=== PATIENT | female | born 1975 | race Caucasian/White ===

== ENCOUNTER 2016-05-25 15:04 | Inpatient (IN) | payer MEDICARE, OTHER ==
[~2016-05-25] VITALS: Ht 165.1 cm; Wt 83.6 kg
[~2016-05-25 15:04] MED LIST: CELE200C PO; CLOB50SO TOP; DICL100G7 TP; FERR-26 PO; FLUT16SP NS; FLUT9.9S AD; HYDR-2666 PO; HYDR28.423 TP; HYOS0.124 PO; INSU100V13 SQ; INSU100V31 SQ; KETO15CR TP; LEVO200T PO; LEVO50TA PO; LEVO5TAB20 PO; LISI-334 PO; NYST15CR TP; OMEP20TA PO; QUET100T PO; SERT100T PO; SIMV40TA3 PO; SITA100T PO; SITA50TA PO; TRIA15CR3 TP; WARF5TAB PO
[2016-05-25 16:30] LABS: BASO # 0.1 x10^3/uL (0.0-0.2); BASO % 1 % (0-3); EOS % 1 % (0-3); HEMATOCRIT 33.1 % (36.0-47.0); HEMOGLOBIN 10.7 g/dL (12.0-15.5); LYMPH # 2.4 x10^3/uL (1.0-4.8); LYMPH % 15 % (24-48); MEAN CORPUSCULAR HEMOGLOBIN 25 pg (25-35); MEAN CORPUSCULAR HGB CONC 32 g/dL (31-37); MEAN CORPUSCULAR VOLUME 78 fL (79-100); MONO % 4 % (0-9); NEUT % 79 % (31-73); PLATELET COUNT 639 x10^3/uL (140-400); RED BLOOD COUNT 4.22 x10^6/uL (3.50-5.40); RED CELL DISTRIBUTION WIDTH 16.9 % (11.5-14.5); WHITE BLOOD COUNT 16.1 x10^3/uL (4.0-11.0)
[2016-05-25 16:38] LABS: INR 1.3 (0.8-1.1)
[2016-05-25 16:42] LABS: CALCIUM 9.4 mg/dL (8.5-10.1); CREATININE 1.9 mg/dL (0.6-1.0); GFR 29.1; POTASSIUM 4.1 mmol/L (3.5-5.1)
--- NOTE | 2016-05-25 16:45 | RAD ---
Exam performed: One view chest. Indication: Shortness of air Date of Service: 05/25/2016 6:20 PM Comparison: 10/30/15. Single AP upright portable view chest findings: Cardiomediastinal silhouette is within limits of normal. No acute infiltrates, effusion or pneumothorax is detected. The bony structures are normal. Impression: No acute cardiopulmonary process is detected.
[2016-05-25 16:49] LABS: ALBUMIN 3.2 g/dL (3.4-5.0); ALBUMIN/GLOBULIN RATIO 0.6 (1.0-1.7); TOTAL BILIRUBIN 0.5 mg/dL (0.2-1.0); TOTAL PROTEIN 8.9 g/dL (6.4-8.2)
[2016-05-25] MEDS ORDERED: FENTANYL PF 100 MCG/2 ML VIAL. IV PRN (17:45)
[2016-05-25] MEDS ORDERED: ONDANSETRON PF 4 MG/2 ML VIAL. IV PRN (17:45)
[2016-05-25] MEDS: IV NORMAL SALINE 1000ML BAG 1,000 ML IV SCH (17:47)
[2016-05-25 17:48] LABS: % BASOS 1 % (0-3); % EOS 4 % (0-5)
[2016-05-25 17:51] LABS: PLT ESTIMATE INCREASED (ADEQUATE); POLYCHROMASIA SLIGHT; TOXIC GRANULATION MOD
[2016-05-25 17:52] LABS: ANISOCYTOSIS SLIGHT; MICROCYTOSIS SLIGHT
[2016-05-25 18:07] LABS: BILIRUBIN,URINE NEGATIVE (NEG); GLUCOSE,URINE NEGATIVE (NEG); NITRITE,URINE NEGATIVE (NEG); PH,URINE 5.5; PROTEIN,URINE 100 mg/dL (NEG-TRACE); UROBILINOGEN,URINE 0.2 mg/dL (0.2 mg/dL)
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
[2016-05-25 18:16] LABS: BACTERIA,URINE FEW /HPF (0-FEW); RBC,URINE OCC /HPF (0-2); SQUAMOUS EPITHELIAL CELL,UR MOD /LPF
[2016-05-25 18:17] LABS: BARBITURATES NEG (NEG); BENZODIAZEPINES NEG (NEG); CANNABINOIDS NEG (NEG); COCAINE NEG (NEG); ETHANOL, URINE NEG (NEG); METHADONE NEG (NEG); OPIATES NEG (NEG); PHENCYCLIDINE NEG (NEG)
[2016-05-25 18:36] VITALS: BP 127/74
[2016-05-25 19:55] VITALS: BP 113/71
--- NOTE | 2016-05-25 20:17 | RAD ---
PROCEDURE Lung scan 05/25/2016 HISTORY Shortness of breath. TECHNIQUE After the administration of 14.0 millicuries of xenon 133 gas, ventilation images of both lungs were obtained using the Gamma camera. After the intravenous administration of 5.0 millicuries of technetium 99 M MAA, perfusion images of both lungs were obtained using the Gamma camera. FINDINGS Comparison is made to a portable chest radiograph performed earlier today. This demonstrates mild cardiomegaly. No acute pulmonary infiltrate is seen. Heterogeneous ventilation and perfusion to both lungs is seen, left greater than right. Matched subsegmental ventilation and perfusion defects are seen involving the left lower lobe. No unmatched perfusion defect is seen. These findings are consistent with a low probability study for pulmonary embolism. IMPRESSION Low probability study for pulmonary embolism. Electronically signed by: Daniel Boyle MD (May 25, 2016 20:16:27)
[2016-05-25 23:45] VITALS: BP 150/83
[2016-05-26] MEDS ORDERED: INFLUENZA VAX SCREEN BY RX. MC PRN (00:15)
[2016-05-26] MEDS: IV NORMAL SALINE 1000ML BAG 1,000 ML IV SCH ×3 (02:11→16:08)
--- NOTE | 2016-05-26 02:19 | ACF ---
Admission Forms Criteria CARDIOLOGY GRG Clinical Indications for Admission to Inpatient Care ( Place 'X' for any and all applicable criteria): Hospital admission is needed for appropriate care of the patient because of ANY ONE of the following (1): [ ] I. Hemodynamic instability as indicated by ALL of the following (1)(2)(3) (4)(5) [ ]a) Vital signs or other findings not as expected for chronic patient condition or baseline [ ]b) Instability indicated by ANY ONE of the following: [ ]i) Hypotension [ ]ii) Symptomatic Tachycardia unresponsive to treatment ( e.g., analgesia, fluids, sedation as indicated) [ ]iii) Inadequate perfusion indicated by ANY ONE of the following: [ ] 1) Lactic acidosis (> 2 mmol/L) [ ] 2) New abnormal capillary refill (> 3 seconds) [ ] 3) Reduced urine output [ ] 4) New altered mental status [ ]iv) Orthostatic vital sign changes unresponsive to treatment (e.g., fluids) [ ]v) IV inotropic or vasopressor medication required to maintain adequate blood pressure or perfusion [ ] II. Severe heart failure as indicated by ANY ONE of the following(17)(18) [ ]a) Respiratory distress [ ]b) Hypotension [ ]c) Anasarca (refractory to outpatient therapy) [ ]d) Cardiac arrhythmias of immediate concern [ ]e) Myocardial ischemia [ ] III. Cardiac arrhythmias or findings of immediate concern indicated by ANY ONE of the following (19)(20): [ ] a) Heart rhythms that are inherently dangerous or unstable indicated by ANY ONE of the following (21)(22)(23): [ ] i) Resuscitated ventricular fibrillation or cardiac arrest [ ] ii) Ventricular escape rhythm [ ] iii) Sustained ventricular tachycardia (30 seconds or more of ventricular rhythm at greater than 100 beats per minute) [ ] iv) Nonsustained ventricular tachycardia and ANY ONE of the following: [ ] 1) Suspected cardiac ischemia as cause or consequence of ventricular tachycardia [ ] 2) In setting of acute myocarditis [ ] b) Unstable cardiac conduction defects indicated by ANY ONE of the following(23)(24)(25) [ ] i) Type II second-degree atrioventricular block [ ]ii) Third-degree atrioventricular block [ ]iii) New-onset left bundle branch block with suspected myocardial ischemia [ ]c) Any heart rhythm and ANY ONE of the following (21)(22)(26)(27) (28) [ ] i) Continuous long-term ECG monitoring needed (e.g., initiation of drug requiring monitoring for more than 24 hours) [ ] ii) Patient has automatic implanted cardioverter defibrillator that is repeatedly firing, malfunctioning, or in need of immediate adjustment of settings beyond the scope of ambulatory or observation care [ ]d) Heart rhythms of concern due to ANY ONE of the following: [ ] i) Hypotension [ ] ii) Respiratory distress [ ] iii) Association with other significant symptoms (e.g., bradycardia with syncope or ongoing dizziness, supraventricular tachycardia with chest pain (14)(15)(17) [ ] IV. Monitoring for cardiac contusion beyond the scope of observation care needed [A](30)(31)(32) [ ] V. Surgical or device complication (e.g., valve replacement complication , pacemaker dysfunction) (35)(41)(44)(45)(46) [ ] . Inpatient palliative care needed. [B](49) Also use Inpatient Palliative Care Criteria [ ] VII. Nonbacterial thrombotic (marantic) endocarditis (36)(43)(47)(48) [X] VIII. Cardiology condition, symptom, or finding for which emergency and observation care has failed or are not considered appropriate. [ ] IX. Acute valvular disease requiring inpatient as indicated by ANY ONE of the following (41) [ ]a) Acute valvular regurgitation (42) [ ]b) Noninfectious valvulitis (43) [ ]c) Obstructive valve thrombosis [ ]d) Paravalvular leak [ ]e) Other significant valvular disorder remaining after emergency or observation level of care (as appropriate) [ ]X. Pericardial disease requiring inpatient treatment as indicated by ANY ONE of the following (33)(34)(35)(36)(37) [ ]a) Suspected tamponade (38)(39)(40) [ ]b) Hemopericardium [ ]c) Other significant pericardial disorder remaining after emergency or observation level of care (as appropriate) [ ] XI. Cardiac ischemia beyond scope of emergency and observation care. [ ] XII. Hypertension requiring inpatient treatment as indicated by ANY ONE of the following (6)(7)(8) [ ]a) SBP greater than 220 mm Hg or DBP greater than 120 mmHg despite treatment [ ]b) SBP greater than 140 mm Hg or DBP greater than 100 mm Hg with evidence of acute end organ damage as indicated by ANY ONE of the following [ ] i) Encephalopathy [ ] ii) Acute renal failure as indicated by new onset of ANY ONE of the following (9)(10)(11)(12)(13) [ ]1) 3-fold rise in serum creatinine from baseline [ ]2) Serum creatinine greater than 4 mg/dL ( 354 micromoles/L) with acute rise greater than 0.5 mg/dL (44.2 micromoles/L) [ ]3) Reduction of more than 75% in estimated glomerular filtration rate from baseline [ ]4) Estimated glomerular filtration rate less than 35 mL/min/1.73m2 (0.59 mL/sec/1.73m2) in child up to 18 years of age [ ]5) Cessation of urine output indicated by ALL of the following [ ]A. Adequate volume status [ ]B. Inadequate urine output as indicated by ANY ONE of the following [ ]a. Urine output less than 0.3 mL/kg/hr for 24 hours [ ]b. Anuria (urine output less than 0.1 mL/kg/hr) for 12 hours [ ] iii) Aortic dissection [ ] iv) Myocardial Ischemia [ ] v) Left ventricular heart failure [ ]vi) Retinal Hemorrhage [ ]vii) Other significant finding [ ]c) Hypertension in child requiring inpatient treatment as indicated by ALL of the following(14)(15)(16) [ ] i) Outpatient treatment not effective, not available, or not appropriate [ ]ii) SBP or DBP greater than 95th percentile for age [ ]iii) Evidence of acute end organ damage as indicated by ANY ONE of the following [ ]1) Altered mental status [ ]2) Acute renal failure as indicated by new onset of ANY ONE of the following(9)(10)(11)(12)(13) [ ]A. 3-fold rise in serum creatinine from baseline [ ]B. Serum creatinine greater than 4 mg/dL (354 micromoles/L) with acute rise greater than 0.5 mg/dL (44.2 micromoles/L) [ ]C. Reduction of more than 75% in estimated glomerular filtration rate from baseline [ ]D. Estimated glomerular filtration rate less than 35 mL/min/1.73m2 (0.59 mL/sec/1.73m2) in child up to 18 years of age [ ]E. Cessation of urine output indicated by ALL of the following [ ]a. Adequate volume status [ ]b. Inadequate urine output as indicated by ANY ONE of the following [ ]i) Urine output less than 0.3 mL/kg/hr for 24 hours [ ]ii) Anuria ( urine output less than 0.1 mL/kg/hr) for 12 hours [ ]3) Severe headache [ ]4) Visual disturbance [ ]5) Retinal hemorrhage [ ]6) Other significant finding [ ]XIII. Complications of transplanted heart indicated by ANY ONE of the following(61): [ ]a) Acute graft rejection requiring inpatient management (eg, intravenous immunosuppression)(62)(63) [ ]b) Acute graft heart failure indicated by ANY ONE of the following(64): [ ]i) Hemodynamic instability [ ]ii) Cardiac arrhythmias of immediate concern [ ]iii) Pulmonary edema that is very severe (eg, mechanical ventilation needed, imminent or likely, need for 100% oxygen to keep oxygen saturation above 90%) [ ]iv) Pulmonary edema that is persistent as indicated by ALL of the following: [ ]1) New need for oxygen therapy to keep oxygen saturation above 90% (or increased FiO2 need from baseline) [ ]2) Has not improved sufficiently with emergency department or observation care IV diuretics or other heart failure treatments[E] [ ]v) Altered mental status that is severe or persistent [ ]vi) Increased creatinine (new on laboratory test) with reduction of more than 50% in estimated glomerular filtration rate from baseline [ ]vii) Progressively (ongoing) rising creatinine (known from past laboratory test) with reduction of more than 25% in estimated glomerular filtration rate from baseline [ ]viii) Acute renal failure [ ]ix) Acute peripheral ischemia (eg, examination shows pulseless, cool, mottled, or cyanotic extremity) [ ]x) Pulmonary artery catheter monitoring needed [ ]xi) Other sign or symptom of heart failure requiring inpatient treatment (ie, too severe or not responsive to outpatient and observation care treatment) [ ]c) Infection requiring inpatient management (eg, Hemodynamic instability, need for intravenous antimicrobial treatment)(66)(67)(68)(69)(70) [ ]d) Cardiac allograft vasculopathy requiring inpatient management ( eg evidence of cardiac ischemia)(71) [ ]e) Other complication of transplanted heart (eg, stroke, severe pulmonary hypertension, severe valvular dysfunction) requiring inpatient management(72) The original [facility] content created by [facility] has been revised. The portions of the content which have been revised are identified through the use of italic text or in bold, and [facility] has neither reviewed nor approved the modified material. All other unmodified content is copyright [facility]. Please see references footnoted in the original [facility] edition 2016 Admission Criteria Met?: Yes LAUREANO SALAS May 26, 2016 02:19
[2016-05-26 03:38] VITALS: BP 123/74
[2016-05-26 07:00] VITALS: BP 113/67
--- NOTE | 2016-05-26 07:59 | PDOC1 ---
History and Physical Date of Admission Date of Admission DATE: 05/25/16 Identification/Chief Complaint Chief Complaint Chest pain Source Source: Patient History of Present Illness History of Present Illness Pt was seen early this morning after being evaluated in the clinic yesterday afternoon and sent to the ER. Pt came to the clinic yesterday with multiple complaints. She had stopped taking her medications for a couple of weeks and was overall not feeling well. She was complaining of chest pain and was supposed to get a stress test outpatient, but stress test could not be performed because pt was ill with cough. She is still having intermittent chest pain. She has now had a cough for the past 2-3 weeks with yellow sputum. There are also placement concerns. Pt is no longer wanting to live at home and is interested in either a long-term, or preferably a prison which her father is agreeable to. Past Medical History Cardiovascular: HTN, Hyperlipidemia Pulmonary: No pertinent hx CENTRAL NERVOUS SYSTEM: Periperal neuropathy GI: GERD, Inflam bowel disease Heme/Onc: Cancer, Iron deficiency Anemia Hepatobiliary: No pertinent hx Psych: Bipolar, Schizophrenia Musculoskeletal: Osteoarthritis Rheumatologic: No pertinent hx Infectious disease: No pertinent hx ENT: No pertinent hx Renal/: Chronic renal insuff Endocrine: Diabetes, Hypothyroidism, Osteoporosis Dermatology: Eczema, Psoriasis Past Surgical History Past Surgical History: Total hip replacement, Total knee replacement, Tonsillectomy, Other (Ileostomy, Thyroidectomy, Axillary hydradenitis repair) Family History Family History: Cancer (Ovarian cancer), Coronary Artery Disease Social History Smoke: Quit ALCOHOL: none Drugs: None Current Problem List Problem List Problems Medical Problems: (1) Anxiety Status: Acute (2) Chest pain Status: Acute (3) Cough Status: Acute (4) Tachycardia Status: Acute Problems: Current Medications Current Medications Current Medications Ondansetron HCl (Zofran) 4 mg PRN Q8HRS PRN IV NAUSEA/VOMITING; Start 05/25/16 at 17:45; Stop 05/26/16 at 17:44 Fentanyl Citrate 50 mcg 50 mcg PRN Q2HR PRN IV PAIN; Start 05/25/16 at 17:45; Stop 05/26/16 at 17:44 Sodium Chloride (Iv Sodium Chloride 0.9% 1000ml Bag) 1,000 ml @ 150 mls/hr Q6H40M IV Last administered on 05/26/16t 02:11; Start 05/25/16 at 17:36; Stop at 17:35 Influenza Virus Vaccine Quadrival (Fluarix Quad [id number] Syringe) 0.5 ml ONCE ONCE VAX IM ; Start 05/26/16 at 09:00; Stop 05/26/16 at 09:01 Info (Do NOT chart on this placeholder) 1 each PRN 1X PRN MC SEE COMMENTS; Start 05/26/16 at 00:15; Status Cancel Active Scripts Active Reported Voltaren (Diclofenac Sodium) 100 Gm Gel..gram. 1 Gm TP QID Fluticasone Propionate Nasal Virgin (Fluticasone Propionate) 16 Gm Virgin.susp 2 Virgin NS DAILY Quetiapine Fumarate 100 Mg Tablet 200 Mg PO HS Ferrous Sulfate 325 Mg Tablet 325 Mg PO DAILY Hydrocortisone Plus 1% Cream (Hydrocortisone/Aloe Vera) 28.4 Gm Cream..g. 1 Applic TP Hyoscyamine Sulfate 0.125 Mg Tablet 0.125 Mg PO Omeprazole 20 Mg Tablet.dr 20 Mg PO BID Ketoconazole 15 Gm Cream..g. 1 Heraclio TP BID Triamcinolone Acetonide 0.1% Cream (Triamcinolone Acetonide) 15 Gm Cream..g. 1 Heraclio TP BID Synthroid (Levothyroxine Sodium) 200 Mcg Tablet 200 Mcg PO DAILYAC Cormax (Clobetasol Propionate) 50 Ml Solution 1 Heraclio TOP HS Hydrocodone-Apap 5-325 (Hydrocodone Bit/Acetaminophen) 1 Each Tablet 1 Tab PO PRN Q6HRS PRN Novolog (Insulin Aspart) 100 Unit/1 Ml Vial 10 Unit SQ BIDACLD Januvia (Sitagliptin Phosphate) 100 Mg Tablet 100 Mg PO DAILY Xyzal (Levocetirizine Dihydrochloride) 5 Mg Tablet 5 Mg PO DAILYWSUP Lisinopril 20 Mg Tablet 20 Mg PO DAILY Simvastatin 40 Mg Tablet 40 Mg PO HS Triamcinolone Acetonide 0.1% Cream (Triamcinolone Acetonide) 15 Gm Cream..g. 1 Heraclio TP TID Nystatin 15 Gm Cream..g. 15 Gm TP BID Zoloft (Sertraline Hcl) 100 Mg Tablet 100 Mg PO DAILY Hydrocodone-Apap 5-325 (Hydrocodone Bit/Acetaminophen) 1 Each Tablet 1 Tab PO PRN Q6HRS PRN Levemir (Insulin Detemir) 100 Unit/1 Ml Vial 12 Unit SQ Allergies Allergies: Coded Allergies: Penicillins (Verified Allergy, Severe, Anaphylaxis, 12/29/15) aspirin (Verified Allergy, Severe, Anaphylaxis, 12/29/15) Latex, Natural Rubber (Verified Allergy, Intermediate, Rash, 12/30/15) RUBBER latex (Verified Allergy, Intermediate, Rash, 12/29/15) piperacillin (Verified Allergy, Intermediate, Rash, 12/29/15) tazobactam (Verified Allergy, Intermediate, Rash, 12/29/15) tizanidine (Verified Allergy, Intermediate, Itching, 12/29/15) I S O L A T I O N *CONTACT* (Verified Allergy, Unknown, 12/19/15) mrsa acetaminophen (Verified Adverse Reaction, Intermediate, elevated liver enzymes, 01/01/16) Uncoded Allergies: PLASTIC (Allergy, Intermediate, Rash, 10/27/15) ROS General: YES: Chills, Fatigue PSYCHOLOGICAL ROS: YES: Anxiety, Depression, Mood Swings, No: Suicidal ideation Eyes: No Decreased vision, No Eye Pain HEENT: YES: Nasal congestion, No: Sore Throat ALLERGY AND IMMUNOLOGY: No: Hives, Post Nasal Drip Hematological and Lymphatic: No: Bleeding Problems, Blood Clots Respiratory: YES: Cough, Shortness of breath, Sputum Changes, No: Wheezing Cardiovascular: yes Chest Pain, No Edema, No Palpitations Gastrointestinal: Yes Abdominal Pain (chronic), Yes Nausea, Yes Other (no changes in ostomy output), Yes Vomiting Genitourinary: No Dysuria, No Urgency Musculoskeletal: Yes Joint Pain, Yes Muscle Pain Neurological: Yes Behavorial Changes, Yes Numbness/Tingling, No Impaired Coord/balance, No Weakness Skin: No Rash, No Skin Lesion Changes Physical Exam General: Alert, Oriented X3, Cooperative, No acute distress HEENT: Atraumatic, PERRLA, EOMI, Mucous membr. moist/pink Lungs: Clear to auscultation, Normal air movement Heart: RRR, no rubs, no gallops, no murmurs Abdomen: Normal bowel sounds, Soft, No hepatosplenomegaly Extremities: No clubbing, No cyanosis, No edema Skin: Other (scaly patches of skin throughout) Neuro: Normal speech, Cranial nerves 3-12 NL Psych/Mental Status: Mental status NL, Mood NL Vitals Vitals Vital Signs Date Time Temp Pulse Resp B/P Pulse Ox O2 Delivery O2 Flow Rate FiO2 05/26/16 03:38 98.1 90 20 123/74 95 Room Air 98.1 Labs Labs Laboratory Tests Test 05/25/16 15:25 05/25/16 17:45 05/25/16 17:53 05/25/16 20:14 White Blood Count 16.1x10^3/uL (4.0-11.0) Red Blood Count 4.22x10^6/uL (3.50-5.40) Hemoglobin 10.7g/dL (12.0-15.5) Hematocrit 33.1% (36.0-47.0) Mean Corpuscular Volume 78fL (79-100) Mean Corpuscular Hemoglobin 25pg (25-35) Mean Corpuscular Hemoglobin Concent 32g/dL (31-37) Red Cell Distribution Width 16.9% (11.5-14.5) Platelet Count 639x10^3/uL (140-400) Neutrophils (%) (Auto) 79% (31-73) Lymphocytes (%) (Auto) 15% (24-48) Monocytes (%) (Auto) 4% (0-9) Eosinophils (%) (Auto) 1% (0-3) Basophils (%) (Auto) 1% (0-3) Neutrophils # (Auto) 12.8x10^3uL (1.8-7.7) Lymphocytes # (Auto) 2.4x10^3/uL (1.0-4.8) Monocytes # (Auto) 0.7x10^3/uL (0.0-1.1) Eosinophils # (Auto) 0.1x10^3/uL (0.0-0.7) Basophils # (Auto) 0.1x10^3/uL (0.0-0.2) Segmented Neutrophils % 74% (35-66) Band Neutrophils % 1% (0-9) Lymphocytes % 15% (24-48) Monocytes % 4% (0-10) Eosinophils % 4% (0-5) Basophils % 1% (0-3) Metamyelocytes % 1% (0-0) Toxic Granulation Mod Platelet Estimate Increased (ADEQUATE) Polychromasia Slight Anisocytosis Slight Microcytosis Slight Prothrombin Time 15.0SEC (11.7-14.0) Prothromb Time International Ratio 1.3 (0.8-1.1) D-Dimer (Ratna) 2.20ug/mlFEU (0.00-0.50) Sodium Level 139mmol/L (136-145) Potassium Level 4.1mmol/L (3.5-5.1) Chloride Level 106mmol/L (98-107) Carbon Dioxide Level 13mmol/L (21-32) Anion Gap 20 (6-14) Blood Urea Nitrogen 28mg/dL (7-20) Creatinine 1.9mg/dL (0.6-1.0) Estimated GFR (Cockcroft-Gault) 29.1 BUN/Creatinine Ratio 15 (6-20) Glucose Level 183mg/dL (70-99) Calcium Level 9.4mg/dL (8.5-10.1) Total Bilirubin 0.5mg/dL (0.2-1.0) Aspartate Amino Transf (AST/SGOT) 29U/L (15-37) Alanine Aminotransferase (ALT/SGPT) 28U/L (14-59) Alkaline Phosphatase 182U/L (46-116) Troponin I Quantitative < 0.017ng/mL (0.000-0.055) [id number]-Kjl-[id number]-Type Natriuretic Peptide 113pg/mL (0-124) Total Protein 8.9g/dL (6.4-8.2) Albumin 3.2g/dL (3.4-5.0) Albumin/Globulin Ratio 0.6 (1.0-1.7) Ethyl Alcohol Level < 10mg/dL (0-10) Urine Collection Type Unknown Urine Color Yellow Urine Clarity Cloudy Urine pH 5.5 Urine Specific [place] 1.020 Urine Protein 100mg/dL (NEG-TRACE) Urine Glucose (UA) Negativemg/dL (NEG) Urine Ketones (Stick) Negativemg/dL (NEG) Urine Blood Small (NEG) Urine Nitrite Negative (NEG) Urine Bilirubin Negative (NEG) Urine Urobilinogen Dipstick 0.2mg/dL (0.2 mg/dL) Urine Leukocyte Esterase Small (NEG) Urine RBC Occ/HPF (0-2) Urine WBC 5-10/HPF (0-4) Urine Squamous Epithelial Cells Mod/LPF Urine Bacteria Few/HPF (0-FEW) Urine Hyaline Casts Few/HPF Urine Mucus Mod/LPF Urine Opiates Screen Neg (NEG) Urine Methadone Screen Neg (NEG) Urine Barbiturates Neg (NEG) Urine Phencyclidine Screen Neg (NEG) Urine Amphetamine/Methamphetamine Neg (NEG) Urine Benzodiazepines Screen Neg (NEG) Urine Cocaine Screen Neg (NEG) Urine Cannabinoids Screen Neg (NEG) Urine Ethyl Alcohol Neg (NEG) Bedside Urine HCG, Qualitative Hcg negative (Negative) Glucose (Fingerstick) 177mg/dL (70-99) Test 05/25/16 23:30 05/26/16 06:20 Troponin I Quantitative < 0.017ng/mL (0.000-0.055) < 0.017ng/mL (0.000-0.055) Laboratory Tests Test 05/25/16 15:25 05/25/16 17:45 05/25/16 17:53 05/25/16 20:14 White Blood Count 16.1x10^3/uL (4.0-11.0) Red Blood Count 4.22x10^6/uL (3.50-5.40) Hemoglobin 10.7g/dL (12.0-15.5) Hematocrit 33.1% (36.0-47.0) Mean Corpuscular Volume 78fL (79-100) Mean Corpuscular Hemoglobin 25pg (25-35) Mean Corpuscular Hemoglobin Concent 32g/dL (31-37) Red Cell Distribution Width 16.9% (11.5-14.5) Platelet Count 639x10^3/uL (140-400) Neutrophils (%) (Auto) 79% (31-73) Lymphocytes (%) (Auto) 15% (24-48) Monocytes (%) (Auto) 4% (0-9) Eosinophils (%) (Auto) 1% (0-3) Basophils (%) (Auto) 1% (0-3) Neutrophils # (Auto) 12.8x10^3uL (1.8-7.7) Lymphocytes # (Auto) 2.4x10^3/uL (1.0-4.8) Monocytes # (Auto) 0.7x10^3/uL (0.0-1.1) Eosinophils # (Auto) 0.1x10^3/uL (0.0-0.7) Basophils # (Auto) 0.1x10^3/uL (0.0-0.2) Segmented Neutrophils % 74% (35-66) Band Neutrophils % 1% (0-9) Lymphocytes % 15% (24-48) Monocytes % 4% (0-10) Eosinophils % 4% (0-5) Basophils % 1% (0-3) Metamyelocytes % 1% (0-0) Toxic Granulation Mod Platelet Estimate Increased (ADEQUATE) Polychromasia Slight Anisocytosis Slight Microcytosis Slight Prothrombin Time 15.0SEC (11.7-14.0) Prothromb Time International Ratio 1.3 (0.8-1.1) D-Dimer (Ratna) 2.20ug/mlFEU (0.00-0.50) Sodium Level 139mmol/L (136-145) Potassium Level 4.1mmol/L (3.5-5.1) Chloride Level 106mmol/L (98-107) Carbon Dioxide Level 13mmol/L (21-32) Anion Gap 20 (6-14) Blood Urea Nitrogen 28mg/dL (7-20) Creatinine 1.9mg/dL (0.6-1.0) Estimated GFR (Cockcroft-Gault) 29.1 BUN/Creatinine Ratio 15 (6-20) Glucose Level 183mg/dL (70-99) Calcium Level 9.4mg/dL (8.5-10.1) Total Bilirubin 0.5mg/dL (0.2-1.0) Aspartate Amino Transf (AST/SGOT) 29U/L (15-37) Alanine Aminotransferase (ALT/SGPT) 28U/L (14-59) Alkaline Phosphatase 182U/L (46-116) Troponin I Quantitative < 0.017ng/mL (0.000-0.055) YK-Nde-B-Type Natriuretic Peptide 113pg/mL (0-124) Total Protein 8.9g/dL (6.4-8.2) Albumin 3.2g/dL (3.4-5.0) Albumin/Globulin Ratio 0.6 (1.0-1.7) Ethyl Alcohol Level < 10mg/dL (0-10) Urine Collection Type Unknown Urine Color Yellow Urine Clarity Cloudy Urine pH 5.5 Urine Specific [place] 1.020 Urine Protein 100mg/dL (NEG-TRACE) Urine Glucose (UA) Negativemg/dL (NEG) Urine Ketones (Stick) Negativemg/dL (NEG) Urine Blood Small (NEG) Urine Nitrite Negative (NEG) Urine Bilirubin Negative (NEG) Urine Urobilinogen Dipstick 0.2mg/dL (0.2 mg/dL) Urine Leukocyte Esterase Small (NEG) Urine RBC Occ/HPF (0-2) Urine WBC 5-10/HPF (0-4) Urine Squamous Epithelial Cells Mod/LPF Urine Bacteria Few/HPF (0-FEW) Urine Hyaline Casts Few/HPF Urine Mucus Mod/LPF Urine Opiates Screen Neg (NEG) Urine Methadone Screen Neg (NEG) Urine Barbiturates Neg (NEG) Urine Phencyclidine Screen Neg (NEG) Urine Amphetamine/Methamphetamine Neg (NEG) Urine Benzodiazepines Screen Neg (NEG) Urine Cocaine Screen Neg (NEG) Urine Cannabinoids Screen Neg (NEG) Urine Ethyl Alcohol Neg (NEG) Bedside Urine HCG, Qualitative Hcg negative (Negative) Glucose (Fingerstick) 177mg/dL (70-99) Test 05/25/16 23:30 05/26/16 06:20 Troponin I Quantitative < 0.017ng/mL (0.000-0.055) < 0.017ng/mL (0.000-0.055) VTE Prophylaxis Ordered VTE Prophylaxis Devices: Yes VTE Pharmacological Prophylaxi: No Assessment/Plan Assessment/Plan Pt is a 40yo female admitted for chest pain rule out 1)Chest pain- troponins x3 WNL. Cardiology consulted. Pt was supposed to have stress test outpatient but was unable to get it done because she was ill. 2)Mucopurulent bronchitis- pt started on Levaquin. She has had productive cough for 3 weeks 3)DM2- previously well controlled with HbA1C 01/10 of 6.3, repeat pending. Pt continued on Levemir 40 units, Novolog 10 units BID and started on SSI. Pt's Januvia 100mg is being held 4)Hypothyroidism- well controlled with TSH of 0.696. Pt continued on Levothyroxine 200mcg qday 5)Leukocytosis- pt being treated for bronchitis. Urine appears dirty; culture pending. Pt not having any other infectious symptoms. CTM 6)HTN- well controlled. Pt continued on Lisinopril 20mg 7)Depression/Schizophrenia- pt continued on Quetiapine 200mg QHS 8)GERD- pt transitioned to Pantoprazole 40mg 9)HLD- pt continued on Simvastatin 40mg qday 10)Migraines- pt continued on Topamax 50mg BID 11)Anemia- Hb stable. Pt continued on Ferrous Sulfate. No active bleeding 12)CKD- pt's Cr is stable from where it has been in the past. Electrolytes stable 13)PEM- mild 14)Thrombocytosis- pt's platelets significantly increased. DARIA ABDUL MD May 26, 2016 07:59
[2016-05-26] MEDS ORDERED: HYDROCODONE/APAP 5/325MG TABLET. PO PRN (08:00)
[2016-05-26] MEDS ORDERED: LEVOFLOXACIN 500 MG TABLET PO SCH (09:00)
[2016-05-26] MEDS ORDERED: FLU VACC QUAD 2016-17 (36MOS+)/PF 0.5 ML SYRINGE. VAX IM ONE (09:00)
[2016-05-26] MEDS: DICLOFENAC SODIUM 1% TOPICAL GEL 100GM TUBE. TP SCH ×4 (09:00→20:52)
[2016-05-26] MEDS ORDERED: LISINOPRIL 20 MG TABLET PO SCH (09:00)
--- NOTE | 2016-05-26 10:07 | PDOC2 ---
ERI TORRES STEAMING CABINET TENDER 05/26/16 1007: CARDIAC CONSULT DATE OF CONSULT Date of Consult DATE: 05/26/16 TIME: 09:53 REASON FOR CONSULT Reason for Consult: Chest pain REFERRING PHYSICIAN Referring Physician: Isaías SOURCE Source: Chart review, Patient HISTORY OF PRESENT ILLNESS HISTORY OF PRESENT ILLNESS This is a pleasant 40 yo female admitted for complains of chest pain. She presented in our office with atypical CP complain recently and was scheduled for stress test and echocardiogram on 05/19/2015 but cancelled these due to her not feeling well as well as cough and GI symptoms. She has been having bouts of nonproductive cough which has improved significantly but lately she has been having intermittent nausea and vomiting with last 2 episodes yesterday. She also has a colostomy which her stool has been more "liquidy". Reports of chest pain on left chest describing it as sharp tightness and intermittent. Occasional SOA but has been feeling weak and has been having periods of palpitations. Denies any dizziness, PND. Her chest pain is nonradiating and nonreproducible. Denies any recent falls, injury, fever, chills although she has been feeling hot-cold. PAST MEDICAL HISTORY Cardiovascular: HTN, Hyperlipidemia GI: GERD, Inflam bowel disease (ulcerative colitis/chrons) Heme/Onc: Anemia NOS Psych: Anxiety, Depression, Schizophrenia, Other (insomnia) Musculoskeletal: Osteoarthritis Renal/: Chronic renal insuff (ckd3) Endocrine: Diabetes (2), Hypothyroidism, Osteoporosis Dermatology: Eczema PAST SURGICAL HISTORY Past Surgical History: Total hip replacement (left), Colon Resection, Other ( ilostomy 2000; thyroidectomy) FAMILY HISTORY Family History: Coronary Artery Disease (mother) SOCIAL HISTORY Smoke: No (quit remotely) ALCOHOL: occassional Drugs: None Lives: with Family CURRENT MEDICATIONS CURRENT MEDICATIONS Current Medications Medications (Trade) Dose Ordered Sig/Mini Route PRN Reason Start Time Stop Time Status Last Admin Dose Admin Sodium Chloride (Iv Sodium Chloride 0.9% 1000ml Bag) 1,000 ml @ 150 mls/hr Q6H40M IV 05/25/16 17:36 05/26/16 17:35 05/26/16 02:11 ALLERGIES ALLERGIES: Coded Allergies: Penicillins (Verified Allergy, Severe, Anaphylaxis, 12/29/15) aspirin (Verified Allergy, Severe, Anaphylaxis, 12/29/15) Latex, Natural Rubber (Verified Allergy, Intermediate, Rash, 12/30/15) RUBBER latex (Verified Allergy, Intermediate, Rash, 12/29/15) piperacillin (Verified Allergy, Intermediate, Rash, 12/29/15) tazobactam (Verified Allergy, Intermediate, Rash, 12/29/15) tizanidine (Verified Allergy, Intermediate, Itching, 12/29/15) I S O L A T I O N *CONTACT* (Verified Allergy, Unknown, 12/19/15) mrsa acetaminophen (Verified Adverse Reaction, Intermediate, elevated liver enzymes, 01/01/16) Uncoded Allergies: PLASTIC (Allergy, Intermediate, Rash, 10/27/15) ROS Review of System 14 point ROS evaluated with pertinent positives noted per HPI PHYSICAL EXAM General: Alert, Oriented X3, Cooperative, No acute distress HEENT: Atraumatic, Mucous membr. moist/pink Lungs: Clear to auscultation, Normal air movement Heart: Regular rate (sinus tachycardia), Normal S1, Normal S2, Other (2/6 systolic murmur to LLS border) Abdomen: Soft, No tenderness, Other (ileostomy) Extremities: No cyanosis, Other (trace LE edema) Skin: No breakdown, No significant lesion Neuro: Normal speech, Sensation intact Psych/Mental Status: Mental status NL, Mood NL MUSCULOSKELETAL: Osteoarthritic changes both hands VITALS VITALS Vital Signs Date Time Temp Pulse Resp B/P Pulse Ox O2 Delivery O2 Flow Rate FiO2 05/26/16 07:00 97 Room Air 05/26/16 07:00 98.0 86 22 113/67 98.0 LABS Lab: Laboratory Tests Test 05/25/16 15:25 05/25/16 17:45 05/25/16 17:53 05/25/16 20:14 White Blood Count 16.1x10^3/uL (4.0-11.0) Red Blood Count 4.22x10^6/uL (3.50-5.40) Hemoglobin 10.7g/dL (12.0-15.5) Hematocrit 33.1% (36.0-47.0) Mean Corpuscular Volume 78fL (79-100) Mean Corpuscular Hemoglobin 25pg (25-35) Mean Corpuscular Hemoglobin Concent 32g/dL (31-37) Red Cell Distribution Width 16.9% (11.5-14.5) Platelet Count 639x10^3/uL (140-400) Neutrophils (%) (Auto) 79% (31-73) Lymphocytes (%) (Auto) 15% (24-48) Monocytes (%) (Auto) 4% (0-9) Eosinophils (%) (Auto) 1% (0-3) Basophils (%) (Auto) 1% (0-3) Neutrophils # (Auto) 12.8x10^3uL (1.8-7.7) Lymphocytes # (Auto) 2.4x10^3/uL (1.0-4.8) Monocytes # (Auto) 0.7x10^3/uL (0.0-1.1) Eosinophils # (Auto) 0.1x10^3/uL (0.0-0.7) Basophils # (Auto) 0.1x10^3/uL (0.0-0.2) Segmented Neutrophils % 74% (35-66) Band Neutrophils % 1% (0-9) Lymphocytes % 15% (24-48) Monocytes % 4% (0-10) Eosinophils % 4% (0-5) Basophils % 1% (0-3) Metamyelocytes % 1% (0-0) Toxic Granulation Mod Platelet Estimate Increased (ADEQUATE) Polychromasia Slight Anisocytosis Slight Microcytosis Slight Prothrombin Time 15.0SEC (11.7-14.0) Prothromb Time International Ratio 1.3 (0.8-1.1) D-Dimer (Ratna) 2.20ug/mlFEU (0.00-0.50) Sodium Level 139mmol/L (136-145) Potassium Level 4.1mmol/L (3.5-5.1) Chloride Level 106mmol/L (98-107) Carbon Dioxide Level 13mmol/L (21-32) Anion Gap 20 (6-14) Blood Urea Nitrogen 28mg/dL (7-20) Creatinine 1.9mg/dL (0.6-1.0) Estimated GFR (Cockcroft-Gault) 29.1 BUN/Creatinine Ratio 15 (6-20) Glucose Level 183mg/dL (70-99) Calcium Level 9.4mg/dL (8.5-10.1) Total Bilirubin 0.5mg/dL (0.2-1.0) Aspartate Amino Transf (AST/SGOT) 29U/L (15-37) Alanine Aminotransferase (ALT/SGPT) 28U/L (14-59) Alkaline Phosphatase 182U/L (46-116) Troponin I Quantitative < 0.017ng/mL (0.000-0.055) LP-Stk-P-Type Natriuretic Peptide 113pg/mL (0-124) Total Protein 8.9g/dL (6.4-8.2) Albumin 3.2g/dL (3.4-5.0) Albumin/Globulin Ratio 0.6 (1.0-1.7) Ethyl Alcohol Level < 10mg/dL (0-10) Urine Collection Type Unknown Urine Color Yellow Urine Clarity Cloudy Urine pH 5.5 Urine Specific [place] 1.020 Urine Protein 100mg/dL (NEG-TRACE) Urine Glucose (UA) Negativemg/dL (NEG) Urine Ketones (Stick) Negativemg/dL (NEG) Urine Blood Small (NEG) Urine Nitrite Negative (NEG) Urine Bilirubin Negative (NEG) Urine Urobilinogen Dipstick 0.2mg/dL (0.2 mg/dL) Urine Leukocyte Esterase Small (NEG) Urine RBC Occ/HPF (0-2) Urine WBC 5-10/HPF (0-4) Urine Squamous Epithelial Cells Mod/LPF Urine Bacteria Few/HPF (0-FEW) Urine Hyaline Casts Few/HPF Urine Mucus Mod/LPF Urine Opiates Screen Neg (NEG) Urine Methadone Screen Neg (NEG) Urine Barbiturates Neg (NEG) Urine Phencyclidine Screen Neg (NEG) Urine Amphetamine/Methamphetamine Neg (NEG) Urine Benzodiazepines Screen Neg (NEG) Urine Cocaine Screen Neg (NEG) Urine Cannabinoids Screen Neg (NEG) Urine Ethyl Alcohol Neg (NEG) Bedside Urine HCG, Qualitative Hcg negative (Negative) Glucose (Fingerstick) 177mg/dL (70-99) Test 05/25/16 23:30 05/26/16 06:20 05/26/16 07:34 Troponin I Quantitative < 0.017ng/mL (0.000-0.055) < 0.017ng/mL (0.000-0.055) Glucose (Fingerstick) 128mg/dL (70-99) ASSESSMENT/PLAN ASSESSMENT/PLAN 1. Atypical chest pain: significant cardiac risk factors 2. Leukocytosis/thrombocytosis 3. MEHRAN on CKD3: volume depletion with noted vomiting episodes 4. DM2 5. Hypothyroidism 6. HLP 7. Anemia of chronic disease 8. Hx of ulcerative colitis and Chrons Recommendations 1. IVF and maintain lyte balance 2. TTE today and MPI tomorrow(ate breakfast today) 3. lipid panel, TSH, Mg Problems: MAXIMUS SKELTON MD 05/27/16 0817: CARDIAC CONSULT ALLERGIES ALLERGIES: Coded Allergies: Penicillins (Verified Allergy, Severe, Anaphylaxis, 12/29/15) aspirin (Verified Allergy, Severe, Anaphylaxis, 12/29/15) Latex, Natural Rubber (Verified Allergy, Intermediate, Rash, 12/30/15) RUBBER latex (Verified Allergy, Intermediate, Rash, 12/29/15) piperacillin (Verified Allergy, Intermediate, Rash, 12/29/15) tazobactam (Verified Allergy, Intermediate, Rash, 12/29/15) tizanidine (Verified Allergy, Intermediate, Itching, 12/29/15) I S O L A T I O N *CONTACT* (Verified Allergy, Unknown, 12/19/15) mrsa acetaminophen (Verified Adverse Reaction, Intermediate, elevated liver enzymes, 01/01/16) Uncoded Allergies: PLASTIC (Allergy, Intermediate, Rash, 10/27/15) ASSESSMENT/PLAN ASSESSMENT/PLAN Patient seen and examined 05/26/16. Agree with REFRIGERATOR REPAIRMAN's assessment and plan. Chest pain with atypical features and most probably musculoskeletal. Myocardial infarction. 2-D echo showed normal LV function without any regional wall motion abnormalities. Continue intravenous fluids for acute on chronic renal insufficiency. Thank you for the consultation. Problems: ERI TORRES APRN May 26, 2016 10:07 MAXIMUS SKELTON MD May 27, 2016 08:17
[2016-05-26] MEDS: FERROUS SULFATE 325 MG TABLET PO SCH (10:45)
[2016-05-26] MEDS: FLUTICASONE 50MCG/NASAL SPRAY 16GM BOTTLE. NS SCH (10:45)
[2016-05-26] MEDS: PANTOPRAZOLE 40 MG TABLET. PO SCH (10:46)
[2016-05-26] MEDS: SERTRALINE 50 MG TABLET. PO SCH (10:46)
[2016-05-26] MEDS: TRIAMCINOLONE ACETONIDE 0.1% TOPICAL CREAM 15GM TUBE. TP SCH ×2 (10:49→20:51)
[2016-05-26] MEDS: NYSTATIN 100,000 UNIT/GM TOPICAL CREAM 15GM TUBE. TP SCH ×2 (10:49→20:52)
[2016-05-26 11:00] VITALS: BP 136/72
[2016-05-26] MEDS: LEVOTHYROXINE 100 MCG TABLET PO SCH (11:03)
--- NOTE | 2016-05-26 11:06 | EKG ---
[facility] [address] [place] [address] Test Date: 2016-05-25 Test Time: 15:19:09 Pat Name: SHEKHAR KULKARNI Department: Room: 5 Gender: F Driller'S Assistant: : 1975 Requested By: MAKSIM SAEED Order Number: [id number] Reading MD: Joseph Harding Measurements Intervals [place] Rate: 109 P: 8 DC: 194 QRS: 34 QRSD: 84 T: 144 QT: 296 QTc: 400 Interpretive Statements SINUS TACHYCARDIA LEFT ATRIAL ABNORMALITY LVH WITH REPOLARIZATION ABNORMALITY QRS(T) CONTOUR ABNORMALITY CONSIDER INFERIOR MYOCARDIAL DAMAGE RI6.01 Unconfirmed report Electronically Signed On 05-31-2016 10:56:29 RAG SHREDDER by Joseph Harding
[2016-05-26 11:07] LABS: CHOLESTEROL/HDL RATIO 4.1
[2016-05-26] MEDS: INSULIN ASPART 300 UNITS/3 ML INSULN.PEN SQ SCH ×3 (11:17→17:08)
[2016-05-26 15:00] VITALS: BP 113/63
[2016-05-26] MEDS ORDERED: DEXTROSE 50% 25 GM / 50ML DISP.SYRIN. IV PRN (16:45)
--- NOTE | 2016-05-26 16:46 | CARD ---
APPROVED REPORT EXAM: Two-dimensional and M-mode echocardiogram with Doppler and color Doppler. Other Information Quality : LimitedHR: 75bpm Rhythm : NSR INDICATION Chest Pain 2D DIMENSIONS RVDd2.3 (2.9-3.5cm)Left Atrium(2D)2.9 (1.6-4.0cm) IVSd0.8 (0.7-1.1cm)Aortic Root(2D)1.9 (2.0-3.7cm) LVDd3.0 (3.9-5.9cm)LVOT Diameter2.2 (1.8-2.4cm) PWd0.9 (0.7-1.1cm)LVDs2.1 (2.5-4.0cm) FS (%) 32.2 %SV22.6 ml LVEF(%)61.9 (>50%) Aortic Valve AoV Peak Carlos A.118.7cm/sAoV VTI24.8cm AO Peak GR.5.6mmHgLVOT Peak Carlos A.102.4cm/s AO Mean GR.4mmHgAVA (VMAX)3.28cm2 Mitral Valve MV E Ksqgsygw33.4cm/sMV E Peak Gr.4mmHg MV DECEL [id number] A Mwnrrwky03.4cm/s MV E Mean Gr.1mmHgE/A Ratio1.1 MV A [id number] Pulmonary Valve PV Peak Awanjppo26.8cm/s Pulmonary Vein S1 Imkzzckp86.6cm/sD2 Louwotsq17.5cm/s PVa [id number] LEFT VENTRICLE The left ventricle is normal size. There is normal left ventricular wall thickness. The left ventricu lar systolic function is normal. The Ejection Fraction is 60-65%. The left ventricular diastolic func tion and filling is normal for age. RIGHT VENTRICLE The right ventricle is normal size. There is normal right ventricular wall thickness. The right ventr icular systolic function is normal. ATRIA The left atrium size is normal. The right atrium size is normal. The interatrial septum is intact wit h no evidence for an atrial septal defect or patent foramen ovale as noted on 2-D or Doppler imaging. AORTIC VALVE The aortic valve is not well visualized. Doppler and Color Flow revealed no significant aortic regurg itation. There is no significant aortic valvular stenosis. MITRAL VALVE The mitral valve is not well visualized. There is no evidence of mitral valve prolapse. There is no m itral valve stenosis. Doppler and Color Flow revealed trace mitral regurgitation. TRICUSPID VALVE The tricuspid valve is not well visualized. Doppler and Color Flow revealed no tricuspid valve regurg itation noted. PULMONIC VALVE The pulmonic valve is not well visualized. Doppler and Color Flow revealed no pulmonic valvular regur gitation. There is no pulmonic valvular stenosis. GREAT VESSELS The aortic root is normal in size. The ascending aorta is normal in size. The pulmonary is not well v isualized. The IVC is normal in size and collapses >50% with inspiration. PERICARDIAL EFFUSION There is no evidence of significant pericardial effusion. Critical Notification Critical Value: No <Conclusion> The left ventricular systolic function is normal. The Ejection Fraction is 60-65%. Doppler and Color Flow revealed trace mitral regurgitation. There is no evidence of significant pericardial effusion.
[2016-05-26 19:59] VITALS: BP 109/63
[2016-05-26] MEDS: SIMVASTATIN 40 MG TABLET. PO SCH (20:52)
[2016-05-26] MEDS: QUEtiapine 100 MG TABLET. PO SCH (20:52)
[2016-05-26] MEDS: INSULIN DETEMIR 300 UNITS/3 ML INSULN.PEN. SQ SCH (22:19)
[2016-05-26] MEDS: BENZONATATE 100 MG CAPSULE. PO PRN (22:34)
[2016-05-26 23:20] LABS: OBC FLU VALID
[2016-05-26 23:59] VITALS: BP 91/59
[2016-05-27 03:22] VITALS: BP 94/46
[2016-05-27] MEDS: LEVOFLOXACIN 250 MG TABLET. PO SCH (06:00)
--- NOTE | 2016-05-27 06:52 | PDOC ---
SUBJECTIVE Subjective Pt still having productive cough. Has chosen to be discharged home and then try to find a snf to join. Going for stress test this morning. OBJECTIVE Vital Signs Vital Signs Date Time Temp Pulse Resp B/P Pulse Ox O2 Delivery O2 Flow Rate FiO2 05/27/16 03:22 96.4 69 18 94/46 97 Room Air 96.4 05/26/16 23:59 97.8 87 18 91/59 97 Room Air 97.8 05/26/16 20:00 Room Air 05/26/16 19:59 98.7 87 18 109/63 97 Room Air 98.7 05/26/16 15:00 98.5 64 16 113/63 95 Room Air 98.5 05/26/16 11:00 98.2 93 24 136/72 97 Room Air 98.2 05/26/16 10:46 86 113/67 05/26/16 08:00 Room Air 05/26/16 07:00 97 Room Air 05/26/16 07:00 98.0 86 22 113/67 Room Air 98.0 I & O Intake and Output 05/27/16 07:00 Intake Total 6070 ml Output Total 1400 ml Balance 4670 ml Intake Oral 5100 ml IV Total 970 ml Output Urine Total 800 ml Stool Total 600 ml # Voids 1 # Bowel Movements 1 PHYSICAL EXAM Physical Exam General: Alert, Oriented X3, Cooperative, No acute distress HEENT: Atraumatic, PERRLA, EOMI, Mucous membr. moist/pink Lungs: Clear to auscultation, Normal air movement Heart: RRR, no rubs, no gallops, no murmurs Abdomen: Normal bowel sounds, Soft, No hepatosplenomegaly Extremities: No clubbing, No cyanosis, No edema Skin: Other (scaly patches of skin throughout) Neuro: Normal speech, Cranial nerves 3-12 NL Psych/Mental Status: Mental status NL, Mood NL ASSESSMENT/PLAN Assessment/Plan Pt is a 40yo female admitted for chest pain rule out 1)Chest pain- troponins x3 WNL. Cardiology following. Normal ECHO. Stress test scheduled for this morning. Pt has decided to be discharged home and then request getting into a snf after discharge. 2)Mucopurulent bronchitis- pt started on Levaquin. She has had productive cough for 3 weeks 3)DM2- previously well controlled with HbA1C 01/10 of 6.3, repeat pending. Pt continued on Levemir 40 units, Novolog 10 units BID and started on SSI. Pt's Januvia 100mg is being held 4)Hypothyroidism- well controlled with TSH of 0.696. Pt continued on Levothyroxine 200mcg qday 5)Leukocytosis- pt being treated for bronchitis. Urine appears dirty; culture pending. Pt not having any other infectious symptoms. CTM 6)HTN- pt on hypotensive side this morning, will hold her Lisinopril 20mg 7)Depression/Schizophrenia- pt continued on Quetiapine 200mg QHS 8)GERD- pt transitioned to Pantoprazole 40mg 9)HLD- pt continued on Simvastatin 40mg qday 10)Migraines- pt continued on Topamax 50mg BID 11)Anemia- Hb stable. Pt continued on Ferrous Sulfate. No active bleeding 12)CKD- pt's Cr is stable from where it has been in the past. Electrolytes stable 13)PEM- mild 14)Thrombocytosis- pt's platelets significantly increased. CTM. Repeat labs pending Problems: COMMENT Lab Laboratory Tests Test 05/26/16 07:34 05/26/16 11:12 05/26/16 16:09 05/26/16 19:45 Glucose (Fingerstick) 128mg/dL (70-99) 155mg/dL (70-99) 100mg/dL (70-99) Influenza Type A Antigen Negative (NEGATIVE) Influenza Type B Antigen Negative (NEGATIVE) Test 05/26/16 21:37 Glucose (Fingerstick) 134mg/dL (70-99) DARIA MOCTEZUMA MD May 27, 2016 06:52
[2016-05-27] MEDS: LEVOTHYROXINE 100 MCG TABLET PO SCH (07:00)
[2016-05-27] MEDS ORDERED: PROMETH/CODEINE 6.25/10MG 5 ML SYRUP. PO PRN (07:00)
[2016-05-27 07:11] LABS: BASO # 0.1 x10^3/uL (0.0-0.2); BASO % 1 % (0-3); EOS % 3 % (0-3); HEMATOCRIT 27.6 % (36.0-47.0); HEMOGLOBIN 8.7 g/dL (12.0-15.5); LYMPH # 2.4 x10^3/uL (1.0-4.8); LYMPH % 23 % (24-48); MEAN CORPUSCULAR HEMOGLOBIN 26 pg (25-35); MEAN CORPUSCULAR HGB CONC 32 g/dL (31-37); MEAN CORPUSCULAR VOLUME 81 fL (79-100); MONO % 8 % (0-9); NEUT % 65 % (31-73); PLATELET COUNT 389 x10^3/uL (140-400); RED BLOOD COUNT 3.43 x10^6/uL (3.50-5.40); RED CELL DISTRIBUTION WIDTH 17.1 % (11.5-14.5); WHITE BLOOD COUNT 10.6 x10^3/uL (4.0-11.0)
[2016-05-27 07:24] VITALS: BP 97/55
[2016-05-27 07:24] LABS: CALCIUM 8.4 mg/dL (8.5-10.1); CREATININE 1.6 mg/dL (0.6-1.0); GFR 35.5; POTASSIUM 4.2 mmol/L (3.5-5.1)
[2016-05-27] MEDS: PANTOPRAZOLE 40 MG TABLET. PO SCH (07:30)
[2016-05-27] MEDS ORDERED: REGADENOSON 0.4 MG/5 ML DISP.SYRIN. IV ONE (08:00)
[2016-05-27] MEDS: INSULIN ASPART 300 UNITS/3 ML INSULN.PEN SQ SCH ×5 (08:00→17:33)
[2016-05-27] MEDS: FLUTICASONE 50MCG/NASAL SPRAY 16GM BOTTLE. NS SCH (09:00)
[2016-05-27] MEDS: SERTRALINE 50 MG TABLET. PO SCH (09:00)
[2016-05-27] MEDS: FERROUS SULFATE 325 MG TABLET PO SCH (09:00)
[2016-05-27] MEDS: DICLOFENAC SODIUM 1% TOPICAL GEL 100GM TUBE. TP SCH ×4 (09:00→21:00)
[2016-05-27] MEDS: NYSTATIN 100,000 UNIT/GM TOPICAL CREAM 15GM TUBE. TP SCH ×2 (09:00→21:00)
[2016-05-27] MEDS: TRIAMCINOLONE ACETONIDE 0.1% TOPICAL CREAM 15GM TUBE. TP SCH ×2 (09:00→21:00)
[2016-05-27 11:00] VITALS: BP 100/65
--- NOTE | 2016-05-27 11:39 | PDOC ---
CARDIO Progress Notes Date and Time Date of Service 05/27/2016 Time of Evaluation 1135 Subjective Subjective: No Chest Pain, No shortness of breath, No Palpitations, No Dizziness Vitals Vitals Vital Signs Date Time Temp Pulse Resp B/P Pulse Ox O2 Delivery O2 Flow Rate FiO2 05/27/16 07:24 96.7 70 18 97/55 97 Room Air 96.7 Weight Weight [ ] Input and Output Intake and Output Intake and Output 05/27/16 07:00 Intake Total 6070 ml Output Total 1400 ml Balance 4670 ml Intake Oral 5100 ml IV Total 970 ml Output Urine Total 800 ml Stool Total 600 ml # Voids 1 # Bowel Movements 1 Laboratory Labs Laboratory Tests Test 05/26/16 16:09 05/26/16 19:45 05/26/16 21:37 05/27/16 06:53 Glucose (Fingerstick) 100mg/dL (70-99) 134mg/dL (70-99) Influenza Type A Antigen Negative (NEGATIVE) Influenza Type B Antigen Negative (NEGATIVE) White Blood Count 10.6x10^3/uL (4.0-11.0) Red Blood Count 3.43x10^6/uL (3.50-5.40) Hemoglobin 8.7g/dL (12.0-15.5) Hematocrit 27.6% (36.0-47.0) Mean Corpuscular Volume 81fL (79-100) Mean Corpuscular Hemoglobin 26pg (25-35) Mean Corpuscular Hemoglobin Concent 32g/dL (31-37) Red Cell Distribution Width 17.1% (11.5-14.5) Platelet Count 389x10^3/uL (140-400) Neutrophils (%) (Auto) 65% (31-73) Lymphocytes (%) (Auto) 23% (24-48) Monocytes (%) (Auto) 8% (0-9) Eosinophils (%) (Auto) 3% (0-3) Basophils (%) (Auto) 1% (0-3) Neutrophils # (Auto) 6.9x10^3uL (1.8-7.7) Lymphocytes # (Auto) 2.4x10^3/uL (1.0-4.8) Monocytes # (Auto) 0.9x10^3/uL (0.0-1.1) Eosinophils # (Auto) 0.3x10^3/uL (0.0-0.7) Basophils # (Auto) 0.1x10^3/uL (0.0-0.2) Sodium Level 144mmol/L (136-145) Potassium Level 4.2mmol/L (3.5-5.1) Chloride Level 114mmol/L (98-107) Carbon Dioxide Level 17mmol/L (21-32) Anion Gap 13 (6-14) Blood Urea Nitrogen 23mg/dL (7-20) Creatinine 1.6mg/dL (0.6-1.0) Estimated GFR (Cockcroft-Gault) 35.5 Glucose Level 109mg/dL (70-99) Calcium Level 8.4mg/dL (8.5-10.1) Test 05/27/16 07:59 Glucose (Fingerstick) 119mg/dL (70-99) Physical Exam HEENT: Neck Supple W Full Motion Chest: Symmetric LUNGS: Clear to Auscultation Heart: S1S2, RRR (SR/ST otherwise no significant ectopies overnight) Abdomen: Soft N/T Extremities: No Calf Tenderness, Other (trace LE) Neurology: alert, oriented, follow commands Assessment Assessment 1. Atypical chest pain: significant cardiac risk factors 2. Leukocytosis/thrombocytosis 3. MEHRAN on CKD3: improving 4. DM2 5. Hypothyroidism: controlled 6. HLP: lipids close to goal 7. Anemia of chronic disease: Hgb 8.7, no acute bleed, likely hemodilution 8. Hx of ulcerative colitis and Chrons Recommendations 1. Fluid management per PCP 2. TTE with preserved EF and normal wall motions. MPI completion today 3. Continue secondary prevention. Allergic to ASA. ERI TORRES APRN May 27, 2016 11:39
--- NOTE | 2016-05-27 13:29 | RAD ---
APPROVED REPORT Test Type: Pharmacological Stress Nurse/Tech: CRISSY Schneider RN Test Indications: Chest pain Cardiac History: HTN, see EHR Medications: see EHR Medical History: Diabetic, COPD, see EHR Resting ECG: Junctional Resting Heart Rate: 57 bpm Resting Blood Pressure: 90/47mmHg Pretest Chest Pain: No chest pain Nurse/Tech Notes Lungs CTA, heart tones WNL Consent: The procedure was explained to the patient in lay terms. Informed consent was witnessed. Shiva eout was entered into [employer]. History and Stress Test performed by RT Kimberly (R) (N) Pharm. Details Pharmacologic stress testing was performed using 0.4mg per 5ml of regadenoson given intravenously ove r 7-10 seconds. Stress Symptoms Reports chest tightness, approx 1 min POST EXERCISE Reason for Termination: Infusion complete Max HR: 97 bpm 63% of Maximum Predicted HR: 152 bpm Chest Pain: Yes. Arrhythmia: No. ST Change: No. INTERPRETATION Stress EKG Conclusion: Baseline EKG showed sinus rhythm. No ischemic changes at peak stress. No arr hythmias. Imaging Protocol IMAGE PROTOCOL: Rest Tc-99m/stress Tc-99m 1 day Rest: Stress: Viability: Radiopharm.Tc99m QtfwkthexAb26g Sestamibi Dose10.5mCi 31mCi Duration 15min. 10min. Img Date 05/27/2016 05/27/2016 Inj-Img Qses72azv. 60min. Rest Admin Site:IV - Right HandAdministrator:RT Shay HarrisR)(N) Stress Admin Site: IV - Right HandAdministrator: RT Precious (R)(N) STRESS DATA End Diast. Vol.62.0mlAv. Heart Rate79.0bpm End Syst. Vol.13.0mlCO Index BSA0.0L/min Myocardial Jtbl014.0gEject. Rpghipde62.0% Stress Rates Pk. Fill Rate4.11EDV/secLVtime Pk. Fill 164.59msec Pk. Empty Rate5.72ESV/secLVtime Pk. Toqdl603.68msec 03/30 Pk. Fill2.20EDV/sec Stress Scores Regional WT0.00Summed WT1.00 Regional WM0.00Summed WM0.00 Study quality was good. Left Ventricular size was Normal at Rest and Stress. Lung uptake was Normal. Left Ventricular ejection fraction is 79%. The rest and stress images show normal perfusion, normal contraction and thickening. LV Perf. Quant 17 Seg. SSS0.00 17 Seg. SRS1.00 17 Seg. SDS0.00 Stress Defect Extent (% LAD)0.00Rest Defect Extent (% LAD)2.50Rev. Defect Extent (% LAD)0.00 Stress Defect Extent (% LCX) 0.00Rest Defect Extent (% LCX)0.00Rev. Defect Extent (% LCX)0.00 Stress Defect Extent (% RCA)0.00Rest Defect Extent (% RCA)0.00Rev. Defect Extent (% RCA)0.00 Stress Defect Extent (% DANILO)0.00Rest Defect Extent (% DANILO)0.90Rev. Defect Extent (% DANILO)0.00 Conclusion 1. Regadenoson cardioisotope stress test did not show any evidence of ischemia or infarct. 2. Normal left ventricular systolic function with ejection fraction calculated at 79%. 3. Low risk for cardiac events.
[2016-05-27 14:07] VITALS: BP 102/56
[2016-05-27] MEDS: BENZONATATE 100 MG CAPSULE. PO PRN (18:02)
[2016-05-27 19:00] VITALS: BP 95/55
[2016-05-27] MEDS: SIMVASTATIN 40 MG TABLET. PO SCH (20:56)
[2016-05-27] MEDS: QUEtiapine 100 MG TABLET. PO SCH (20:56)
[2016-05-27] MEDS: INSULIN DETEMIR 300 UNITS/3 ML INSULN.PEN. SQ SCH (21:01)
[2016-05-27 23:06] VITALS: BP 105/68
[2016-05-28] MEDS: BENZONATATE 100 MG CAPSULE. PO PRN ×2 (00:35→12:20)
[2016-05-28 02:46] VITALS: BP 110/60
[2016-05-28 05:42] LABS: BASO # 0.1 x10^3/uL (0.0-0.2); BASO % 1 % (0-3); EOS % 3 % (0-3); HEMATOCRIT 28.4 % (36.0-47.0); LYMPH # 1.8 x10^3/uL (1.0-4.8); LYMPH % 17 % (24-48); MEAN CORPUSCULAR HEMOGLOBIN 26 pg (25-35); MEAN CORPUSCULAR HGB CONC 32 g/dL (31-37); MEAN CORPUSCULAR VOLUME 81 fL (79-100); MONO % 7 % (0-9); NEUT % 72 % (31-73); PLATELET COUNT 407 x10^3/uL (140-400); RED BLOOD COUNT 3.49 x10^6/uL (3.50-5.40); RED CELL DISTRIBUTION WIDTH 17.1 % (11.5-14.5); WHITE BLOOD COUNT 10.6 x10^3/uL (4.0-11.0)
[2016-05-28 05:50] LABS: CALCIUM 8.6 mg/dL (8.5-10.1); CREATININE 1.7 mg/dL (0.6-1.0); GFR 33.1; POTASSIUM 3.9 mmol/L (3.5-5.1)
[2016-05-28] MEDS: LEVOTHYROXINE 100 MCG TABLET PO SCH (06:31)
[2016-05-28] MEDS: LEVOFLOXACIN 250 MG TABLET. PO SCH (06:31)
[2016-05-28 07:00] VITALS: BP 84/47
[2016-05-28] MEDS ORDERED: INSU100I27 SQ (07:01)
[2016-05-28] MEDS ORDERED: LEVO250T25 PO (07:01)
--- NOTE | 2016-05-28 07:02 | PDOC3 ---
Discharge Summary* Date of Admission: May 26, 2016 Date of Discharge: May 28, 2016 Admitting Diagnosis Problems Medical Problems: (1) Anxiety Status: Acute (2) Chest pain Status: Acute (3) Cough Status: Acute (4) Tachycardia Status: Acute Final Diagnosis Non cardiac chest pain, Mucopurulent bronchitis, DM2, Hypothyroidism, HTN, Depression/Schizophrenia, GERD, HLD, Migraines, Anemia, CKD, PEM-mild, Thrombocytosis CONSULTS Cardiology Procedures CXR- WNL V/Q Scan- low probability of pulmonary embolism ECHO- LVEF 60-65% MPI Stress Test- low risk Brief Hospital Course DISCHARGE PHYSICAL EXAM General: Alert, Oriented X3, Cooperative, No acute distress HEENT: Atraumatic, PERRLA, EOMI, Mucous membr. moist/pink Lungs: Clear to auscultation, Normal air movement Heart: RRR, no rubs, no gallops, no murmurs Abdomen: Normal bowel sounds, Soft, No hepatosplenomegaly Extremities: No clubbing, No cyanosis, No edema Skin: Other (scaly patches of skin throughout) Neuro: Normal speech, Cranial nerves 3-12 NL Psych/Mental Status: Mental status NL, Mood NL Pt is a 40yo female admitted for chest pain rule out 1)Chest pain- troponins x3 WNL, normal ECHO, low risk stress test. This is a chronic issue for patient. Discussed with her the likelihood of musculoskeletal and/or psychogenic causes. Cardiology was following. Pt has decided to be discharged home and then request getting into a residential after discharge. 2)Mucopurulent bronchitis- pt started on Levaquin. She has had productive cough for 3 weeks 3)DM2- previously well controlled with HbA1C 01/10 of 6.3, repeat this admission was 6.4. Pt continued on Levemir 40 units, Novolog 10 units BID and started on SSI. Pt's Januvia 100mg held during admission and resumed on discharge 4)Hypothyroidism- well controlled with TSH of 0.696. Pt continued on Levothyroxine 200mcg qday 5)Leukocytosis- pt being treated for bronchitis. Urine appears dirty; culture showing mixed aurora. Pt was not having any other infectious symptoms. 6)HTN- pt more on hypotensive to normotensive this admission. Her Lisinopril was held. She will need f/u outpatient. 7)Depression/Schizophrenia- pt continued on Quetiapine 200mg QHS 8)GERD- pt transitioned to Pantoprazole 40mg during her hospitalization 9)HLD- pt continued on Simvastatin 40mg qday 10)Migraines- pt continued on Topamax 50mg BID 11)Anemia- Hb stable. Pt continued on Ferrous Sulfate. No active bleeding 12)CKD- pt's Cr is stable from where it has been in the past. Electrolytes stable 13)PEM- mild 14)Thrombocytosis- pt's platelets significantly increased. Will continue to monitor outpatient Disposition/Orders: D/C to Home CONDITION AT DISCHARGE: Stable Diet: 2 gr sodium, Consistent Carbohydrate Scheduled Clobetasol Propionate (Cormax) 1 RONAL TOP HS (Reported) Diclofenac Sodium (Voltaren) 1 GM TP QID (Reported) Ferrous Sulfate (Ferrous Sulfate) 325 MG PO DAILY (Reported) Fluticasone Propionate (Fluticasone Propionate Nasal [place]) 2 SPRAY NS DAILY ( Reported) Insulin Aspart (Novolog) 10 UNIT SQ BIDACLD (Reported) Insulin Detemir (Levemir Flextouch) 40 UNITS SQ QHS Ketoconazole (Ketoconazole) 1 RONAL TP BID (Reported) Levocetirizine Dihydrochloride (Xyzal) 5 MG PO DAILYWSUP (Reported) Levofloxacin (Levaquin) 250 MG PO DAILY06 Levothyroxine Sodium (Synthroid) 200 MCG PO DAILYAC (Reported) Nystatin (Nystatin) 15 GM TP BID (Reported) Omeprazole (Omeprazole) 20 MG PO BID (Reported) Quetiapine Fumarate (Quetiapine Fumarate) 200 MG PO HS (Reported) Sertraline Hcl (Zoloft) 100 MG PO DAILY (Reported) Simvastatin (Simvastatin) 40 MG PO HS (Reported) Sitagliptin Phosphate (Januvia) 100 MG PO DAILY (Reported) Triamcinolone Acetonide (Triamcinolone Acetonide 0.1% Cream) 1 RONAL TP TID ( Reported) Scheduled PRN Hydrocodone Bit/Acetaminophen (Hydrocodone-Apap 5-325 ) 1 TAB PO PRN Q6HRS PRN PRN PAIN (Reported) Miscellaneous Medications Hydrocortisone/Aloe Vera (Hydrocortisone Plus 1% Cream) 1 APPLIC TP (Reported) Hyoscyamine Sulfate (Hyoscyamine Sulfate) 0.125 MG PO (Reported) Discontinued Medications Hydrocodone Bit/Acetaminophen (Hydrocodone-Apap 5-325 ) 1 TAB PO PRN Q6HRS PRN PRN PAIN (Reported) Insulin Detemir (Levemir) 12 UNIT SQ (Reported) Lisinopril (Lisinopril) 20 MG PO DAILY (Reported) Triamcinolone Acetonide (Triamcinolone Acetonide 0.1% Cream) 1 RONAL TP BID ( Reported) PCP F/u with Dr. Moctezuma in the next 5-7 days Time Spent Total time spent with patient [] minutes for coordination of care, counseling, and education. DARIA MOCTEZUMA MD May 28, 2016 07:02
[2016-05-28] MEDS: INSULIN ASPART 300 UNITS/3 ML INSULN.PEN SQ SCH ×3 (08:00→12:00)
[2016-05-28] MEDS: FERROUS SULFATE 325 MG TABLET PO SCH (08:19)
[2016-05-28] MEDS: SERTRALINE 50 MG TABLET. PO SCH (08:19)
[2016-05-28] MEDS: FLUTICASONE 50MCG/NASAL SPRAY 16GM BOTTLE. NS SCH (08:19)
[2016-05-28] MEDS: PANTOPRAZOLE 40 MG TABLET. PO SCH (08:19)
[2016-05-28] MEDS: DICLOFENAC SODIUM 1% TOPICAL GEL 100GM TUBE. TP SCH (08:22)
[2016-05-28] MEDS: NYSTATIN 100,000 UNIT/GM TOPICAL CREAM 15GM TUBE. TP SCH (08:22)
[2016-05-28] MEDS: TRIAMCINOLONE ACETONIDE 0.1% TOPICAL CREAM 15GM TUBE. TP SCH (08:22)
[2016-05-28 11:00] VITALS: BP 105/64
== END 2016-05-28 13:00 | disposition home or self-care (01) | DRG 872 ==
LOC: ER 15:04 → 5 SOUTH 17:40
PROVIDERS: ADMIT Family Medicine; ATTEND Family Medicine
DX: A41.9 Sepsis, unspecified organism (principal); K50.90 Crohn's disease, unspecified, without complications; N17.9 Acute kidney failure, unspecified; J41.1 Mucopurulent chronic bronchitis; D63.8 Anemia in other chronic diseases classified elsewhere; D72.829 Elevated white blood cell count, unspecified; D75.89 Other specified diseases of blood and blood-forming organs; E03.9 Hypothyroidism, unspecified; E11.22 Type 2 diabetes mellitus with diabetic chronic kidney disease; E78.5 Hyperlipidemia, unspecified; F20.9 Schizophrenia, unspecified; Z96.642 Presence of left artificial hip joint; Z96.659 Presence of unspecified artificial knee joint; F41.9 Anxiety disorder, unspecified; G43.909 Migraine, unspecified, not intractable, without status migrainosus; I12.9 Hypertensive chronic kidney disease with stage 1 through stage 4 chronic kidney disease, or unspecified chronic kidney disease; K21.9 Gastro-esophageal reflux disease without esophagitis; M81.0 Age-related osteoporosis without current pathological fracture; N18.3 Chronic kidney disease, stage 3 (moderate); Z79.4 Long term (current) use of insulin; Z80.41 Family history of malignant neoplasm of ovary; Z82.49 Family history of ischemic heart disease and other diseases of the circulatory system; Z93.3 Colostomy status; Z79.899 Other long term (current) drug therapy; Z88.0 Allergy status to penicillin; Z88.6 Allergy status to analgesic agent; Z88.8 Allergy status to other drugs, medicaments and biological substances; Z91.040 Latex allergy status; Z88.1 Allergy status to other antibiotic agents
CPT/HCPCS: 36415; 71010; 78452; 78582; 80048; 80053; 80061; 81001; 81025; 82947; 83036; 83735; 83880; 84443; 84484; 85007; 85027; 85379; 85610; 87086; 87641; 87804; 90686; 93005; 93017; 93306; 96374; 96375; 96376; A9500; A9540; A9558; G0480; G0481; J1815; J2405; J2785; J7030; 99285-25

== ENCOUNTER → 2016-06-04 | Outpatient (CLI) | payer MEDICARE, OTHER ==
[2016-05-28 11:00] VITALS: BP 105/64
[~2016-06-04] MED LIST changes: +INSU100I27 SQ; +LEVO250T25 PO
--- NOTE | 2016-06-04 14:25 | RAD ---
Examination: MRI of the left shoulder without contrast HISTORY History of rotator cuff tendinitis, chronic superior left shoulder pain radiating of the left. COMPARISON None available. TECHNIQUE Multiplanar, multisequence MR imaging of the left shoulder without contrast. FINDINGS Examination limited due to significant motion artifact. Additional imaging was not performed as patient could not tolerate additional repeats. Grossly the humerus head is within the glenoid. There is moderate joint space loss identified in the glenohumeral joint due to degeneration. Grossly the attachment of the subscapularis tendon, supraspinatus and infraspinatus tendon appear intact however evaluation of the of the rotator cuff limited given significant motion artifact. There is some increased signal identified in the supraspinatus, infraspinatus and the subscapularis tendon due to tendinosis. A large full-thickness tear of the rotator cuff is not identified. There is a moderate amount of edema identified in the distal clavicle and the acromion region. The muscle bulk grossly appears unremarkable. The evaluation the labrum is limited on this examination. Grossly, a large labral tear is not identified. IMPRESSION - Very limited examination due to patient body habitus and due to significant motion artifact. There is moderate trabecular edema identified the distal clavicle and the acromion probably degenerative changes however evaluation is limited. Consider followup CT for further evaluation if there is clinical suspicion for a fracture. - No large rotator cuff tear or labral tear visualized. If rotator cuff pathology or labral tear is a clinical concern, consider followup MRI arthrogram if patient can tolerate additional imaging. - Tendinosis of the rotator cuff. - Moderate degenerative changes glenohumeral joint. Electronically signed by: Len Nelson (Jun 04, 2016 14:23:19)
== END | disposition home or self-care (01) ==
LOC: MRI 12:44
PROVIDERS: ATTEND Orthopaedic Surgery Sports Medicine
DX: M75.82 Other shoulder lesions, left shoulder (principal)
CPT/HCPCS: 73221

== ENCOUNTER 2016-09-21 00:05 | Emergency (ER) | payer MEDICARE, OTHER ==
[~2016-09-21] VITALS: Ht 162.6 cm; Wt 99.8 kg
[~2016-09-21 00:05] MED LIST changes: +DICL100G18 TP; -DICL100G7 TP; -HYDR-2666 PO; +HYDR-2758 PO; -KETO15CR TP; +KETO15CR2 TP; -LEVO5TAB20 PO; +LEVO5TAB29 PO; -OMEP20TA PO; +OMEP20TA8 PO; +WARF-78 PO; -WARF5TAB PO
[2016-09-21 01:23] VITALS: BP 155/87
[2016-09-21] MEDS ORDERED: IPRATRPIUM/ALBUTEROL 0.5/2.5MG 3 ML NEBU. NEB ONE (02:30)
--- NOTE | 2016-09-21 02:34 | PHYS DOC ---
Past Medical History Past Medical History: Anxiety, Bipolar, Depression, Diabetes-Type II, GERD, Hypertension, MRSA, Renal Disease, Schizophrenia Additional Past Medical Histor: CHRONES DISEASE, Past Surgical History: Hip Replacement, Tonsillectomy Additional Past Surgical Histo: COLOSTOMY,RIGHT SHOULDER Alcohol Use: Rarely Drug Use: None Adult General Chief Complaint Chief Complaint: COUGH HPI HPI 41-year-old female presenting to the emergency department today with a cough. She describes producing white phlegm upon coughing. His been present for 7 days. Mild relief with ymbv-lfg-phedoua medications. Location lungs. Duration intermittent. No sedating factors. Review of systems is negative for nausea vomiting fevers chills. She denies chest pain abdominal pain. All other review of systems is negative unless otherwise noted in history of present illness. ED course: 41-year-old female presenting to the emergency department with a cough. Afebrile here. Saturating 97% on room air. Lungs showed mild wheezing on the right more than left. X-ray obtained. Nebulizer given. Chest x-ray shows mild opacification in the retrocardiac space possibly suggestive of a pneumonia. Antibiotics prescribed. She was in discharged home to follow up with PCP in a few days. The patient was then discharged home in stable condition to follow up with their primary care physician over the next 2-3 days. They were to return if their symptoms worsened or if they were concerned for any reason. [id number] discharge instructions and return precautions were given. Patient' s questions were answered to their satisfaction. Patient is comfortable plan. Review of Systems Review of Systems SEE ABOVE. Current Medications Current Medications Current Medications Medications (Trade) Dose Ordered Sig/Mini Start Time Stop Time Status Last Admin Dose Admin Albuterol/ Ipratropium (Duoneb) 3 ml 1X ONCE 09/21/16 02:30 09/21/16 02:31 DC 09/21/16 02:08 3 ML Allergies Allergies Allergies Coded Allergies Type Severity Reaction Last Updated Verified Penicillins Allergy Severe Anaphylaxis 12/29/15 Yes aspirin Allergy Severe Anaphylaxis 12/29/15 Yes Latex, Natural Rubber Allergy Intermediate Rash 12/30/15 Yes latex Allergy Intermediate Rash 12/29/15 Yes piperacillin Allergy Intermediate Rash 12/29/15 Yes tazobactam Allergy Intermediate Rash 12/29/15 Yes tizanidine Allergy Intermediate Itching 12/29/15 Yes acetaminophen Adverse Reaction Intermediate elevated liver enzymes 01/01/16 Yes Uncoded Allergies Type Severity Reaction Last Updated Verified PLASTIC Allergy Intermediate Rash 10/27/15 Physical Exam Physical Exam Constitutional: Well developed, well nourished, no acute distress, non-toxic appearance. [] HENT: Normocephalic, atraumatic, bilateral external ears normal, oropharynx moist, no oral exudates, nose normal. [] Eyes: PERRLA, EOMI, conjunctiva normal, no discharge. [] Neck: Normal range of motion, no tenderness, supple, no stridor. [] Cardiovascular:Heart rate regular rhythm, no murmur [] Lungs & Thorax: see above Abdomen: Bowel sounds normal, soft, no tenderness, no masses, no pulsatile masses. [] Skin: Warm, dry, no erythema, no rash. [] Back: No tenderness, no CVA tenderness. [] Extremities: No tenderness, no cyanosis, no clubbing, ROM intact, no edema. [] Neurologic: Alert and oriented X 3, normal motor function, normal sensory function, no focal deficits noted. [] Psychologic: Affect normal, judgement normal, mood normal. [] Current Patient Data Vital Signs Vital Signs Date Time Temp Pulse Resp B/P (MAP) Pulse Ox O2 Delivery O2 Flow Rate FiO2 09/21/16 02:07 Room Air 09/21/16 01:23 98.1 107 20 97 98.1 Lab Values Laboratory Tests Test 09/21/16 01:33 POC Urine HCG, Qualitative Hcg negative (Negative) EKG EKG [] Radiology/Procedures Radiology/Procedures [] Course & Med Decision Making Course & Med Decision Making Pertinent Labs and Imaging studies reviewed. (See chart for details) [] Dragon Disclaimer Dragon Disclaimer This electronic medical record was generated, in whole or in part, using a voice recognition dictation system. Departure Departure Impression: Primary Impression: Cough Disposition: HOME, SELF-CARE Condition: STABLE Referrals: DARIA MOCTEZUMA MD (PCP) Patient Instructions: Cough, Adult Additional Instructions: Thank you for allowing us to participate in your care today. Followup with your primary care physician in 3 days if your symptoms do not improve. Call your Primary Doctor tomorrow and inform them of your visit today. If you do not have a primary care provider you can ask for a list of our primary care providers. Return to the emergency department you have any new or concerning findings. This should be evaluated by the primary care physician and any necessary consulting services for continued management within a few days after discharge. Return to emergency room if you have any new or concerning symptoms including but not limited to fever, chills, nausea, vomiting, intractable pain, any new rashes, chest pain, shortness of air, uncontrolled bleeding, difficulty breathing, and/or vision loss. Scripts Albuterol Sulfate (PROAIR HFA INHALER) 8.5 Gm Hfa.aer.ad 1 PUFF INH PRN Q6HRS Y for SHORTNESS OF BREATH, #1 INHALER 0 Refills Prov: TONY GTZ MD 09/21/16 Azithromycin (AZITHROMYCIN TABLET) 250 Mg Tablet 1 PKG PO UD, #6 TAB Prov: TONY GTZ MD 09/21/16 TONY TGZ MD Sep 21, 2016 02:34
[2016-09-21] MEDS ORDERED: PROAIR HFA8.5 GM INH (03:06)
[2016-09-21] MEDS ORDERED: AZIT250T6 PO (03:06)
--- NOTE | 2016-09-21 07:02 | RAD ---
Indication: Cough. Time of exam 0 to 33 hours. Correlation is made with prior study from 05/25/2016. The heart is enlarged and stable. There is some increased parenchymal density noted on the lateral view posteriorly suggestive of a lower lobe pneumonia. There is mild density in the left perihilar region as well. The right lung appears clear. No effusion is seen. No pneumothorax. Extensive instrumentation within the right shoulder is noted. Impression: Findings suggestive of left perihilar and left lower lobe pneumonia.
== END 2016-09-21 03:22 | disposition home or self-care (01) ==
LOC: ER 00:10
DX: R05 Cough (principal); R06.2 Wheezing; E11.9 Type 2 diabetes mellitus without complications; F20.9 Schizophrenia, unspecified; F32.9 Major depressive disorder, single episode, unspecified; F41.9 Anxiety disorder, unspecified; I10 Essential (primary) hypertension; K21.9 Gastro-esophageal reflux disease without esophagitis; Z96.649 Presence of unspecified artificial hip joint; K50.90 Crohn's disease, unspecified, without complications; Z88.0 Allergy status to penicillin; Z91.040 Latex allergy status; Z88.5 Allergy status to narcotic agent; Z88.6 Allergy status to analgesic agent; Z86.14 Personal history of Methicillin resistant Staphylococcus aureus infection
CPT/HCPCS: 71020; 81025; 94640; 99284; J7620

== ENCOUNTER 2017-07-07 22:59 | Emergency (ER) | payer MEDICARE, OTHER ==
[2017-07-08] MEDS: IPRATRPIUM/ALBUTEROL 0.5/2.5MG 3 ML NEBU. NEB
== END 2017-07-08 01:18 | disposition home or self-care (01) ==
LOC: ER 07-08 01:18
DX: J12.1 Respiratory syncytial virus pneumonia (principal); F20.9 Schizophrenia, unspecified; K21.9 Gastro-esophageal reflux disease without esophagitis; F31.9 Bipolar disorder, unspecified; G89.29 Other chronic pain; Z87.891 Personal history of nicotine dependence; I12.9 Hypertensive chronic kidney disease with stage 1 through stage 4 chronic kidney disease, or unspecified chronic kidney disease; E11.22 Type 2 diabetes mellitus with diabetic chronic kidney disease; N18.9 Chronic kidney disease, unspecified; Z88.0 Allergy status to penicillin; Z88.6 Allergy status to analgesic agent; Z88.8 Allergy status to other drugs, medicaments and biological substances; Z88.1 Allergy status to other antibiotic agents; Z91.040 Latex allergy status
CPT/HCPCS: 94640; 99283-25; J7620

== ENCOUNTER 2018-01-11 16:39 | Inpatient (IN) | payer MEDICARE, OTHER ==
[~2018-01-11] VITALS: Ht 154.9 cm; Wt 77.8 kg
[2018-01-11] VITALS (11 sets, daily range): BP systolic 65–109; BP diastolic 38–82
[~2018-01-11 16:39] MED LIST changes: +AZIT250T6 PO; -FERR-26 PO; +FERR325T14 PO; -HYOS0.124 PO; +HYOS0.1279 PO; +PROAIR HFA8.5 GM INH
[2018-01-11] MEDS ORDERED: IV NORMAL SALINE 1000ML BAG 0 ML IV SCH (16:45)
[2018-01-11] MEDS ORDERED: levOFLOXacin PER PHARMACY. MC PRN (16:45)
--- NOTE | 2018-01-11 16:58 | RAD ---
CHEST AP ONLY dated 01/11/2018 4:45 PM. Comparison: 11/30/2017. Clinical Indication: Dyspnea, POSSIBLE PNEUMONIA Findings: Single upright portable exam performed. Heart and mediastinal contours are stable. Lungs are hypoinflated but otherwise clear. No consolidation or pleural effusion. No pneumothorax. Impression: No acute radiographic abnormality. Stable findings compared to 11/30/2017. Electronically signed by: Jace Spencer MD (01/11/2018 4:55 PM) [id number]
[2018-01-11] MEDS ORDERED: VANCOMYCIN 2 GM in IV NORMAL SALINE 500ML BAG 500 ML IV ONE (17:00)
[2018-01-11 17:41] LABS: BASO # 0.1 x10^3/uL (0.0-0.2); BASO % 0 % (0-3); EOS # 0.2 x10^3/uL (0.0-0.7); EOS % 1 % (0-3); HEMATOCRIT 29.2 % (36.0-47.0); HEMOGLOBIN 9.6 g/dL (12.0-15.5); LYMPH # 0.8 x10^3/uL (1.0-4.8); LYMPH % 3 % (24-48); MEAN CORPUSCULAR HEMOGLOBIN 28 pg (25-35); MEAN CORPUSCULAR HGB CONC 33 g/dL (31-37); MEAN CORPUSCULAR VOLUME 86 fL (79-100); MONO # 0.9 x10^3/uL (0.0-1.1); MONO % 3 % (0-9); NEUT # 25.3 x10^3uL (1.8-7.7); NEUT % 93 % (31-73); PLATELET COUNT 486 x10^3/uL (140-400); RED BLOOD COUNT 3.38 x10^6/uL (3.50-5.40); RED CELL DISTRIBUTION WIDTH 17.1 % (11.5-14.5); WHITE BLOOD COUNT 27.2 x10^3/uL (4.0-11.0)
[2018-01-11 17:48] LABS: PROTHROMBIN TIME PATIENT 15.9 SEC (11.7-14.0)
[2018-01-11 17:59] LABS: ALBUMIN 3.3 g/dL (3.4-5.0); CALCIUM 8.9 mg/dL (8.5-10.1); CREATININE 11.3 mg/dL (0.6-1.0); DIRECT BILIRUBIN 0.2 mg/dL (0.0-0.2); GFR 3.7; TOTAL BILIRUBIN 0.5 mg/dL (0.2-1.0); TOTAL PROTEIN 8.5 g/dL (6.4-8.2)
[2018-01-11 18:19] LABS: POTASSIUM 9.2 mmol/L (3.5-5.1)
[2018-01-11 18:28] LABS: % LYMPHS 1 % (24-48); % SEGS 99 % (35-66); TOXIC GRANULATION SLIGHT
[2018-01-11] MEDS ORDERED: ALBUTEROL SULFATE 2.5 MG/3 ML NEBU. CONT NEB ONE (18:30)
[2018-01-11] MEDS ORDERED: CALCIUM GLUCONATE 1,000 MG/10 ML VIAL. IVP ONE (18:30)
[2018-01-11] MEDS ORDERED: SODIUM BICARB ADULT 8.4% 50 MEQ/50 ML DISP.SYRIN. IV ONE (18:30)
[2018-01-11 18:39] LABS: PLT ESTIMATE INCREASED (ADEQUATE)
[2018-01-11 18:39] LABS: INFLUENZA A PATIENT NEGATIVE (NEGATIVE); INFLUENZA B PATIENT NEGATIVE (NEGATIVE)
--- NOTE | 2018-01-11 18:47 | PHYS DOC ---
Past Medical History Past Medical History: Anxiety, Bipolar, Cancer, Depression, Diabetes-Type II, GERD, Hypertension, Hypothyroid, MRSA, Pneumonia, Renal Disease, Renal Failure, Schizophrenia Additional Past Medical Histor: CHRONES DISEASE, cardiac arrest Past Surgical History: Cancer Surgery, Hip Replacement, Tonsillectomy Additional Past Surgical Histo: COLOSTOMY,RIGHT SHOULDER, thyroid removed d/t cancer Alcohol Use: Rarely Drug Use: None Adult General Chief Complaint Chief Complaint: HYPOTENSION HPI HPI 42-year-old female presenting to the emergency department today with low blood pressure in clinic. Patient has a history of sepsis and was in the hospital for approximately 2 months for treatment for septic shock. She has a past medical history of hypertension hyperlipidemia GERD depression and osteoarthritis chronic kidney disease 3. The patient denies having any fevers at home she has not had any neck stiffness or nuchal rigidity. Review of systems is negative for abdominal pain nausea vomiting. All other review of systems is negative. ED course: 32-year-old female presenting to the emergency department today with hypotension. The patient is alert and conversive. Regular rate and rhythm. Lungs are clear bilaterally on my exam. Abdomen is soft and nontender. Colostomy is in place with a green liquid fluid draining. IV fluids initiated which brought the patient's blood pressure up. EKG obtained and reviewed by myself shows sinus rhythm with peaking T waves with qrs at 130 ms. Potassium is elevated at 9. I spoke with Dr. Mccray the nephrologists. I also ordered a renal ultrasound as requested by the panel raiser operator. She states she will follow-up on the renal ultrasound results. Albuterol, calcium and bicarbonate given here in the emergency room. I spoke with our interventional radiologist Dr. Calle for emergent placement of dialysis catheter. He will call in the interventional team. Patient has significant leukocytosis. Broad-spectrum antibiotics initiated early upon arrival to cover for sepsis. No obvious source of infection , awaiting urine at this time. Chemistry panel shows acidosis as well. Pro- calcitonin elevated possibly suggesting a pulmonary infiltrate in the setting of a nl xray (false neg). Influenza negative. Mild baseline anemia present. I spoke with Dr. Gibson who accepts the patient for admission to the ICU for further treatment and care. Current Medications Current Medications Current Medications Medications (Trade) Dose Ordered Sig/Mini Start Time Stop Time Status Last Admin Dose Admin Albuterol Sulfate (Ventolin Neb Soln) 10 mg 1X ONCE 01/11/18 18:30 01/11/18 18:31 DC 01/11/18 18:51 10 MG Calcium Gluconate (Calcium Gluconate) 1,000 mg 1X ONCE 01/11/18 18:30 01/11/18 18:31 DC 01/11/18 19:12 1,000 MG Levofloxacin/ Dextrose 150 ml @ 100 mls/hr 1X ONCE 01/11/18 17:00 01/11/18 18:29 DC 01/11/18 17:05 100 MLS/HR Levofloxacin/ Dextrose (Levaquin Per Pharmacy) 1 each PRN DAILY PRN 01/11/18 16:45 Sodium Bicarbonate (Sodium Bicarb Adult 8.4% Syr) 50 meq 1X ONCE 01/11/18 18:30 01/11/18 18:31 DC 01/11/18 19:11 50 MEQ Sodium Chloride 0 ml @ 0 mls/hr Q0M 01/11/18 16:45 01/11/18 17:03 1,000 MLS/HR Vancomycin HCl (Vanco Per Pharmacy) 1 each PRN DAILY PRN 01/11/18 16:45 Vancomycin HCl 2 gm/Sodium Chloride 500 ml @ 250 mls/hr 1X ONCE 01/11/18 17:00 01/11/18 18:59 DC 01/11/18 18:29 250 MLS/HR Allergies Allergies Allergies Coded Allergies Type Severity Reaction Last Updated Verified Penicillins Allergy Severe Anaphylaxis 12/29/15 Yes aspirin Allergy Severe Anaphylaxis 12/29/15 Yes Latex, Natural Rubber Allergy Intermediate Rash 12/30/15 Yes latex Allergy Intermediate Rash 12/29/15 Yes piperacillin Allergy Intermediate Rash 12/29/15 Yes tazobactam Allergy Intermediate Rash 12/29/15 Yes tizanidine Allergy Intermediate Itching 12/29/15 Yes acetaminophen Adverse Reaction Intermediate elevated liver enzymes 01/01/16 Yes Uncoded Allergies Type Severity Reaction Last Updated Verified PLASTIC Allergy Intermediate Rash 10/27/15 Physical Exam Physical Exam Constitutional: Well developed, well nourished, no acute distress, non-toxic appearance. [] HENT: Normocephalic, atraumatic, bilateral external ears normal, oropharynx moist, no oral exudates, nose normal. [] Eyes: PERRLA, EOMI, conjunctiva normal, no discharge. [] Neck: Normal range of motion, no tenderness, supple, no stridor. [] Cardiovascular:Heart rate regular rhythm, no murmur [] Lungs & Thorax: Bilateral breath sounds clear to auscultation [] Abdomen: Bowel sounds normal, soft, no tenderness, no masses, no pulsatile masses. [] Skin: Warm, dry, no erythema, no rash. [] Back: No tenderness, no CVA tenderness. [] Extremities: No tenderness, no cyanosis, no clubbing, ROM intact, no edema. [] Neurologic: Alert and oriented X 3, normal motor function, normal sensory function, no focal deficits noted. [] Psychologic: Affect normal, judgement normal, mood normal. [] Current Patient Data Vital Signs Vital Signs Date Time Temp Pulse Resp B/P (MAP) Pulse Ox O2 Delivery O2 Flow Rate FiO2 01/11/18 18:51 100 Room Air 01/11/18 16:40 97.7 95 16 97/46 (63) 97.7 Lab Values Laboratory Tests Test 01/11/18 16:42 01/11/18 17:10 01/11/18 18:10 Lactic Acid Level 1.2 mmol/L (0.4-2.0) White Blood Count 27.2 x10^3/uL (4.0-11.0) H Red Blood Count 3.38 x10^6/uL (3.50-5.40) L Hemoglobin 9.6 g/dL (12.0-15.5) L Hematocrit 29.2 % (36.0-47.0) L Mean Corpuscular Volume 86 fL (79-100) Mean Corpuscular Hemoglobin 28 pg (25-35) Mean Corpuscular Hemoglobin Concent 33 g/dL (31-37) Red Cell Distribution Width 17.1 % (11.5-14.5) H Platelet Count 486 x10^3/uL (140-400) H Neutrophils (%) (Auto) 93 % (31-73) H Lymphocytes (%) (Auto) 3 % (24-48) L Monocytes (%) (Auto) 3 % (0-9) Eosinophils (%) (Auto) 1 % (0-3) Basophils (%) (Auto) 0 % (0-3) Neutrophils # (Auto) 25.3 x10^3uL (1.8-7.7) H Lymphocytes # (Auto) 0.8 x10^3/uL (1.0-4.8) L Monocytes # (Auto) 0.9 x10^3/uL (0.0-1.1) Eosinophils # (Auto) 0.2 x10^3/uL (0.0-0.7) Basophils # (Auto) 0.1 x10^3/uL (0.0-0.2) Segmented Neutrophils % 99 % (35-66) H Lymphocytes % 1 % (24-48) L Toxic Granulation Slight Platelet Estimate Increased (ADEQUATE) Prothrombin Time 15.9 SEC (11.7-14.0) H Prothrombin Time INR 1.3 (0.8-1.1) H PTT 27 SEC (24-38) Sodium Level 132 mmol/L (136-145) L Potassium Level 9.2 mmol/L (3.5-5.1) *H Chloride Level 104 mmol/L (98-107) Carbon Dioxide Level 7 mmol/L (21-32) *L Anion Gap 21 (6-14) H Blood Urea Nitrogen 130 mg/dL (7-20) H Creatinine 11.3 mg/dL (0.6-1.0) H Estimated GFR (Cockcroft-Gault) 3.7 Glucose Level 123 mg/dL (70-99) H Calcium Level 8.9 mg/dL (8.5-10.1) Total Bilirubin 0.5 mg/dL (0.2-1.0) Direct Bilirubin 0.2 mg/dL (0.0-0.2) Aspartate Amino Transferase (AST) 19 U/L (15-37) Alanine Aminotransferase (ALT) 25 U/L (14-59) Alkaline Phosphatase 261 U/L (46-116) H Troponin I Quantitative < 0.017 ng/mL (0.000-0.055) Total Protein 8.5 g/dL (6.4-8.2) H Albumin 3.3 g/dL (3.4-5.0) L Lipase 961 U/L (73-393) H Procalcitonin 1.18 ng/mL (0.00-0.10) H Influenza Type A Antigen Negative (NEGATIVE) Influenza Type B Antigen Negative (NEGATIVE) Laboratory Tests 01/11/18 17:10 Laboratory Tests 01/11/18 17:10 EKG EKG [] Radiology/Procedures Radiology/Procedures [] Course & Med Decision Making Course & Med Decision Making Pertinent Labs and Imaging studies reviewed. (See chart for details) [] Dragon Disclaimer Dragon Disclaimer This electronic medical record was generated, in whole or in part, using a voice recognition dictation system. Departure Departure Impression: Primary Impression: Sepsis Additional Impressions: Acute renal failure Hyperkalemia Disposition: ADMITTED INPATIENT Admitting Physician: Other (srini) Referrals: DARIA MOCTEZUMA MD (PCP) Critical Care Time Critical care time spent was 35 minutes exclusive of procedures. Time was spent evaluating the patient, ordering the administration of medications, reevaluating the patient, discussing with the admitting provider and documenting. Problem Qualifiers TONY GTZ MD Jan 11, 2018 18:47
--- NOTE | 2018-01-11 18:54 | EKG ---
[facility] [address] [place] [address] Test Date: 2018-01-11 Test Time: 17:30:33 Pat Name: SHEKHAR KULKARNI Department: Room: Gender: F Hand Bookbinder: : 1975 Requested By: TONY GTZ Order Number: [id number] Reading MD: Felton Reyes MD Measurements Intervals [place] Rate: 102 P: -121 LA: 208 QRS: 31 QRSD: 130 T: 26 QT: 338 QTc: 444 Interpretive Statements PROBABLE SINUS TACHYCARDIA CONSIDER HYPERKALEMIA Electronically Signed On 01-12-2018 10:57:08 CDT by Felton Reyes MD
[2018-01-11] MEDS: VANCOMYCIN PER PHARMACY MC PRN (19:35)
[2018-01-11] MEDS ORDERED: LIDOCAINE WITH 8.4% SOD BICARB 3 ML DISP.SYRIN. ONE (19:41)
[2018-01-11] MEDS ORDERED: HEPARIN for IV BOLUS 10,000 UNIT/10 ML VIAL. ONE (19:41)
--- NOTE | 2018-01-11 20:03 | PDOC ---
Exam Senior Bi Architect Senior Bi Architect Luc Pre-Procedure Diagnosis Pre-Procedure Diagnosis Renal failure with hyperkalemia Post-Procedure Diagnosis Post-Procedure Diagnosis same Procedure Performed Procedure Performed Sono guided placement of temporary R IJ HD catheter Type of Anesthesia Type of Anesthesia local Estimated Blood Loss EBL: trace Specimens Specimans NA Drain/Tubes Drains/Tubes 14 Fr HD catheter placed into R IJ Condition of Patient Condition of Patient stable AURELIANO ARCHER Jr, MD Jan 11, 2018 20:03
[2018-01-11 20:12] LABS: BASE EXCESS ABG -17 mmol/L (-3-3); HCO3 ABG 8 mmol/L (21-28); PO2 ABG 114 mmHg (75-108); SAT O2 ABG 98 % (92-99)
[2018-01-11 20:21] LABS: PCO2 ABG 19 mmHg (35-46)
[2018-01-11] MEDS ORDERED: IV NORMAL SALINE 1000ML BAG 1,000 ML IV PRN ×2 (20:27)
[2018-01-11] MEDS ORDERED: NOREPINEPHRIN 8MG/250ML PREMIX 250 ML IV PRN (20:30)
[2018-01-11] MEDS ORDERED: DIALYSIS PATIENT. MC PRN ×2 (20:30)
--- NOTE | 2018-01-11 20:40 | RAD ---
Title: Sonographic guided placement of temporary right IJ hemodialysis catheter 01/11/2018 0832 hours Indication: Acute renal failure, sepsis, and hyperkalemia. Short term central venous access requested for emergent hemodialysis. Anesthesia: Local anesthesia was obtained with 1% lidocaine. Sterile technique: The procedure was performed utilizing all elements of maximal sterile barrier technique which included: Cap, mask, sterile gown, large sterile drape, and antiseptic hand hygiene, site preparation for cutaneous antisepsis with 2% chlorhexidine or current approved guideline alternative. Sterile ultrasound techniques were followed including a sterile probe cover. Technique/findings: After obtaining informed consent the procedure was performed in the emergency room at the patient's bedside. Ultrasound imaging of the right neck was performed confirming patency of the right internal jugular vein. Utilizing real-time ultrasound scanning, the right internal jugular vein was percutaneously accessed utilizing a micropuncture technique with a 21-gauge needle. The needle was then exchanged over an 018 wire for a 4 [place] transitional sheath. Ultrasound images confirm placement of the needle and wire into the right internal jugular vein. All ultrasound images were sent to the PACS to become part of the patient's permanent medical record. The 4 Niue[place] transitional sheath was exchanged over an 035 Amplatz guidewire for serial dilators. A 14 [place] 20 cm long temporary hemodialysis catheter was then placed. Good flow rates through both lumens were obtained. The lumens were flushed with saline and packed with heparin. The catheter was sutured in place. A post placement chest radiograph has been ordered and is currently pending. Impression: Sonographic guided placement of 14 Ni[place] 20 cm long temporary hemodialysis catheter, entering the right internal jugular vein and terminating in the superior vena cava. A post placement chest radiograph has been ordered and is currently pending.
--- NOTE | 2018-01-11 20:40 | RAD ---
Renal ultrasound History: Renal failure. Comparison: None. Technique: Transabdominal imaging was performed of the kidneys and bladder. Findings: Right kidney measures 11.1 cm in length. Single right renal cysts are seen. No obstruction or convincing stone is appreciated. Left kidney measures 11.5 cm in length. Left kidney is without evidence of obstruction or convincing stone. Urinary bladder is not visualized. Impression: Right renal cysts. Both kidneys are without evidence of obstruction. Electronically signed by: Jace Kidd MD (01/11/2018 8:37 PM) [facility]
--- NOTE | 2018-01-11 20:54 | RAD ---
Exam: AP portable chest History: Dialysis catheter placement. Comparison: January 11, 2018. Findings: The heart and mediastinal structures are within normal limits for size. Lungs are without infiltrate. No pleural effusion or pneumothorax is identified. There has been interval placement of right internal jugular dialysis catheter with tip the catheter projecting at the right atrium. Extensive right shoulder orthopedic hardware is seen. Impression: 1. No acute cardiopulmonary process. 2. Right internal jugular dialysis catheter tip projects at the right atrium. Electronically signed by: Jace Kidd MD (01/11/2018 8:51 PM) [employer]
--- NOTE | 2018-01-11 20:57 | PDOC1 ---
History and Physical Date of Admission Date of Admission DATE: 01/11/18 TIME: 20:48 Identification/Chief Complaint Chief Complaint Weakness Source Source: Chart review, Patient History of Present Illness History of Present Illness Ms Mtz is a 42 yo female with complicated PMHx DM2, HTN, HLD, GERD, Depression , CKD3, colostomy who p/w low blood pressure in clinic. She has been c/o shaking , some intermittent confusion, and increased green ostomy output, decreased UOP and rash between her thighs In ED she was treated with IV fluids initiated which brought the patient's blood pressure up. EKG obtained and reviewed by myself shows sinus rhythm with peaking T waves with qrs at 130 ms. Potassium is elevated at 9. Contacted nephrology for ICU admission and urgent dialysis. Albuterol, calcium and bicarbonate given in the emergency room, and IR was contacted for emergent placement of dialysis catheter. Patient has significant leukocytosis as well and broad-spectrum antibiotics initiated early upon arrival to cover for sepsis. No obvious source of infection, awaiting urine at this time, however on further review a pro-calcitonin elevated possibly suggesting a pulmonary infiltrate in the setting of an xray showing possible LLL infiltrate. Influenza negative. Mild baseline anemia present. Due to the life-threatening nature of her illness with EKG changes and potassium of 9 she will be admitted to the ICU for urgent dialysis. The patient denies having any fevers at home she has not had any neck stiffness or nuchal rigidity, no recent sick contacts. Patient has a history of sepsis and was in the hospital for approximately 2 months for treatment for septic shock. Past Medical History Cardiovascular: HTN, Hyperlipidemia Pulmonary: No pertinent hx CENTRAL NERVOUS SYSTEM: Periperal neuropathy GI: GERD, Inflam bowel disease Heme/Onc: Cancer, Iron deficiency Anemia Hepatobiliary: No pertinent hx Psych: Anxiety, Depression, Schizophrenia, Other Musculoskeletal: Osteoarthritis Rheumatologic: No pertinent hx Infectious disease: No pertinent hx Renal/: Chronic renal insuff Endocrine: Diabetes, Hypothyroidism, Osteoporosis Past Surgical History Past Surgical History: Total hip replacement, Total knee replacement, Tonsillectomy, Other Family History Family History: Cancer, Coronary Artery Disease Social History Smoke: No ALCOHOL: occassional Drugs: None Current Problem List Problem List Problems Medical Problems: (1) Acute renal failure Status: Acute (2) Hyperkalemia Status: Acute (3) Sepsis Status: Acute Current Medications Current Medications Current Medications Vancomycin HCl (Vanco Per Pharmacy) 1 each PRN DAILY PRN MC SEE COMMENTS Last administered on 01/11/18at 19:35; Start 01/11/18 at 16:45 Levofloxacin/ Dextrose (Levaquin Per Pharmacy) 1 each PRN DAILY PRN MC SEE COMMENTS; Start 01/11/18 at 16:45 Vancomycin HCl 2 gm/Sodium Chloride 500 ml @ 250 mls/hr 1X ONCE IV Last administered on 01/11/18at 18:29; Start 01/11/18 at 17:00; Stop 01/11/18 at 18 :59; Status DC Levofloxacin/ Dextrose 150 ml @ 100 mls/hr 1X ONCE IV Last administered on at 17:05; Start 01/11/18 at 17:00; Stop 01/11/18 at 18:29; Status DC Sodium Chloride 0 ml @ 0 mls/hr Q0M IV Last administered on 01/11/18at 17:03; Start 01/11/18 at 16:45 Sodium Bicarbonate (Sodium Bicarb Adult 8.4% Syr) 50 meq 1X ONCE IV Last administered on 01/11/18at 19:11; Start 01/11/18 at 18:30; Stop 01/11/18 at 18 :31; Status DC Calcium Gluconate (Calcium Gluconate) 1,000 mg 1X ONCE IVP Last administered on 01/11/18at 19:12; Start 01/11/18 at 18:30; Stop 01/11/18 at 18:31; Status DC Albuterol Sulfate (Ventolin Neb Soln) 10 mg 1X ONCE CONT NEB Last administered on 01/11/18at 18:51; Start 01/11/18 at 18:30; Stop 01/11/18 at 18 :31; Status DC Vancomycin HCl (Vancomycin Random Level) 1 each 1X ONCE MC ; Start 01/12/18 at 16:00; Stop 01/12/18 at 16:01 Lidocaine/Sodium Bicarbonate (Buffered Lidocaine 1%) 3 ml STK-MED ONCE .ROUTE ; Start 01/11/18 at 19:41; Stop 01/11/18 at 19:42; Status DC Heparin Sodium (Porcine) (Heparin Sodium) 10,000 unit STK-MED ONCE .ROUTE ; Start 01/11/18 at 19:41; Stop 01/11/18 at 19:42; Status DC Levofloxacin/ Dextrose 100 ml @ 100 mls/hr Q48H IV ; Start 01/12/18 at 17:00 Norepinephrine Bitartrate 250 ml @ 1.875 mls/ hr CONT PRN IV SEE I/O RECORD; Start 01/11/18 at 20:30 Sodium Chloride 1,000 ml @ 1,000 mls/hr Q1H PRN IV hypotension; Start at 20:27; Stop 01/12/18 at 02:26 Sodium Chloride 1,000 ml @ 400 mls/hr Q2H30M PRN IV PATENCY; Start 01/11/18 at 20:27; Stop 01/12/18 at 08:26 Info (PHARMACY MONITORING -- do not chart) 1 each PRN DAILY PRN MC SEE COMMENTS ; Start 01/11/18 at 20:30 Info (PHARMACY MONITORING -- do not chart) 1 each PRN DAILY PRN MC SEE COMMENTS ; Start 01/11/18 at 20:30; Status UNV Lidocaine/Sodium Bicarbonate (Buffered Lidocaine 1%) 6 ml 1X ONCE INJ Last administered on 01/11/18at 20:45; Start 01/11/18 at 21:00; Stop 01/11/18 at 21 :01 Heparin Sodium (Porcine) (Heparin Sodium) 2,800 unit 1X ONCE INT CAT Last administered on 01/11/18at 20:44; Start 01/11/18 at 21:00; Stop 01/11/18 at 21 :01 Active Scripts Active Proair Hfa Inhaler (Albuterol Sulfate) 8.5 Gm Hfa.aer.ad 1 Puff INH PRN Q6HRS PRN Azithromycin Tablet (Azithromycin) 250 Mg Tablet 1 Pkg PO UD Levaquin (Levofloxacin) 250 Mg Tablet 250 Mg PO DAILY06 Levemir Flextouch (Insulin Detemir) 100 Unit/1 Ml Insuln.pen 40 Units SQ QHS 30 Days Reported Voltaren (Diclofenac Sodium) 100 Gm Gel..gram. 1 Gm TP QID Fluticasone Propionate Nasal Independence (Fluticasone Propionate) 16 Gm Independence.susp 2 Independence NS DAILY Quetiapine Fumarate 100 Mg Tablet 200 Mg PO HS Ferrous Sulfate 325 Mg Tablet 325 Mg PO DAILY Hydrocortisone Plus 1% Cream (Hydrocortisone/Aloe Vera) 28.4 Gm Cream..g. 1 Applic TP Hyoscyamine Sulfate 0.125 Mg Tablet 0.125 Mg PO Omeprazole 20 Mg Tablet.dr 20 Mg PO BID Ketoconazole 15 Gm Cream..g. 1 Herac[place] TP BID Synthroid (Levothyroxine Sodium) 200 Mcg Tablet 200 Mcg PO DAILYAC Cormax (Clobetasol Propionate) 50 Ml Solution 1 Heraclio TOP HS Novolog (Insulin Aspart) 100 Unit/1 Ml Vial 10 Unit SQ BIDACLD Januvia (Sitagliptin Phosphate) 100 Mg Tablet 100 Mg PO DAILY Xyzal (Levocetirizine Dihydrochloride) 5 Mg Tablet 5 Mg PO DAILYWSUP Simvastatin 40 Mg Tablet 40 Mg PO HS Triamcinolone Acetonide 0.1% Cream (Triamcinolone Acetonide) 15 Gm Cream..g. 1 Heraclio TP TID Nystatin 15 Gm Cream..g. 15 Gm TP BID Zoloft (Sertraline Hcl) 100 Mg Tablet 100 Mg PO DAILY Hydrocodone-Apap 5-325 (Hydrocodone Bit/Acetaminophen) 1 Each Tablet 1 Tab PO PRN Q6HRS PRN Allergies Allergies: Coded Allergies: Penicillins (Verified Allergy, Severe, Anaphylaxis, 12/29/15) aspirin (Verified Allergy, Severe, Anaphylaxis, 12/29/15) Latex, Natural Rubber (Verified Allergy, Intermediate, Rash, 12/30/15) RUBBER latex (Verified Allergy, Intermediate, Rash, 12/29/15) piperacillin (Verified Allergy, Intermediate, Rash, 12/29/15) tazobactam (Verified Allergy, Intermediate, Rash, 12/29/15) tizanidine (Verified Allergy, Intermediate, Itching, 12/29/15) acetaminophen (Verified Adverse Reaction, Intermediate, elevated liver enzymes, 01/01/16) Uncoded Allergies: PLASTIC (Allergy, Intermediate, Rash, 10/27/15) ROS General: YES: Chills, Fatigue, Malaise PSYCHOLOGICAL ROS: YES: Anxiety, Memory difficulties Eyes: No Blurry vision, No Decreased vision, No Double vision, No Dry eyes, No Excessive tearing, No Eye Pain, No Itchy Eyes, No Loss of vision, No Photophobia , No Scotomata, No Uses contacts, No Uses glasses, No Other HEENT: No: Heacaches, Visual Changes, Hearing change, Nasal congestion, Nasal discharge, Oral lesions, Sinus pain, Sore Throat, Epistaxis, Sneezing, Snoring, Tinnitus, Vertigo, Vocal changes, Other ALLERGY AND IMMUNOLOGY: No: Hives, Insect Bite Sensitivity, Itchy/Watery Eyes, Nasal Congestion, Post Nasal Drip, Seasonal Allergies, Other Hematological and Lymphatic: No: Bleeding Problems, Blood Clots, Blood Transfusions, Brusing, Night Sweats, Pallor, Swollen Lymph Nodes, Other ENDOCRINE: No: Breast Changes, Galactorrhea, Hair Pattern Changes, Hot Flashes , Malaise/lethargy, Mood Swings, Palpitations, Polydipsia/polyuria, Skin Changes , Temperature Intolerance, Unexpected Weight Changes, Other Breast: No New/Changing Breast Lumps, No Nipple changes, No Nipple discharge, No Other Respiratory: YES: Shortness of breath; No: Cough, Hemoptysis, Orthopnea, Pleuritic Pain, SOB with excertion, Sputum Changes, Stridor, Tachypnea, Wheezing, Other Cardiovascular: No Chest Pain, No Palpitations, No Orthopnea, No Paroxysmal Noc. Dyspnea, No Edema, No Lt Headedness, No Other Gastrointestinal: Yes Nausea, Yes Abdominal Pain, Yes Diarrhea Genitourinary: YES Dysuria, YES Discharge Musculoskeletal: Yes Gait Disturbance, Yes Muscular Weakness Neurological: Yes Behavorial Changes, Yes Confusion, Yes Memory Loss; No Bowel/Bladder ControlChng, No Dizziness, No Gait Disturbance, No Headaches , No Impaired Coord/balance, No Numbness/Tingling, No Seizures, No Speech Problems, No Tremors, No Visual Changes, No Weakness, No Other Physical Exam General: Alert, Cooperative, mild distress, Other (Oriented to person and location not day, date time) HEENT: Atraumatic, PERRLA, EOMI, Mucous membr. moist/pink Lungs: Other (Decreased sounds bilateral bases L>R) Heart: S1S2, RRR Breasts: Rt breast nml w/o mass (Kelley rash), Lt breast nml w/o mass ( Kelley rash) Abdomen: Normal bowel sounds, No tenderness, Other (Foul green liquid ostomy output) Rectal Exam: not examined PELVIC: Nml ext genitalia, Swelling, Other (Bilateral groin rash) Extremities: No clubbing, No cyanosis, No edema, Normal pulses, No tenderness/ swelling Skin: Other (Rashes and skin breakdown in multiple locations) Neuro: Normal tone, Sensation intact, Cranial nerves 3-12 NL, Reflexes 2+ Psych/Mental Status: Mood NL Vitals Vitals Vital Signs Date Time Temp Pulse Resp B/P (MAP) Pulse Ox O2 Delivery O2 Flow Rate FiO2 01/11/18 18:51 100 Room Air 01/11/18 16:40 97.7 95 16 97/46 (63) 97.7 Labs Labs Laboratory Tests Test 01/11/18 16:42 01/11/18 17:10 01/11/18 18:10 01/11/18 19:26 Lactic Acid Level 1.2 mmol/L (0.4-2.0) White Blood Count 27.2 x10^3/uL (4.0-11.0) Red Blood Count 3.38 x10^6/uL (3.50-5.40) Hemoglobin 9.6 g/dL (12.0-15.5) Hematocrit 29.2 % (36.0-47.0) Mean Corpuscular Volume 86 fL (79-100) Mean Corpuscular Hemoglobin 28 pg (25-35) Mean Corpuscular Hemoglobin Concent 33 g/dL (31-37) Red Cell Distribution Width 17.1 % (11.5-14.5) Platelet Count 486 x10^3/uL (140-400) Neutrophils (%) (Auto) 93 % (31-73) Lymphocytes (%) (Auto) 3 % (24-48) Monocytes (%) (Auto) 3 % (0-9) Eosinophils (%) (Auto) 1 % (0-3) Basophils (%) (Auto) 0 % (0-3) Neutrophils # (Auto) 25.3 x10^3uL (1.8-7.7) Lymphocytes # (Auto) 0.8 x10^3/uL (1.0-4.8) Monocytes # (Auto) 0.9 x10^3/uL (0.0-1.1) Eosinophils # (Auto) 0.2 x10^3/uL (0.0-0.7) Basophils # (Auto) 0.1 x10^3/uL (0.0-0.2) Segmented Neutrophils % 99 % (35-66) Lymphocytes % 1 % (24-48) Toxic Granulation Slight Platelet Estimate Increased (ADEQUATE) Prothrombin Time 15.9 SEC (11.7-14.0) Prothromb Time International Ratio 1.3 (0.8-1.1) Activated Partial Thromboplast Time 27 SEC (24-38) Sodium Level 132 mmol/L (136-145) Potassium Level 9.2 mmol/L (3.5-5.1) Chloride Level 104 mmol/L (98-107) Carbon Dioxide Level 7 mmol/L (21-32) Anion Gap 21 (6-14) Blood Urea Nitrogen 130 mg/dL (7-20) Creatinine 11.3 mg/dL (0.6-1.0) Estimated GFR (Cockcroft-Gault) 3.7 Glucose Level 123 mg/dL (70-99) Calcium Level 8.9 mg/dL (8.5-10.1) Total Bilirubin 0.5 mg/dL (0.2-1.0) Direct Bilirubin 0.2 mg/dL (0.0-0.2) Aspartate Amino Transf (AST/SGOT) 19 U/L (15-37) Alanine Aminotransferase (ALT/SGPT) 25 U/L (14-59) Alkaline Phosphatase 261 U/L (46-116) Troponin I Quantitative < 0.017 ng/mL (0.000-0.055) Total Protein 8.5 g/dL (6.4-8.2) Albumin 3.3 g/dL (3.4-5.0) Lipase 961 U/L (73-393) Procalcitonin 1.18 ng/mL (0.00-0.10) Influenza Type A Antigen Negative (NEGATIVE) Influenza Type B Antigen Negative (NEGATIVE) O2 Saturation 98 % (92-99) Arterial Blood pH 7.26 (7.35-7.45) Arterial Blood pCO2 at Patient Temp 19 mmHg (35-46) Arterial Blood pO2 at Patient Temp 114 mmHg (75-108) Arterial Blood HCO3 8 mmol/L (21-28) Arterial Blood Base Excess -17 mmol/L (-3-3) FiO2 21.0 Laboratory Tests Test 01/11/18 16:42 01/11/18 17:10 01/11/18 18:10 01/11/18 19:26 Lactic Acid Level 1.2 mmol/L (0.4-2.0) White Blood Count 27.2 x10^3/uL (4.0-11.0) Red Blood Count 3.38 x10^6/uL (3.50-5.40) Hemoglobin 9.6 g/dL (12.0-15.5) Hematocrit 29.2 % (36.0-47.0) Mean Corpuscular Volume 86 fL (79-100) Mean Corpuscular Hemoglobin 28 pg (25-35) Mean Corpuscular Hemoglobin Concent 33 g/dL (31-37) Red Cell Distribution Width 17.1 % (11.5-14.5) Platelet Count 486 x10^3/uL (140-400) Neutrophils (%) (Auto) 93 % (31-73) Lymphocytes (%) (Auto) 3 % (24-48) Monocytes (%) (Auto) 3 % (0-9) Eosinophils (%) (Auto) 1 % (0-3) Basophils (%) (Auto) 0 % (0-3) Neutrophils # (Auto) 25.3 x10^3uL (1.8-7.7) Lymphocytes # (Auto) 0.8 x10^3/uL (1.0-4.8) Monocytes # (Auto) 0.9 x10^3/uL (0.0-1.1) Eosinophils # (Auto) 0.2 x10^3/uL (0.0-0.7) Basophils # (Auto) 0.1 x10^3/uL (0.0-0.2) Segmented Neutrophils % 99 % (35-66) Lymphocytes % 1 % (24-48) Toxic Granulation Slight Platelet Estimate Increased (ADEQUATE) Prothrombin Time 15.9 SEC (11.7-14.0) Prothromb Time International Ratio 1.3 (0.8-1.1) Activated Partial Thromboplast Time 27 SEC (24-38) Sodium Level 132 mmol/L (136-145) Potassium Level 9.2 mmol/L (3.5-5.1) Chloride Level 104 mmol/L (98-107) Carbon Dioxide Level 7 mmol/L (21-32) Anion Gap 21 (6-14) Blood Urea Nitrogen 130 mg/dL (7-20) Creatinine 11.3 mg/dL (0.6-1.0) Estimated GFR (Cockcroft-Gault) 3.7 Glucose Level 123 mg/dL (70-99) Calcium Level 8.9 mg/dL (8.5-10.1) Total Bilirubin 0.5 mg/dL (0.2-1.0) Direct Bilirubin 0.2 mg/dL (0.0-0.2) Aspartate Amino Transf (AST/SGOT) 19 U/L (15-37) Alanine Aminotransferase (ALT/SGPT) 25 U/L (14-59) Alkaline Phosphatase 261 U/L (46-116) Troponin I Quantitative < 0.017 ng/mL (0.000-0.055) Total Protein 8.5 g/dL (6.4-8.2) Albumin 3.3 g/dL (3.4-5.0) Lipase 961 U/L (73-393) Procalcitonin 1.18 ng/mL (0.00-0.10) Influenza Type A Antigen Negative (NEGATIVE) Influenza Type B Antigen Negative (NEGATIVE) O2 Saturation 98 % (92-99) Arterial Blood pH 7.26 (7.35-7.45) Arterial Blood pCO2 at Patient Temp 19 mmHg (35-46) Arterial Blood pO2 at Patient Temp 114 mmHg (75-108) Arterial Blood HCO3 8 mmol/L (21-28) Arterial Blood Base Excess -17 mmol/L (-3-3) FiO2 21.0 VTE Prophylaxis Ordered VTE Prophylaxis Devices: Contraindicated VTE Pharmacological Prophylaxi: Yes Assessment/Plan Assessment/Plan A/P: Hyperkalemia - with EKG changes, given calcium gluconate, insulin + D50, albuterol in ED, IR for vasc-cath placement for emergent dialysis. Nephrology consulted Acute renal failure - with BUN 130 and Cr 11 she requires emergency dialysis for this as well Confusion - likely uremic encephalopathy, will monitor Sepsis - likely from LLL pneumonia, appropriately cultured and given fluids in ED, will cont broad spectrum antibiotics Diarrhea - will send ostomy output for c diff testing Intertrigo - in groin and beneath bilateral breasts, wound care to see. Miconazole to treat. Diet - renal PPX - heparin FUll code ICU for life-threatening hyperkalemia with renal failure Greater than 75 minutes of critical care time spent with patient in ED with treatment and coordination of care AR LAMBERT MD Jan 11, 2018 20:57
[2018-01-11] MEDS ORDERED: 0.9 % SODIUM CHLORIDE 10 ML DISP.SYRIN. IV PRN (21:00)
[2018-01-11] MEDS ORDERED: LIDOCAINE WITH 8.4% SOD BICARB 3 ML DISP.SYRIN. INJ ONE (21:00)
[2018-01-11] MEDS ORDERED: HYDROmorphone 2 MG/ML VIAL IVP PRN (22:15)
[2018-01-11] MEDS: oxyCODONE/APAP 5/325 1 TAB TABLET PO PRN (22:18)
[2018-01-11] MEDS: HEPARIN for SUB-Q USE 5,000 UNIT/ML VIAL. SQ SCH (22:21)
[2018-01-11] MEDS: MICONAZOLE NITRATE 2% TOPICAL CREAM 28GM TUBE. TP SCH (22:27)
[2018-01-12] VITALS (15 sets, daily range): BP systolic 96–113; BP diastolic 35–67
[2018-01-12] MEDS ORDERED: VIT1TABL70 PO (02:47)
[2018-01-12] MEDS ORDERED: CAPS42.56 TP (02:47)
[2018-01-12] MEDS ORDERED: INSU100I17 SQ (02:47)
[2018-01-12] MEDS ORDERED: LEVO5TAB2 PO (02:47)
[2018-01-12] MEDS ORDERED: TRAM50TA PO (02:47)
[2018-01-12] MEDS ORDERED: BACI3.5O8 OD (02:47)
[2018-01-12] MEDS ORDERED: DICL100G18 TP (02:47)
[2018-01-12] MEDS ORDERED: POLY255P PO (02:47)
[2018-01-12] MEDS ORDERED: OXYC-323 PO (02:47)
[2018-01-12] MEDS ORDERED: INSU100V13 SQ (02:47)
[2018-01-12] MEDS ORDERED: DIPH25CA20 PO (02:47)
[2018-01-12] MEDS ORDERED: ATOR20TA PO (02:47)
[2018-01-12] MEDS ORDERED: VITS42.55 TP (02:47)
[2018-01-12] MEDS ORDERED: ZINC56CR2 TP (02:47)
[2018-01-12] MEDS: HEPARIN for SUB-Q USE 5,000 UNIT/ML VIAL. SQ SCH ×3 (06:23→20:46)
[2018-01-12 06:42] LABS: HEMATOCRIT 21.2 % (36.0-47.0); HEMOGLOBIN 7.3 g/dL (12.0-15.5); RED BLOOD COUNT 2.6 x10^6/uL (3.50-5.40); RED CELL DISTRIBUTION WIDTH 16.8 % (11.5-14.5); WHITE BLOOD COUNT 13.4 x10^3/uL (4.0-11.0)
[2018-01-12 06:43] LABS: CALCIUM 7.8 mg/dL (8.5-10.1); CREATININE 4.2 mg/dL (0.6-1.0); GFR 11.6; MAGNESIUM 1.5 mg/dL (1.8-2.4); PHOSPHORUS 6.5 mg/dL (2.6-4.7); POTASSIUM 4.4 mmol/L (3.5-5.1)
--- NOTE | 2018-01-12 07:40 | PDOC ---
PROGRESS NOTES Chief Complaint Chief Complaint Hyperkalemia Acute renal failure Confusion Sepsis Diarrhea Intertrigo History of Present Illness History of Present Illness Ms Mtz is a 42 yo female with complicated PMHx DM2, HTN, HLD, GERD, Depression , CKD3, colostomy who p/w low blood pressure in clinic. She has been c/o shaking , some intermittent confusion, and increased green ostomy output, decreased UOP and rash between her thighs In ED she was treated with IV fluids initiated which brought the patient's blood pressure up. EKG obtained and reviewed by myself shows sinus rhythm with peaking T waves with qrs at 130 ms. Potassium is elevated at 9. Contacted nephrology for ICU admission and urgent dialysis. Albuterol, calcium and bicarbonate given in the emergency room, and IR was contacted for emergent placement of dialysis catheter. Patient has significant leukocytosis as well and broad-spectrum antibiotics initiated early upon arrival to cover for sepsis. No obvious source of infection, awaiting urine at this time, however on further review a pro-calcitonin elevated possibly suggesting a pulmonary infiltrate in the setting of an xray showing possible LLL infiltrate. Influenza negative. Mild baseline anemia present. Due to the life-threatening nature of her illness with EKG changes and potassium of 9 she was admitted to the ICU for urgent dialysis and with the help of heroic measures by interventional radiology was able to dialyze on 01/11 at night. This morning she is drowsy. Potassium normalized. She has 250cc PVR and had chanel inserted. Mag 1.5. her groin feels better. She has no further shaking. Still with liquid ostomy output A/P: Hyperkalemia - with EKG changes, given calcium gluconate, insulin + D50, albuterol in ED, IR for vasc-cath placement for emergent dialysis. Nephrology consulted. Resolved with dialysis. Hypomagnesemia - likely 2/2 stool output, will give 2g if ok with nephro Acute renal failure - with BUN 130 and Cr 11 she required emergent dialysis with drastic improvement to BUn 38 and Cr 4.2, K of 4.4 Confusion - Improved, was likely uremic encephalopathy, will monitor Sepsis - likely from LLL pneumonia, appropriately cultured and given fluids in ED, will cont broad spectrum antibiotics for now, though source is unclear her WBC has come down to 13 today Diarrhea - will send ostomy output for c diff testing Intertrigo - in groin and beneath bilateral breasts, wound care to see. Miconazole to treat. Diet - renal PPX - heparin FULL CODE Ok to downgrade to wards from ICU now that her life-threatening hyperkalemia has resolved. Vitals Vitals Vital Signs Date Time Temp Pulse Resp B/P (MAP) Pulse Ox O2 Delivery O2 Flow Rate FiO2 01/12/18 07:00 103 16 99/52 (68) 98 Room Air 01/12/18 04:00 98.8 98.8 Physical Exam General: Alert, Cooperative, mild distress, Other (Oriented to person and location not day, date time) Abdomen: Normal bowel sounds, No tenderness, Other (Foul green liquid ostomy output) Extremities: No clubbing, No cyanosis, No edema, Normal pulses, No tenderness/ swelling Skin: Other (Rashes and skin breakdown in multiple locations) Labs LABS Laboratory Tests Test 01/11/18 16:42 01/11/18 17:10 01/11/18 18:10 01/11/18 19:26 Lactic Acid Level 1.2 mmol/L (0.4-2.0) White Blood Count 27.2 x10^3/uL (4.0-11.0) Red Blood Count 3.38 x10^6/uL (3.50-5.40) Hemoglobin 9.6 g/dL (12.0-15.5) Hematocrit 29.2 % (36.0-47.0) Mean Corpuscular Volume 86 fL (79-100) Mean Corpuscular Hemoglobin 28 pg (25-35) Mean Corpuscular Hemoglobin Concent 33 g/dL (31-37) Red Cell Distribution Width 17.1 % (11.5-14.5) Platelet Count 486 x10^3/uL (140-400) Neutrophils (%) (Auto) 93 % (31-73) Lymphocytes (%) (Auto) 3 % (24-48) Monocytes (%) (Auto) 3 % (0-9) Eosinophils (%) (Auto) 1 % (0-3) Basophils (%) (Auto) 0 % (0-3) Neutrophils # (Auto) 25.3 x10^3uL (1.8-7.7) Lymphocytes # (Auto) 0.8 x10^3/uL (1.0-4.8) Monocytes # (Auto) 0.9 x10^3/uL (0.0-1.1) Eosinophils # (Auto) 0.2 x10^3/uL (0.0-0.7) Basophils # (Auto) 0.1 x10^3/uL (0.0-0.2) Segmented Neutrophils % 99 % (35-66) Lymphocytes % 1 % (24-48) Toxic Granulation Slight Platelet Estimate Increased (ADEQUATE) Prothrombin Time 15.9 SEC (11.7-14.0) Prothromb Time International Ratio 1.3 (0.8-1.1) Activated Partial Thromboplast Time 27 SEC (24-38) Sodium Level 132 mmol/L (136-145) Potassium Level 9.2 mmol/L (3.5-5.1) Chloride Level 104 mmol/L (98-107) Carbon Dioxide Level 7 mmol/L (21-32) Anion Gap 21 (6-14) Blood Urea Nitrogen 130 mg/dL (7-20) Creatinine 11.3 mg/dL (0.6-1.0) Estimated GFR (Cockcroft-Gault) 3.7 Glucose Level 123 mg/dL (70-99) Calcium Level 8.9 mg/dL (8.5-10.1) Total Bilirubin 0.5 mg/dL (0.2-1.0) Direct Bilirubin 0.2 mg/dL (0.0-0.2) Aspartate Amino Transf (AST/SGOT) 19 U/L (15-37) Alanine Aminotransferase (ALT/SGPT) 25 U/L (14-59) Alkaline Phosphatase 261 U/L (46-116) Troponin I Quantitative < 0.017 ng/mL (0.000-0.055) Total Protein 8.5 g/dL (6.4-8.2) Albumin 3.3 g/dL (3.4-5.0) Lipase 961 U/L (73-393) Procalcitonin 1.18 ng/mL (0.00-0.10) Influenza Type A Antigen Negative (NEGATIVE) Influenza Type B Antigen Negative (NEGATIVE) O2 Saturation 98 % (92-99) Arterial Blood pH 7.26 (7.35-7.45) Arterial Blood pCO2 at Patient Temp 19 mmHg (35-46) Arterial Blood pO2 at Patient Temp 114 mmHg (75-108) Arterial Blood HCO3 8 mmol/L (21-28) Arterial Blood Base Excess -17 mmol/L (-3-3) FiO2 21.0 Test 01/11/18 21:00 01/11/18 21:40 01/12/18 00:04 01/12/18 06:05 Potassium Level 7.7 mmol/L (3.5-5.1) 4.4 mmol/L (3.5-5.1) Hepatitis B Surface Antigen Nonreactive (Nonreactive) Hepatitis B Surface Antibody Nonreactive Glucose (Fingerstick) 86 mg/dL (70-99) White Blood Count 13.4 x10^3/uL (4.0-11.0) Red Blood Count 2.60 x10^6/uL (3.50-5.40) Hemoglobin 7.3 g/dL (12.0-15.5) Hematocrit 21.2 % (36.0-47.0) Mean Corpuscular Volume 82 fL (79-100) Mean Corpuscular Hemoglobin 28 pg (25-35) Mean Corpuscular Hemoglobin Concent 34 g/dL (31-37) Red Cell Distribution Width 16.8 % (11.5-14.5) Platelet Count 364 x10^3/uL (140-400) Sodium Level 141 mmol/L (136-145) Chloride Level 103 mmol/L (98-107) Carbon Dioxide Level 22 mmol/L (21-32) Anion Gap 16 (6-14) Blood Urea Nitrogen 38 mg/dL (7-20) Creatinine 4.2 mg/dL (0.6-1.0) Estimated GFR (Cockcroft-Gault) 11.6 Glucose Level 89 mg/dL (70-99) Calcium Level 7.8 mg/dL (8.5-10.1) Phosphorus Level 6.5 mg/dL (2.6-4.7) Magnesium Level 1.5 mg/dL (1.8-2.4) Assessment and Plan Assessmemt and Plan Problems Medical Problems: (1) Acute renal failure Status: Acute (2) Hyperkalemia Status: Acute (3) Sepsis Status: Acute Comment Review of Relevant I have reviewed the following items hugo (where applicable) has been applied. Labs Laboratory Tests Test 01/11/18 16:42 01/11/18 17:10 01/11/18 18:10 01/11/18 19:26 Lactic Acid Level 1.2 mmol/L (0.4-2.0) White Blood Count 27.2 x10^3/uL (4.0-11.0) Red Blood Count 3.38 x10^6/uL (3.50-5.40) Hemoglobin 9.6 g/dL (12.0-15.5) Hematocrit 29.2 % (36.0-47.0) Mean Corpuscular Volume 86 fL (79-100) Mean Corpuscular Hemoglobin 28 pg (25-35) Mean Corpuscular Hemoglobin Concent 33 g/dL (31-37) Red Cell Distribution Width 17.1 % (11.5-14.5) Platelet Count 486 x10^3/uL (140-400) Neutrophils (%) (Auto) 93 % (31-73) Lymphocytes (%) (Auto) 3 % (24-48) Monocytes (%) (Auto) 3 % (0-9) Eosinophils (%) (Auto) 1 % (0-3) Basophils (%) (Auto) 0 % (0-3) Neutrophils # (Auto) 25.3 x10^3uL (1.8-7.7) Lymphocytes # (Auto) 0.8 x10^3/uL (1.0-4.8) Monocytes # (Auto) 0.9 x10^3/uL (0.0-1.1) Eosinophils # (Auto) 0.2 x10^3/uL (0.0-0.7) Basophils # (Auto) 0.1 x10^3/uL (0.0-0.2) Segmented Neutrophils % 99 % (35-66) Lymphocytes % 1 % (24-48) Toxic Granulation Slight Platelet Estimate Increased (ADEQUATE) Prothrombin Time 15.9 SEC (11.7-14.0) Prothromb Time International Ratio 1.3 (0.8-1.1) Activated Partial Thromboplast Time 27 SEC (24-38) Sodium Level 132 mmol/L (136-145) Potassium Level 9.2 mmol/L (3.5-5.1) Chloride Level 104 mmol/L (98-107) Carbon Dioxide Level 7 mmol/L (21-32) Anion Gap 21 (6-14) Blood Urea Nitrogen 130 mg/dL (7-20) Creatinine 11.3 mg/dL (0.6-1.0) Estimated GFR (Cockcroft-Gault) 3.7 Glucose Level 123 mg/dL (70-99) Calcium Level 8.9 mg/dL (8.5-10.1) Total Bilirubin 0.5 mg/dL (0.2-1.0) Direct Bilirubin 0.2 mg/dL (0.0-0.2) Aspartate Amino Transf (AST/SGOT) 19 U/L (15-37) Alanine Aminotransferase (ALT/SGPT) 25 U/L (14-59) Alkaline Phosphatase 261 U/L (46-116) Troponin I Quantitative < 0.017 ng/mL (0.000-0.055) Total Protein 8.5 g/dL (6.4-8.2) Albumin 3.3 g/dL (3.4-5.0) Lipase 961 U/L (73-393) Procalcitonin 1.18 ng/mL (0.00-0.10) Influenza Type A Antigen Negative (NEGATIVE) Influenza Type B Antigen Negative (NEGATIVE) O2 Saturation 98 % (92-99) Arterial Blood pH 7.26 (7.35-7.45) Arterial Blood pCO2 at Patient Temp 19 mmHg (35-46) Arterial Blood pO2 at Patient Temp 114 mmHg (75-108) Arterial Blood HCO3 8 mmol/L (21-28) Arterial Blood Base Excess -17 mmol/L (-3-3) FiO2 21.0 Test 01/11/18 21:00 01/11/18 21:40 01/12/18 00:04 01/12/18 06:05 Potassium Level 7.7 mmol/L (3.5-5.1) 4.4 mmol/L (3.5-5.1) Hepatitis B Surface Antigen Nonreactive (Nonreactive) Hepatitis B Surface Antibody Nonreactive Glucose (Fingerstick) 86 mg/dL (70-99) White Blood Count 13.4 x10^3/uL (4.0-11.0) Red Blood Count 2.60 x10^6/uL (3.50-5.40) Hemoglobin 7.3 g/dL (12.0-15.5) Hematocrit 21.2 % (36.0-47.0) Mean Corpuscular Volume 82 fL (79-100) Mean Corpuscular Hemoglobin 28 pg (25-35) Mean Corpuscular Hemoglobin Concent 34 g/dL (31-37) Red Cell Distribution Width 16.8 % (11.5-14.5) Platelet Count 364 x10^3/uL (140-400) Sodium Level 141 mmol/L (136-145) Chloride Level 103 mmol/L (98-107) Carbon Dioxide Level 22 mmol/L (21-32) Anion Gap 16 (6-14) Blood Urea Nitrogen 38 mg/dL (7-20) Creatinine 4.2 mg/dL (0.6-1.0) Estimated GFR (Cockcroft-Gault) 11.6 Glucose Level 89 mg/dL (70-99) Calcium Level 7.8 mg/dL (8.5-10.1) Phosphorus Level 6.5 mg/dL (2.6-4.7) Magnesium Level 1.5 mg/dL (1.8-2.4) Laboratory Tests Test 01/11/18 16:42 01/11/18 17:10 01/11/18 18:10 01/11/18 19:26 Lactic Acid Level 1.2 mmol/L (0.4-2.0) White Blood Count 27.2 x10^3/uL (4.0-11.0) Red Blood Count 3.38 x10^6/uL (3.50-5.40) Hemoglobin 9.6 g/dL (12.0-15.5) Hematocrit 29.2 % (36.0-47.0) Mean Corpuscular Volume 86 fL (79-100) Mean Corpuscular Hemoglobin 28 pg (25-35) Mean Corpuscular Hemoglobin Concent 33 g/dL (31-37) Red Cell Distribution Width 17.1 % (11.5-14.5) Platelet Count 486 x10^3/uL (140-400) Neutrophils (%) (Auto) 93 % (31-73) Lymphocytes (%) (Auto) 3 % (24-48) Monocytes (%) (Auto) 3 % (0-9) Eosinophils (%) (Auto) 1 % (0-3) Basophils (%) (Auto) 0 % (0-3) Neutrophils # (Auto) 25.3 x10^3uL (1.8-7.7) Lymphocytes # (Auto) 0.8 x10^3/uL (1.0-4.8) Monocytes # (Auto) 0.9 x10^3/uL (0.0-1.1) Eosinophils # (Auto) 0.2 x10^3/uL (0.0-0.7) Basophils # (Auto) 0.1 x10^3/uL (0.0-0.2) Segmented Neutrophils % 99 % (35-66) Lymphocytes % 1 % (24-48) Toxic Granulation Slight Platelet Estimate Increased (ADEQUATE) Prothrombin Time 15.9 SEC (11.7-14.0) Prothromb Time International Ratio 1.3 (0.8-1.1) Activated Partial Thromboplast Time 27 SEC (24-38) Sodium Level 132 mmol/L (136-145) Potassium Level 9.2 mmol/L (3.5-5.1) Chloride Level 104 mmol/L (98-107) Carbon Dioxide Level 7 mmol/L (21-32) Anion Gap 21 (6-14) Blood Urea Nitrogen 130 mg/dL (7-20) Creatinine 11.3 mg/dL (0.6-1.0) Estimated GFR (Cockcroft-Gault) 3.7 Glucose Level 123 mg/dL (70-99) Calcium Level 8.9 mg/dL (8.5-10.1) Total Bilirubin 0.5 mg/dL (0.2-1.0) Direct Bilirubin 0.2 mg/dL (0.0-0.2) Aspartate Amino Transf (AST/SGOT) 19 U/L (15-37) Alanine Aminotransferase (ALT/SGPT) 25 U/L (14-59) Alkaline Phosphatase 261 U/L (46-116) Troponin I Quantitative < 0.017 ng/mL (0.000-0.055) Total Protein 8.5 g/dL (6.4-8.2) Albumin 3.3 g/dL (3.4-5.0) Lipase 961 U/L (73-393) Procalcitonin 1.18 ng/mL (0.00-0.10) Influenza Type A Antigen Negative (NEGATIVE) Influenza Type B Antigen Negative (NEGATIVE) O2 Saturation 98 % (92-99) Arterial Blood pH 7.26 (7.35-7.45) Arterial Blood pCO2 at Patient Temp 19 mmHg (35-46) Arterial Blood pO2 at Patient Temp 114 mmHg (75-108) Arterial Blood HCO3 8 mmol/L (21-28) Arterial Blood Base Excess -17 mmol/L (-3-3) FiO2 21.0 Test 01/11/18 21:00 01/11/18 21:40 01/12/18 00:04 01/12/18 06:05 Potassium Level 7.7 mmol/L (3.5-5.1) 4.4 mmol/L (3.5-5.1) Hepatitis B Surface Antigen Nonreactive (Nonreactive) Hepatitis B Surface Antibody Nonreactive Glucose (Fingerstick) 86 mg/dL (70-99) White Blood Count 13.4 x10^3/uL (4.0-11.0) Red Blood Count 2.60 x10^6/uL (3.50-5.40) Hemoglobin 7.3 g/dL (12.0-15.5) Hematocrit 21.2 % (36.0-47.0) Mean Corpuscular Volume 82 fL (79-100) Mean Corpuscular Hemoglobin 28 pg (25-35) Mean Corpuscular Hemoglobin Concent 34 g/dL (31-37) Red Cell Distribution Width 16.8 % (11.5-14.5) Platelet Count 364 x10^3/uL (140-400) Sodium Level 141 mmol/L (136-145) Chloride Level 103 mmol/L (98-107) Carbon Dioxide Level 22 mmol/L (21-32) Anion Gap 16 (6-14) Blood Urea Nitrogen 38 mg/dL (7-20) Creatinine 4.2 mg/dL (0.6-1.0) Estimated GFR (Cockcroft-Gault) 11.6 Glucose Level 89 mg/dL (70-99) Calcium Level 7.8 mg/dL (8.5-10.1) Phosphorus Level 6.5 mg/dL (2.6-4.7) Magnesium Level 1.5 mg/dL (1.8-2.4) Medications Current Medications Vancomycin HCl (Vanco Per Pharmacy) 1 each PRN DAILY PRN MC SEE COMMENTS Last administered on 01/11/18at 19:35; Start 01/11/18 at 16:45 Levofloxacin/ Dextrose (Levaquin Per Pharmacy) 1 each PRN DAILY PRN MC SEE COMMENTS; Start 01/11/18 at 16:45 Vancomycin HCl 2 gm/Sodium Chloride 500 ml @ 250 mls/hr 1X ONCE IV Last administered on 01/11/18at 18:29; Start 01/11/18 at 17:00; Stop 01/11/18 at 18 :59; Status DC Levofloxacin/ Dextrose 150 ml @ 100 mls/hr 1X ONCE IV Last administered on at 17:05; Start 01/11/18 at 17:00; Stop 01/11/18 at 18:29; Status DC Sodium Chloride 0 ml @ 0 mls/hr Q0M IV Last administered on 01/11/18at 17:03; Start 01/11/18 at 16:45 Sodium Bicarbonate (Sodium Bicarb Adult 8.4% Syr) 50 meq 1X ONCE IV Last administered on 01/11/18at 19:11; Start 01/11/18 at 18:30; Stop 01/11/18 at 18 :31; Status DC Calcium Gluconate (Calcium Gluconate) 1,000 mg 1X ONCE IVP Last administered on 01/11/18at 19:12; Start 01/11/18 at 18:30; Stop 01/11/18 at 18:31; Status DC Albuterol Sulfate (Ventolin Neb Soln) 10 mg 1X ONCE CONT NEB Last administered on 01/11/18at 18:51; Start 01/11/18 at 18:30; Stop 01/11/18 at 18 :31; Status DC Vancomycin HCl (Vancomycin Random Level) 1 each 1X ONCE MC ; Start 01/12/18 at 16:00; Stop 01/12/18 at 16:01 Lidocaine/Sodium Bicarbonate (Buffered Lidocaine 1%) 3 ml STK-MED ONCE .ROUTE ; Start 01/11/18 at 19:41; Stop 01/11/18 at 19:42; Status DC Heparin Sodium (Porcine) (Heparin Sodium) 10,000 unit STK-MED ONCE .ROUTE ; Start 01/11/18 at 19:41; Stop 01/11/18 at 19:42; Status DC Levofloxacin/ Dextrose 100 ml @ 100 mls/hr Q48H IV ; Start 01/12/18 at 17:00 Norepinephrine Bitartrate 250 ml @ 1.875 mls/ hr CONT PRN IV SEE I/O RECORD; Start 01/11/18 at 20:30 Sodium Chloride 1,000 ml @ 1,000 mls/hr Q1H PRN IV hypotension; Start at 20:27; Stop 01/12/18 at 02:26; Status DC Sodium Chloride 1,000 ml @ 400 mls/hr Q2H30M PRN IV PATENCY; Start 01/11/18 at 20:27; Stop 01/12/18 at 08:26 Info (PHARMACY MONITORING -- do not chart) 1 each PRN DAILY PRN MC SEE COMMENTS ; Start 01/11/18 at 20:30 Info (PHARMACY MONITORING -- do not chart) 1 each PRN DAILY PRN MC SEE COMMENTS ; Start 01/11/18 at 20:30; Status UNV Lidocaine/Sodium Bicarbonate (Buffered Lidocaine 1%) 6 ml 1X ONCE INJ Last administered on 01/11/18at 20:45; Start 01/11/18 at 21:00; Stop 01/11/18 at 21 :01; Status DC Heparin Sodium (Porcine) (Heparin Sodium) 2,800 unit 1X ONCE INT CAT Last administered on 01/11/18at 20:44; Start 01/11/18 at 21:00; Stop 01/11/18 at 21 :01; Status DC Ondansetron HCl (Zofran) 4 mg PRN Q6HRS PRN IV NAUSEA/VOMITING; Start at 21:00 Heparin Sodium (Porcine) (Heparin Sodium) 5,000 unit Q8HRS SQ Last administered on 01/12/18at 06:23; Start 01/11/18 at 22:00 Sodium Chloride (Normal Saline Flush) 3 ml QSHIFT PRN IV AFTER MEDS AND BLOOD DRAWS; Start 01/11/18 at 21:00 Miconazole Nitrate (Monistat-Derm) 1 heraclio BID TP Last administered on at 22:27; Start 01/11/18 at 21:30 Tramadol HCl (Ultram) 50 mg PRN Q6HRS PRN PO PAIN; Start 01/11/18 at 22:15 Oxycodone/ Acetaminophen (Percocet 5/325) 1 tab PRN Q6HRS PRN PO PAIN Last administered on 01/11/18at 22:18; Start 01/11/18 at 22:15 Hydromorphone HCl (Dilaudid) 0.25 mg PRN Q3HRS PRN IVP PAIN; Start 01/11/18 at 22:15 Lactobacillus Rhamnosus (Culturelle) 1 cap BID PO ; Start 01/12/18 at 09:00 Active Scripts Active Reported Desitin (Zinc Oxide) 57 Gm Cream..g. 57 Gm TP PRN PRN Nephplex Rx Tablet (Vit B Cmplx No3/Fa/C/Biot/Zinc) 1 Each Tablet 1 Each PO DAILY A and D Ointment (Vits A and D/White Pet/Lanolin) 42.5 Gm Oint...g. 42.5 Gm TP PRN Polyethylene Glycol 3350 255 Gm Powder 17 Gm PO DAILY Tramadol Hcl 50 Mg Tablet 50 Mg PO Q6HRS PRN Percocet 5-325 Mg Tablet (Oxycodone/Acetaminophen) 1 Each Tablet 1 Tab PO PRN Q6HRS PRN Levocetirizine Dihydrochloride 5 Mg Tablet 1 Tab PO QHS Levemir (Insulin Detemir) 100 Unit/1 Ml Vial 15 Unit SQ QHS Novolog Flexpen (Insulin Aspart) 100 Unit/1 Ml Insuln.pen 1 Unit SQ Voltaren (Diclofenac Sodium) 100 Gm Gel..gram. 4 Gm TP QID Capzasin-Hp (Capsaicin) 42.5 Gm Cream..g. 42.5 Gm TP PRN BID Banophen (Diphenhydramine Hcl) 25 Mg Capsule 25 Mg PO PRN Q6HRS Bacitracin 3.5 Gm Oint...g. 1 Heraclio OD BID Lipitor (Atorvastatin Calcium) 20 Mg Tablet 1 Tab PO DAILY Voltaren (Diclofenac Sodium) 100 Gm Gel..gram. 1 Gm TP QID Hydrocortisone Plus 1% Cream (Hydrocortisone/Aloe Vera) 28.4 Gm Cream..g. 1 Applic TP Ketoconazole 15 Gm Cream..g. 1 Heraclio TP BID Synthroid (Levothyroxine Sodium) 200 Mcg Tablet 200 Mcg PO DAILYAC Januvia (Sitagliptin Phosphate) 100 Mg Tablet 100 Mg PO DAILY Nystatin 15 Gm Cream..g. 15 Gm TP BID Hydrocodone-Apap 5-325 (Hydrocodone Bit/Acetaminophen) 1 Each Tablet 1 Tab PO PRN Q6HRS PRN Vitals/I & O Vital Sign - Last 24 Hours 10/17/18 10/17/18 10/17/18 10/17/18 16:40 17:40 18:11 18:41 Temp 97.7 97.7 Pulse 95 100 104 104 Resp 16 16 15 16 B/P (MAP) 97/46 (63) 114/56 (75) 115/53 (73) 111/52 (71) Pulse Ox 96 100 100 98 O2 Delivery Room Air Room Air Room Air Room Air 01/11/18 01/11/18 01/11/18 01/11/18 18:51 19:16 19:41 20:11 Pulse 108 110 122 Resp 16 15 16 B/P (MAP) 121/59 (79) 116/53 (74) 101/56 (71) Pulse Ox 100 98 99 99 O2 Delivery Room Air Room Air Room Air Room Air 01/11/18 01/11/18 01/11/18 01/11/18 20:41 21:00 21:15 21:15 Temp 99.5 99.5 Pulse 118 124 120 Resp 17 22 24 B/P (MAP) 105/54 (71) 94/41 (58) 79/48 (58) Pulse Ox 100 100 100 O2 Delivery Room Air Room Air Room Air Room Air 01/11/18 01/11/18 01/11/18 01/11/18 21:30 21:45 22:00 22:15 Pulse 120 114 120 140 Resp 26 26 26 28 B/P (MAP) 65/38 (47) 93/47 (62) 89/54 (66) 109/82 (91) Pulse Ox 100 100 100 100 O2 Delivery Room Air Room Air Room Air Room Air 01/11/18 01/11/18 01/11/18 01/11/18 22:18 22:30 22:45 23:00 Pulse 128 132 120 Resp 20 24 26 26 B/P (MAP) 81/48 (59) 73/53 (60) 96/49 (65) Pulse Ox 100 100 100 100 O2 Delivery Room Air Room Air Room Air Room Air 01/11/18 01/11/18 01/11/18 01/11/18 23:15 23:30 23:59 23:59 Temp 98.5 98.5 Pulse 124 116 Resp 18 28 24 B/P (MAP) 104/57 (73) 96/53 (67) Pulse Ox 98 100 100 O2 Delivery Room Air Room Air Room Air Room Air 01/12/18 01/12/18 01/12/18 01/12/18 01:00 02:00 03:00 04:00 Pulse 109 107 108 Resp 26 24 28 B/P (MAP) 109/59 (76) 110/67 (81) 108/59 (75) Pulse Ox 100 99 97 O2 Delivery Room Air Room Air Room Air Room Air 01/12/18 01/12/18 01/12/18 01/12/18 04:00 05:00 06:00 07:00 Temp 98.8 98.8 Pulse 104 103 97 103 Resp 28 28 22 16 B/P (MAP) 111/48 (69) 105/52 (69) 108/47 (67) 99/52 (68) Pulse Ox 98 98 98 98 O2 Delivery Room Air Room Air Room Air Room Air Intake and Output 01/11/18 01/11/18 01/12/18 15:00 23:00 07:00 Intake Total 650 ml 740 ml Output Total 400 ml Balance 650 ml 340 ml AR LAMBERT MD Jan 12, 2018 07:40
[2018-01-12] MEDS: VANCOMYCIN PER PHARMACY MC PRN ×2 (09:11→17:58)
[2018-01-12] MEDS ORDERED: LISI-334 PO (09:57)
[2018-01-12] MEDS ORDERED: SERT50TA PO (09:57)
[2018-01-12] MEDS ORDERED: HYOS0.1278 SL (09:57)
[2018-01-12] MEDS ORDERED: OMEP20CA9 PO (09:57)
[2018-01-12] MEDS ORDERED: FLUT12AE IH (09:57)
[2018-01-12] MEDS ORDERED: LOXA10CA PO (09:57)
[2018-01-12] MEDS ORDERED: FERR325T14 PO (09:57)
[2018-01-12] MEDS ORDERED: CYCL5TAB PO (09:57)
[2018-01-12] MEDS ORDERED: MEDR10TA3 PO (09:57)
--- NOTE | 2018-01-12 10:22 | PDOC2 ---
CONSULT Date of Consult Date of Consult DATE: 01/12/18 TIME: 09:47 Reason for Consult Reason for Consult: Elevated K Referring Physician Referring Physician: Dr. Mahesh Ortiz Identification/Chief Complaint Chief Complaint I was shaking, feeling Chills Source Source: Caregiver, Chart review, Patient History of Present Illness Reason for Visit: Ms Mtz is a 42 yo female with multiple medical problems - DM2, HTN, Depression , CKD3, colostomy , was at in September 2017- s/p cardiac arrest, MEHRAN was on CRRT , VRE in urine , sepsis - in the hospital for approximately 2 months for septic shock.. Her dad is at bedside . She states has been c/o shaking recently and as per dad some intermittent confusion. She also noticed increased Ostomy output . Vomiting couple of times. Pt reports she did not had any Urine Output for past 3 weeks but father reports that she is Incontinent but did have decreased UOP . She denies any new change in meds. She takes Advil prn may be approx 2/week , she is on Opioids as well Denies any K salt or any other source of K , She also reports rash between her thighs. She denies any CP/SOB.No Fever , Chills + Currently she states she is feeling much better, eating Breakfast . No N/V. Currently Ostomy Output is stable She did not Urinate since Hospitalization last night, Bladder scan this am with Urine of 250+ In ED she was found to have a K of 9 and significantly elevated BUN/Cr, Low Bicarb . As Per ER provider peaked T waves. She was Dialyzed last night , recd IVF in ER Patient has significant leukocytosis She has been following seen by [facility] in our group in may 2017 and scheduled for follow up appt with me(1st appt with me) next week Tuesday . Her Baseline Creat has been 1.5-1.7, with Intermittent increase to 2.5-3 but hospitalized at in September BUN 142/Cr18 Past Medical History Cardiovascular: HTN, Hyperlipidemia Pulmonary: No pertinent hx CENTRAL NERVOUS SYSTEM: Periperal neuropathy GI: GERD, Inflam bowel disease Heme/Onc: Cancer, Iron deficiency Anemia Hepatobiliary: No pertinent hx Psych: Anxiety, Depression, Schizophrenia, Other Musculoskeletal: Osteoarthritis Rheumatologic: No pertinent hx Infectious disease: No pertinent hx Renal/: Chronic renal insuff Endocrine: Diabetes, Hypothyroidism, Osteoporosis Past Surgical History Past Surgical History: Total hip replacement, Total knee replacement, Tonsillectomy, Other Family History Family History: Cancer, Coronary Artery Disease Social History No ALCOHOL: occassional Drugs: None Lives: with Family Current Problem List Problem List Problems Medical Problems: (1) Acute renal failure Status: Acute (2) Hyperkalemia Status: Acute (3) Sepsis Status: Acute Current Medications Current Medications Current Medications Vancomycin HCl (Vanco Per Pharmacy) 1 each PRN DAILY PRN MC SEE COMMENTS Last administered on 01/12/18at 09:11; Start 01/11/18 at 16:45 Levofloxacin/ Dextrose (Levaquin Per Pharmacy) 1 each PRN DAILY PRN MC SEE COMMENTS; Start 01/11/18 at 16:45 Vancomycin HCl 2 gm/Sodium Chloride 500 ml @ 250 mls/hr 1X ONCE IV Last administered on 01/11/18at 18:29; Start 01/11/18 at 17:00; Stop 01/11/18 at 18 :59; Status DC Levofloxacin/ Dextrose 150 ml @ 100 mls/hr 1X ONCE IV Last administered on at 17:05; Start 01/11/18 at 17:00; Stop 01/11/18 at 18:29; Status DC Sodium Chloride 0 ml @ 0 mls/hr Q0M IV Last administered on 01/11/18at 17:03; Start 01/11/18 at 16:45 Sodium Bicarbonate (Sodium Bicarb Adult 8.4% Syr) 50 meq 1X ONCE IV Last administered on 01/11/18at 19:11; Start 01/11/18 at 18:30; Stop 01/11/18 at 18 :31; Status DC Calcium Gluconate (Calcium Gluconate) 1,000 mg 1X ONCE IVP Last administered on 01/11/18at 19:12; Start 01/11/18 at 18:30; Stop 01/11/18 at 18:31; Status DC Albuterol Sulfate (Ventolin Neb Soln) 10 mg 1X ONCE CONT NEB Last administered on 01/11/18at 18:51; Start 01/11/18 at 18:30; Stop 01/11/18 at 18 :31; Status DC Vancomycin HCl (Vancomycin Random Level) 1 each 1X ONCE MC ; Start 01/12/18 at 16:00; Stop 01/12/18 at 16:01 Lidocaine/Sodium Bicarbonate (Buffered Lidocaine 1%) 3 ml STK-MED ONCE .ROUTE ; Start 01/11/18 at 19:41; Stop 01/11/18 at 19:42; Status DC Heparin Sodium (Porcine) (Heparin Sodium) 10,000 unit STK-MED ONCE .ROUTE ; Start 01/11/18 at 19:41; Stop 01/11/18 at 19:42; Status DC Levofloxacin/ Dextrose 100 ml @ 100 mls/hr Q48H IV ; Start 01/12/18 at 17:00 Norepinephrine Bitartrate 250 ml @ 1.875 mls/ hr CONT PRN IV SEE I/O RECORD; Start 01/11/18 at 20:30 Sodium Chloride 1,000 ml @ 1,000 mls/hr Q1H PRN IV hypotension; Start at 20:27; Stop 01/12/18 at 02:26; Status DC Sodium Chloride 1,000 ml @ 400 mls/hr Q2H30M PRN IV PATENCY; Start 01/11/18 at 20:27; Stop 01/12/18 at 08:26; Status DC Info (PHARMACY MONITORING -- do not chart) 1 each PRN DAILY PRN MC SEE COMMENTS ; Start 01/11/18 at 20:30 Info (PHARMACY MONITORING -- do not chart) 1 each PRN DAILY PRN MC SEE COMMENTS ; Start 01/11/18 at 20:30; Status UNV Lidocaine/Sodium Bicarbonate (Buffered Lidocaine 1%) 6 ml 1X ONCE INJ Last administered on 01/11/18at 20:45; Start 01/11/18 at 21:00; Stop 01/11/18 at 21 :01; Status DC Heparin Sodium (Porcine) (Heparin Sodium) 2,800 unit 1X ONCE INT CAT Last administered on 01/11/18at 20:44; Start 01/11/18 at 21:00; Stop 01/11/18 at 21 :01; Status DC Ondansetron HCl (Zofran) 4 mg PRN Q6HRS PRN IV NAUSEA/VOMITING; Start at 21:00 Heparin Sodium (Porcine) (Heparin Sodium) 5,000 unit Q8HRS SQ Last administered on 01/12/18at 06:23; Start 01/11/18 at 22:00 Sodium Chloride (Normal Saline Flush) 3 ml QSHIFT PRN IV AFTER MEDS AND BLOOD DRAWS; Start 01/11/18 at 21:00 Miconazole Nitrate (Monistat-Derm) 1 heraclio BID TP Last administered on at 22:27; Start 01/11/18 at 21:30 Tramadol HCl (Ultram) 50 mg PRN Q6HRS PRN PO MILD PAIN; Start 01/11/18 at 22: 15 Oxycodone/ Acetaminophen (Percocet 5/325) 1 tab PRN Q6HRS PRN PO MODERATE - SEVERE PAIN Last administered on 01/11/18at 22:18; Start 01/11/18 at 22:15 Hydromorphone HCl (Dilaudid) 0.25 mg PRN Q3HRS PRN IVP PAIN; Start 01/11/18 at 22:15 Lactobacillus Rhamnosus (Culturelle) 1 cap BID PO ; Start 01/12/18 at 09:00 Active Scripts Active Reported Desitin (Zinc Oxide) 57 Gm Cream..g. 57 Gm TP PRN PRN Nephplex Rx Tablet (Vit B Cmplx No3/Fa/C/Biot/Zinc) 1 Each Tablet 1 Each PO DAILY A and D Ointment (Vits A and D/White Pet/Lanolin) 42.5 Gm Oint...g. 42.5 Gm TP PRN Polyethylene Glycol 3350 255 Gm Powder 17 Gm PO DAILY Tramadol Hcl 50 Mg Tablet 50 Mg PO Q6HRS PRN Percocet 5-325 Mg Tablet (Oxycodone/Acetaminophen) 1 Each Tablet 1 Tab PO PRN Q6HRS PRN Levocetirizine Dihydrochloride 5 Mg Tablet 1 Tab PO QHS Levemir (Insulin Detemir) 100 Unit/1 Ml Vial 15 Unit SQ QHS Novolog Flexpen (Insulin Aspart) 100 Unit/1 Ml Insuln.pen 1 Unit SQ Voltaren (Diclofenac Sodium) 100 Gm Gel..gram. 4 Gm TP QID Capzasin-Hp (Capsaicin) 42.5 Gm Cream..g. 42.5 Gm TP PRN BID Banophen (Diphenhydramine Hcl) 25 Mg Capsule 25 Mg PO PRN Q6HRS Bacitracin 3.5 Gm Oint...g. 1 Heraclio OD BID Lipitor (Atorvastatin Calcium) 20 Mg Tablet 1 Tab PO DAILY Voltaren (Diclofenac Sodium) 100 Gm Gel..gram. 1 Gm TP QID Hydrocortisone Plus 1% Cream (Hydrocortisone/Aloe Vera) 28.4 Gm Cream..g. 1 Applic TP Ketoconazole 15 Gm Cream..g. 1 Heraclio TP BID Synthroid (Levothyroxine Sodium) 200 Mcg Tablet 200 Mcg PO DAILYAC Januvia (Sitagliptin Phosphate) 100 Mg Tablet 100 Mg PO DAILY Nystatin 15 Gm Cream..g. 15 Gm TP BID Hydrocodone-Apap 5-325 (Hydrocodone Bit/Acetaminophen) 1 Each Tablet 1 Tab PO PRN Q6HRS PRN Allergies Allergies: Coded Allergies: Penicillins (Verified Allergy, Severe, Anaphylaxis, 12/29/15) aspirin (Verified Allergy, Severe, Anaphylaxis, 12/29/15) Latex, Natural Rubber (Verified Allergy, Intermediate, Rash, 12/30/15) RUBBER latex (Verified Allergy, Intermediate, Rash, 12/29/15) piperacillin (Verified Allergy, Intermediate, Rash, 12/29/15) tazobactam (Verified Allergy, Intermediate, Rash, 12/29/15) tizanidine (Verified Allergy, Intermediate, Itching, 12/29/15) acetaminophen (Verified Adverse Reaction, Intermediate, elevated liver enzymes, 01/01/16) Uncoded Allergies: PLASTIC (Allergy, Intermediate, Rash, 10/27/15) ROS Review of System As per HPI Physical Exam Physical Exam General: NAD , eating Breakfast HEENT: OM dryish Neck Supple Lungs- CTA ant, No use of accessory Muscles Heart: S1S2, RRR Abdomen: No tenderness, Ostomy + Extremities: No edema, Skin: Rashes and skin breakdown in multiple locations Neuro- AxO X3 , Grossly Normal - No CVA or SP tenderness, No Santos Vital Signs Vital Signs Date Time Temp Pulse Resp B/P (MAP) Pulse Ox O2 Delivery O2 Flow Rate FiO2 01/12/18 08:00 Room Air 01/12/18 08:00 98.1 96 26 113/58 (52) 97 98.1 Assessment & Plan Hyperkalemia - K of 9 on admission With peaked T waves, Emergently Dialyzed last night K Normal MEHRAN on CKD - ATN sec to ?sepsis Emergent Dialysis last Night Stable renal function now, Renal US no e/o Obstructive Uropathy Decreased UOP , Bladder scan Ordered this am revealed Urine 250+ Recommend Santos and and UA (Hx of VRE in past) Start IVF , Monitor Strict I/O Currently No emergent indication for [facility]ISTER[facility] ICU Metabolic acidosis- Bicarb very low last night Post HD better, Chronic due to Colostomy, DM CKD stage 3- has been following with our Group Last seen by [facility] in may, baseline Creat 1.5-1.7 In September hospitalized at with Septic shock, s/p Cardiac arrest requiring CRRT Labs in Dec 04 Creat 1.8 , eGFR 34-37 Sepsis - LLL pneumonia, r/o UTI as well Defer to Primary Diarrhea - c diff pending DM- defer to Primary Discussed at length with RN,Dr. Ortiz , Pt and her father at bedside Labs Labs Laboratory Tests Test 01/11/18 16:42 01/11/18 17:10 01/11/18 18:10 01/11/18 19:26 Lactic Acid Level 1.2 mmol/L (0.4-2.0) White Blood Count 27.2 x10^3/uL (4.0-11.0) Red Blood Count 3.38 x10^6/uL (3.50-5.40) Hemoglobin 9.6 g/dL (12.0-15.5) Hematocrit 29.2 % (36.0-47.0) Mean Corpuscular Volume 86 fL (79-100) Mean Corpuscular Hemoglobin 28 pg (25-35) Mean Corpuscular Hemoglobin Concent 33 g/dL (31-37) Red Cell Distribution Width 17.1 % (11.5-14.5) Platelet Count 486 x10^3/uL (140-400) Neutrophils (%) (Auto) 93 % (31-73) Lymphocytes (%) (Auto) 3 % (24-48) Monocytes (%) (Auto) 3 % (0-9) Eosinophils (%) (Auto) 1 % (0-3) Basophils (%) (Auto) 0 % (0-3) Neutrophils # (Auto) 25.3 x10^3uL (1.8-7.7) Lymphocytes # (Auto) 0.8 x10^3/uL (1.0-4.8) Monocytes # (Auto) 0.9 x10^3/uL (0.0-1.1) Eosinophils # (Auto) 0.2 x10^3/uL (0.0-0.7) Basophils # (Auto) 0.1 x10^3/uL (0.0-0.2) Segmented Neutrophils % 99 % (35-66) Lymphocytes % 1 % (24-48) Toxic Granulation Slight Platelet Estimate Increased (ADEQUATE) Prothrombin Time 15.9 SEC (11.7-14.0) Prothromb Time International Ratio 1.3 (0.8-1.1) Activated Partial Thromboplast Time 27 SEC (24-38) Sodium Level 132 mmol/L (136-145) Potassium Level 9.2 mmol/L (3.5-5.1) Chloride Level 104 mmol/L (98-107) Carbon Dioxide Level 7 mmol/L (21-32) Anion Gap 21 (6-14) Blood Urea Nitrogen 130 mg/dL (7-20) Creatinine 11.3 mg/dL (0.6-1.0) Estimated GFR (Cockcroft-Gault) 3.7 Glucose Level 123 mg/dL (70-99) Calcium Level 8.9 mg/dL (8.5-10.1) Total Bilirubin 0.5 mg/dL (0.2-1.0) Direct Bilirubin 0.2 mg/dL (0.0-0.2) Aspartate Amino Transf (AST/SGOT) 19 U/L (15-37) Alanine Aminotransferase (ALT/SGPT) 25 U/L (14-59) Alkaline Phosphatase 261 U/L (46-116) Troponin I Quantitative < 0.017 ng/mL (0.000-0.055) Total Protein 8.5 g/dL (6.4-8.2) Albumin 3.3 g/dL (3.4-5.0) Lipase 961 U/L (73-393) Procalcitonin 1.18 ng/mL (0.00-0.10) Influenza Type A Antigen Negative (NEGATIVE) Influenza Type B Antigen Negative (NEGATIVE) O2 Saturation 98 % (92-99) Arterial Blood pH 7.26 (7.35-7.45) Arterial Blood pCO2 at Patient Temp 19 mmHg (35-46) Arterial Blood pO2 at Patient Temp 114 mmHg (75-108) Arterial Blood HCO3 8 mmol/L (21-28) Arterial Blood Base Excess -17 mmol/L (-3-3) FiO2 21.0 Test 01/11/18 21:00 01/11/18 21:40 01/12/18 00:04 01/12/18 06:05 Potassium Level 7.7 mmol/L (3.5-5.1) 4.4 mmol/L (3.5-5.1) Hepatitis B Surface Antigen Nonreactive (Nonreactive) Hepatitis B Surface Antibody Nonreactive Glucose (Fingerstick) 86 mg/dL (70-99) White Blood Count 13.4 x10^3/uL (4.0-11.0) Red Blood Count 2.60 x10^6/uL (3.50-5.40) Hemoglobin 7.3 g/dL (12.0-15.5) Hematocrit 21.2 % (36.0-47.0) Mean Corpuscular Volume 82 fL (79-100) Mean Corpuscular Hemoglobin 28 pg (25-35) Mean Corpuscular Hemoglobin Concent 34 g/dL (31-37) Red Cell Distribution Width 16.8 % (11.5-14.5) Platelet Count 364 x10^3/uL (140-400) Sodium Level 141 mmol/L (136-145) Chloride Level 103 mmol/L (98-107) Carbon Dioxide Level 22 mmol/L (21-32) Anion Gap 16 (6-14) Blood Urea Nitrogen 38 mg/dL (7-20) Creatinine 4.2 mg/dL (0.6-1.0) Estimated GFR (Cockcroft-Gault) 11.6 Glucose Level 89 mg/dL (70-99) Calcium Level 7.8 mg/dL (8.5-10.1) Phosphorus Level 6.5 mg/dL (2.6-4.7) Magnesium Level 1.5 mg/dL (1.8-2.4) Laboratory Tests Test 01/11/18 16:42 01/11/18 17:10 01/11/18 18:10 01/11/18 19:26 Lactic Acid Level 1.2 mmol/L (0.4-2.0) White Blood Count 27.2 x10^3/uL (4.0-11.0) Red Blood Count 3.38 x10^6/uL (3.50-5.40) Hemoglobin 9.6 g/dL (12.0-15.5) Hematocrit 29.2 % (36.0-47.0) Mean Corpuscular Volume 86 fL (79-100) Mean Corpuscular Hemoglobin 28 pg (25-35) Mean Corpuscular Hemoglobin Concent 33 g/dL (31-37) Red Cell Distribution Width 17.1 % (11.5-14.5) Platelet Count 486 x10^3/uL (140-400) Neutrophils (%) (Auto) 93 % (31-73) Lymphocytes (%) (Auto) 3 % (24-48) Monocytes (%) (Auto) 3 % (0-9) Eosinophils (%) (Auto) 1 % (0-3) Basophils (%) (Auto) 0 % (0-3) Neutrophils # (Auto) 25.3 x10^3uL (1.8-7.7) Lymphocytes # (Auto) 0.8 x10^3/uL (1.0-4.8) Monocytes # (Auto) 0.9 x10^3/uL (0.0-1.1) Eosinophils # (Auto) 0.2 x10^3/uL (0.0-0.7) Basophils # (Auto) 0.1 x10^3/uL (0.0-0.2) Segmented Neutrophils % 99 % (35-66) Lymphocytes % 1 % (24-48) Toxic Granulation Slight Platelet Estimate Increased (ADEQUATE) Prothrombin Time 15.9 SEC (11.7-14.0) Prothromb Time International Ratio 1.3 (0.8-1.1) Activated Partial Thromboplast Time 27 SEC (24-38) Sodium Level 132 mmol/L (136-145) Potassium Level 9.2 mmol/L (3.5-5.1) Chloride Level 104 mmol/L (98-107) Carbon Dioxide Level 7 mmol/L (21-32) Anion Gap 21 (6-14) Blood Urea Nitrogen 130 mg/dL (7-20) Creatinine 11.3 mg/dL (0.6-1.0) Estimated GFR (Cockcroft-Gault) 3.7 Glucose Level 123 mg/dL (70-99) Calcium Level 8.9 mg/dL (8.5-10.1) Total Bilirubin 0.5 mg/dL (0.2-1.0) Direct Bilirubin 0.2 mg/dL (0.0-0.2) Aspartate Amino Transf (AST/SGOT) 19 U/L (15-37) Alanine Aminotransferase (ALT/SGPT) 25 U/L (14-59) Alkaline Phosphatase 261 U/L (46-116) Troponin I Quantitative < 0.017 ng/mL (0.000-0.055) Total Protein 8.5 g/dL (6.4-8.2) Albumin 3.3 g/dL (3.4-5.0) Lipase 961 U/L (73-393) Procalcitonin 1.18 ng/mL (0.00-0.10) Influenza Type A Antigen Negative (NEGATIVE) Influenza Type B Antigen Negative (NEGATIVE) O2 Saturation 98 % (92-99) Arterial Blood pH 7.26 (7.35-7.45) Arterial Blood pCO2 at Patient Temp 19 mmHg (35-46) Arterial Blood pO2 at Patient Temp 114 mmHg (75-108) Arterial Blood HCO3 8 mmol/L (21-28) Arterial Blood Base Excess -17 mmol/L (-3-3) FiO2 21.0 Test 01/11/18 21:00 01/11/18 21:40 01/12/18 00:04 01/12/18 06:05 Potassium Level 7.7 mmol/L (3.5-5.1) 4.4 mmol/L (3.5-5.1) Hepatitis B Surface Antigen Nonreactive (Nonreactive) Hepatitis B Surface Antibody Nonreactive Glucose (Fingerstick) 86 mg/dL (70-99) White Blood Count 13.4 x10^3/uL (4.0-11.0) Red Blood Count 2.60 x10^6/uL (3.50-5.40) Hemoglobin 7.3 g/dL (12.0-15.5) Hematocrit 21.2 % (36.0-47.0) Mean Corpuscular Volume 82 fL (79-100) Mean Corpuscular Hemoglobin 28 pg (25-35) Mean Corpuscular Hemoglobin Concent 34 g/dL (31-37) Red Cell Distribution Width 16.8 % (11.5-14.5) Platelet Count 364 x10^3/uL (140-400) Sodium Level 141 mmol/L (136-145) Chloride Level 103 mmol/L (98-107) Carbon Dioxide Level 22 mmol/L (21-32) Anion Gap 16 (6-14) Blood Urea Nitrogen 38 mg/dL (7-20) Creatinine 4.2 mg/dL (0.6-1.0) Estimated GFR (Cockcroft-Gault) 11.6 Glucose Level 89 mg/dL (70-99) Calcium Level 7.8 mg/dL (8.5-10.1) Phosphorus Level 6.5 mg/dL (2.6-4.7) Magnesium Level 1.5 mg/dL (1.8-2.4) Review All relevant outside records, renal labs, imaging studies, telemetry/EKG's were reviewed. Images Images CxR-\ Single upright portable exam performed. Heart and mediastinal contours are stable. Lungs are hypoinflated but otherwise clear. No consolidation or pleural effusion. No pneumothorax. Impression: No acute radiographic abnormality. Stable findings compared to 11/30/2017. Renal US-- Right kidney measures 11.1 cm in length. Single right renal cysts are seen. No obstruction or convincing stone is appreciated. Left kidney measures 11.5 cm in length. Left kidney is without evidence of obstruction or convincing stone. Urinary bladder is not visualized. Impression: Right renal cysts. Both kidneys are without evidence of obstruction. DONTE GRIER MD Jan 12, 2018 10:22
[2018-01-12] MEDS: LACTOBACILLUS RHAMNOSUS GG 1 CAPSULE. PO SCH ×2 (10:25→20:45)
[2018-01-12] MEDS: MICONAZOLE NITRATE 2% TOPICAL CREAM 28GM TUBE. TP SCH ×2 (10:25→20:45)
[2018-01-12] MEDS: IV NORMAL SALINE 1000ML BAG 1,000 ML IV SCH ×2 (12:19→20:47)
[2018-01-12] MEDS: traMADol 50 MG TABLET PO PRN ×2 (12:20→20:45)
[2018-01-12 13:55] LABS: BILIRUBIN,URINE NEGATIVE (NEG); CLARITY,URINE CLEAR; COLOR,URINE YELLOW; NITRITE,URINE NEGATIVE (NEG); PH,URINE 5.5; PROTEIN,URINE 30 mg/dL (NEG-TRACE); UROBILINOGEN,URINE 0.2 mg/dL (0.2 mg/dL)
[2018-01-12 14:07] LABS: BACTERIA,URINE FEW /HPF (0-FEW); RBC,URINE OCC /HPF (0-2); SQUAMOUS EPITHELIAL CELL,UR FEW /LPF
[2018-01-12] MEDS ORDERED: VANCOMYCIN RANDOM LEVEL. MC ONE (16:00)
[2018-01-12] MEDS ORDERED: MAGNESIUM SULFATE 2GM 50 ML IV ONE (16:30)
[2018-01-12] MEDS: NYSTATIN TOPICAL POWDER 15GM BOTTLE. TP SCH (20:45)
[2018-01-13] MEDS: oxyCODONE/APAP 5/325 1 TAB TABLET PO PRN ×2 (00:45→21:57)
[2018-01-13 03:00] VITALS: BP 104/53
[2018-01-13] MEDS: HEPARIN for SUB-Q USE 5,000 UNIT/ML VIAL. SQ SCH ×3 (04:57→21:00)
[2018-01-13 06:09] LABS: BASO # 0.1 x10^3/uL (0.0-0.2); BASO % 1 % (0-3); EOS # 0.1 x10^3/uL (0.0-0.7); EOS % 2 % (0-3); LYMPH # 1.8 x10^3/uL (1.0-4.8); LYMPH % 23 % (24-48); MEAN CORPUSCULAR HEMOGLOBIN 28 pg (25-35); MEAN CORPUSCULAR HGB CONC 34 g/dL (31-37); MEAN CORPUSCULAR VOLUME 84 fL (79-100); MONO % 13 % (0-9); NEUT # 4.8 x10^3uL (1.8-7.7); NEUT % 62 % (31-73); PLATELET COUNT 334 x10^3/uL (140-400); RED BLOOD COUNT 2.46 x10^6/uL (3.50-5.40); RED CELL DISTRIBUTION WIDTH 17.1 % (11.5-14.5); WHITE BLOOD COUNT 7.8 x10^3/uL (4.0-11.0)
[2018-01-13 06:19] LABS: CALCIUM 7.9 mg/dL (8.5-10.1); CREATININE 4.4 mg/dL (0.6-1.0); GFR 10.9; POTASSIUM 4.2 mmol/L (3.5-5.1)
[2018-01-13 07:00] VITALS: BP 104/61
[2018-01-13 07:00] LABS: HEMATOCRIT 20.6 % (36.0-47.0)
--- NOTE | 2018-01-13 07:16 | PDOC ---
PROGRESS NOTES Chief Complaint Chief Complaint Hyperkalemia Acute renal failure Confusion Sepsis Diarrhea Intertrigo History of Present Illness History of Present Illness Ms Mtz is a 42 yo female with complicated PMHx DM2, HTN, HLD, GERD, Depression , CKD3, colostomy who p/w low blood pressure in clinic. She has been c/o shaking , some intermittent confusion, and increased green ostomy output, decreased UOP and rash between her thighs In ED she was treated with IV fluids initiated which brought the patient's blood pressure up. EKG obtained and reviewed by myself shows sinus rhythm with peaking T waves with qrs at 130 ms. Potassium is elevated at 9. Contacted nephrology for ICU admission and urgent dialysis. Albuterol, calcium and bicarbonate given in the emergency room, and IR was contacted for emergent placement of dialysis catheter. Patient has significant leukocytosis as well and broad-spectrum antibiotics initiated early upon arrival to cover for sepsis. No obvious source of infection, awaiting urine at this time, however on further review a pro-calcitonin elevated possibly suggesting a pulmonary infiltrate in the setting of an xray showing possible LLL infiltrate. Influenza negative. Mild baseline anemia present. Due to the life-threatening nature of her illness with EKG changes and potassium of 9 she was admitted to the ICU for urgent dialysis and with the help of heroic measures by interventional radiology was able to dialyze on 01/11 at night. This morning she is more alert Potassium normalized. She has 250cc PVR and had chanel inserted. Mag 1.5. her groin feels better. She has no further shaking. Still with liquid ostomy output, not foul smelling. Discussed possibility of dialysis as her new status with her and father bedside. Hep B screenings sent. Hb 7 this morning, sending type and screen. A/P: Hyperkalemia - with EKG changes, given calcium gluconate, insulin + D50, albuterol in ED, IR for vasc-cath placement for emergent dialysis. Nephrology consulted. Resolved with dialysis. Hypomagnesemia - likely 2/2 stool output, will give 2g if ok with nephro Anemia - likely from chronic renal insufficiency, will type and screen for Hb 7 , likely blood with dialysis if ok with nephro Acute renal failure - with BUN 130 and Cr 11 she required emergent dialysis with drastic improvement to BUn 38 and Cr 4.2, K of 4.4 Confusion - Improved, was likely uremic encephalopathy, will monitor Sepsis - likely from LLL pneumonia, cough improving, appropriately cultured and given fluids in ED, will cont broad spectrum antibiotics for now, though source is unclear her WBC has come down. Cannot find urine culture, blood cultures NGTD Diarrhea - will send ostomy output for c diff testing Intertrigo - in groin and beneath bilateral breasts, wound care to see. Miconazole to treat. Diet - renal PPX - heparin FULL CODE Ok to cont tele, may be able to d/c over weekend if dialysis is her new status, will consult for this. Vitals Vitals Vital Signs Date Time Temp Pulse Resp B/P (MAP) Pulse Ox O2 Delivery O2 Flow Rate FiO2 01/13/18 03:00 98.9 87 20 104/53 (70) 94 Room Air 98.9 Physical Exam General: Alert, Cooperative, mild distress, Other (Oriented to person and location not day, date time) Abdomen: Normal bowel sounds, No tenderness, Other (Foul green liquid ostomy output) Extremities: No clubbing, No cyanosis, No edema, Normal pulses, No tenderness/ swelling Skin: Other (Rashes and skin breakdown in multiple locations) Labs LABS Laboratory Tests Test 01/12/18 10:20 01/12/18 16:36 01/12/18 17:10 01/12/18 20:39 Urine Collection Type Unknown Urine Color Yellow Urine Clarity Clear Urine pH 5.5 Urine Specific [place] 1.015 Urine Protein 30 mg/dL (NEG-TRACE) Urine Glucose (UA) Negative mg/dL (NEG) Urine Ketones (Stick) Trace mg/dL (NEG) Urine Blood Trace (NEG) Urine Nitrite Negative (NEG) Urine Bilirubin Negative (NEG) Urine Urobilinogen Dipstick 0.2 mg/dL (0.2 mg/dL) Urine Leukocyte Esterase Moderate (NEG) Urine RBC Occ /HPF (0-2) Urine WBC 11-20 /HPF (0-4) Urine Squamous Epithelial Cells Few /LPF Urine Bacteria Few /HPF (0-FEW) Glucose (Fingerstick) 104 mg/dL (70-99) 119 mg/dL (70-99) Random Vancomycin Level 26.7 mcg/mL Test 01/13/18 05:08 White Blood Count 7.8 x10^3/uL (4.0-11.0) Red Blood Count 2.46 x10^6/uL (3.50-5.40) Hemoglobin 7.0 g/dL (12.0-15.5) Hematocrit 20.6 % (36.0-47.0) Mean Corpuscular Volume 84 fL (79-100) Mean Corpuscular Hemoglobin 28 pg (25-35) Mean Corpuscular Hemoglobin Concent 34 g/dL (31-37) Red Cell Distribution Width 17.1 % (11.5-14.5) Platelet Count 334 x10^3/uL (140-400) Neutrophils (%) (Auto) 62 % (31-73) Lymphocytes (%) (Auto) 23 % (24-48) Monocytes (%) (Auto) 13 % (0-9) Eosinophils (%) (Auto) 2 % (0-3) Basophils (%) (Auto) 1 % (0-3) Neutrophils # (Auto) 4.8 x10^3uL (1.8-7.7) Lymphocytes # (Auto) 1.8 x10^3/uL (1.0-4.8) Monocytes # (Auto) 1.0 x10^3/uL (0.0-1.1) Eosinophils # (Auto) 0.1 x10^3/uL (0.0-0.7) Basophils # (Auto) 0.1 x10^3/uL (0.0-0.2) Sodium Level 140 mmol/L (136-145) Potassium Level 4.2 mmol/L (3.5-5.1) Chloride Level 106 mmol/L (98-107) Carbon Dioxide Level 24 mmol/L (21-32) Anion Gap 10 (6-14) Blood Urea Nitrogen 46 mg/dL (7-20) Creatinine 4.4 mg/dL (0.6-1.0) Estimated GFR (Cockcroft-Gault) 10.9 Glucose Level 87 mg/dL (70-99) Calcium Level 7.9 mg/dL (8.5-10.1) Assessment and Plan Assessmemt and Plan Problems Medical Problems: (1) Acute renal failure Status: Acute (2) Hyperkalemia Status: Acute (3) Sepsis Status: Acute Comment Review of Relevant I have reviewed the following items hugo (where applicable) has been applied. Labs Laboratory Tests Test 01/11/18 16:42 01/11/18 17:10 01/11/18 18:10 01/11/18 19:26 Lactic Acid Level 1.2 mmol/L (0.4-2.0) White Blood Count 27.2 x10^3/uL (4.0-11.0) Red Blood Count 3.38 x10^6/uL (3.50-5.40) Hemoglobin 9.6 g/dL (12.0-15.5) Hematocrit 29.2 % (36.0-47.0) Mean Corpuscular Volume 86 fL (79-100) Mean Corpuscular Hemoglobin 28 pg (25-35) Mean Corpuscular Hemoglobin Concent 33 g/dL (31-37) Red Cell Distribution Width 17.1 % (11.5-14.5) Platelet Count 486 x10^3/uL (140-400) Neutrophils (%) (Auto) 93 % (31-73) Lymphocytes (%) (Auto) 3 % (24-48) Monocytes (%) (Auto) 3 % (0-9) Eosinophils (%) (Auto) 1 % (0-3) Basophils (%) (Auto) 0 % (0-3) Neutrophils # (Auto) 25.3 x10^3uL (1.8-7.7) Lymphocytes # (Auto) 0.8 x10^3/uL (1.0-4.8) Monocytes # (Auto) 0.9 x10^3/uL (0.0-1.1) Eosinophils # (Auto) 0.2 x10^3/uL (0.0-0.7) Basophils # (Auto) 0.1 x10^3/uL (0.0-0.2) Segmented Neutrophils % 99 % (35-66) Lymphocytes % 1 % (24-48) Toxic Granulation Slight Platelet Estimate Increased (ADEQUATE) Prothrombin Time 15.9 SEC (11.7-14.0) Prothromb Time International Ratio 1.3 (0.8-1.1) Activated Partial Thromboplast Time 27 SEC (24-38) Sodium Level 132 mmol/L (136-145) Potassium Level 9.2 mmol/L (3.5-5.1) Chloride Level 104 mmol/L (98-107) Carbon Dioxide Level 7 mmol/L (21-32) Anion Gap 21 (6-14) Blood Urea Nitrogen 130 mg/dL (7-20) Creatinine 11.3 mg/dL (0.6-1.0) Estimated GFR (Cockcroft-Gault) 3.7 Glucose Level 123 mg/dL (70-99) Calcium Level 8.9 mg/dL (8.5-10.1) Total Bilirubin 0.5 mg/dL (0.2-1.0) Direct Bilirubin 0.2 mg/dL (0.0-0.2) Aspartate Amino Transf (AST/SGOT) 19 U/L (15-37) Alanine Aminotransferase (ALT/SGPT) 25 U/L (14-59) Alkaline Phosphatase 261 U/L (46-116) Troponin I Quantitative < 0.017 ng/mL (0.000-0.055) Total Protein 8.5 g/dL (6.4-8.2) Albumin 3.3 g/dL (3.4-5.0) Lipase 961 U/L (73-393) Procalcitonin 1.18 ng/mL (0.00-0.10) Influenza Type A Antigen Negative (NEGATIVE) Influenza Type B Antigen Negative (NEGATIVE) O2 Saturation 98 % (92-99) Arterial Blood pH 7.26 (7.35-7.45) Arterial Blood pCO2 at Patient Temp 19 mmHg (35-46) Arterial Blood pO2 at Patient Temp 114 mmHg (75-108) Arterial Blood HCO3 8 mmol/L (21-28) Arterial Blood Base Excess -17 mmol/L (-3-3) FiO2 21.0 Test 01/11/18 21:00 01/11/18 21:40 01/12/18 00:04 01/12/18 04:00 Potassium Level 7.7 mmol/L (3.5-5.1) Hepatitis B Surface Antigen Nonreactive (Nonreactive) Hepatitis B Surface Antibody Nonreactive Glucose (Fingerstick) 86 mg/dL (70-99) Clostridium difficile Toxin (PCR) Negative (Negative) Test 01/12/18 06:05 01/12/18 06:39 01/12/18 10:20 01/12/18 16:36 White Blood Count 13.4 x10^3/uL (4.0-11.0) Red Blood Count 2.60 x10^6/uL (3.50-5.40) Hemoglobin 7.3 g/dL (12.0-15.5) Hematocrit 21.2 % (36.0-47.0) Mean Corpuscular Volume 82 fL (79-100) Mean Corpuscular Hemoglobin 28 pg (25-35) Mean Corpuscular Hemoglobin Concent 34 g/dL (31-37) Red Cell Distribution Width 16.8 % (11.5-14.5) Platelet Count 364 x10^3/uL (140-400) Sodium Level 141 mmol/L (136-145) Potassium Level 4.4 mmol/L (3.5-5.1) Chloride Level 103 mmol/L (98-107) Carbon Dioxide Level 22 mmol/L (21-32) Anion Gap 16 (6-14) Blood Urea Nitrogen 38 mg/dL (7-20) Creatinine 4.2 mg/dL (0.6-1.0) Estimated GFR (Cockcroft-Gault) 11.6 Glucose Level 89 mg/dL (70-99) Calcium Level 7.8 mg/dL (8.5-10.1) Phosphorus Level 6.5 mg/dL (2.6-4.7) Magnesium Level 1.5 mg/dL (1.8-2.4) Nasal Screen MRSA (PCR) Negative (Negative) Urine Collection Type Unknown Urine Color Yellow Urine Clarity Clear Urine pH 5.5 Urine Specific [place] 1.015 Urine Protein 30 mg/dL (NEG-TRACE) Urine Glucose (UA) Negative mg/dL (NEG) Urine Ketones (Stick) Trace mg/dL (NEG) Urine Blood Trace (NEG) Urine Nitrite Negative (NEG) Urine Bilirubin Negative (NEG) Urine Urobilinogen Dipstick 0.2 mg/dL (0.2 mg/dL) Urine Leukocyte Esterase Moderate (NEG) Urine RBC Occ /HPF (0-2) Urine WBC 11-20 /HPF (0-4) Urine Squamous Epithelial Cells Few /LPF Urine Bacteria Few /HPF (0-FEW) Glucose (Fingerstick) 104 mg/dL (70-99) Test 01/12/18 17:10 01/12/18 20:39 01/13/18 05:08 Random Vancomycin Level 26.7 mcg/mL Glucose (Fingerstick) 119 mg/dL (70-99) White Blood Count 7.8 x10^3/uL (4.0-11.0) Red Blood Count 2.46 x10^6/uL (3.50-5.40) Hemoglobin 7.0 g/dL (12.0-15.5) Hematocrit 20.6 % (36.0-47.0) Mean Corpuscular Volume 84 fL (79-100) Mean Corpuscular Hemoglobin 28 pg (25-35) Mean Corpuscular Hemoglobin Concent 34 g/dL (31-37) Red Cell Distribution Width 17.1 % (11.5-14.5) Platelet Count 334 x10^3/uL (140-400) Neutrophils (%) (Auto) 62 % (31-73) Lymphocytes (%) (Auto) 23 % (24-48) Monocytes (%) (Auto) 13 % (0-9) Eosinophils (%) (Auto) 2 % (0-3) Basophils (%) (Auto) 1 % (0-3) Neutrophils # (Auto) 4.8 x10^3uL (1.8-7.7) Lymphocytes # (Auto) 1.8 x10^3/uL (1.0-4.8) Monocytes # (Auto) 1.0 x10^3/uL (0.0-1.1) Eosinophils # (Auto) 0.1 x10^3/uL (0.0-0.7) Basophils # (Auto) 0.1 x10^3/uL (0.0-0.2) Sodium Level 140 mmol/L (136-145) Potassium Level 4.2 mmol/L (3.5-5.1) Chloride Level 106 mmol/L (98-107) Carbon Dioxide Level 24 mmol/L (21-32) Anion Gap 10 (6-14) Blood Urea Nitrogen 46 mg/dL (7-20) Creatinine 4.4 mg/dL (0.6-1.0) Estimated GFR (Cockcroft-Gault) 10.9 Glucose Level 87 mg/dL (70-99) Calcium Level 7.9 mg/dL (8.5-10.1) Laboratory Tests Test 01/12/18 10:20 01/12/18 16:36 01/12/18 17:10 01/12/18 20:39 Urine Collection Type Unknown Urine Color Yellow Urine Clarity Clear Urine pH 5.5 Urine Specific [place] 1.015 Urine Protein 30 mg/dL (NEG-TRACE) Urine Glucose (UA) Negative mg/dL (NEG) Urine Ketones (Stick) Trace mg/dL (NEG) Urine Blood Trace (NEG) Urine Nitrite Negative (NEG) Urine Bilirubin Negative (NEG) Urine Urobilinogen Dipstick 0.2 mg/dL (0.2 mg/dL) Urine Leukocyte Esterase Moderate (NEG) Urine RBC Occ /HPF (0-2) Urine WBC 11-20 /HPF (0-4) Urine Squamous Epithelial Cells Few /LPF Urine Bacteria Few /HPF (0-FEW) Glucose (Fingerstick) 104 mg/dL (70-99) 119 mg/dL (70-99) Random Vancomycin Level 26.7 mcg/mL Test 01/13/18 05:08 White Blood Count 7.8 x10^3/uL (4.0-11.0) Red Blood Count 2.46 x10^6/uL (3.50-5.40) Hemoglobin 7.0 g/dL (12.0-15.5) Hematocrit 20.6 % (36.0-47.0) Mean Corpuscular Volume 84 fL (79-100) Mean Corpuscular Hemoglobin 28 pg (25-35) Mean Corpuscular Hemoglobin Concent 34 g/dL (31-37) Red Cell Distribution Width 17.1 % (11.5-14.5) Platelet Count 334 x10^3/uL (140-400) Neutrophils (%) (Auto) 62 % (31-73) Lymphocytes (%) (Auto) 23 % (24-48) Monocytes (%) (Auto) 13 % (0-9) Eosinophils (%) (Auto) 2 % (0-3) Basophils (%) (Auto) 1 % (0-3) Neutrophils # (Auto) 4.8 x10^3uL (1.8-7.7) Lymphocytes # (Auto) 1.8 x10^3/uL (1.0-4.8) Monocytes # (Auto) 1.0 x10^3/uL (0.0-1.1) Eosinophils # (Auto) 0.1 x10^3/uL (0.0-0.7) Basophils # (Auto) 0.1 x10^3/uL (0.0-0.2) Sodium Level 140 mmol/L (136-145) Potassium Level 4.2 mmol/L (3.5-5.1) Chloride Level 106 mmol/L (98-107) Carbon Dioxide Level 24 mmol/L (21-32) Anion Gap 10 (6-14) Blood Urea Nitrogen 46 mg/dL (7-20) Creatinine 4.4 mg/dL (0.6-1.0) Estimated GFR (Cockcroft-Gault) 10.9 Glucose Level 87 mg/dL (70-99) Calcium Level 7.9 mg/dL (8.5-10.1) Microbiology 01/11/18 Blood Culture - Preliminary, Resulted NO GROWTH AFTER 1 DAY Medications Current Medications Vancomycin HCl (Vanco Per Pharmacy) 1 each PRN DAILY PRN MC SEE COMMENTS Last administered on 01/12/18at 17:58; Start 01/11/18 at 16:45 Levofloxacin/ Dextrose (Levaquin Per Pharmacy) 1 each PRN DAILY PRN MC SEE COMMENTS; Start 01/11/18 at 16:45 Vancomycin HCl 2 gm/Sodium Chloride 500 ml @ 250 mls/hr 1X ONCE IV Last administered on 01/11/18at 18:29; Start 01/11/18 at 17:00; Stop 01/11/18 at 18 :59; Status DC Levofloxacin/ Dextrose 150 ml @ 100 mls/hr 1X ONCE IV Last administered on at 17:05; Start 01/11/18 at 17:00; Stop 01/11/18 at 18:29; Status DC Sodium Chloride 0 ml @ 0 mls/hr Q0M IV Last administered on 01/11/18at 17:03; Start 01/11/18 at 16:45 Sodium Bicarbonate (Sodium Bicarb Adult 8.4% Syr) 50 meq 1X ONCE IV Last administered on 01/11/18at 19:11; Start 01/11/18 at 18:30; Stop 01/11/18 at 18 :31; Status DC Calcium Gluconate (Calcium Gluconate) 1,000 mg 1X ONCE IVP Last administered on 01/11/18at 19:12; Start 01/11/18 at 18:30; Stop 01/11/18 at 18:31; Status DC Albuterol Sulfate (Ventolin Neb Soln) 10 mg 1X ONCE CONT NEB Last administered on 01/11/18at 18:51; Start 01/11/18 at 18:30; Stop 01/11/18 at 18 :31; Status DC Vancomycin HCl (Vancomycin Random Level) 1 each 1X ONCE MC Last administered on 01/12/18at 17:12; Start 01/12/18 at 16:00; Stop 01/12/18 at 16:01; Status DC Lidocaine/Sodium Bicarbonate (Buffered Lidocaine 1%) 3 ml STK-MED ONCE .ROUTE ; Start 01/11/18 at 19:41; Stop 01/11/18 at 19:42; Status DC Heparin Sodium (Porcine) (Heparin Sodium) 10,000 unit STK-MED ONCE .ROUTE ; Start 01/11/18 at 19:41; Stop 01/11/18 at 19:42; Status DC Levofloxacin/ Dextrose 100 ml @ 100 mls/hr Q48H IV Last administered on at 17:01; Start 01/12/18 at 17:00 Norepinephrine Bitartrate 250 ml @ 1.875 mls/ hr CONT PRN IV SEE I/O RECORD; Start 01/11/18 at 20:30 Sodium Chloride 1,000 ml @ 1,000 mls/hr Q1H PRN IV hypotension; Start at 20:27; Stop 01/12/18 at 02:26; Status DC Sodium Chloride 1,000 ml @ 400 mls/hr Q2H30M PRN IV PATENCY; Start 01/11/18 at 20:27; Stop 01/12/18 at 08:26; Status DC Info (PHARMACY MONITORING -- do not chart) 1 each PRN DAILY PRN MC SEE COMMENTS ; Start 01/11/18 at 20:30 Info (PHARMACY MONITORING -- do not chart) 1 each PRN DAILY PRN MC SEE COMMENTS ; Start 01/11/18 at 20:30; Status UNV Lidocaine/Sodium Bicarbonate (Buffered Lidocaine 1%) 6 ml 1X ONCE INJ Last administered on 01/11/18at 20:45; Start 01/11/18 at 21:00; Stop 01/11/18 at 21 :01; Status DC Heparin Sodium (Porcine) (Heparin Sodium) 2,800 unit 1X ONCE INT CAT Last administered on 01/11/18at 20:44; Start 01/11/18 at 21:00; Stop 01/11/18 at 21 :01; Status DC Ondansetron HCl (Zofran) 4 mg PRN Q6HRS PRN IV NAUSEA/VOMITING; Start at 21:00 Heparin Sodium (Porcine) (Heparin Sodium) 5,000 unit Q8HRS SQ Last administered on 01/13/18at 04:57; Start 01/11/18 at 22:00 Sodium Chloride (Normal Saline Flush) 3 ml QSHIFT PRN IV AFTER MEDS AND BLOOD DRAWS; Start 01/11/18 at 21:00 Miconazole Nitrate (Monistat-Derm) 1 heraclio BID TP Last administered on at 20:45; Start 01/11/18 at 21:30 Tramadol HCl (Ultram) 50 mg PRN Q6HRS PRN PO MILD PAIN Last administered on at 20:45; Start 01/11/18 at 22:15 Oxycodone/ Acetaminophen (Percocet 5/325) 1 tab PRN Q6HRS PRN PO MODERATE - SEVERE PAIN Last administered on 01/13/18at 00:45; Start 01/11/18 at 22:15 Hydromorphone HCl (Dilaudid) 0.25 mg PRN Q3HRS PRN IVP PAIN; Start 01/11/18 at 22:15 Lactobacillus Rhamnosus (Culturelle) 1 cap BID PO Last administered on at 20:45; Start 01/12/18 at 09:00 Sodium Chloride 1,000 ml @ 100 mls/hr Q10H IV Last administered on 01/12/18at 20:47; Start 01/12/18 at 12:30 Nystatin (Nystop) 1 heraclio BID TP Last administered on 01/12/18at 20:45; Start at 21:00 Magnesium Sulfate 50 ml @ 25 mls/hr 1X ONCE IV Last administered on at 16:32; Start 01/12/18 at 16:30; Stop 01/12/18 at 18:29; Status DC Active Scripts Active Reported Ferrous Sulfate 325 Mg Tablet 1 Tab PO DAILY Medroxyprogesterone Acetate 10 Mg Tablet 1 Tab PO DAILY Omeprazole 20 Mg Capsule.dr 1 Cap PO BID Cyclobenzaprine Hcl 5 Mg Tablet 1 Tab PO QHS PRN Flovent 110MCG Hfa (Fluticasone Propionate) 12 Gm Aer.w.adap 2 Puff IH BID Lisinopril 20 Mg Tablet 1 Tab PO DAILY Hyoscyamine Sulfate 0.125 Mg Tab.subl 0.125 Mg SL Q6HRS PRN Loxapine (Loxapine Succinate) 10 Mg Capsule 10 Mg PO BID Zoloft (Sertraline Hcl) 50 Mg Tablet 1 Tab PO DAILY Desitin (Zinc Oxide) 57 Gm Cream..g. 57 Gm TP PRN PRN Nephplex Rx Tablet (Vit B Cmplx No3/Fa/C/Biot/Zinc) 1 Each Tablet 1 Each PO DAILY A and D Ointment (Vits A and D/White Pet/Lanolin) 42.5 Gm Oint...g. 42.5 Gm TP PRN Polyethylene Glycol 3350 255 Gm Powder 17 Gm PO DAILY Tramadol Hcl 50 Mg Tablet 50 Mg PO Q4HRS PRN Percocet 5-325 Mg Tablet (Oxycodone/Acetaminophen) 1 Each Tablet 1 Tab PO PRN Q6HRS PRN Levocetirizine Dihydrochloride 5 Mg Tablet 1 Tab PO QHS Levemir (Insulin Detemir) 100 Unit/1 Ml Vial 12 Unit SQ QHS Novolog Flexpen (Insulin Aspart) 100 Unit/1 Ml Insuln.pen 10 Unit SQ TIDWMEALS Voltaren (Diclofenac Sodium) 100 Gm Gel..gram. 4 Gm TP QID Capzasin-Hp (Capsaicin) 42.5 Gm Cream..g. 42.5 Gm TP PRN BID Banophen (Diphenhydramine Hcl) 25 Mg Capsule 25 Mg PO PRN Q6HRS Bacitracin 3.5 Gm Oint...g. 1 Heraclio OD BID Lipitor (Atorvastatin Calcium) 20 Mg Tablet 1 Tab PO DAILY Voltaren (Diclofenac Sodium) 100 Gm Gel..gram. 1 Gm TP QID Hydrocortisone Plus 1% Cream (Hydrocortisone/Aloe Vera) 28.4 Gm Cream..g. 1 Applic TP Ketoconazole 15 Gm Cream..g. 1 [place] TP BID Synthroid (Levothyroxine Sodium) 200 Mcg Tablet 200 Mcg PO DAILYAC Nystatin 15 Gm Cream..g. 15 Gm TP BID Hydrocodone-Apap 5-325 (Hydrocodone Bit/Acetaminophen) 1 Each Tablet 1 Tab PO PRN Q6HRS PRN Vitals/I & O Vital Sign - Last 24 Hours 01/12/18 01/12/18 01/12/18 01/12/18 08:00 08:00 09:00 10:00 Temp 98.1 98.1 Pulse 96 87 94 Resp 26 25 15 B/P (MAP) 113/58 (76) 104/47 (66) 107/60 (76) Pulse Ox 97 98 100 O2 Delivery Room Air Room Air Room Air Room Air 01/12/18 01/12/18 01/12/18 01/12/18 11:00 12:20 12:30 12:43 Temp 98.3 98.3 Pulse 94 89 Resp 24 16 16 B/P (MAP) 111/52 (71) 104/56 (72) Pulse Ox 98 100 O2 Delivery Room Air Room Air Room Air Room Air 01/12/18 01/12/18 01/12/18 01/12/18 15:00 19:00 19:35 20:45 Temp 98.4 98.7 98.4 98.7 Pulse 94 101 Resp 16 18 20 B/P (MAP) 112/48 (69) 110/57 (74) Pulse Ox 99 97 O2 Delivery Room Air Room Air Room Air Room Air 01/12/18 01/12/18 01/13/18 01/13/18 21:45 22:57 00:45 01:45 Temp 98.5 98.5 Pulse 91 Resp 20 18 20 20 B/P (MAP) 96/35 (55) Pulse Ox 95 O2 Delivery Room Air Room Air Room Air Room Air 01/13/18 03:00 Temp 98.9 98.9 Pulse 87 Resp 20 B/P (MAP) 104/53 (70) Pulse Ox 94 O2 Delivery Room Air Intake and Output 01/12/18 01/12/18 01/13/18 15:00 23:00 07:00 Intake Total 50 ml 200 ml 0 ml Output Total 350 ml 225 ml Balance 50 ml -150 ml -225 ml Nutrition Consultation Dietary Evaluation: Recommendations by RD: Increase Calorie Intake, Protein supplementation Comments: REC renal/GI soft diet per pt request, will adjust diet order REC Glucerna TID Expected Outcomes/Goals: PO intake to meet >75% est needs Interpretation of weight loss: >10% in 6 months Malnutrition Findings: Food and Nutrition Intake (Mod: <75% est energy req 7days Weight Status: Overweight AR LAMBERT MD Jan 13, 2018 07:16
[2018-01-13] MEDS: traMADol 50 MG TABLET PO PRN ×2 (07:46→18:26)
[2018-01-13 08:02] LABS: MAGNESIUM 1.5 mg/dL (1.8-2.4); PHOSPHORUS 4.6 mg/dL (2.6-4.7)
[2018-01-13] MEDS: LACTOBACILLUS RHAMNOSUS GG 1 CAPSULE. PO SCH ×2 (08:52→20:59)
[2018-01-13] MEDS: NYSTATIN TOPICAL POWDER 15GM BOTTLE. TP SCH ×2 (08:53→21:00)
[2018-01-13] MEDS: MICONAZOLE NITRATE 2% TOPICAL CREAM 28GM TUBE. TP SCH ×2 (08:53→21:00)
[2018-01-13] MEDS: IV NORMAL SALINE 1000ML BAG 1,000 ML IV SCH ×2 (10:32→21:00)
[2018-01-13 11:00] VITALS: BP 106/67
[2018-01-13] MEDS: VANCOMYCIN PER PHARMACY MC PRN (13:57)
[2018-01-13 15:00] VITALS: BP 101/60
--- NOTE | 2018-01-13 16:25 | PDOC ---
SUBJECTIVE ROS States feeling good OBJECTIVE Vital Signs Vital Signs Date Time Temp Pulse Resp B/P (MAP) Pulse Ox O2 Delivery O2 Flow Rate FiO2 01/13/18 11:00 97.9 77 106/67 (80) 100 Room Air 97.9 01/13/18 07:00 18 I & 0 Intake and Output 01/13/18 07:00 Intake Total 250 ml Output Total 575 ml Balance -325 ml Intake Oral 250 ml Output Urine Total 575 ml PHYSICAL EXAM Physical Exam General: NAD , HEENT: OM moist Neck Supple Lungs- CTA ant, No use of accessory Muscles Heart: S1S2, RRR Abdomen: No tenderness, Ostomy + Extremities: No edema, Skin: Rashes and skin breakdown in multiple locations Neuro- AxO X3 , Grossly Normal - No CVA or SP tenderness, Santos + DIAGNOSIS/ASSESSMENT Assessment & Plan Hyperkalemia - K of 9 on admission With peaked T waves, Emergently Dialyzed on 01/11 K Normal MEHRAN on CKD - ATN sec to ?sepsis Emergent Dialysis 01/11 Stable renal function now, Renal US no e/o Obstructive Uropathy Decreased UOP , Bladder scan Ordered revealed Urine 250+, Improved UOP This am as per RN Continue IVF , Currently No emergent indication for HAND STITCHER, Re-eval in am for renal recovery, if none then HD tomorrow Metabolic acidosis- Bicarb very low on admission Normal, Chronic due to Colostomy, DM Anemia- Hgb low Likely PRBC Tomorrow CKD stage 3- has been following with our Group Last seen by [facility] in May, baseline Creat 1.5-1.7 In September hospitalized at with Septic shock, s/p Cardiac arrest requiring CRRT Labs in Dec 04 Creat 1.8 , eGFR 34-37 Sepsis - LLL pneumonia, r/o UTI as well Defer to Primary Diarrhea - c diff negative DM- defer to Primary Discussed at length with RN, Pt and her father at bedside COMMENT/RELEVANT DATA Meds Current Medications Medications (Trade) Dose Ordered Sig/Mini Start Time Stop Time Status Last Admin Dose Admin Albuterol Sulfate (Ventolin Neb Soln) 10 mg 1X ONCE 01/11/18 18:30 18 18:31 DC 01/11/18 18:51 10 MG Calcium Gluconate (Calcium Gluconate) 1,000 mg 1X ONCE 01/11/18 18:30 01/11/18 18:31 DC 10/17/18 19:12 1,000 MG Heparin Sodium (Porcine) (Heparin Sodium) 5,000 unit Q8HRS 01/11/18 22:00 01/13/18 14:00 5,000 UNIT Hydromorphone HCl (Dilaudid) 0.25 mg PRN Q3HRS PRN 01/11/18 22:15 Info (PHARMACY MONITORING -- do not chart) 1 each PRN DAILY PRN 01/11/18 20:30 UNV Lactobacillus Rhamnosus (Culturelle) 1 cap BID 01/12/18 09:00 01/13/18 08:52 1 CAP Levofloxacin/ Dextrose 100 ml @ 100 mls/hr Q48H 01/12/18 17:00 01/12/18 17:01 100 MLS/HR Levofloxacin/ Dextrose (Levaquin Per Pharmacy) 1 each PRN DAILY PRN 01/11/18 16:45 Lidocaine/Sodium Bicarbonate (Buffered Lidocaine 1%) 6 ml 1X ONCE 01/11/18 21:00 01/11/18 21:01 DC 01/11/18 20:45 6 ML Magnesium Sulfate 50 ml @ 25 mls/hr 1X ONCE 01/12/18 16:30 01/12/18 18:29 DC 01/12/18 16:32 25 MLS/HR Miconazole Nitrate (Monistat-Derm) 1 thalia BID 01/11/18 21:30 01/13/18 08:53 1 THALIA Norepinephrine Bitartrate 250 ml @ 1.875 mls/ hr CONT PRN 01/11/18 20:30 Nystatin (Nystop) 1 thalia BID 01/12/18 21:00 01/13/18 08:53 1 THALIA Ondansetron HCl (Zofran) 4 mg PRN Q6HRS PRN 01/11/18 21:00 Oxycodone/ Acetaminophen (Percocet 5/325) 1 tab PRN Q6HRS PRN 01/11/18 22:15 01/13/18 00:45 1 TAB Sodium Bicarbonate (Sodium Bicarb Adult 8.4% Syr) 50 meq 1X ONCE 01/11/18 18:30 01/11/18 18:31 DC 01/11/18 19:11 50 MEQ Sodium Chloride 1,000 ml @ 100 mls/hr Q10H 01/12/18 12:30 01/13/18 10:32 100 MLS/HR Sodium Chloride (Normal Saline Flush) 3 ml QSHIFT PRN 01/11/18 21:00 Tramadol HCl (Ultram) 50 mg PRN Q6HRS PRN 01/11/18 22:15 01/13/18 07:46 50 MG Vancomycin HCl (Vanco Per Pharmacy) 1 each PRN DAILY PRN 01/11/18 16:45 01/13/18 13:57 1 EACH Vancomycin HCl (Vancomycin Random Level) 1 each 1X ONCE 01/14/18 05:00 01/14/18 05:01 Vancomycin HCl 2 gm/Sodium Chloride 500 ml @ 250 mls/hr 1X ONCE 01/11/18 17:00 01/11/18 18:59 DC 01/11/18 18:29 250 MLS/HR Lab Laboratory Tests Test 01/12/18 16:36 01/12/18 17:10 01/12/18 20:39 01/13/18 05:08 Glucose (Fingerstick) 104 mg/dL (70-99) 119 mg/dL (70-99) Random Vancomycin Level 26.7 mcg/mL White Blood Count 7.8 x10^3/uL (4.0-11.0) Red Blood Count 2.46 x10^6/uL (3.50-5.40) Hemoglobin 7.0 g/dL (12.0-15.5) Hematocrit 20.6 % (36.0-47.0) Mean Corpuscular Volume 84 fL (79-100) Mean Corpuscular Hemoglobin 28 pg (25-35) Mean Corpuscular Hemoglobin Concent 34 g/dL (31-37) Red Cell Distribution Width 17.1 % (11.5-14.5) Platelet Count 334 x10^3/uL (140-400) Neutrophils (%) (Auto) 62 % (31-73) Lymphocytes (%) (Auto) 23 % (24-48) Monocytes (%) (Auto) 13 % (0-9) Eosinophils (%) (Auto) 2 % (0-3) Basophils (%) (Auto) 1 % (0-3) Neutrophils # (Auto) 4.8 x10^3uL (1.8-7.7) Lymphocytes # (Auto) 1.8 x10^3/uL (1.0-4.8) Monocytes # (Auto) 1.0 x10^3/uL (0.0-1.1) Eosinophils # (Auto) 0.1 x10^3/uL (0.0-0.7) Basophils # (Auto) 0.1 x10^3/uL (0.0-0.2) Sodium Level 140 mmol/L (136-145) Potassium Level 4.2 mmol/L (3.5-5.1) Chloride Level 106 mmol/L (98-107) Carbon Dioxide Level 24 mmol/L (21-32) Anion Gap 10 (6-14) Blood Urea Nitrogen 46 mg/dL (7-20) Creatinine 4.4 mg/dL (0.6-1.0) Estimated GFR (Cockcroft-Gault) 10.9 Glucose Level 87 mg/dL (70-99) Calcium Level 7.9 mg/dL (8.5-10.1) Phosphorus Level 4.6 mg/dL (2.6-4.7) Magnesium Level 1.5 mg/dL (1.8-2.4) Test 01/13/18 07:54 01/13/18 11:40 Glucose (Fingerstick) 85 mg/dL (70-99) 91 mg/dL (70-99) Results All relevant outside records, renal labs, imaging studies, telemetry/EKG's were reviewed. DONTE GRIER MD Jan 13, 2018 16:25
[2018-01-13] MEDS ORDERED: MAGNESIUM SULFATE 2GM 50 ML IV ONE (16:30)
[2018-01-13] MEDS: ONDANSETRON PF 4 MG/2 ML VIAL. IV PRN (19:04)
[2018-01-13 19:25] VITALS: BP 125/69
[2018-01-13] MEDS ORDERED: MAGNESIUM SULFATE 2GM 50 ML IV PRN (22:30)
[2018-01-13 22:57] VITALS: BP 123/62
[2018-01-14] MEDS: traMADol 50 MG TABLET PO PRN (02:33)
[2018-01-14] MEDS: ONDANSETRON PF 4 MG/2 ML VIAL. IV PRN ×3 (02:35→15:38)
[2018-01-14 03:00] VITALS: BP 132/84
[2018-01-14 05:00] LABS: CALCIUM 8.4 mg/dL (8.5-10.1); CREATININE 3.6 mg/dL (0.6-1.0); GFR 13.8; POTASSIUM 4.2 mmol/L (3.5-5.1)
[2018-01-14] MEDS ORDERED: VANCOMYCIN RANDOM LEVEL. MC ONE (05:00)
[2018-01-14 05:01] LABS: BASO # 0.2 x10^3/uL (0.0-0.2); BASO % 2 % (0-3); EOS # 0.3 x10^3/uL (0.0-0.7); EOS % 3 % (0-3); HEMATOCRIT 21.9 % (36.0-47.0); HEMOGLOBIN 7.3 g/dL (12.0-15.5); LYMPH # 2.1 x10^3/uL (1.0-4.8); LYMPH % 26 % (24-48); MEAN CORPUSCULAR HEMOGLOBIN 29 pg (25-35); MEAN CORPUSCULAR HGB CONC 33 g/dL (31-37); MEAN CORPUSCULAR VOLUME 85 fL (79-100); MONO # 0.7 x10^3/uL (0.0-1.1); MONO % 9 % (0-9); NEUT % 60 % (31-73); PLATELET COUNT 334 x10^3/uL (140-400); RED BLOOD COUNT 2.57 x10^6/uL (3.50-5.40); RED CELL DISTRIBUTION WIDTH 16.5 % (11.5-14.5); WHITE BLOOD COUNT 8.3 x10^3/uL (4.0-11.0)
[2018-01-14] MEDS: HEPARIN for SUB-Q USE 5,000 UNIT/ML VIAL. SQ SCH ×3 (05:20→21:32)
[2018-01-14] MEDS: oxyCODONE/APAP 5/325 1 TAB TABLET PO PRN ×3 (05:21→19:54)
--- NOTE | 2018-01-14 06:58 | PDOC ---
PROGRESS NOTES Chief Complaint Chief Complaint Hyperkalemia Acute renal failure Confusion Sepsis Diarrhea Intertrigo History of Present Illness History of Present Illness Ms Mtz is a 42 yo female with complicated PMHx DM2, HTN, HLD, GERD, Depression , CKD3, colostomy who p/w low blood pressure in clinic. She has been c/o shaking , some intermittent confusion, and increased green ostomy output, decreased UOP and rash between her thighs In ED she was treated with IV fluids initiated which brought the patient's blood pressure up. EKG obtained and reviewed by myself shows sinus rhythm with peaking T waves with qrs at 130 ms. Potassium is elevated at 9. Contacted nephrology for ICU admission and urgent dialysis. Albuterol, calcium and bicarbonate given in the emergency room, and IR was contacted for emergent placement of dialysis catheter. Patient has significant leukocytosis as well and broad-spectrum antibiotics initiated early upon arrival to cover for sepsis. No obvious source of infection, awaiting urine at this time, however on further review a pro-calcitonin elevated possibly suggesting a pulmonary infiltrate in the setting of an xray showing possible LLL infiltrate. Influenza negative. Mild baseline anemia present. Due to the life-threatening nature of her illness with EKG changes and potassium of 9 she was admitted to the ICU for urgent dialysis and with the help of heroic measures by interventional radiology was able to dialyze on 01/11 at night. This morning she is more alert Potassium normalized. She has good UOP, cr coming down. Her groin feels better. She has no further shaking. Still with liquid ostomy output, not foul smelling. Discussed possibility of dialysis as her new status with her and father bedside. Hep B screenings sent. Hb 7.3 this morning, sending type and screen. Is pruritic today and has suprapubic pain. A/P: Hyperkalemia - with EKG changes, given calcium gluconate, insulin + D50, albuterol in ED, IR for vasc-cath placement for emergent dialysis. Nephrology consulted. Resolved with dialysis. Pruritis - likely contact dermatitis, topical lotion, H1 domenic, singulair Hypomagnesemia - likely 2/2 stool output, will give 2g if ok with nephro Anemia - likely from chronic renal insufficiency, will type and screen for Hb 7 , likely blood with dialysis if ok with nephro Acute renal failure - with BUN 130 and Cr 11 she required emergent dialysis with drastic improvement to BUn 38 and Cr 4.2, K of 4.4 Confusion - Improved, was likely uremic encephalopathy, will monitor Sepsis - likely from LLL pneumonia, cough improving, appropriately cultured and given fluids in ED, will cont broad spectrum antibiotics for now, though source is unclear her WBC has come down. Cannot find urine culture, blood cultures NGTD Diarrhea - will send ostomy output for c diff testing Intertrigo - in groin and beneath bilateral breasts, wound care to see. Miconazole to treat. Diet - renal PPX - heparin FULL CODE Ok to cont tele, may be able to d/c over weekend as she may be in renal recovery. will discuss further with nephro, will consult SW for this. Vitals Vitals Vital Signs Date Time Temp Pulse Resp B/P (MAP) Pulse Ox O2 Delivery O2 Flow Rate FiO2 01/14/18 05:21 20 97 Room Air 01/14/18 03:00 98.3 85 132/84 (100) 98.3 Physical Exam General: Alert, Cooperative, mild distress, Other (Oriented to person and location not day, date time) Abdomen: Normal bowel sounds, No tenderness, Other (Foul green liquid ostomy output) Extremities: No clubbing, No cyanosis, No edema, Normal pulses, No tenderness/ swelling Skin: Other (Rashes and skin breakdown in multiple locations) Labs LABS Laboratory Tests Test 01/13/18 07:54 01/13/18 11:40 01/13/18 17:47 01/13/18 21:59 Glucose (Fingerstick) 85 mg/dL (70-99) 91 mg/dL (70-99) 83 mg/dL (70-99) 88 mg/dL (70-99) Test 01/14/18 03:00 01/14/18 04:00 White Blood Count 8.3 x10^3/uL (4.0-11.0) Red Blood Count 2.57 x10^6/uL (3.50-5.40) Hemoglobin 7.3 g/dL (12.0-15.5) Hematocrit 21.9 % (36.0-47.0) Mean Corpuscular Volume 85 fL (79-100) Mean Corpuscular Hemoglobin 29 pg (25-35) Mean Corpuscular Hemoglobin Concent 33 g/dL (31-37) Red Cell Distribution Width 16.5 % (11.5-14.5) Platelet Count 334 x10^3/uL (140-400) Neutrophils (%) (Auto) 60 % (31-73) Lymphocytes (%) (Auto) 26 % (24-48) Monocytes (%) (Auto) 9 % (0-9) Eosinophils (%) (Auto) 3 % (0-3) Basophils (%) (Auto) 2 % (0-3) Neutrophils # (Auto) 5.0 x10^3uL (1.8-7.7) Lymphocytes # (Auto) 2.1 x10^3/uL (1.0-4.8) Monocytes # (Auto) 0.7 x10^3/uL (0.0-1.1) Eosinophils # (Auto) 0.3 x10^3/uL (0.0-0.7) Basophils # (Auto) 0.2 x10^3/uL (0.0-0.2) Sodium Level 143 mmol/L (136-145) Potassium Level 4.2 mmol/L (3.5-5.1) Chloride Level 109 mmol/L (98-107) Carbon Dioxide Level 22 mmol/L (21-32) Anion Gap 12 (6-14) Blood Urea Nitrogen 44 mg/dL (7-20) Creatinine 3.6 mg/dL (0.6-1.0) Estimated GFR (Cockcroft-Gault) 13.8 Glucose Level 101 mg/dL (70-99) Calcium Level 8.4 mg/dL (8.5-10.1) Magnesium Level 2.2 mg/dL (1.8-2.4) Random Vancomycin Level 17.9 mcg/mL Assessment and Plan Assessmemt and Plan Problems Medical Problems: (1) Acute renal failure Status: Acute (2) Hyperkalemia Status: Acute (3) Sepsis Status: Acute Comment Review of Relevant I have reviewed the following items hugo (where applicable) has been applied. Labs Laboratory Tests Test 01/12/18 10:20 01/12/18 16:36 01/12/18 17:10 01/12/18 20:39 Urine Collection Type Unknown Urine Color Yellow Urine Clarity Clear Urine pH 5.5 Urine Specific [place] 1.015 Urine Protein 30 mg/dL (NEG-TRACE) Urine Glucose (UA) Negative mg/dL (NEG) Urine Ketones (Stick) Trace mg/dL (NEG) Urine Blood Trace (NEG) Urine Nitrite Negative (NEG) Urine Bilirubin Negative (NEG) Urine Urobilinogen Dipstick 0.2 mg/dL (0.2 mg/dL) Urine Leukocyte Esterase Moderate (NEG) Urine RBC Occ /HPF (0-2) Urine WBC 11-20 /HPF (0-4) Urine Squamous Epithelial Cells Few /LPF Urine Bacteria Few /HPF (0-FEW) Glucose (Fingerstick) 104 mg/dL (70-99) 119 mg/dL (70-99) Random Vancomycin Level 26.7 mcg/mL Test 01/13/18 05:08 01/13/18 07:54 01/13/18 11:40 01/13/18 17:47 White Blood Count 7.8 x10^3/uL (4.0-11.0) Red Blood Count 2.46 x10^6/uL (3.50-5.40) Hemoglobin 7.0 g/dL (12.0-15.5) Hematocrit 20.6 % (36.0-47.0) Mean Corpuscular Volume 84 fL (79-100) Mean Corpuscular Hemoglobin 28 pg (25-35) Mean Corpuscular Hemoglobin Concent 34 g/dL (31-37) Red Cell Distribution Width 17.1 % (11.5-14.5) Platelet Count 334 x10^3/uL (140-400) Neutrophils (%) (Auto) 62 % (31-73) Lymphocytes (%) (Auto) 23 % (24-48) Monocytes (%) (Auto) 13 % (0-9) Eosinophils (%) (Auto) 2 % (0-3) Basophils (%) (Auto) 1 % (0-3) Neutrophils # (Auto) 4.8 x10^3uL (1.8-7.7) Lymphocytes # (Auto) 1.8 x10^3/uL (1.0-4.8) Monocytes # (Auto) 1.0 x10^3/uL (0.0-1.1) Eosinophils # (Auto) 0.1 x10^3/uL (0.0-0.7) Basophils # (Auto) 0.1 x10^3/uL (0.0-0.2) Sodium Level 140 mmol/L (136-145) Potassium Level 4.2 mmol/L (3.5-5.1) Chloride Level 106 mmol/L (98-107) Carbon Dioxide Level 24 mmol/L (21-32) Anion Gap 10 (6-14) Blood Urea Nitrogen 46 mg/dL (7-20) Creatinine 4.4 mg/dL (0.6-1.0) Estimated GFR (Cockcroft-Gault) 10.9 Glucose Level 87 mg/dL (70-99) Calcium Level 7.9 mg/dL (8.5-10.1) Phosphorus Level 4.6 mg/dL (2.6-4.7) Magnesium Level 1.5 mg/dL (1.8-2.4) Hepatitis B Core Total Antibody Negative (Negative) Glucose (Fingerstick) 85 mg/dL (70-99) 91 mg/dL (70-99) 83 mg/dL (70-99) Test 01/13/18 21:59 01/14/18 03:00 01/14/18 04:00 Glucose (Fingerstick) 88 mg/dL (70-99) White Blood Count 8.3 x10^3/uL (4.0-11.0) Red Blood Count 2.57 x10^6/uL (3.50-5.40) Hemoglobin 7.3 g/dL (12.0-15.5) Hematocrit 21.9 % (36.0-47.0) Mean Corpuscular Volume 85 fL (79-100) Mean Corpuscular Hemoglobin 29 pg (25-35) Mean Corpuscular Hemoglobin Concent 33 g/dL (31-37) Red Cell Distribution Width 16.5 % (11.5-14.5) Platelet Count 334 x10^3/uL (140-400) Neutrophils (%) (Auto) 60 % (31-73) Lymphocytes (%) (Auto) 26 % (24-48) Monocytes (%) (Auto) 9 % (0-9) Eosinophils (%) (Auto) 3 % (0-3) Basophils (%) (Auto) 2 % (0-3) Neutrophils # (Auto) 5.0 x10^3uL (1.8-7.7) Lymphocytes # (Auto) 2.1 x10^3/uL (1.0-4.8) Monocytes # (Auto) 0.7 x10^3/uL (0.0-1.1) Eosinophils # (Auto) 0.3 x10^3/uL (0.0-0.7) Basophils # (Auto) 0.2 x10^3/uL (0.0-0.2) Sodium Level 143 mmol/L (136-145) Potassium Level 4.2 mmol/L (3.5-5.1) Chloride Level 109 mmol/L (98-107) Carbon Dioxide Level 22 mmol/L (21-32) Anion Gap 12 (6-14) Blood Urea Nitrogen 44 mg/dL (7-20) Creatinine 3.6 mg/dL (0.6-1.0) Estimated GFR (Cockcroft-Gault) 13.8 Glucose Level 101 mg/dL (70-99) Calcium Level 8.4 mg/dL (8.5-10.1) Magnesium Level 2.2 mg/dL (1.8-2.4) Random Vancomycin Level 17.9 mcg/mL Laboratory Tests Test 01/13/18 07:54 01/13/18 11:40 01/13/18 17:47 01/13/18 21:59 Glucose (Fingerstick) 85 mg/dL (70-99) 91 mg/dL (70-99) 83 mg/dL (70-99) 88 mg/dL (70-99) Test 01/14/18 03:00 01/14/18 04:00 White Blood Count 8.3 x10^3/uL (4.0-11.0) Red Blood Count 2.57 x10^6/uL (3.50-5.40) Hemoglobin 7.3 g/dL (12.0-15.5) Hematocrit 21.9 % (36.0-47.0) Mean Corpuscular Volume 85 fL (79-100) Mean Corpuscular Hemoglobin 29 pg (25-35) Mean Corpuscular Hemoglobin Concent 33 g/dL (31-37) Red Cell Distribution Width 16.5 % (11.5-14.5) Platelet Count 334 x10^3/uL (140-400) Neutrophils (%) (Auto) 60 % (31-73) Lymphocytes (%) (Auto) 26 % (24-48) Monocytes (%) (Auto) 9 % (0-9) Eosinophils (%) (Auto) 3 % (0-3) Basophils (%) (Auto) 2 % (0-3) Neutrophils # (Auto) 5.0 x10^3uL (1.8-7.7) Lymphocytes # (Auto) 2.1 x10^3/uL (1.0-4.8) Monocytes # (Auto) 0.7 x10^3/uL (0.0-1.1) Eosinophils # (Auto) 0.3 x10^3/uL (0.0-0.7) Basophils # (Auto) 0.2 x10^3/uL (0.0-0.2) Sodium Level 143 mmol/L (136-145) Potassium Level 4.2 mmol/L (3.5-5.1) Chloride Level 109 mmol/L (98-107) Carbon Dioxide Level 22 mmol/L (21-32) Anion Gap 12 (6-14) Blood Urea Nitrogen 44 mg/dL (7-20) Creatinine 3.6 mg/dL (0.6-1.0) Estimated GFR (Cockcroft-Gault) 13.8 Glucose Level 101 mg/dL (70-99) Calcium Level 8.4 mg/dL (8.5-10.1) Magnesium Level 2.2 mg/dL (1.8-2.4) Random Vancomycin Level 17.9 mcg/mL Microbiology 01/11/18 Blood Culture - Preliminary, Resulted NO GROWTH AFTER 2 DAYS Medications Current Medications Vancomycin HCl (Vanco Per Pharmacy) 1 each PRN DAILY PRN MC SEE COMMENTS Last administered on 01/13/18at 13:57; Start 01/11/18 at 16:45 Levofloxacin/ Dextrose (Levaquin Per Pharmacy) 1 each PRN DAILY PRN MC SEE COMMENTS; Start 01/11/18 at 16:45 Vancomycin HCl 2 gm/Sodium Chloride 500 ml @ 250 mls/hr 1X ONCE IV Last administered on 01/11/18at 18:29; Start 01/11/18 at 17:00; Stop 01/11/18 at 18 :59; Status DC Levofloxacin/ Dextrose 150 ml @ 100 mls/hr 1X ONCE IV Last administered on at 17:05; Start 01/11/18 at 17:00; Stop 01/11/18 at 18:29; Status DC Sodium Chloride 0 ml @ 0 mls/hr Q0M IV Last administered on 01/11/18at 17:03; Start 01/11/18 at 16:45 Sodium Bicarbonate (Sodium Bicarb Adult 8.4% Syr) 50 meq 1X ONCE IV Last administered on 01/11/18at 19:11; Start 01/11/18 at 18:30; Stop 01/11/18 at 18 :31; Status DC Calcium Gluconate (Calcium Gluconate) 1,000 mg 1X ONCE IVP Last administered on 01/11/18at 19:12; Start 01/11/18 at 18:30; Stop 01/11/18 at 18:31; Status DC Albuterol Sulfate (Ventolin Neb Soln) 10 mg 1X ONCE CONT NEB Last administered on 01/11/18at 18:51; Start 01/11/18 at 18:30; Stop 01/11/18 at 18 :31; Status DC Vancomycin HCl (Vancomycin Random Level) 1 each 1X ONCE MC Last administered on 01/12/18at 17:12; Start 01/12/18 at 16:00; Stop 01/12/18 at 16:01; Status DC Lidocaine/Sodium Bicarbonate (Buffered Lidocaine 1%) 3 ml STK-MED ONCE .ROUTE ; Start 01/11/18 at 19:41; Stop 01/11/18 at 19:42; Status DC Heparin Sodium (Porcine) (Heparin Sodium) 10,000 unit STK-MED ONCE .ROUTE ; Start 01/11/18 at 19:41; Stop 01/11/18 at 19:42; Status DC Levofloxacin/ Dextrose 100 ml @ 100 mls/hr Q48H IV Last administered on at 17:01; Start 01/12/18 at 17:00 Norepinephrine Bitartrate 250 ml @ 1.875 mls/ hr CONT PRN IV SEE I/O RECORD; Start 01/11/18 at 20:30 Sodium Chloride 1,000 ml @ 1,000 mls/hr Q1H PRN IV hypotension; Start at 20:27; Stop 01/12/18 at 02:26; Status DC Sodium Chloride 1,000 ml @ 400 mls/hr Q2H30M PRN IV PATENCY; Start 01/11/18 at 20:27; Stop 01/12/18 at 08:26; Status DC Info (PHARMACY MONITORING -- do not chart) 1 each PRN DAILY PRN MC SEE COMMENTS ; Start 01/11/18 at 20:30 Info (PHARMACY MONITORING -- do not chart) 1 each PRN DAILY PRN MC SEE COMMENTS ; Start 01/11/18 at 20:30; Status UNV Lidocaine/Sodium Bicarbonate (Buffered Lidocaine 1%) 6 ml 1X ONCE INJ Last administered on 01/11/18at 20:45; Start 01/11/18 at 21:00; Stop 01/11/18 at 21 :01; Status DC Heparin Sodium (Porcine) (Heparin Sodium) 2,800 unit 1X ONCE INT CAT Last administered on 01/11/18at 20:44; Start 01/11/18 at 21:00; Stop 01/11/18 at 21 :01; Status DC Ondansetron HCl (Zofran) 4 mg PRN Q6HRS PRN IV NAUSEA/VOMITING Last administered on 01/14/18at 02:35; Start 01/11/18 at 21:00 Heparin Sodium (Porcine) (Heparin Sodium) 5,000 unit Q8HRS SQ Last administered on 01/14/18at 05:20; Start 01/11/18 at 22:00 Sodium Chloride (Normal Saline Flush) 3 ml QSHIFT PRN IV AFTER MEDS AND BLOOD DRAWS; Start 01/11/18 at 21:00 Miconazole Nitrate (Monistat-Derm) 1 heraclio BID TP Last administered on at 21:00; Start 01/11/18 at 21:30 Tramadol HCl (Ultram) 50 mg PRN Q6HRS PRN PO MILD PAIN Last administered on at 02:33; Start 01/11/18 at 22:15 Oxycodone/ Acetaminophen (Percocet 5/325) 1 tab PRN Q6HRS PRN PO MODERATE - SEVERE PAIN Last administered on 01/14/18at 05:21; Start 01/11/18 at 22:15 Hydromorphone HCl (Dilaudid) 0.25 mg PRN Q3HRS PRN IVP PAIN; Start 01/11/18 at 22:15 Lactobacillus Rhamnosus (Culturelle) 1 cap BID PO Last administered on at 20:59; Start 01/12/18 at 09:00 Sodium Chloride 1,000 ml @ 100 mls/hr Q10H IV Last administered on 01/13/18at 21:00; Start 01/12/18 at 12:30 Nystatin (Nystop) 1 heraclio BID TP Last administered on 01/13/18at 21:00; Start at 21:00 Magnesium Sulfate 50 ml @ 25 mls/hr 1X ONCE IV Last administered on at 16:32; Start 01/12/18 at 16:30; Stop 01/12/18 at 18:29; Status DC Vancomycin HCl (Vancomycin Random Level) 1 each 1X ONCE MC Last administered on 01/14/18at 05:00; Start 01/14/18 at 05:00; Stop 01/14/18 at 05:01; Status DC Magnesium Sulfate 50 ml @ 25 mls/hr 1X ONCE IV Last administered on at 18:28; Start 01/13/18 at 16:30; Stop 01/13/18 at 18:29; Status DC Magnesium Sulfate 50 ml @ 25 mls/hr PRN DAILY PRN IV for mag < 1.7 on am labs; Start 01/13/18 at 22:30 Active Scripts Active Reported Ferrous Sulfate 325 Mg Tablet 1 Tab PO DAILY Medroxyprogesterone Acetate 10 Mg Tablet 1 Tab PO DAILY Omeprazole 20 Mg Capsule.dr 1 Cap PO BID Cyclobenzaprine Hcl 5 Mg Tablet 1 Tab PO QHS PRN Flovent 110MCG Hfa (Fluticasone Propionate) 12 Gm Aer.w.adap 2 Puff IH BID Lisinopril 20 Mg Tablet 1 Tab PO DAILY Hyoscyamine Sulfate 0.125 Mg Tab.subl 0.125 Mg SL Q6HRS PRN Loxapine (Loxapine Succinate) 10 Mg Capsule 10 Mg PO BID Zoloft (Sertraline Hcl) 50 Mg Tablet 1 Tab PO DAILY Desitin (Zinc Oxide) 57 Gm Cream..g. 57 Gm TP PRN PRN Nephplex Rx Tablet (Vit B Cmplx No3/Fa/C/Biot/Zinc) 1 Each Tablet 1 Each PO DAILY A and D Ointment (Vits A and D/White Pet/Lanolin) 42.5 Gm Oint...g. 42.5 Gm TP PRN Polyethylene Glycol 3350 255 Gm Powder 17 Gm PO DAILY Tramadol Hcl 50 Mg Tablet 50 Mg PO Q4HRS PRN Percocet 5-325 Mg Tablet (Oxycodone/Acetaminophen) 1 Each Tablet 1 Tab PO PRN Q6HRS PRN Levocetirizine Dihydrochloride 5 Mg Tablet 1 Tab PO QHS Levemir (Insulin Detemir) 100 Unit/1 Ml Vial 12 Unit SQ QHS Novolog Flexpen (Insulin Aspart) 100 Unit/1 Ml Insuln.pen 10 Unit SQ TIDWMEALS Voltaren (Diclofenac Sodium) 100 Gm Gel..gram. 4 Gm TP QID Capzasin-Hp (Capsaicin) 42.5 Gm Cream..g. 42.5 Gm TP PRN BID Banophen (Diphenhydramine Hcl) 25 Mg Capsule 25 Mg PO PRN Q6HRS Bacitracin 3.5 Gm Oint...g. 1 Heraclio OD BID Lipitor (Atorvastatin Calcium) 20 Mg Tablet 1 Tab PO DAILY Voltaren (Diclofenac Sodium) 100 Gm Gel..gram. 1 Gm TP QID Hydrocortisone Plus 1% Cream (Hydrocortisone/Aloe Vera) 28.4 Gm Cream..g. 1 Applic TP Ketoconazole 15 Gm Cream..g. 1 Heraclio TP BID Synthroid (Levothyroxine Sodium) 200 Mcg Tablet 200 Mcg PO DAILYAC Nystatin 15 Gm Cream..g. 15 Gm TP BID Hydrocodone-Apap 5-325 (Hydrocodone Bit/Acetaminophen) 1 Each Tablet 1 Tab PO PRN Q6HRS PRN Vitals/I & O Vital Sign - Last 24 Hours 01/13/18 01/13/18 01/13/18 01/13/18 07:00 07:46 07:50 11:00 Temp 98.2 97.9 98.2 97.9 Pulse 73 77 Resp 18 B/P (MAP) 104/61 (75) 106/67 (80) Pulse Ox 96 100 O2 Delivery Room Air Room Air Room Air Room Air 01/13/18 01/13/18 01/13/18 01/13/18 15:00 18:26 19:25 19:26 Temp 98.1 98.1 98.1 98.1 Pulse 89 89 Resp 20 20 B/P (MAP) 101/60 (74) 125/69 (87) Pulse Ox 100 98 100 O2 Delivery Room Air Room Air Room Air 01/13/18 01/13/18 01/13/18 01/13/18 19:45 21:57 22:57 22:57 Temp 97.7 97.7 Pulse 72 Resp 18 B/P (MAP) 123/62 (82) Pulse Ox 98 100 100 O2 Delivery Room Air Room Air Room Air Room Air 01/14/18 01/14/18 01/14/18 01/14/18 02:33 03:00 03:33 05:21 Temp 98.3 98.3 Pulse 85 Resp 20 20 20 20 B/P (MAP) 132/84 (100) Pulse Ox 97 97 O2 Delivery Room Air Room Air Room Air Room Air Intake and Output 01/13/18 01/13/18 01/14/18 15:00 23:00 07:00 Intake Total 400 ml 1037 ml 984 ml Output Total 1075 ml 550 ml Balance 400 ml -38 ml 434 ml Nutrition Consultation Dietary Evaluation: Recommendations by RD: Increase Calorie Intake, Protein supplementation Comments: REC renal/GI soft diet per pt request, will adjust diet order REC Glucerna TID Expected Outcomes/Goals: PO intake to meet >75% est needs Interpretation of weight loss: >10% in 6 months Malnutrition Findings: Food and Nutrition Intake (Mod: <75% est energy req 7days Weight Status: Overweight AR LAMBERT MD Jan 14, 2018 06:58
[2018-01-14 07:00] VITALS: BP 132/70
[2018-01-14] MEDS: LACTOBACILLUS RHAMNOSUS GG 1 CAPSULE. PO SCH ×2 (08:32→19:54)
[2018-01-14] MEDS: IV NORMAL SALINE 1000ML BAG 1,000 ML IV SCH ×2 (08:32→17:29)
[2018-01-14] MEDS: NYSTATIN TOPICAL POWDER 15GM BOTTLE. TP SCH ×2 (08:33→19:54)
[2018-01-14] MEDS: MICONAZOLE NITRATE 2% TOPICAL CREAM 28GM TUBE. TP SCH ×2 (08:33→19:54)
[2018-01-14 11:00] VITALS: BP 137/52
[2018-01-14] MEDS: MONTELUKAST SODIUM 10 MG TABLET. PO SCH (11:26)
[2018-01-14] MEDS: CETIRIZINE HCL 10 MG TABLET. PO SCH (11:26)
--- NOTE | 2018-01-14 12:51 | PDOC ---
SUBJECTIVE ROS We were asked to see the patient for acute on chronic renal insufficiency She's feeling better today however continues to complain of left-sided abdominal pain. CVS: no Orthopnea, no CP RESP: no SOB, no SINGH GI: + Nausea, + Vomiting : no Dysuria, no Urgency OBJECTIVE Vital Signs Vital Signs Date Time Temp Pulse Resp B/P (MAP) Pulse Ox O2 Delivery O2 Flow Rate FiO2 01/14/18 12:25 17 Room Air 01/14/18 11:00 97.4 67 137/52 (80) 99 97.4 I & 0 Intake and Output 01/14/18 07:00 Intake Total 2421 ml Output Total 1625 ml Balance 796 ml Intake Oral 1475 ml IV Total 946 ml Output Urine Total 775 ml Stool Total 800 ml Emesis 50 ml PHYSICAL EXAM Physical Exam GEN: Awake, Oriented x 3, In no distress EYES: Vision Unchanged, Conjunctiva Normal EN: No EN Drainage, Mucous Membranes moist NECK: no JVD, min JVP, Supple, no Thyromegaly CVS: S1S2, + Murmur, No Gallop, No Rub,no Edema RESP: no Rales, no Rhonchi,no Acc. Muscle Use GI: BS + ve, NO Bruit, MIn Tenderness Left side, Non Distended : no CVA tenderness, no Suprapubic Tenderness DIAGNOSIS/ASSESSMENT Assessment & Plan Acute renal failure: Creatinine appears to be improving. Urine output is adequate. Current fluid and E-lyte status does not necessitate emergent need for dialysis. Will re-evaluate for dialysis in the am Chronic kidney disease stage III/4 baseline creatinine appears to be 1.7-2.0. She will need 24-hour urine for creatinine clearance. Previous history of proteinuria. Will begin 24-hour urine collection Severe ANEMIA; she has been iron deficient in the past. Hence we will re-check iron profile etc. She may need Aranap also. Transfuse as needed especially if hemoglobin less than 7 Hyperkalemia - K of 9 on admission : resolved with one-time dialysis. Given her underlying chronic renal insufficiency she may benefit from nutritional education and low potassium diet. Metabolic acidosis- Chronic due to Colostomy, DM and chronic renal insufficiency. Bicarbonate appears to be adequately corrected currently. Sepsis - ? LLL pneumonia, no urine cultures available at this time. Most recent chest x-ray does not reveal significant pneumonia per se by report Ongoing nausea vomiting: Consider GI evaluation. Diarrhea - may have contributed to metabolic acidosis COMMENT/RELEVANT DATA Meds Current Medications Medications (Trade) Dose Ordered Sig/Mini Start Time Stop Time Status Last Admin Dose Admin Albuterol Sulfate (Ventolin Neb Soln) 10 mg 1X ONCE 01/11/18 18:30 01/11/18 18:31 DC 01/11/18 18:51 10 MG Calcium Gluconate (Calcium Gluconate) 1,000 mg 1X ONCE 01/11/18 18:30 01/11/18 18:31 DC 01/11/18 19:12 1,000 MG Cetirizine HCl (ZyrTEC) 10 mg DAILY 01/14/18 11:30 01/14/18 11:26 10 MG Heparin Sodium (Porcine) (Heparin Sodium) 5,000 unit Q8HRS 01/11/18 22:00 01/14/18 05:20 5,000 UNIT Hydromorphone HCl (Dilaudid) 0.25 mg PRN Q3HRS PRN 01/11/18 22:15 Info (PHARMACY MONITORING -- do not chart) 1 each PRN DAILY PRN 01/11/18 20:30 UNV Lactobacillus Rhamnosus (Culturelle) 1 cap BID 01/12/18 09:00 01/14/18 08:32 1 CAP Levofloxacin/ Dextrose 100 ml @ 100 mls/hr Q48H 01/12/18 17:00 01/12/18 17:01 100 MLS/HR Levofloxacin/ Dextrose (Levaquin Per Pharmacy) 1 each PRN DAILY PRN 01/11/18 16:45 Lidocaine/Sodium Bicarbonate (Buffered Lidocaine 1%) 6 ml 1X ONCE 01/11/18 21:00 01/11/18 21:01 DC 01/11/18 20:45 6 ML Magnesium Sulfate 50 ml @ 25 mls/hr PRN DAILY PRN 01/13/18 22:30 Miconazole Nitrate (Monistat-Derm) 1 thalia BID 01/11/18 21:30 01/14/18 08:33 1 THALIA Montelukast Sodium (Singulair) 10 mg DAILY 01/14/18 11:30 01/14/18 11:26 10 MG Norepinephrine Bitartrate 250 ml @ 1.875 mls/ hr CONT PRN 10/17/18 20:30 Nystatin (Nystop) 1 thalia BID 01/12/18 21:00 01/14/18 08:33 1 THALIA Ondansetron HCl (Zofran) 4 mg PRN Q6HRS PRN 01/11/18 21:00 01/14/18 08:40 4 MG Oxycodone/ Acetaminophen (Percocet 5/325) 1 tab PRN Q6HRS PRN 01/11/18 22:15 01/14/18 11:26 1 TAB Sodium Bicarbonate (Sodium Bicarb Adult 8.4% Syr) 50 meq 1X ONCE 01/11/18 18:30 01/11/18 18:31 DC 01/11/18 19:11 50 MEQ Sodium Chloride 1,000 ml @ 100 mls/hr Q10H 01/12/18 12:30 01/14/18 08:32 100 MLS/HR Sodium Chloride (Normal Saline Flush) 3 ml QSHIFT PRN 01/11/18 21:00 Tramadol HCl (Ultram) 50 mg PRN Q6HRS PRN 01/11/18 22:15 01/14/18 02:33 50 MG Vancomycin HCl (Vanco Per Pharmacy) 1 each PRN DAILY PRN 01/11/18 16:45 01/14/18 10:58 DC 01/13/18 13:57 1 EACH Vancomycin HCl (Vancomycin Random Level) 1 each 1X ONCE 01/14/18 05:00 01/14/18 05:01 DC 01/14/18 05:00 1 EACH Vancomycin HCl 2 gm/Sodium Chloride 500 ml @ 250 mls/hr 1X ONCE 01/11/18 17:00 01/11/18 18:59 DC 01/11/18 18:29 250 MLS/HR Lab Laboratory Tests Test 01/13/18 17:47 01/13/18 21:59 01/14/18 03:00 01/14/18 04:00 Glucose (Fingerstick) 83 mg/dL (70-99) 88 mg/dL (70-99) White Blood Count 8.3 x10^3/uL (4.0-11.0) Red Blood Count 2.57 x10^6/uL (3.50-5.40) Hemoglobin 7.3 g/dL (12.0-15.5) Hematocrit 21.9 % (36.0-47.0) Mean Corpuscular Volume 85 fL (79-100) Mean Corpuscular Hemoglobin 29 pg (25-35) Mean Corpuscular Hemoglobin Concent 33 g/dL (31-37) Red Cell Distribution Width 16.5 % (11.5-14.5) Platelet Count 334 x10^3/uL (140-400) Neutrophils (%) (Auto) 60 % (31-73) Lymphocytes (%) (Auto) 26 % (24-48) Monocytes (%) (Auto) 9 % (0-9) Eosinophils (%) (Auto) 3 % (0-3) Basophils (%) (Auto) 2 % (0-3) Neutrophils # (Auto) 5.0 x10^3uL (1.8-7.7) Lymphocytes # (Auto) 2.1 x10^3/uL (1.0-4.8) Monocytes # (Auto) 0.7 x10^3/uL (0.0-1.1) Eosinophils # (Auto) 0.3 x10^3/uL (0.0-0.7) Basophils # (Auto) 0.2 x10^3/uL (0.0-0.2) Sodium Level 143 mmol/L (136-145) Potassium Level 4.2 mmol/L (3.5-5.1) Chloride Level 109 mmol/L (98-107) Carbon Dioxide Level 22 mmol/L (21-32) Anion Gap 12 (6-14) Blood Urea Nitrogen 44 mg/dL (7-20) Creatinine 3.6 mg/dL (0.6-1.0) Estimated GFR (Cockcroft-Gault) 13.8 Glucose Level 101 mg/dL (70-99) Calcium Level 8.4 mg/dL (8.5-10.1) Magnesium Level 2.2 mg/dL (1.8-2.4) Random Vancomycin Level 17.9 mcg/mL Test 01/14/18 07:46 01/14/18 11:34 Glucose (Fingerstick) 88 mg/dL (70-99) 91 mg/dL (70-99) Results All relevant outside records, renal labs, imaging studies, telemetry/EKG's were reviewed. Other Most recent chest x-ray Impression: 1. No acute cardiopulmonary process. 2. Right internal jugular dialysis catheter tip projects at the right atrium. MIKE GONZALEZ MD Jan 14, 2018 12:51
[2018-01-14] MEDS ORDERED: MAGNESIUM SULFATE 2GM 50 ML IV PRN (13:00)
[2018-01-14 15:00] VITALS: BP 134/73
[2018-01-14 19:10] VITALS: BP 132/52
[2018-01-14 23:08] VITALS: BP 127/59
[2018-01-15] VITALS (19 sets, daily range): BP systolic 123–154; BP diastolic 47–73
[2018-01-15] MEDS: IV NORMAL SALINE 1000ML BAG 1,000 ML IV SCH (04:06)
[2018-01-15] MEDS: HEPARIN for SUB-Q USE 5,000 UNIT/ML VIAL. SQ SCH ×3 (05:20→21:05)
[2018-01-15 05:52] LABS: ALBUMIN 2.2 g/dL (3.4-5.0); CALCIUM 7.9 mg/dL (8.5-10.1); MAGNESIUM 1.4 mg/dL (1.8-2.4); POTASSIUM 4.5 mmol/L (3.5-5.1)
--- NOTE | 2018-01-15 09:47 | PDOC ---
PROGRESS NOTES Chief Complaint Chief Complaint Hyperkalemia Acute renal failure Confusion Sepsis Diarrhea Intertrigo History of Present Illness History of Present Illness Ms Mtz is a 42 yo female with complicated PMHx DM2, HTN, HLD, GERD, Depression , CKD3, colostomy who p/w low blood pressure in clinic. She has been c/o shaking , some intermittent confusion, and increased green ostomy output, decreased UOP and rash between her thighs In ED she was treated with IV fluids initiated which brought the patient's blood pressure up. EKG obtained and reviewed by myself shows sinus rhythm with peaking T waves with qrs at 130 ms. Potassium is elevated at 9. Contacted nephrology for ICU admission and urgent dialysis. Albuterol, calcium and bicarbonate given in the emergency room, and IR was contacted for emergent placement of dialysis catheter. Patient has significant leukocytosis as well and broad-spectrum antibiotics initiated early upon arrival to cover for sepsis. No obvious source of infection, awaiting urine at this time, however on further review a pro-calcitonin elevated possibly suggesting a pulmonary infiltrate in the setting of an xray showing possible LLL infiltrate. Influenza negative. Mild baseline anemia present. Due to the life-threatening nature of her illness with EKG changes and potassium of 9 she was admitted to the ICU for urgent dialysis and with the help of heroic measures by interventional radiology was able to dialyze on 01/11 at night. This morning she is more alert Potassium normalized. She has good UOP, CR coming down. Her groin feels better. She has no further shaking. Still with liquid ostomy output, not foul smelling. Hb 6.9, transfusing this morning. Nursing notes swelling at trialysis catheter insertion site, no redness, still able to draw blood. Is less pruritic today and has suprapubic pain. Chloride 111 today, was still on fluids. A/P: Hyperkalemia - with EKG changes, given calcium gluconate, insulin + D50, albuterol in ED, IR for vasc-cath placement for emergent dialysis. Nephrology consulted. Resolved with dialysis. Pruritis - likely contact dermatitis, topical lotion, H1 domenic, singulair Hypomagnesemia - likely 2/2 stool output, will give 2g if ok with nephro Anemia - likely from chronic renal insufficiency, will type and screen for Hb 7 , likely blood with dialysis if ok with nephro Acute renal failure - with BUN 130 and Cr 11 she required emergent dialysis with drastic improvement to BUN 38 and Cr 4.2, K of 4.4 Confusion - Improved, was likely uremic encephalopathy, will monitor Sepsis - likely from LLL pneumonia, cough improving, appropriately cultured and given fluids in ED, will cont broad spectrum antibiotics for now, though source is unclear her WBC has come down. Cannot find urine culture, blood cultures NGTD Diarrhea - Sounds chronic on further review Intertrigo - in groin and beneath bilateral breasts, wound care to see. Miconazole to treat. Diet - renal PPX - heparin FULL CODE Ok to cont tele, may be able to d/c over weekend as she may be in renal recovery. will discuss further with nephro, will consult SW for this. Vitals Vitals Vital Signs Date Time Temp Pulse Resp B/P (MAP) Pulse Ox O2 Delivery O2 Flow Rate FiO2 01/15/18 03:45 98.1 61 20 141/70 (93) 98 Room Air 98.1 Physical Exam General: Alert, Cooperative, mild distress, Other (Oriented to person and location not day, date time) Abdomen: Normal bowel sounds, No tenderness, Other (Foul green liquid ostomy output) Extremities: No clubbing, No cyanosis, No edema, Normal pulses, No tenderness/ swelling Skin: Other (Rashes and skin breakdown in multiple locations) Labs LABS Laboratory Tests Test 01/14/18 11:34 01/14/18 17:05 01/15/18 05:00 01/15/18 07:45 Glucose (Fingerstick) 91 mg/dL (70-99) 85 mg/dL (70-99) 67 mg/dL (70-99) Hemoglobin 6.9 g/dL (12.0-15.5) Reticulocyte Count (auto) 1.4 % (0.5-2.5) Sodium Level 143 mmol/L (136-145) Potassium Level 4.5 mmol/L (3.5-5.1) Chloride Level 111 mmol/L (98-107) Carbon Dioxide Level 20 mmol/L (21-32) Anion Gap 12 (6-14) Blood Urea Nitrogen 37 mg/dL (7-20) Creatinine 3.0 mg/dL (0.6-1.0) Estimated GFR (Cockcroft-Gault) 17.0 Glucose Level 96 mg/dL (70-99) Calcium Level 7.9 mg/dL (8.5-10.1) Phosphorus Level 4.0 mg/dL (2.6-4.7) Magnesium Level 1.4 mg/dL (1.8-2.4) Iron Level 38 ug/dL (50-170) Total Iron Binding Capacity 140 ug/dL (250-450) Iron Saturation 27 % (15-34) Ferritin 320 ng/mL (8-252) Albumin 2.2 g/dL (3.4-5.0) Assessment and Plan Assessmemt and Plan Problems Medical Problems: (1) Acute renal failure Status: Acute (2) Hyperkalemia Status: Acute (3) Sepsis Status: Acute Comment Review of Relevant I have reviewed the following items uhgo (where applicable) has been applied. Labs Laboratory Tests Test 01/13/18 11:40 01/13/18 17:47 01/13/18 21:59 01/14/18 03:00 Glucose (Fingerstick) 91 mg/dL (70-99) 83 mg/dL (70-99) 88 mg/dL (70-99) White Blood Count 8.3 x10^3/uL (4.0-11.0) Red Blood Count 2.57 x10^6/uL (3.50-5.40) Hemoglobin 7.3 g/dL (12.0-15.5) Hematocrit 21.9 % (36.0-47.0) Mean Corpuscular Volume 85 fL (79-100) Mean Corpuscular Hemoglobin 29 pg (25-35) Mean Corpuscular Hemoglobin Concent 33 g/dL (31-37) Red Cell Distribution Width 16.5 % (11.5-14.5) Platelet Count 334 x10^3/uL (140-400) Neutrophils (%) (Auto) 60 % (31-73) Lymphocytes (%) (Auto) 26 % (24-48) Monocytes (%) (Auto) 9 % (0-9) Eosinophils (%) (Auto) 3 % (0-3) Basophils (%) (Auto) 2 % (0-3) Neutrophils # (Auto) 5.0 x10^3uL (1.8-7.7) Lymphocytes # (Auto) 2.1 x10^3/uL (1.0-4.8) Monocytes # (Auto) 0.7 x10^3/uL (0.0-1.1) Eosinophils # (Auto) 0.3 x10^3/uL (0.0-0.7) Basophils # (Auto) 0.2 x10^3/uL (0.0-0.2) Sodium Level 143 mmol/L (136-145) Potassium Level 4.2 mmol/L (3.5-5.1) Chloride Level 109 mmol/L (98-107) Carbon Dioxide Level 22 mmol/L (21-32) Anion Gap 12 (6-14) Blood Urea Nitrogen 44 mg/dL (7-20) Creatinine 3.6 mg/dL (0.6-1.0) Estimated GFR (Cockcroft-Gault) 13.8 Glucose Level 101 mg/dL (70-99) Calcium Level 8.4 mg/dL (8.5-10.1) Magnesium Level 2.2 mg/dL (1.8-2.4) Test 01/14/18 04:00 01/14/18 07:46 01/14/18 11:34 01/14/18 17:05 Random Vancomycin Level 17.9 mcg/mL Glucose (Fingerstick) 88 mg/dL (70-99) 91 mg/dL (70-99) 85 mg/dL (70-99) Test 01/15/18 05:00 01/15/18 07:45 Hemoglobin 6.9 g/dL (12.0-15.5) Reticulocyte Count (auto) 1.4 % (0.5-2.5) Sodium Level 143 mmol/L (136-145) Potassium Level 4.5 mmol/L (3.5-5.1) Chloride Level 111 mmol/L (98-107) Carbon Dioxide Level 20 mmol/L (21-32) Anion Gap 12 (6-14) Blood Urea Nitrogen 37 mg/dL (7-20) Creatinine 3.0 mg/dL (0.6-1.0) Estimated GFR (Cockcroft-Gault) 17.0 Glucose Level 96 mg/dL (70-99) Calcium Level 7.9 mg/dL (8.5-10.1) Phosphorus Level 4.0 mg/dL (2.6-4.7) Magnesium Level 1.4 mg/dL (1.8-2.4) Iron Level 38 ug/dL (50-170) Total Iron Binding Capacity 140 ug/dL (250-450) Iron Saturation 27 % (15-34) Ferritin 320 ng/mL (8-252) Albumin 2.2 g/dL (3.4-5.0) Glucose (Fingerstick) 67 mg/dL (70-99) Laboratory Tests Test 01/14/18 11:34 01/14/18 17:05 01/15/18 05:00 01/15/18 07:45 Glucose (Fingerstick) 91 mg/dL (70-99) 85 mg/dL (70-99) 67 mg/dL (70-99) Hemoglobin 6.9 g/dL (12.0-15.5) Reticulocyte Count (auto) 1.4 % (0.5-2.5) Sodium Level 143 mmol/L (136-145) Potassium Level 4.5 mmol/L (3.5-5.1) Chloride Level 111 mmol/L (98-107) Carbon Dioxide Level 20 mmol/L (21-32) Anion Gap 12 (6-14) Blood Urea Nitrogen 37 mg/dL (7-20) Creatinine 3.0 mg/dL (0.6-1.0) Estimated GFR (Cockcroft-Gault) 17.0 Glucose Level 96 mg/dL (70-99) Calcium Level 7.9 mg/dL (8.5-10.1) Phosphorus Level 4.0 mg/dL (2.6-4.7) Magnesium Level 1.4 mg/dL (1.8-2.4) Iron Level 38 ug/dL (50-170) Total Iron Binding Capacity 140 ug/dL (250-450) Iron Saturation 27 % (15-34) Ferritin 320 ng/mL (8-252) Albumin 2.2 g/dL (3.4-5.0) Microbiology 01/11/18 Blood Culture - Preliminary, Resulted NO GROWTH AFTER 3 DAYS 01/12/18 Urine Culture - Final, Complete 01/12/18 Urine Culture Result 1 (RONEL) - Final, Complete Medications Current Medications Vancomycin HCl (Vanco Per Pharmacy) 1 each PRN DAILY PRN MC SEE COMMENTS Last administered on 01/13/18at 13:57; Start 01/11/18 at 16:45; Stop 01/14/18 at 10 :58; Status DC Levofloxacin/ Dextrose (Levaquin Per Pharmacy) 1 each PRN DAILY PRN MC SEE COMMENTS; Start 01/11/18 at 16:45 Vancomycin HCl 2 gm/Sodium Chloride 500 ml @ 250 mls/hr 1X ONCE IV Last administered on 01/11/18at 18:29; Start 01/11/18 at 17:00; Stop 01/11/18 at 18 :59; Status DC Levofloxacin/ Dextrose 150 ml @ 100 mls/hr 1X ONCE IV Last administered on at 17:05; Start 01/11/18 at 17:00; Stop 01/11/18 at 18:29; Status DC Sodium Chloride 0 ml @ 0 mls/hr Q0M IV Last administered on 01/11/18at 17:03; Start 01/11/18 at 16:45 Sodium Bicarbonate (Sodium Bicarb Adult 8.4% Syr) 50 meq 1X ONCE IV Last administered on 01/11/18at 19:11; Start 01/11/18 at 18:30; Stop 01/11/18 at 18 :31; Status DC Calcium Gluconate (Calcium Gluconate) 1,000 mg 1X ONCE IVP Last administered on 01/11/18at 19:12; Start 01/11/18 at 18:30; Stop 01/11/18 at 18:31; Status DC Albuterol Sulfate (Ventolin Neb Soln) 10 mg 1X ONCE CONT NEB Last administered on 01/11/18at 18:51; Start 01/11/18 at 18:30; Stop 01/11/18 at 18 :31; Status DC Vancomycin HCl (Vancomycin Random Level) 1 each 1X ONCE MC Last administered on 01/12/18at 17:12; Start 01/12/18 at 16:00; Stop 01/12/18 at 16:01; Status DC Lidocaine/Sodium Bicarbonate (Buffered Lidocaine 1%) 3 ml STK-MED ONCE .ROUTE ; Start 01/11/18 at 19:41; Stop 01/11/18 at 19:42; Status DC Heparin Sodium (Porcine) (Heparin Sodium) 10,000 unit STK-MED ONCE .ROUTE ; Start 01/11/18 at 19:41; Stop 01/11/18 at 19:42; Status DC Levofloxacin/ Dextrose 100 ml @ 100 mls/hr Q48H IV Last administered on at 17:29; Start 01/12/18 at 17:00 Norepinephrine Bitartrate 250 ml @ 1.875 mls/ hr CONT PRN IV SEE I/O RECORD; Start 01/11/18 at 20:30 Sodium Chloride 1,000 ml @ 1,000 mls/hr Q1H PRN IV hypotension; Start at 20:27; Stop 01/12/18 at 02:26; Status DC Sodium Chloride 1,000 ml @ 400 mls/hr Q2H30M PRN IV PATENCY; Start 01/11/18 at 20:27; Stop 01/12/18 at 08:26; Status DC Info (PHARMACY MONITORING -- do not chart) 1 each PRN DAILY PRN MC SEE COMMENTS ; Start 01/11/18 at 20:30 Info (PHARMACY MONITORING -- do not chart) 1 each PRN DAILY PRN MC SEE COMMENTS ; Start 01/11/18 at 20:30; Status UNV Lidocaine/Sodium Bicarbonate (Buffered Lidocaine 1%) 6 ml 1X ONCE INJ Last administered on 01/11/18at 20:45; Start 01/11/18 at 21:00; Stop 01/11/18 at 21 :01; Status DC Heparin Sodium (Porcine) (Heparin Sodium) 2,800 unit 1X ONCE INT CAT Last administered on 01/11/18at 20:44; Start 01/11/18 at 21:00; Stop 01/11/18 at 21 :01; Status DC Ondansetron HCl (Zofran) 4 mg PRN Q6HRS PRN IV NAUSEA/VOMITING Last administered on 01/14/18at 15:38; Start 01/11/18 at 21:00 Heparin Sodium (Porcine) (Heparin Sodium) 5,000 unit Q8HRS SQ Last administered on 01/15/18at 05:20; Start 01/11/18 at 22:00 Sodium Chloride (Normal Saline Flush) 3 ml QSHIFT PRN IV AFTER MEDS AND BLOOD DRAWS; Start 01/11/18 at 21:00 Miconazole Nitrate (Monistat-Derm) 1 heraclio BID TP Last administered on at 19:54; Start 01/11/18 at 21:30 Tramadol HCl (Ultram) 50 mg PRN Q6HRS PRN PO MILD PAIN Last administered on at 02:33; Start 01/11/18 at 22:15 Oxycodone/ Acetaminophen (Percocet 5/325) 1 tab PRN Q6HRS PRN PO MODERATE - SEVERE PAIN Last administered on 01/14/18at 19:54; Start 01/11/18 at 22:15 Hydromorphone HCl (Dilaudid) 0.25 mg PRN Q3HRS PRN IVP PAIN; Start 01/11/18 at 22:15 Lactobacillus Rhamnosus (Culturelle) 1 cap BID PO Last administered on at 19:54; Start 01/12/18 at 09:00 Sodium Chloride 1,000 ml @ 100 mls/hr Q10H IV Last administered on 01/15/18at 04:06; Start 01/12/18 at 12:30 Nystatin (Nystop) 1 heraclio BID TP Last administered on 01/14/18 19:54; Start at 21:00 Magnesium Sulfate 50 ml @ 25 mls/hr 1X ONCE IV Last administered on at 16:32; Start 01/12/18 at 16:30; Stop 01/12/18 at 18:29; Status DC Vancomycin HCl (Vancomycin Random Level) 1 each 1X ONCE MC Last administered on 01/14/18at 05:00; Start 01/14/18 at 05:00; Stop 01/14/18 at 05:01; Status DC Magnesium Sulfate 50 ml @ 25 mls/hr 1X ONCE IV Last administered on at 18:28; Start 01/13/18 at 16:30; Stop 01/13/18 at 18:29; Status DC Magnesium Sulfate 50 ml @ 25 mls/hr PRN DAILY PRN IV for mag < 1.7 on am labs; Start 01/13/18 at 22:30 Cetirizine HCl (ZyrTEC) 10 mg DAILY PO Last administered on 01/14/18at 11:26; Start 01/14/18 at 11:30 Montelukast Sodium (Singulair) 10 mg DAILY PO Last administered on 01/14/18at 11:26; Start 01/14/18 at 11:30 Magnesium Sulfate 50 ml @ 25 mls/hr PRN DAILY PRN IV for Mag < 1.7 on am labs; Start 01/14/18 at 13:00 Active Scripts Active Reported Ferrous Sulfate 325 Mg Tablet 1 Tab PO DAILY Medroxyprogesterone Acetate 10 Mg Tablet 1 Tab PO DAILY Omeprazole 20 Mg Capsule.dr 1 Cap PO BID Cyclobenzaprine Hcl 5 Mg Tablet 1 Tab PO QHS PRN Flovent 110MCG Hfa (Fluticasone Propionate) 12 Gm Aer.w.adap 2 Puff IH BID Lisinopril 20 Mg Tablet 1 Tab PO DAILY Hyoscyamine Sulfate 0.125 Mg Tab.subl 0.125 Mg SL Q6HRS PRN Loxapine (Loxapine Succinate) 10 Mg Capsule 10 Mg PO BID Zoloft (Sertraline Hcl) 50 Mg Tablet 1 Tab PO DAILY Desitin (Zinc Oxide) 57 Gm Cream..g. 57 Gm TP PRN PRN Nephplex Rx Tablet (Vit B Cmplx No3/Fa/C/Biot/Zinc) 1 Each Tablet 1 Each PO DAILY A and D Ointment (Vits A and D/White Pet/Lanolin) 42.5 Gm Oint...g. 42.5 Gm TP PRN Polyethylene Glycol 3350 255 Gm Powder 17 Gm PO DAILY Tramadol Hcl 50 Mg Tablet 50 Mg PO Q4HRS PRN Percocet 5-325 Mg Tablet (Oxycodone/Acetaminophen) 1 Each Tablet 1 Tab PO PRN Q6HRS PRN Levocetirizine Dihydrochloride 5 Mg Tablet 1 Tab PO QHS Levemir (Insulin Detemir) 100 Unit/1 Ml Vial 12 Unit SQ QHS Novolog Flexpen (Insulin Aspart) 100 Unit/1 Ml Insuln.pen 10 Unit SQ TIDWMEALS Voltaren (Diclofenac Sodium) 100 Gm Gel..gram. 4 Gm TP QID Capzasin-Hp (Capsaicin) 42.5 Gm Cream..g. 42.5 Gm TP PRN BID Banophen (Diphenhydramine Hcl) 25 Mg Capsule 25 Mg PO PRN Q6HRS Bacitracin 3.5 Gm Oint...g. 1 Heraclio OD BID Lipitor (Atorvastatin Calcium) 20 Mg Tablet 1 Tab PO DAILY Voltaren (Diclofenac Sodium) 100 Gm Gel..gram. 1 Gm TP QID Hydrocortisone Plus 1% Cream (Hydrocortisone/Aloe Vera) 28.4 Gm Cream..g. 1 Applic TP Ketoconazole 15 Gm Cream..g. 1 Heraclio TP BID Synthroid (Levothyroxine Sodium) 200 Mcg Tablet 200 Mcg PO DAILYAC Nystatin 15 Gm Cream..g. 15 Gm TP BID Hydrocodone-Apap 5-325 (Hydrocodone Bit/Acetaminophen) 1 Each Tablet 1 Tab PO PRN Q6HRS PRN Vitals/I & O Vital Sign - Last 24 Hours 01/14/18 01/14/18 01/14/18 01/14/18 11:00 11:26 12:25 15:00 Temp 97.4 97.5 97.4 97.5 Pulse 67 57 Resp 20 18 17 20 B/P (MAP) 137/52 (80) 134/73 (93) Pulse Ox 99 100 O2 Delivery Room Air Room Air Room Air Room Air 01/14/18 01/14/18 01/14/18 01/14/18 19:10 19:10 19:54 23:08 Temp 97.8 99.3 97.8 99.3 Pulse 60 76 Resp 20 20 B/P (MAP) 132/52 (78) 127/59 (81) Pulse Ox 100 98 O2 Delivery Room Air Room Air Room Air Room Air 01/15/18 03:45 Temp 98.1 98.1 Pulse 61 Resp 20 B/P (MAP) 141/70 (93) Pulse Ox 98 O2 Delivery Room Air Intake and Output 01/14/18 01/14/18 01/15/18 15:00 23:00 07:00 Intake Total 378 ml 1530 ml Output Total 700 ml 420 ml Balance -322 ml 1110 ml Nutrition Consultation Dietary Evaluation: Recommendations by RD: Increase Calorie Intake, Protein supplementation Comments: REC renal/GI soft diet per pt request, will adjust diet order REC Glucerna TID Expected Outcomes/Goals: PO intake to meet >75% est needs Interpretation of weight loss: >10% in 6 months Malnutrition Findings: Food and Nutrition Intake (Mod: <75% est energy req 7days Weight Status: Overweight AR LAMBERT MD Jan 15, 2018 09:47
[2018-01-15] MEDS: MICONAZOLE NITRATE 2% TOPICAL CREAM 28GM TUBE. TP SCH ×2 (10:41→21:00)
[2018-01-15] MEDS: CETIRIZINE HCL 10 MG TABLET. PO SCH (10:41)
[2018-01-15] MEDS: MONTELUKAST SODIUM 10 MG TABLET. PO SCH (10:41)
[2018-01-15] MEDS: NYSTATIN TOPICAL POWDER 15GM BOTTLE. TP SCH ×2 (10:41→21:00)
[2018-01-15] MEDS: LACTOBACILLUS RHAMNOSUS GG 1 CAPSULE. PO SCH ×2 (10:41→21:00)
--- NOTE | 2018-01-15 10:57 | RAD ---
Ultrasound soft tissue neck 01/15/2018. Reason for exam: Swelling around dialysis port. Scanning in the area of the port shows no apparent fluid collection or mass. This was on the right side. The left side was scanned for comparison. CONCLUSION: No evidence of abscess or other fluid collection. Electronically signed by: Joseph Chandler Jr., MD (01/15/2018 10:53 AM) [facility] [place]
[2018-01-15] MEDS ORDERED: MAGNESIUM SULFATE 2GM 50 ML IV PRN ×2 (12:45→13:00)
--- NOTE | 2018-01-15 12:48 | PDOC ---
SUBJECTIVE ROS Asked to see for acute renal failure: Patient is feeling much better today. She denies any new complaints per se. She is waiting for physical therapy to get her up out of bed. 24 hour urine for creatinine clearance was just completed CVS: no Orthopnea, no CP RESP: no SOB, no SINGH GI: no Nausea, no Vomiting : no Dysuria, no Urgency OBJECTIVE Vital Signs Vital Signs Date Time Temp Pulse Resp B/P (MAP) Pulse Ox O2 Delivery O2 Flow Rate FiO2 01/15/18 11:02 98.1 53 19 142/69 98.1 01/15/18 11:00 100 Room Air I & 0 Intake and Output 01/15/18 07:00 Intake Total 1908 ml Output Total 1120 ml Balance 788 ml Intake Oral 818 ml IV Total 1090 ml Output Urine Total 870 ml Stool Total 250 ml PHYSICAL EXAM Physical Exam GEN: Awake, Oriented x 3, In no distress EYES: Vision Unchanged, Conjunctiva Normal EN: No EN Drainage, Mucous Membranes moist NECK: no JVD, min JVP, Supple, no Thyromegaly CVS: S1S2, + Murmur, No Gallop, No Rub,no Edema RESP: no Rales, no Rhonchi,no Acc. Muscle Use GI: BS + ve, NO Bruit, MIn Tenderness Left side, Non Distended, colostomy in place. : no CVA tenderness, no Suprapubic Tenderness DIAGNOSIS/ASSESSMENT Assessment & Plan Acute renal failure: Creatinine appears to be improving. Urine output is marginal as reported by the nurse. We'll hence restart IV fluids Current fluid and E-lyte status does not necessitate emergent need for dialysis. Will re- evaluate for dialysis in the am, appetite is preserved Small hematoma around temporary dialysis catheter. Patient does not have any other IV access at this time. Hence she will need new IV access tomorrow prior to pulling dialysis catheter. Chronic kidney disease stage III/4 baseline creatinine appears to be 1.7-2.0. Await 24-hour urine for creatinine clearance. Previous history of proteinuria. Await results of 24-hour urine collection Severe ANEMIA; currently does not appear to be iron deficient hence we'll start Aranesp as ordered. Transfuse for hemoglobin less than 7 Hyperkalemia - K of 9 on admission : resolved with one-time dialysis. Given her underlying chronic renal insufficiency she may benefit from nutritional education and low potassium diet. Metabolic acidosis- Chronic due to Colostomy, DM and chronic renal insufficiency. Bicarbonate can be added to IV fluids if needed. May benefit from oral bicarbonate at discharge COMMENT/RELEVANT DATA Meds Current Medications Medications (Trade) Dose Ordered Sig/Mini Start Time Stop Time Status Last Admin Dose Admin Albuterol Sulfate (Ventolin Neb Soln) 10 mg 1X ONCE 01/11/18 18:30 01/11/18 18:31 DC 01/11/18 18:51 10 MG Calcium Gluconate (Calcium Gluconate) 1,000 mg 1X ONCE 01/11/18 18:30 01/11/18 18:31 DC 01/11/18 19:12 1,000 MG Cetirizine HCl (ZyrTEC) 10 mg DAILY 01/14/18 11:30 01/15/18 10:41 10 MG Heparin Sodium (Porcine) (Heparin Sodium) 5,000 unit Q8HRS 01/11/18 22:00 01/15/18 05:20 5,000 UNIT Hydromorphone HCl (Dilaudid) 0.25 mg PRN Q3HRS PRN 01/11/18 22:15 Info (PHARMACY MONITORING -- do not chart) 1 each PRN DAILY PRN 01/11/18 20:30 UNV Lactobacillus Rhamnosus (Culturelle) 1 cap BID 01/12/18 09:00 01/15/18 10:41 1 CAP Levofloxacin/ Dextrose 100 ml @ 100 mls/hr Q48H 01/12/18 17:00 01/14/18 17:29 100 MLS/HR Levofloxacin/ Dextrose (Levaquin Per Pharmacy) 1 each PRN DAILY PRN 01/11/18 16:45 Lidocaine/Sodium Bicarbonate (Buffered Lidocaine 1%) 6 ml 1X ONCE 01/11/18 21:00 01/11/18 21:01 DC 01/11/18 20:45 6 ML Magnesium Sulfate 50 ml @ 25 mls/hr PRN DAILY PRN 01/14/18 13:00 Miconazole Nitrate (Monistat-Derm) 1 thalia BID 01/11/18 21:30 01/15/18 10:41 1 THALIA Montelukast Sodium (Singulair) 10 mg DAILY 01/14/18 11:30 01/15/18 10:41 10 MG Norepinephrine Bitartrate 250 ml @ 1.875 mls/ hr CONT PRN 01/11/18 20:30 01/15/18 09:46 DC Nystatin (Nystop) 1 thalia BID 01/12/18 21:00 01/15/18 10:41 1 THALIA Ondansetron HCl (Zofran) 4 mg PRN Q6HRS PRN 01/11/18 21:00 01/14/18 15:38 4 MG Oxycodone/ Acetaminophen (Percocet 5/325) 1 tab PRN Q6HRS PRN 01/11/18 22:15 01/14/18 19:54 1 TAB Sodium Bicarbonate (Sodium Bicarb Adult 8.4% Syr) 50 meq 1X ONCE 01/11/18 18:30 01/11/18 18:31 DC 01/11/18 19:11 50 MEQ Sodium Chloride 1,000 ml @ 100 mls/hr Q10H 01/12/18 12:30 01/15/18 09:46 DC 01/15/18 04:06 100 MLS/HR Sodium Chloride (Normal Saline Flush) 3 ml QSHIFT PRN 01/11/18 21:00 Tramadol HCl (Ultram) 50 mg PRN Q6HRS PRN 01/11/18 22:15 01/14/18 02:33 50 MG Vancomycin HCl (Vanco Per Pharmacy) 1 each PRN DAILY PRN 01/11/18 16:45 01/14/18 10:58 DC 01/13/18 13:57 1 EACH Vancomycin HCl (Vancomycin Random Level) 1 each 1X ONCE 01/14/18 05:00 01/14/18 05:01 DC 01/14/18 05:00 1 EACH Vancomycin HCl 2 gm/Sodium Chloride 500 ml @ 250 mls/hr 1X ONCE 01/11/18 17:00 01/11/18 18:59 DC 01/11/18 18:29 250 MLS/HR Lab Laboratory Tests Test 01/14/18 17:05 01/15/18 05:00 01/15/18 07:45 Glucose (Fingerstick) 85 mg/dL (70-99) 67 mg/dL (70-99) Hemoglobin 6.9 g/dL (12.0-15.5) Reticulocyte Count (auto) 1.4 % (0.5-2.5) Sodium Level 143 mmol/L (136-145) Potassium Level 4.5 mmol/L (3.5-5.1) Chloride Level 111 mmol/L (98-107) Carbon Dioxide Level 20 mmol/L (21-32) Anion Gap 12 (6-14) Blood Urea Nitrogen 37 mg/dL (7-20) Creatinine 3.0 mg/dL (0.6-1.0) Estimated GFR (Cockcroft-Gault) 17.0 Glucose Level 96 mg/dL (70-99) Calcium Level 7.9 mg/dL (8.5-10.1) Phosphorus Level 4.0 mg/dL (2.6-4.7) Magnesium Level 1.4 mg/dL (1.8-2.4) Iron Level 38 ug/dL (50-170) Total Iron Binding Capacity 140 ug/dL (250-450) Iron Saturation 27 % (15-34) Ferritin 320 ng/mL (8-252) Albumin 2.2 g/dL (3.4-5.0) Results All relevant outside records, renal labs, imaging studies, telemetry/EKG's were reviewed. MIKE GONZALEZ MD Jan 15, 2018 12:48
[2018-01-15] MEDS ORDERED: MAGNESIUM SULFATE 2GM 50 ML IV ONE (13:00)
[2018-01-15] MEDS: IV 1/2 NORMAL SALINE 1,000 ML IV SCH (17:42)
[2018-01-15] MEDS ORDERED: DARBEPOETIN ALFA 60 MCG/0.3 ML DISP.SYRIN. SQ SCH (21:00)
[2018-01-15 23:11] LABS: CREATININE PTH 2.96 mg/dL (0.57-1.00); PHOSPHORUS PTH 3.9 mg/dL (2.5-4.5); PTH INTACT 91 pg/mL (15-65)
[2018-01-16] VITALS (7 sets, daily range): BP systolic 132–155; BP diastolic 68–78
[2018-01-16] MEDS: IV 1/2 NORMAL SALINE 1,000 ML IV SCH ×2 (01:15→15:49)
[2018-01-16] MEDS: HEPARIN for SUB-Q USE 5,000 UNIT/ML VIAL. SQ SCH ×3 (06:25→21:32)
[2018-01-16 06:56] LABS: ALBUMIN 2.2 g/dL (3.4-5.0); CALCIUM 8.4 mg/dL (8.5-10.1); CREATININE 2.4 mg/dL (0.6-1.0); MAGNESIUM 1.5 mg/dL (1.8-2.4); PHOSPHORUS 3.2 mg/dL (2.6-4.7); POTASSIUM 4.9 mmol/L (3.5-5.1)
--- NOTE | 2018-01-16 07:48 | PDOC ---
PROGRESS NOTES Chief Complaint Chief Complaint Hyperkalemia Acute renal failure Confusion Sepsis Diarrhea Intertrigo History of Present Illness History of Present Illness Ms Mtz is a 42 yo female with complicated PMHx DM2, HTN, HLD, GERD, Depression , CKD3, colostomy who p/w low blood pressure in clinic. She has been c/o shaking , some intermittent confusion, and increased green ostomy output, decreased UOP and rash between her thighs In ED she was treated with IV fluids initiated which brought the patient's blood pressure up. EKG obtained and reviewed by myself shows sinus rhythm with peaking T waves with qrs at 130 ms. Potassium is elevated at 9. Contacted nephrology for ICU admission and urgent dialysis. Albuterol, calcium and bicarbonate given in the emergency room, and IR was contacted for emergent placement of dialysis catheter. Patient has significant leukocytosis as well and broad-spectrum antibiotics initiated early upon arrival to cover for sepsis. No obvious source of infection, awaiting urine at this time, however on further review a pro-calcitonin elevated possibly suggesting a pulmonary infiltrate in the setting of an xray showing possible LLL infiltrate. Influenza negative. Mild baseline anemia present. Due to the life-threatening nature of her illness with EKG changes and potassium of 9 she was admitted to the ICU for urgent dialysis and with the help of heroic measures by interventional radiology was able to dialyze on 01/11 at night. This morning she is more alert. Potassium normalized. She has good UOP, CR coming down. Her groin feels better. She has no further shaking. Still with liquid ostomy output, not foul smelling. Hb 6.9, transfused to 9. Nursing noted swelling at trialysis catheter insertion site, no redness, still able to draw blood, US showed no abnormalities. Mag was 1.4. Urine 24 hour protein over 500. Is less pruritic today and has less suprapubic pain. She is still feeling very weak. A/P: Hyperkalemia - with EKG changes, given calcium gluconate, insulin + D50, albuterol in ED, IR for vasc-cath placement for emergent dialysis. Nephrology consulted. Resolved with dialysis. Pruritis - likely contact dermatitis, topical lotion, H1 domenic, singulair Hypomagnesemia - likely 2/2 stool output, will give 2g if ok with nephro Anemia - likely from chronic renal insufficiency, will type and screen for Hb 7 , likely blood with dialysis if ok with nephro Acute renal failure - with BUN 130 and Cr 11 she required emergent dialysis with drastic improvement to BUN 38 and Cr 4.2, K of 4.4 Confusion - Improved, was likely uremic encephalopathy, will monitor Sepsis - likely from LLL pneumonia, cough improving, appropriately cultured and given fluids in ED, will cont broad spectrum antibiotics for now, though source is unclear her WBC has come down. Cannot find urine culture, blood cultures NGTD Diarrhea - Sounds chronic on further review Intertrigo - in groin and beneath bilateral breasts, wound care to see. Miconazole to treat. Diet - renal PPX - heparin FULL CODE Ok to cont tele, may be able to d/c over weekend as she may be in renal recovery. will discuss further with nephro. Needs PT/OT Vitals Vitals Vital Signs Date Time Temp Pulse Resp B/P (MAP) Pulse Ox O2 Delivery O2 Flow Rate FiO2 01/16/18 07:00 98.1 23 155/68 (97) 98 Room Air 98.1 01/16/18 03:00 52 Physical Exam General: Alert, Cooperative, mild distress, Other (Oriented to person and location not day, date time) Abdomen: Normal bowel sounds, No tenderness, Other (Foul green liquid ostomy output) Extremities: No clubbing, No cyanosis, No edema, Normal pulses, No tenderness/ swelling Skin: Other (Rashes and skin breakdown in multiple locations) Labs LABS Laboratory Tests Test 01/15/18 11:14 01/15/18 17:15 01/16/18 06:30 Glucose (Fingerstick) 104 mg/dL (70-99) 82 mg/dL (70-99) Hemoglobin 9.4 g/dL (12.0-15.5) Sodium Level 139 mmol/L (136-145) Potassium Level 4.9 mmol/L (3.5-5.1) Chloride Level 109 mmol/L (98-107) Carbon Dioxide Level 20 mmol/L (21-32) Anion Gap 10 (6-14) Blood Urea Nitrogen 32 mg/dL (7-20) Creatinine 2.4 mg/dL (0.6-1.0) Estimated GFR (Cockcroft-Gault) 22.0 Glucose Level 89 mg/dL (70-99) Calcium Level 8.4 mg/dL (8.5-10.1) Phosphorus Level 3.2 mg/dL (2.6-4.7) Magnesium Level 1.5 mg/dL (1.8-2.4) Albumin 2.2 g/dL (3.4-5.0) Assessment and Plan Assessmemt and Plan Problems Medical Problems: (1) Acute renal failure Status: Acute (2) Hyperkalemia Status: Acute (3) Sepsis Status: Acute Comment Review of Relevant I have reviewed the following items hugo (where applicable) has been applied. Labs Laboratory Tests Test 01/14/18 11:34 01/14/18 17:05 01/15/18 05:00 01/15/18 07:45 Glucose (Fingerstick) 91 mg/dL (70-99) 85 mg/dL (70-99) 67 mg/dL (70-99) Hemoglobin 6.9 g/dL (12.0-15.5) Reticulocyte Count (auto) 1.4 % (0.5-2.5) Sodium Level 143 mmol/L (136-145) Potassium Level 4.5 mmol/L (3.5-5.1) Chloride Level 111 mmol/L (98-107) Carbon Dioxide Level 20 mmol/L (21-32) Anion Gap 12 (6-14) Blood Urea Nitrogen 37 mg/dL (7-20) Creatinine 3.0 mg/dL (0.6-1.0) Estimated GFR (Non- 19 (>59) Estimated GFR (Cockcroft-Gault) 17.0 Glucose Level 96 mg/dL (70-99) Calcium Level 7.9 mg/dL (8.5-10.1) Phosphorus Level 4.0 mg/dL (2.6-4.7) Magnesium Level 1.4 mg/dL (1.8-2.4) Iron Level 38 ug/dL (50-170) Total Iron Binding Capacity 140 ug/dL (250-450) Iron Saturation 27 % (15-34) Ferritin 320 ng/mL (8-252) Albumin 2.2 g/dL (3.4-5.0) EGFR 21 (>59) PTH (Intact) Specimen Description Comment (.) Parathyroid Hormone (Intact) 91 pg/mL (15-65) Calcium (PTH Intact) 8.0 mg/dL (8.7-10.2) Creatinine (PTH Intact) 2.96 mg/dL (0.57-1.00) Phosphorus (PTH Intact) 3.9 mg/dL (2.5-4.5) Test 01/15/18 11:14 01/15/18 17:15 01/16/18 06:30 Glucose (Fingerstick) 104 mg/dL (70-99) 82 mg/dL (70-99) Hemoglobin 9.4 g/dL (12.0-15.5) Sodium Level 139 mmol/L (136-145) Potassium Level 4.9 mmol/L (3.5-5.1) Chloride Level 109 mmol/L (98-107) Carbon Dioxide Level 20 mmol/L (21-32) Anion Gap 10 (6-14) Blood Urea Nitrogen 32 mg/dL (7-20) Creatinine 2.4 mg/dL (0.6-1.0) Estimated GFR (Cockcroft-Gault) 22.0 Glucose Level 89 mg/dL (70-99) Calcium Level 8.4 mg/dL (8.5-10.1) Phosphorus Level 3.2 mg/dL (2.6-4.7) Magnesium Level 1.5 mg/dL (1.8-2.4) Albumin 2.2 g/dL (3.4-5.0) Laboratory Tests Test 01/15/18 11:14 01/15/18 17:15 01/16/18 06:30 Glucose (Fingerstick) 104 mg/dL (70-99) 82 mg/dL (70-99) Hemoglobin 9.4 g/dL (12.0-15.5) Sodium Level 139 mmol/L (136-145) Potassium Level 4.9 mmol/L (3.5-5.1) Chloride Level 109 mmol/L (98-107) Carbon Dioxide Level 20 mmol/L (21-32) Anion Gap 10 (6-14) Blood Urea Nitrogen 32 mg/dL (7-20) Creatinine 2.4 mg/dL (0.6-1.0) Estimated GFR (Cockcroft-Gault) 22.0 Glucose Level 89 mg/dL (70-99) Calcium Level 8.4 mg/dL (8.5-10.1) Phosphorus Level 3.2 mg/dL (2.6-4.7) Magnesium Level 1.5 mg/dL (1.8-2.4) Albumin 2.2 g/dL (3.4-5.0) Microbiology 01/11/18 Blood Culture - Preliminary, Resulted NO GROWTH AFTER 4 DAYS 01/12/18 Urine Culture - Final, Complete 01/12/18 Urine Culture Result 1 (RONEL) - Final, Complete Medications Current Medications Vancomycin HCl (Vanco Per Pharmacy) 1 each PRN DAILY PRN MC SEE COMMENTS Last administered on 01/13/18at 13:57; Start 01/11/18 at 16:45; Stop 01/14/18 at 10 :58; Status DC Levofloxacin/ Dextrose (Levaquin Per Pharmacy) 1 each PRN DAILY PRN MC SEE COMMENTS; Start 01/11/18 at 16:45 Vancomycin HCl 2 gm/Sodium Chloride 500 ml @ 250 mls/hr 1X ONCE IV Last administered on 01/11/18at 18:29; Start 01/11/18 at 17:00; Stop 01/11/18 at 18 :59; Status DC Levofloxacin/ Dextrose 150 ml @ 100 mls/hr 1X ONCE IV Last administered on at 17:05; Start 01/11/18 at 17:00; Stop 01/11/18 at 18:29; Status DC Sodium Chloride 0 ml @ 0 mls/hr Q0M IV Last administered on 01/11/18at 17:03; Start 01/11/18 at 16:45; Stop 01/15/18 at 09:46; Status DC Sodium Bicarbonate (Sodium Bicarb Adult 8.4% Syr) 50 meq 1X ONCE IV Last administered on 01/11/18at 19:11; Start 01/11/18 at 18:30; Stop 01/11/18 at 18 :31; Status DC Calcium Gluconate (Calcium Gluconate) 1,000 mg 1X ONCE IVP Last administered on 01/11/18at 19:12; Start 01/11/18 at 18:30; Stop 01/11/18 at 18:31; Status DC Albuterol Sulfate (Ventolin Neb Soln) 10 mg 1X ONCE CONT NEB Last administered on 01/11/18at 18:51; Start 01/11/18 at 18:30; Stop 01/11/18 at 18 :31; Status DC Vancomycin HCl (Vancomycin Random Level) 1 each 1X ONCE MC Last administered on 01/12/18at 17:12; Start 01/12/18 at 16:00; Stop 01/12/18 at 16:01; Status DC Lidocaine/Sodium Bicarbonate (Buffered Lidocaine 1%) 3 ml STK-MED ONCE .ROUTE ; Start 01/11/18 at 19:41; Stop 01/11/18 at 19:42; Status DC Heparin Sodium (Porcine) (Heparin Sodium) 10,000 unit STK-MED ONCE .ROUTE ; Start 01/11/18 at 19:41; Stop 01/11/18 at 19:42; Status DC Levofloxacin/ Dextrose 100 ml @ 100 mls/hr Q48H IV Last administered on at 17:29; Start 01/12/18 at 17:00 Norepinephrine Bitartrate 250 ml @ 1.875 mls/ hr CONT PRN IV SEE I/O RECORD; Start 01/11/18 at 20:30; Stop 01/15/18 at 09:46; Status DC Sodium Chloride 1,000 ml @ 1,000 mls/hr Q1H PRN IV hypotension; Start at 20:27; Stop 01/12/18 at 02:26; Status DC Sodium Chloride 1,000 ml @ 400 mls/hr Q2H30M PRN IV PATENCY; Start 01/11/18 at 20:27; Stop 01/12/18 at 08:26; Status DC Info (PHARMACY MONITORING -- do not chart) 1 each PRN DAILY PRN MC SEE COMMENTS ; Start 01/11/18 at 20:30 Info (PHARMACY MONITORING -- do not chart) 1 each PRN DAILY PRN MC SEE COMMENTS ; Start 01/11/18 at 20:30; Status UNV Lidocaine/Sodium Bicarbonate (Buffered Lidocaine 1%) 6 ml 1X ONCE INJ Last administered on 01/11/18at 20:45; Start 01/11/18 at 21:00; Stop 01/11/18 at 21 :01; Status DC Heparin Sodium (Porcine) (Heparin Sodium) 2,800 unit 1X ONCE INT CAT Last administered on 01/11/18at 20:44; Start 01/11/18 at 21:00; Stop 01/11/18 at 21 :01; Status DC Ondansetron HCl (Zofran) 4 mg PRN Q6HRS PRN IV NAUSEA/VOMITING Last administered on 01/14/18at 15:38; Start 01/11/18 at 21:00 Heparin Sodium (Porcine) (Heparin Sodium) 5,000 unit Q8HRS SQ Last administered on 01/16/18at 06:25; Start 01/11/18 at 22:00 Sodium Chloride (Normal Saline Flush) 3 ml QSHIFT PRN IV AFTER MEDS AND BLOOD DRAWS; Start 01/11/18 at 21:00 Miconazole Nitrate (Monistat-Derm) 1 heraclio BID TP Last administered on at 21:00; Start 01/11/18 at 21:30 Tramadol HCl (Ultram) 50 mg PRN Q6HRS PRN PO MILD PAIN Last administered on at 02:33; Start 01/11/18 at 22:15 Oxycodone/ Acetaminophen (Percocet 5/325) 1 tab PRN Q6HRS PRN PO MODERATE - SEVERE PAIN Last administered on 01/14/18at 19:54; Start 01/11/18 at 22:15 Hydromorphone HCl (Dilaudid) 0.25 mg PRN Q3HRS PRN IVP PAIN; Start 01/11/18 at 22:15 Lactobacillus Rhamnosus (Culturelle) 1 cap BID PO Last administered on at 21:00; Start 01/12/18 at 09:00 Sodium Chloride 1,000 ml @ 100 mls/hr Q10H IV Last administered on 01/15/18at 04:06; Start 01/12/18 at 12:30; Stop 01/15/18 at 09:46; Status DC Nystatin (Nystop) 1 heraclio BID TP Last administered on 01/15/18at 21:00; Start at 21:00 Magnesium Sulfate 50 ml @ 25 mls/hr 1X ONCE IV Last administered on at 16:32; Start 01/12/18 at 16:30; Stop 01/12/18 at 18:29; Status DC Vancomycin HCl (Vancomycin Random Level) 1 each 1X ONCE MC Last administered on 01/14/18at 05:00; Start 01/14/18 at 05:00; Stop 01/14/18 at 05:01; Status DC Magnesium Sulfate 50 ml @ 25 mls/hr 1X ONCE IV Last administered on at 18:28; Start 01/13/18 at 16:30; Stop 01/13/18 at 18:29; Status DC Magnesium Sulfate 50 ml @ 25 mls/hr PRN DAILY PRN IV for mag < 1.7 on am labs; Start 01/13/18 at 22:30; Status Cancel Cetirizine HCl (ZyrTEC) 10 mg DAILY PO Last administered on 01/15/18at 10:41; Start 01/14/18 at 11:30 Montelukast Sodium (Singulair) 10 mg DAILY PO Last administered on 01/15/18at 10:41; Start 01/14/18 at 11:30 Magnesium Sulfate 50 ml @ 25 mls/hr PRN DAILY PRN IV for Mag < 1.7 on am labs; Start 01/14/18 at 13:00 Darbepoetin Duke (Aranesp) 60 mcg WEEKLYHS SQ Last administered on 01/15/18at 21:01; Start 01/15/18 at 21:00 Magnesium Sulfate 50 ml @ 25 mls/hr PRN DAILY PRN IV for Mag < 1.7 on am labs; Start 01/15/18 at 12:45; Status UNV Magnesium Sulfate 50 ml @ 25 mls/hr PRN DAILY PRN IV for Mag < 1.7 on am labs; Start 01/15/18 at 13:00; Stop 01/15/18 at 13:00; Status DC Magnesium Sulfate 50 ml @ 25 mls/hr 1X ONCE IV Last administered on at 17:42; Start 01/15/18 at 13:00; Stop 01/15/18 at 14:59; Status DC Sodium Chloride 1,000 ml @ 100 mls/hr Q10H IV Last administered on 01/16/18at 01:15; Start 01/15/18 at 15:15 Active Scripts Active Reported Ferrous Sulfate 325 Mg Tablet 1 Tab PO DAILY Medroxyprogesterone Acetate 10 Mg Tablet 1 Tab PO DAILY Omeprazole 20 Mg Capsule.dr 1 Cap PO BID Cyclobenzaprine Hcl 5 Mg Tablet 1 Tab PO QHS PRN Flovent 110MCG Hfa (Fluticasone Propionate) 12 Gm Aer.w.adap 2 Puff IH BID Lisinopril 20 Mg Tablet 1 Tab PO DAILY Hyoscyamine Sulfate 0.125 Mg Tab.subl 0.125 Mg SL Q6HRS PRN Loxapine (Loxapine Succinate) 10 Mg Capsule 10 Mg PO BID Zoloft (Sertraline Hcl) 50 Mg Tablet 1 Tab PO DAILY Desitin (Zinc Oxide) 57 Gm Cream..g. 57 Gm TP PRN PRN Nephplex Rx Tablet (Vit B Cmplx No3/Fa/C/Biot/Zinc) 1 Each Tablet 1 Each PO DAILY A and D Ointment (Vits A and D/White Pet/Lanolin) 42.5 Gm Oint...g. 42.5 Gm TP PRN Polyethylene Glycol 3350 255 Gm Powder 17 Gm PO DAILY Tramadol Hcl 50 Mg Tablet 50 Mg PO Q4HRS PRN Percocet 5-325 Mg Tablet (Oxycodone/Acetaminophen) 1 Each Tablet 1 Tab PO PRN Q6HRS PRN Levocetirizine Dihydrochloride 5 Mg Tablet 1 Tab PO QHS Levemir (Insulin Detemir) 100 Unit/1 Ml Vial 12 Unit SQ QHS Novolog Flexpen (Insulin Aspart) 100 Unit/1 Ml Insuln.pen 10 Unit SQ TIDWMEALS Voltaren (Diclofenac Sodium) 100 Gm Gel..gram. 4 Gm TP QID Capzasin-Hp (Capsaicin) 42.5 Gm Cream..g. 42.5 Gm TP PRN BID Banophen (Diphenhydramine Hcl) 25 Mg Capsule 25 Mg PO PRN Q6HRS Bacitracin 3.5 Gm Oint...g. 1 Heraclio OD BID Lipitor (Atorvastatin Calcium) 20 Mg Tablet 1 Tab PO DAILY Voltaren (Diclofenac Sodium) 100 Gm Gel..gram. 1 Gm TP QID Hydrocortisone Plus 1% Cream (Hydrocortisone/Aloe Vera) 28.4 Gm Cream..g. 1 Applic TP Ketoconazole 15 Gm Cream..g. 1 Heraclio TP BID Synthroid (Levothyroxine Sodium) 200 Mcg Tablet 200 Mcg PO DAILYAC Nystatin 15 Gm Cream..g. 15 Gm TP BID Hydrocodone-Apap 5-325 (Hydrocodone Bit/Acetaminophen) 1 Each Tablet 1 Tab PO PRN Q6HRS PRN Vitals/I & O Vital Sign - Last 24 Hours 01/15/18 01/15/18 01/15/18 01/15/18 08:00 09:02 09:17 09:32 Temp 97.9 98.7 98.2 97.9 98.7 98.2 Pulse 68 63 60 Resp 20 21 20 B/P (MAP) 138/65 128/61 123/62 O2 Delivery Room Air 01/15/18 01/15/18 01/15/18 01/15/18 09:47 10:02 11:00 11:02 Temp 98.2 98.1 98.1 98.1 98.2 98.1 98.1 98.1 Pulse 76 57 53 53 Resp 21 20 19 19 B/P (MAP) 136/70 124/62 142/69 (93) 142/69 Pulse Ox 100 O2 Delivery Room Air 01/15/18 01/15/18 01/15/18 01/15/18 15:00 15:05 15:20 15:35 Temp 97.8 98.2 97.8 98.0 97.8 98.2 97.8 98.0 Pulse 55 63 63 59 Resp 20 B/P (MAP) 145/67 (93) 140/68 145/67 147/66 Pulse Ox 99 O2 Delivery Room Air 01/15/18 01/15/18 01/15/18 01/15/18 15:50 16:05 17:05 17:41 Temp 98.0 98.1 97.8 98.1 98.0 98.1 97.8 98.1 Pulse 52 50 74 49 Resp 20 B/P (MAP) 152/70 152/73 141/49 144/71 01/15/18 01/15/18 01/15/18 01/16/18 19:00 19:50 23:01 03:00 Temp 98.0 97.9 98.4 98.0 97.9 98.4 Pulse 52 68 52 Resp 18 B/P (MAP) 130/47 (74) 154/70 (98) 155/78 (103) Pulse Ox 98 97 98 O2 Delivery Room Air Room Air Room Air Room Air 01/16/18 07:00 Temp 98.1 98.1 Resp 23 B/P (MAP) 155/68 (97) Pulse Ox 98 O2 Delivery Room Air Intake and Output 01/15/18 01/15/18 01/16/18 15:00 23:00 07:00 Intake Total 200 ml 855 ml 300 ml Output Total 400 ml 800 ml 1150 ml Balance -200 ml 55 ml -850 ml Nutrition Consultation Dietary Evaluation: Recommendations by RD: Increase Calorie Intake, Protein supplementation Comments: REC renal/GI soft diet per pt request, will adjust diet order REC Glucerna TID Expected Outcomes/Goals: PO intake to meet >75% est needs Interpretation of weight loss: >10% in 6 months Malnutrition Findings: Food and Nutrition Intake (Mod: <75% est energy req 7days Weight Status: Overweight AR LAMBERT MD Jan 16, 2018 07:48
[2018-01-16] MEDS: CETIRIZINE HCL 10 MG TABLET. PO SCH (08:50)
[2018-01-16] MEDS: MONTELUKAST SODIUM 10 MG TABLET. PO SCH (08:50)
[2018-01-16] MEDS: LACTOBACILLUS RHAMNOSUS GG 1 CAPSULE. PO SCH ×2 (08:50→21:29)
[2018-01-16] MEDS: NYSTATIN TOPICAL POWDER 15GM BOTTLE. TP SCH ×2 (08:52→21:29)
[2018-01-16] MEDS: MICONAZOLE NITRATE 2% TOPICAL CREAM 28GM TUBE. TP SCH ×2 (08:52→21:29)
[2018-01-16] MEDS ORDERED: MAGNESIUM SULFATE 4GM 100 ML IV ONE (10:30)
[2018-01-16 12:14] LABS: TOTAL SERUM CREATININE 2.78 mg/dL (0.57-1.00); TOTAL URINE CREATININE 71.5 mg/dL (Not Estab.); UR PROTEIN 38.8 mg/dL (Not Estab.)
[2018-01-16] MEDS: oxyCODONE/APAP 5/325 1 TAB TABLET PO PRN (12:18)
--- NOTE | 2018-01-16 12:25 | PDOC ---
Renal-Progress Notes Subjective Notes Notes FEELING BETTER History of Present Illness Hx of present illness STABLE Vitals Vitals Vital Signs Date Time Temp Pulse Resp B/P (MAP) Pulse Ox O2 Delivery O2 Flow Rate FiO2 01/16/18 12:18 Room Air 01/16/18 11:02 98.1 50 15 135/73 (93) 96 98.1 Weight Weight [ ] I.O. Intake and Output Intake and Output 01/16/18 07:00 Intake Total 1355 ml Output Total 2350 ml Balance -995 ml Intake Oral 1155 ml Blood Product IV Normal Saline Flush 200 ml Output Urine Total 1550 ml Stool Total 800 ml Labs Labs Laboratory Tests Test 01/15/18 14:00 01/15/18 17:15 01/16/18 06:30 01/16/18 07:50 Urine Protein 38.8 mg/dL (Not Estab.) Urine Creatinine 24 Hour 1037 mg/24 hr (800-1800) Creatinine Clearance 24 Hour 26 mL/min (88-128) Urine Protein 24 Hr Calculated 563 mg/24 hr (30-150) Creatinine 2.78 mg/dL (0.57-1.00) 2.4 mg/dL (0.6-1.0) Estimated GFR (Non- 20 (>59) EGFR 23 (>59) Glucose (Fingerstick) 82 mg/dL (70-99) 81 mg/dL (70-99) Hemoglobin 9.4 g/dL (12.0-15.5) Sodium Level 139 mmol/L (136-145) Potassium Level 4.9 mmol/L (3.5-5.1) Chloride Level 109 mmol/L (98-107) Carbon Dioxide Level 20 mmol/L (21-32) Anion Gap 10 (6-14) Blood Urea Nitrogen 32 mg/dL (7-20) Estimated GFR (Cockcroft-Gault) 22.0 Glucose Level 89 mg/dL (70-99) Calcium Level 8.4 mg/dL (8.5-10.1) Phosphorus Level 3.2 mg/dL (2.6-4.7) Magnesium Level 1.5 mg/dL (1.8-2.4) Albumin 2.2 g/dL (3.4-5.0) Test 01/16/18 12:09 Glucose (Fingerstick) 85 mg/dL (70-99) Micro Micro Microbiology 01/11/18 Blood Culture - Preliminary, Resulted NO GROWTH AFTER 4 DAYS 01/12/18 Urine Culture - Final, Complete 01/12/18 Urine Culture Result 1 (RONEL) - Final, Complete Review of Systems Constitutional: yes: weakness, alert, oriented Ears/Nose/Throat: Yes: no symptom reported Eyes: Yes: no symptom reported Pulmonary: Yes no symptom reported Cardiovascular: Yes no symptom reported Gastrointestional: Yes: no symptom reported Genitourinary: Yes: no symptom reported Musculoskeletal: Yes: no symptom reported Skin: Yes no symptom reported Psychiatric/Neurological: Yes: no symptom reported Endocrine: Yes: no symptom reported Physical Exam General Appearance: no apparent distress Skin: warm Respiratory: decreased breath sounds Heart: S1S2 Abdomen: soft, bowel sounds present Genitourinary: bladder flat Extremities: pulses present Neurology: alert Musculoskeletal: Osteoarthritis Assessment Assessment IMP MEHRAN-RESOLVING WITH CR DOWN TO 2.7-HD TIMES ONE DONE-NO FURTHER HD NEEDED HYPERKALEMIA AND MET ACIDOSIS-RESOLVE CKD STAGE 3 WITH CR OF 1.5 FROM EARLIER THIS YEAR ANEMIA=BETTER LOW MAG PLAN MAG REPLACED IVF'S TO CONTINUE D/C DIALYSIS CATHETER LOBO RICHARDS MD Jan 16, 2018 12:25
[2018-01-17] MEDS: IV 1/2 NORMAL SALINE 1,000 ML IV SCH ×2 (02:21→07:15)
[2018-01-17 03:06] VITALS: BP 126/72
[2018-01-17] MEDS: HEPARIN for SUB-Q USE 5,000 UNIT/ML VIAL. SQ SCH (05:41)
[2018-01-17 06:31] LABS: ALBUMIN 2.1 g/dL (3.4-5.0); CALCIUM 7.9 mg/dL (8.5-10.1); GFR 27.2; PHOSPHORUS 3.2 mg/dL (2.6-4.7); POTASSIUM 4.7 mmol/L (3.5-5.1)
[2018-01-17 07:00] VITALS: BP 140/70
[2018-01-17 07:33] LABS: BASO # 0.1 x10^3/uL (0.0-0.2); BASO % 1 % (0-3); EOS # 0.5 x10^3/uL (0.0-0.7); EOS % 4 % (0-3); HEMATOCRIT 28.8 % (36.0-47.0); HEMOGLOBIN 9.7 g/dL (12.0-15.5); LYMPH # 1.9 x10^3/uL (1.0-4.8); LYMPH % 15 % (24-48); MEAN CORPUSCULAR HEMOGLOBIN 29 pg (25-35); MEAN CORPUSCULAR HGB CONC 34 g/dL (31-37); MEAN CORPUSCULAR VOLUME 87 fL (79-100); MONO # 0.7 x10^3/uL (0.0-1.1); MONO % 6 % (0-9); NEUT # 8.9 x10^3uL (1.8-7.7); NEUT % 73 % (31-73); PLATELET COUNT 315 x10^3/uL (140-400); RED BLOOD COUNT 3.32 x10^6/uL (3.50-5.40); RED CELL DISTRIBUTION WIDTH 16.4 % (11.5-14.5); WHITE BLOOD COUNT 12.2 x10^3/uL (4.0-11.0)
[2018-01-17] MEDS ORDERED: MONT10TA9 PO (08:48)
--- NOTE | 2018-01-17 08:49 | DISCH ---
DISCHARGE WITH HOME HEALTH DISCHARGE INFORMATION: Final Diagnosis: Problems Medical Problems: (1) Acute renal failure Status: Acute (2) Hyperkalemia Status: Acute (3) Sepsis Status: Acute Condition on Discharge: Stable CODE STATUS: Code Status: Full HOME HEALTH: Face to Face: I certify this patient is under my care and that I, or a nurse practitioner or physician's audiology assistant working with me, had a face to face encounter that meets the physician face to face encounter requirements with this patient on []. Medical Complications: Other (MEHRAN) Physical Therapy For: Evalulation/Treatment Occupational Therapy For: Evaluation/Treatment Home Health Aide For: Self-care Pt Meets Homebound Status: Fatigue w/ amb. POST DISCHARGE ORDERS: Activity Instructions for Disc: No restrictions Weight Bearing Status after Di: No restrictions Bathing Instructions: Shower-keep dressing dry DIET AFTER DISCHARGE: Renal Wound/Incision Care: Ice to area for comfort, Keep wound/cast CDI, Keep wound elevated, Do not change dressing CHECKS AFTER DISCHARGE: Checks after discharge: Check blood press - daily, Check blood sugar, ac/hs TREATMENT/EQUIPMENT ORDERS: Adaptive Equipment Issued: None CERTIFICATION STATEMENT: Certification Statement: Certification Statement: Based on the above finding, I certify that this patient is confined to the home and needs intermittent penitentiary care, physical therapy and/or speech therapy, or continues to need occupational therapy.~ This patient is under my care, and I have initiated the establishment of the plan of care.~ This patient will be followed by myself or a community physician who will periodically review the plan of care. Home Meds Active Scripts Montelukast Sodium (MONTELUKAST SODIUM TABLET) 10 Mg Tablet, 10 MG PO DAILY for 7 Days, #7 TAB Prov:MADELIN FLOWERS MD 01/17/18 Reported Medications Ferrous Sulfate (FERROUS SULFATE) 325 Mg Tablet, 1 TAB PO DAILY, #30 TAB 3 Refills 01/12/18 Medroxyprogesterone Acetate (MEDROXYPROGESTERONE ACETATE) 10 Mg Tablet, 1 TAB PO DAILY, #10 TAB 4 Refills 01/12/18 Omeprazole (OMEPRAZOLE) 20 Mg Capsule.dr, 1 CAP PO BID, #30 CAP 5 Refills 01/12/18 Cyclobenzaprine Hcl (CYCLOBENZAPRINE HCL) 5 Mg Tablet, 1 TAB PO QHS PRN for MUSCLE SPASMS, #30 TAB 01/12/18 Fluticasone Propionate (FLOVENT 110MCG HFA) 12 Gm Aer.w.adap, 2 PUFF IH BID, #1 INHALER 2 Refills 01/12/18 Lisinopril (LISINOPRIL) 20 Mg Tablet, 1 TAB PO DAILY, #30 TAB 5 Refills 01/12/18 Hyoscyamine Sulfate (HYOSCYAMINE SULFATE) 0.125 Mg Tab.subl, 0.125 MG SL Q6HRS PRN for GI SYMPTOMS, TAB 01/12/18 Loxapine Succinate (LOXAPINE) 10 Mg Capsule, 10 MG PO BID, CAP 01/12/18 Sertraline Hcl (ZOLOFT) 50 Mg Tablet, 1 TAB PO DAILY, #30 TAB 2 Refills 01/12/18 Zinc Oxide (Desitin) 57 Gm Cream..g., 57 GM TP PRN PRN for DELIRIUM, EACH 01/12/18 Vit B Cmplx No3/Fa/C/Biot/Zinc (NEPHPLEX RX TABLET) 1 Each Tablet, 1 EACH PO DAILY, TAB 01/12/18 Vits A and D/White Pet/Lanolin (A and D Ointment) 42.5 Gm Oint...g., 42.5 GM TP PRN, MISC 01/12/18 Polyethylene Glycol 3350 (POLYETHYLENE GLYCOL 3350) 255 Gm Powder, 17 GM PO DAILY, #527 GM 01/12/18 Tramadol Hcl (TRAMADOL HCL) 50 Mg Tablet, 50 MG PO Q4HRS PRN for PAIN, TAB 01/12/18 Oxycodone/Apap 5-325 (PERCOCET 5-325 MG TABLET) 1 Each Tablet, 1 TAB PO PRN Q6HRS PRN for PAIN, TAB 0 Refills 01/12/18 Levocetirizine Dihydrochloride (LEVOCETIRIZINE DIHYDROCHLORIDE) 5 Mg Tablet, 1 TAB PO QHS, #30 TAB 3 Refills 01/12/18 Insulin Detemir (LEVEMIR) 100 Unit/1 Ml Vial, 12 UNIT SQ QHS, VIAL 01/12/18 Insulin Aspart (NOVOLOG FLEXPEN) 100 Unit/1 Ml Insuln.pen, 10 UNIT SQ TIDWMEALS , SYR 01/12/18 Diclofenac Sodium (VOLTAREN) 100 Gm Gel..gram., 4 GM TP QID, #100 GM 2 Refills 01/12/18 Capsaicin (CAPZASIN-HP) 42.5 Gm Cream..g., 42.5 GM TP PRN BID, EACH 01/12/18 Diphenhydramine Hcl (BANOPHEN) 25 Mg Capsule, 25 MG PO PRN Q6HRS, CAP 01/12/18 Bacitracin (BACITRACIN) 3.5 Gm Oint...g., 1 RONAL OD BID, #3.5 GM 01/12/18 Atorvastatin Calcium (LIPITOR) 20 Mg Tablet, 1 TAB PO DAILY, #90 TAB 1 Refill 01/12/18 Diclofenac Sodium (VOLTAREN) 100 Gm Gel..gram., 1 GM TP QID, #100 GM 2 Refills 12/18/15 Hydrocortisone/Aloe Vera (HYDROCORTISONE PLUS 1% CREAM) 28.4 Gm Cream..g., 1 APPLIC TP 10/23/15 Ketoconazole (KETOCONAZOLE) 15 Gm Cream..g., 1 RONAL TP BID, #30 GM 10/23/15 Levothyroxine Sodium (SYNTHROID) 200 Mcg Tablet, 200 MCG PO DAILYAC for THYROID SUPPLEMENT, #30 TAB 0 Refills 10/23/15 Nystatin (NYSTATIN) 15 Gm Cream..g., 15 GM TP BID 10/23/15 Hydrocodone Bit/Acetaminophen (HYDROCODONE-APAP 5-325 ) 1 Each Tablet, 1 TAB PO PRN Q6HRS PRN for PAIN, TAB 0 Refills 09/10/15 Discontinued Reported Medications Fluticasone Propionate (FLUTICASONE PROPIONATE NASAL SPRAY) 16 Gm Blunt.susp, 2 SPRAY NS DAILY, #1 INHALER 11 Refills 12/18/15 Omeprazole (OMEPRAZOLE) 20 Mg Tablet.dr, 20 MG PO BID, TAB 10/23/15 Insulin Aspart (NOVOLOG) 100 Unit/1 Ml Vial, 10 UNIT SQ BIDACLD, VIAL 10/23/15 Sitagliptin Phosphate (JANUVIA) 100 Mg Tablet, 100 MG PO DAILY, TAB 10/23/15 Levocetirizine Dihydrochloride (XYZAL) 5 Mg Tablet, 5 MG PO DAILYWSUP 10/23/15 Triamcinolone Acetonide (TRIAMCINOLONE ACETONIDE 0.1% CREAM) 15 Gm Cream..g., 1 RONAL TP TID, TUBE 10/23/15 MADELIN FLOWERS MD Jan 17, 2018 08:49
[2018-01-17] MEDS: MONTELUKAST SODIUM 10 MG TABLET. PO SCH (08:53)
[2018-01-17] MEDS: LACTOBACILLUS RHAMNOSUS GG 1 CAPSULE. PO SCH (08:53)
[2018-01-17] MEDS: CETIRIZINE HCL 10 MG TABLET. PO SCH (08:54)
[2018-01-17] MEDS: MICONAZOLE NITRATE 2% TOPICAL CREAM 28GM TUBE. TP SCH (08:55)
[2018-01-17] MEDS: NYSTATIN TOPICAL POWDER 15GM BOTTLE. TP SCH (08:55)
--- NOTE | 2018-01-17 09:46 | PDOC ---
PROGRESS NOTES Chief Complaint Chief Complaint Hyperkalemia with EKG changes POA s/p urgent HD Acute renal failure needing 1x HD urgent Confusion/met enceph sec to # 1 and # 2 Sepsis POA Diarrhea resolved Intertrigo Hx cardiac arrest September 2017 at [facility] Hx crohns with indwelling colostomy GEn weakness AOCD History of Present Illness History of Present Illness As per renal note reviewed 01/16/18-okay to DC HD catheter Patient still has an HD catheter on the right neck Patient has no complaints - very weak though Social work note reviewed, they have been to multiple rehabilitation in the past -just wants home health Patient has not ambulated outside of the room Hemoglobin stable at 9, WBC 12 Creatinine 2.0 from 11 on admission Plan: Plans of discontinuing HD catheter per renal note dated 01/16/18 PT OT I will discharge the patient once patient has at least ambulated outside of the room-that has not happened yet Very weak ate less than 50% of her tray today Home health on discharge Home meds will be on chart mely RN at bedside Vitals Vitals Vital Signs Date Time Temp Pulse Resp B/P (MAP) Pulse Ox O2 Delivery O2 Flow Rate FiO2 01/17/18 08:00 Room Air 01/17/18 07:00 98.1 51 18 140/70 (93) 99 98.1 Physical Exam General: Alert, Cooperative, mild distress, Other (indwelling HD catheter on the right neck) Heart: Regular rate, Normal S1, Normal S2 Lungs: Clear Abdomen: Normal bowel sounds, No tenderness, Other (Foul green liquid ostomy output) Extremities: No clubbing, No cyanosis, No edema, Normal pulses, No tenderness/ swelling Skin: No rashes, No breakdown, Other (Rashes and skin breakdown in multiple locations) Labs LABS Laboratory Tests Test 01/16/18 12:09 01/16/18 16:48 01/16/18 21:24 01/17/18 05:50 Glucose (Fingerstick) 85 mg/dL (70-99) 84 mg/dL (70-99) 88 mg/dL (70-99) White Blood Count 12.2 x10^3/uL (4.0-11.0) Red Blood Count 3.32 x10^6/uL (3.50-5.40) Hemoglobin 9.7 g/dL (12.0-15.5) Hematocrit 28.8 % (36.0-47.0) Mean Corpuscular Volume 87 fL (79-100) Mean Corpuscular Hemoglobin 29 pg (25-35) Mean Corpuscular Hemoglobin Concent 34 g/dL (31-37) Red Cell Distribution Width 16.4 % (11.5-14.5) Platelet Count 315 x10^3/uL (140-400) Neutrophils (%) (Auto) 73 % (31-73) Lymphocytes (%) (Auto) 15 % (24-48) Monocytes (%) (Auto) 6 % (0-9) Eosinophils (%) (Auto) 4 % (0-3) Basophils (%) (Auto) 1 % (0-3) Neutrophils # (Auto) 8.9 x10^3uL (1.8-7.7) Lymphocytes # (Auto) 1.9 x10^3/uL (1.0-4.8) Monocytes # (Auto) 0.7 x10^3/uL (0.0-1.1) Eosinophils # (Auto) 0.5 x10^3/uL (0.0-0.7) Basophils # (Auto) 0.1 x10^3/uL (0.0-0.2) Sodium Level 139 mmol/L (136-145) Potassium Level 4.7 mmol/L (3.5-5.1) Chloride Level 110 mmol/L (98-107) Carbon Dioxide Level 18 mmol/L (21-32) Anion Gap 11 (6-14) Blood Urea Nitrogen 27 mg/dL (7-20) Creatinine 2.0 mg/dL (0.6-1.0) Estimated GFR (Cockcroft-Gault) 27.2 Glucose Level 94 mg/dL (70-99) Calcium Level 7.9 mg/dL (8.5-10.1) Phosphorus Level 3.2 mg/dL (2.6-4.7) Magnesium Level 2.0 mg/dL (1.8-2.4) Albumin 2.1 g/dL (3.4-5.0) Test 01/17/18 07:51 Glucose (Fingerstick) 88 mg/dL (70-99) Review of Systems Review of Systems Weak, poor appetite, the rest of ROS 14 point negative Assessment and Plan Assessmemt and Plan Problems Medical Problems: (1) Acute renal failure Status: Acute (2) Hyperkalemia Status: Acute (3) Sepsis Status: Acute Comment Review of Relevant I have reviewed the following items hugo (where applicable) has been applied. Labs Laboratory Tests Test 01/15/18 11:14 01/15/18 14:00 01/15/18 17:15 01/16/18 06:30 Glucose (Fingerstick) 104 mg/dL (70-99) 82 mg/dL (70-99) Urine Protein 38.8 mg/dL (Not Estab.) Urine Creatinine 24 Hour 1037 mg/24 hr (800-1800) Creatinine Clearance 24 Hour 26 mL/min (88-128) Urine Protein 24 Hr Calculated 563 mg/24 hr (30-150) Creatinine 2.78 mg/dL (0.57-1.00) 2.4 mg/dL (0.6-1.0) Estimated GFR (Non- 20 (>59) EGFR 23 (>59) Hemoglobin 9.4 g/dL (12.0-15.5) Sodium Level 139 mmol/L (136-145) Potassium Level 4.9 mmol/L (3.5-5.1) Chloride Level 109 mmol/L (98-107) Carbon Dioxide Level 20 mmol/L (21-32) Anion Gap 10 (6-14) Blood Urea Nitrogen 32 mg/dL (7-20) Estimated GFR (Cockcroft-Gault) 22.0 Glucose Level 89 mg/dL (70-99) Calcium Level 8.4 mg/dL (8.5-10.1) Phosphorus Level 3.2 mg/dL (2.6-4.7) Magnesium Level 1.5 mg/dL (1.8-2.4) Albumin 2.2 g/dL (3.4-5.0) Test 01/16/18 07:50 01/16/18 12:09 01/16/18 16:48 01/16/18 21:24 Glucose (Fingerstick) 81 mg/dL (70-99) 85 mg/dL (70-99) 84 mg/dL (70-99) 88 mg/dL (70-99) Test 01/17/18 05:50 01/17/18 07:51 White Blood Count 12.2 x10^3/uL (4.0-11.0) Red Blood Count 3.32 x10^6/uL (3.50-5.40) Hemoglobin 9.7 g/dL (12.0-15.5) Hematocrit 28.8 % (36.0-47.0) Mean Corpuscular Volume 87 fL (79-100) Mean Corpuscular Hemoglobin 29 pg (25-35) Mean Corpuscular Hemoglobin Concent 34 g/dL (31-37) Red Cell Distribution Width 16.4 % (11.5-14.5) Platelet Count 315 x10^3/uL (140-400) Neutrophils (%) (Auto) 73 % (31-73) Lymphocytes (%) (Auto) 15 % (24-48) Monocytes (%) (Auto) 6 % (0-9) Eosinophils (%) (Auto) 4 % (0-3) Basophils (%) (Auto) 1 % (0-3) Neutrophils # (Auto) 8.9 x10^3uL (1.8-7.7) Lymphocytes # (Auto) 1.9 x10^3/uL (1.0-4.8) Monocytes # (Auto) 0.7 x10^3/uL (0.0-1.1) Eosinophils # (Auto) 0.5 x10^3/uL (0.0-0.7) Basophils # (Auto) 0.1 x10^3/uL (0.0-0.2) Sodium Level 139 mmol/L (136-145) Potassium Level 4.7 mmol/L (3.5-5.1) Chloride Level 110 mmol/L (98-107) Carbon Dioxide Level 18 mmol/L (21-32) Anion Gap 11 (6-14) Blood Urea Nitrogen 27 mg/dL (7-20) Creatinine 2.0 mg/dL (0.6-1.0) Estimated GFR (Cockcroft-Gault) 27.2 Glucose Level 94 mg/dL (70-99) Calcium Level 7.9 mg/dL (8.5-10.1) Phosphorus Level 3.2 mg/dL (2.6-4.7) Magnesium Level 2.0 mg/dL (1.8-2.4) Albumin 2.1 g/dL (3.4-5.0) Glucose (Fingerstick) 88 mg/dL (70-99) Laboratory Tests Test 01/16/18 12:09 01/16/18 16:48 01/16/18 21:24 01/17/18 05:50 Glucose (Fingerstick) 85 mg/dL (70-99) 84 mg/dL (70-99) 88 mg/dL (70-99) White Blood Count 12.2 x10^3/uL (4.0-11.0) Red Blood Count 3.32 x10^6/uL (3.50-5.40) Hemoglobin 9.7 g/dL (12.0-15.5) Hematocrit 28.8 % (36.0-47.0) Mean Corpuscular Volume 87 fL (79-100) Mean Corpuscular Hemoglobin 29 pg (25-35) Mean Corpuscular Hemoglobin Concent 34 g/dL (31-37) Red Cell Distribution Width 16.4 % (11.5-14.5) Platelet Count 315 x10^3/uL (140-400) Neutrophils (%) (Auto) 73 % (31-73) Lymphocytes (%) (Auto) 15 % (24-48) Monocytes (%) (Auto) 6 % (0-9) Eosinophils (%) (Auto) 4 % (0-3) Basophils (%) (Auto) 1 % (0-3) Neutrophils # (Auto) 8.9 x10^3uL (1.8-7.7) Lymphocytes # (Auto) 1.9 x10^3/uL (1.0-4.8) Monocytes # (Auto) 0.7 x10^3/uL (0.0-1.1) Eosinophils # (Auto) 0.5 x10^3/uL (0.0-0.7) Basophils # (Auto) 0.1 x10^3/uL (0.0-0.2) Sodium Level 139 mmol/L (136-145) Potassium Level 4.7 mmol/L (3.5-5.1) Chloride Level 110 mmol/L (98-107) Carbon Dioxide Level 18 mmol/L (21-32) Anion Gap 11 (6-14) Blood Urea Nitrogen 27 mg/dL (7-20) Creatinine 2.0 mg/dL (0.6-1.0) Estimated GFR (Cockcroft-Gault) 27.2 Glucose Level 94 mg/dL (70-99) Calcium Level 7.9 mg/dL (8.5-10.1) Phosphorus Level 3.2 mg/dL (2.6-4.7) Magnesium Level 2.0 mg/dL (1.8-2.4) Albumin 2.1 g/dL (3.4-5.0) Test 01/17/18 07:51 Glucose (Fingerstick) 88 mg/dL (70-99) Microbiology 01/11/18 Blood Culture - Final, Complete NO GROWTH AFTER 5 DAYS 01/12/18 Urine Culture - Final, Complete 01/12/18 Urine Culture Result 1 (RONEL) - Final, Complete Medications Current Medications Vancomycin HCl (Vanco Per Pharmacy) 1 each PRN DAILY PRN MC SEE COMMENTS Last administered on 01/13/18at 13:57; Start 01/11/18 at 16:45; Stop 01/14/18 at 10 :58; Status DC Levofloxacin/ Dextrose (Levaquin Per Pharmacy) 1 each PRN DAILY PRN MC SEE COMMENTS; Start 01/11/18 at 16:45 Vancomycin HCl 2 gm/Sodium Chloride 500 ml @ 250 mls/hr 1X ONCE IV Last administered on 01/11/18at 18:29; Start 01/11/18 at 17:00; Stop 01/11/18 at 18 :59; Status DC Levofloxacin/ Dextrose 150 ml @ 100 mls/hr 1X ONCE IV Last administered on at 17:05; Start 01/11/18 at 17:00; Stop 01/11/18 at 18:29; Status DC Sodium Chloride 0 ml @ 0 mls/hr Q0M IV Last administered on 01/11/18at 17:03; Start 01/11/18 at 16:45; Stop 01/15/18 at 09:46; Status DC Sodium Bicarbonate (Sodium Bicarb Adult 8.4% Syr) 50 meq 1X ONCE IV Last administered on 01/11/18at 19:11; Start 01/11/18 at 18:30; Stop 01/11/18 at 18 :31; Status DC Calcium Gluconate (Calcium Gluconate) 1,000 mg 1X ONCE IVP Last administered on 01/11/18at 19:12; Start 01/11/18 at 18:30; Stop 01/11/18 at 18:31; Status DC Albuterol Sulfate (Ventolin Neb Soln) 10 mg 1X ONCE CONT NEB Last administered on 01/11/18at 18:51; Start 01/11/18 at 18:30; Stop 01/11/18 at 18 :31; Status DC Vancomycin HCl (Vancomycin Random Level) 1 each 1X ONCE MC Last administered on 01/12/18at 17:12; Start 01/12/18 at 16:00; Stop 01/12/18 at 16:01; Status DC Lidocaine/Sodium Bicarbonate (Buffered Lidocaine 1%) 3 ml STK-MED ONCE .ROUTE ; Start 01/11/18 at 19:41; Stop 01/11/18 at 19:42; Status DC Heparin Sodium (Porcine) (Heparin Sodium) 10,000 unit STK-MED ONCE .ROUTE ; Start 01/11/18 at 19:41; Stop 01/11/18 at 19:42; Status DC Levofloxacin/ Dextrose 100 ml @ 100 mls/hr Q48H IV Last administered on at 17:50; Start 01/12/18 at 17:00 Norepinephrine Bitartrate 250 ml @ 1.875 mls/ hr CONT PRN IV SEE I/O RECORD; Start 01/11/18 at 20:30; Stop 01/15/18 at 09:46; Status DC Sodium Chloride 1,000 ml @ 1,000 mls/hr Q1H PRN IV hypotension; Start at 20:27; Stop 01/12/18 at 02:26; Status DC Sodium Chloride 1,000 ml @ 400 mls/hr Q2H30M PRN IV PATENCY; Start 01/11/18 at 20:27; Stop 01/12/18 at 08:26; Status DC Info (PHARMACY MONITORING -- do not chart) 1 each PRN DAILY PRN MC SEE COMMENTS ; Start 01/11/18 at 20:30 Info (PHARMACY MONITORING -- do not chart) 1 each PRN DAILY PRN MC SEE COMMENTS ; Start 01/11/18 at 20:30; Status UNV Lidocaine/Sodium Bicarbonate (Buffered Lidocaine 1%) 6 ml 1X ONCE INJ Last administered on 01/11/18at 20:45; Start 01/11/18 at 21:00; Stop 01/11/18 at 21 :01; Status DC Heparin Sodium (Porcine) (Heparin Sodium) 2,800 unit 1X ONCE INT CAT Last administered on 01/11/18at 20:44; Start 01/11/18 at 21:00; Stop 01/11/18 at 21 :01; Status DC Ondansetron HCl (Zofran) 4 mg PRN Q6HRS PRN IV NAUSEA/VOMITING Last administered on 01/14/18at 15:38; Start 01/11/18 at 21:00 Heparin Sodium (Porcine) (Heparin Sodium) 5,000 unit Q8HRS SQ Last administered on 01/17/18 05:41; Start 01/11/18 at 22:00 Sodium Chloride (Normal Saline Flush) 3 ml QSHIFT PRN IV AFTER MEDS AND BLOOD DRAWS; Start 01/11/18 at 21:00 Miconazole Nitrate (Monistat-Derm) 1 heraclio BID TP Last administered on at 08:55; Start 01/11/18 at 21:30 Tramadol HCl (Ultram) 50 mg PRN Q6HRS PRN PO MILD PAIN Last administered on at 02:33; Start 01/11/18 at 22:15 Oxycodone/ Acetaminophen (Percocet 5/325) 1 tab PRN Q6HRS PRN PO MODERATE - SEVERE PAIN Last administered on 01/16/18at 12:18; Start 01/11/18 at 22:15 Hydromorphone HCl (Dilaudid) 0.25 mg PRN Q3HRS PRN IVP PAIN; Start 01/11/18 at 22:15 Lactobacillus Rhamnosus (Culturelle) 1 cap BID PO Last administered on at 08:53; Start 01/12/18 at 09:00 Sodium Chloride 1,000 ml @ 100 mls/hr Q10H IV Last administered on 01/15/18at 04:06; Start 01/12/18 at 12:30; Stop 01/15/18 at 09:46; Status DC Nystatin (Nystop) 1 heraclio BID TP Last administered on 01/17/18at 08:55; Start at 21:00 Magnesium Sulfate 50 ml @ 25 mls/hr 1X ONCE IV Last administered on at 16:32; Start 01/12/18 at 16:30; Stop 01/12/18 at 18:29; Status DC Vancomycin HCl (Vancomycin Random Level) 1 each 1X ONCE MC Last administered on 01/14/18at 05:00; Start 01/14/18 at 05:00; Stop 01/14/18 at 05:01; Status DC Magnesium Sulfate 50 ml @ 25 mls/hr 1X ONCE IV Last administered on at 18:28; Start 01/13/18 at 16:30; Stop 01/13/18 at 18:29; Status DC Magnesium Sulfate 50 ml @ 25 mls/hr PRN DAILY PRN IV for mag < 1.7 on am labs; Start 01/13/18 at 22:30; Status Cancel Cetirizine HCl (ZyrTEC) 10 mg DAILY PO Last administered on 01/17/18at 08:54; Start 01/14/18 at 11:30 Montelukast Sodium (Singulair) 10 mg DAILY PO Last administered on 01/17/18at 08:53; Start 01/14/18 at 11:30 Magnesium Sulfate 50 ml @ 25 mls/hr PRN DAILY PRN IV for Mag < 1.7 on am labs; Start 01/14/18 at 13:00 Darbepoetin Duke (Aranesp) 60 mcg WEEKLYHS SQ Last administered on 01/15/18at 21:01; Start 01/15/18 at 21:00 Magnesium Sulfate 50 ml @ 25 mls/hr PRN DAILY PRN IV for Mag < 1.7 on am labs; Start 01/15/18 at 12:45; Status UNV Magnesium Sulfate 50 ml @ 25 mls/hr PRN DAILY PRN IV for Mag < 1.7 on am labs; Start 01/15/18 at 13:00; Stop 01/15/18 at 13:00; Status DC Magnesium Sulfate 50 ml @ 25 mls/hr 1X ONCE IV Last administered on at 17:42; Start 01/15/18 at 13:00; Stop 01/15/18 at 14:59; Status DC Sodium Chloride 1,000 ml @ 100 mls/hr Q10H IV Last administered on 01/17/18at 02:21; Start 01/15/18 at 15:15 Magnesium Sulfate/ Dextrose 100 ml @ 25 mls/hr 1X ONCE IV Last administered on 01/16/18at 10:39; Start 01/16/18 at 10:30; Stop 01/16/18 at 14:29; Status DC Active Scripts Active Montelukast Sodium Tablet (Montelukast Sodium) 10 Mg Tablet 10 Mg PO DAILY 7 Days Reported Ferrous Sulfate 325 Mg Tablet 1 Tab PO DAILY Medroxyprogesterone Acetate 10 Mg Tablet 1 Tab PO DAILY Omeprazole 20 Mg Capsule.dr 1 Cap PO BID Cyclobenzaprine Hcl 5 Mg Tablet 1 Tab PO QHS PRN Flovent 110MCG Hfa (Fluticasone Propionate) 12 Gm Aer.w.adap 2 Puff IH BID Lisinopril 20 Mg Tablet 1 Tab PO DAILY Hyoscyamine Sulfate 0.125 Mg Tab.subl 0.125 Mg SL Q6HRS PRN Loxapine (Loxapine Succinate) 10 Mg Capsule 10 Mg PO BID Zoloft (Sertraline Hcl) 50 Mg Tablet 1 Tab PO DAILY Desitin (Zinc Oxide) 57 Gm Cream..g. 57 Gm TP PRN PRN Nephplex Rx Tablet (Vit B Cmplx No3/Fa/C/Biot/Zinc) 1 Each Tablet 1 Each PO DAILY A and D Ointment (Vits A and D/White Pet/Lanolin) 42.5 Gm Oint...g. 42.5 Gm TP PRN Polyethylene Glycol 3350 255 Gm Powder 17 Gm PO DAILY Tramadol Hcl 50 Mg Tablet 50 Mg PO Q4HRS PRN Percocet 5-325 Mg Tablet (Oxycodone/Acetaminophen) 1 Each Tablet 1 Tab PO PRN Q6HRS PRN Levocetirizine Dihydrochloride 5 Mg Tablet 1 Tab PO QHS Levemir (Insulin Detemir) 100 Unit/1 Ml Vial 12 Unit SQ QHS Novolog Flexpen (Insulin Aspart) 100 Unit/1 Ml Insuln.pen 10 Unit SQ TIDWMEALS Voltaren (Diclofenac Sodium) 100 Gm Gel..gram. 4 Gm TP QID Capzasin-Hp (Capsaicin) 42.5 Gm Cream..g. 42.5 Gm TP PRN BID Banophen (Diphenhydramine Hcl) 25 Mg Capsule 25 Mg PO PRN Q6HRS Bacitracin 3.5 Gm Oint...g. 1 [place] OD BID Lipitor (Atorvastatin Calcium) 20 Mg Tablet 1 Tab PO DAILY Voltaren (Diclofenac Sodium) 100 Gm Gel..gram. 1 Gm TP QID Hydrocortisone Plus 1% Cream (Hydrocortisone/Aloe Vera) 28.4 Gm Cream..g. 1 Applic TP Ketoconazole 15 Gm Cream..g. 1 [place] TP BID Synthroid (Levothyroxine Sodium) 200 Mcg Tablet 200 Mcg PO DAILYAC Nystatin 15 Gm Cream..g. 15 Gm TP BID Hydrocodone-Apap 5-325 (Hydrocodone Bit/Acetaminophen) 1 Each Tablet 1 Tab PO PRN Q6HRS PRN Vitals/I & O Vital Sign - Last 24 Hours 01/16/18 01/16/18 01/16/18 01/16/18 11:02 12:18 13:30 15:01 Temp 98.1 97.8 98.1 97.8 Pulse 50 76 Resp 15 15 B/P (MAP) 135/73 (93) 132/71 (91) Pulse Ox 96 98 O2 Delivery Room Air Room Air Room Air Room Air 01/16/18 01/16/18 01/16/18 01/17/18 19:56 20:05 23:19 03:06 Temp 98.2 98.6 98.4 98.2 98.6 98.4 Pulse 51 51 51 Resp 20 16 18 B/P (MAP) 136/71 (92) 149/74 (99) 126/72 (90) Pulse Ox 100 98 100 O2 Delivery Room Air Room Air Room Air Room Air 01/17/18 01/17/18 07:00 08:00 Temp 98.1 98.1 Pulse 51 Resp 18 B/P (MAP) 140/70 (93) Pulse Ox 99 O2 Delivery Room Air Room Air Intake and Output 01/16/18 01/16/18 01/17/18 15:00 23:00 07:00 Intake Total 400 ml 740 ml 340 ml Output Total 1750 ml 725 ml 325 ml Balance -1350 ml 15 ml 15 ml Nutrition Consultation Dietary Evaluation: Recommendations by RD: Increase Calorie Intake, Protein supplementation Comments: REC renal/GI soft diet per pt request, will adjust diet order REC Glucerna TID Expected Outcomes/Goals: PO intake to meet >75% est needs Interpretation of weight loss: >10% in 6 months Malnutrition Findings: Food and Nutrition Intake (Mod: <75% est energy req 7days Weight Status: Overweight TERMULO,MADELIN Y MD Jan 17, 2018 09:45
[2018-01-17 11:00] VITALS: BP 134/77
--- NOTE | 2018-01-17 11:53 | PDOC ---
Renal-Progress Notes Subjective Notes Notes NONE History of Present Illness Hx of present illness STABLE Vitals Vitals Vital Signs Date Time Temp Pulse Resp B/P (MAP) Pulse Ox O2 Delivery O2 Flow Rate FiO2 01/17/18 11:00 97.8 68 16 134/77 (96) 99 Room Air 97.8 Weight Weight [ ] I.O. Intake and Output Intake and Output 01/17/18 07:00 Intake Total 1480 ml Output Total 2800 ml Balance -1320 ml Intake Oral 1480 ml Output Urine Total 1250 ml Stool Total 1550 ml # Voids 3 Labs Labs Laboratory Tests Test 01/16/18 12:09 01/16/18 16:48 01/16/18 21:24 01/17/18 05:50 Glucose (Fingerstick) 85 mg/dL (70-99) 84 mg/dL (70-99) 88 mg/dL (70-99) White Blood Count 12.2 x10^3/uL (4.0-11.0) Red Blood Count 3.32 x10^6/uL (3.50-5.40) Hemoglobin 9.7 g/dL (12.0-15.5) Hematocrit 28.8 % (36.0-47.0) Mean Corpuscular Volume 87 fL (79-100) Mean Corpuscular Hemoglobin 29 pg (25-35) Mean Corpuscular Hemoglobin Concent 34 g/dL (31-37) Red Cell Distribution Width 16.4 % (11.5-14.5) Platelet Count 315 x10^3/uL (140-400) Neutrophils (%) (Auto) 73 % (31-73) Lymphocytes (%) (Auto) 15 % (24-48) Monocytes (%) (Auto) 6 % (0-9) Eosinophils (%) (Auto) 4 % (0-3) Basophils (%) (Auto) 1 % (0-3) Neutrophils # (Auto) 8.9 x10^3uL (1.8-7.7) Lymphocytes # (Auto) 1.9 x10^3/uL (1.0-4.8) Monocytes # (Auto) 0.7 x10^3/uL (0.0-1.1) Eosinophils # (Auto) 0.5 x10^3/uL (0.0-0.7) Basophils # (Auto) 0.1 x10^3/uL (0.0-0.2) Sodium Level 139 mmol/L (136-145) Potassium Level 4.7 mmol/L (3.5-5.1) Chloride Level 110 mmol/L (98-107) Carbon Dioxide Level 18 mmol/L (21-32) Anion Gap 11 (6-14) Blood Urea Nitrogen 27 mg/dL (7-20) Creatinine 2.0 mg/dL (0.6-1.0) Estimated GFR (Cockcroft-Gault) 27.2 Glucose Level 94 mg/dL (70-99) Calcium Level 7.9 mg/dL (8.5-10.1) Phosphorus Level 3.2 mg/dL (2.6-4.7) Magnesium Level 2.0 mg/dL (1.8-2.4) Albumin 2.1 g/dL (3.4-5.0) Test 01/17/18 07:51 01/17/18 11:30 Glucose (Fingerstick) 88 mg/dL (70-99) 84 mg/dL (70-99) Micro Micro Microbiology 01/11/18 Blood Culture - Final, Complete NO GROWTH AFTER 5 DAYS 01/12/18 Urine Culture - Final, Complete 01/12/18 Urine Culture Result 1 (RONEL) - Final, Complete Review of Systems Constitutional: yes: weakness, alert, oriented Ears/Nose/Throat: Yes: no symptom reported Eyes: Yes: no symptom reported Pulmonary: Yes no symptom reported Cardiovascular: Yes no symptom reported Gastrointestional: Yes: no symptom reported Genitourinary: Yes: no symptom reported Musculoskeletal: Yes: no symptom reported Skin: Yes no symptom reported Psychiatric/Neurological: Yes: no symptom reported Endocrine: Yes: no symptom reported Physical Exam General Appearance: no apparent distress Skin: warm Respiratory: decreased breath sounds Heart: S1S2 Abdomen: soft, bowel sounds present Genitourinary: bladder flat Extremities: pulses present Neurology: alert Musculoskeletal: Osteoarthritis Assessment Assessment IMP MEHRAN-ESSENTIALLY WITH CR DOWN TO 2.0 HYPERKALEMIA AND MET ACIDOSIS-RESOLVED CKD STAGE 3 WITH CR OF 1.5 FROM EARLIER THIS YEAR ANEMIA=BETTER LOW MAG-RESOLVED PLAN OFF MOSS IVF'S TO CONTINUE D/C DIALYSIS CATHETER OK TO D/C FROM RENAL STANDPOINT PT ALREADY HAS OFFICE APPT WITH LOBO MARKS MD Jan 17, 2018 11:53
--- NOTE | 2018-01-17 12:04 | PDOC3 ---
Discharge Summary Visit Information Date of Admission: Jan 11, 2018 Date of Discharge: Jan 17, 2018 Admitting Diagnosis Comment: Hyperkalemia with EKG changes POA s/p urgent HD Acute renal failure needing 1x HD urgent Confusion/met enceph sec to # 1 and # 2 Sepsis POA Diarrhea resolved Intertrigo Hx cardiac arrest September 2017 at [facility] Hx crohns with indwelling colostomy GEn weakness AOCD Final Diagnosis Problems Medical Problems: (1) Acute renal failure Status: Acute (2) Hyperkalemia Status: Acute (3) Sepsis Status: Acute Brief Hospital Course Allergies Allergies Coded Allergies Type Severity Reaction Last Updated Verified Penicillins Allergy Severe Anaphylaxis 12/29/15 Yes aspirin Allergy Severe Anaphylaxis 12/29/15 Yes Latex, Natural Rubber Allergy Intermediate Rash 12/30/15 Yes latex Allergy Intermediate Rash 12/29/15 Yes piperacillin Allergy Intermediate Rash 12/29/15 Yes tazobactam Allergy Intermediate Rash 12/29/15 Yes tizanidine Allergy Intermediate Itching 12/29/15 Yes acetaminophen Adverse Reaction Intermediate elevated liver enzymes 01/01/16 Yes Uncoded Allergies Type Severity Reaction Last Updated Verified PLASTIC Allergy Intermediate Rash 10/27/15 Vital Signs Vital Signs Date Time Temp Pulse Resp B/P (MAP) Pulse Ox O2 Delivery O2 Flow Rate FiO2 01/17/18 11:00 97.8 68 16 134/77 (96) 99 Room Air 97.8 Lab Results Laboratory Tests Test 01/15/18 14:00 01/15/18 17:15 01/16/18 06:30 01/16/18 07:50 Urine Protein 38.8 mg/dL (Not Estab.) Urine Creatinine 24 Hour 1037 mg/24 hr (800-1800) Creatinine Clearance 24 Hour 26 mL/min (88-128) Urine Protein 24 Hr Calculated 563 mg/24 hr (30-150) Creatinine 2.78 mg/dL (0.57-1.00) 2.4 mg/dL (0.6-1.0) Estimated GFR (Non- 20 (>59) EGFR 23 (>59) Glucose (Fingerstick) 82 mg/dL (70-99) 81 mg/dL (70-99) Hemoglobin 9.4 g/dL (12.0-15.5) Sodium Level 139 mmol/L (136-145) Potassium Level 4.9 mmol/L (3.5-5.1) Chloride Level 109 mmol/L (98-107) Carbon Dioxide Level 20 mmol/L (21-32) Anion Gap 10 (6-14) Blood Urea Nitrogen 32 mg/dL (7-20) Estimated GFR (Cockcroft-Gault) 22.0 Glucose Level 89 mg/dL (70-99) Calcium Level 8.4 mg/dL (8.5-10.1) Phosphorus Level 3.2 mg/dL (2.6-4.7) Magnesium Level 1.5 mg/dL (1.8-2.4) Albumin 2.2 g/dL (3.4-5.0) Test 01/16/18 12:09 01/16/18 16:48 01/16/18 21:24 01/17/18 05:50 Glucose (Fingerstick) 85 mg/dL (70-99) 84 mg/dL (70-99) 88 mg/dL (70-99) White Blood Count 12.2 x10^3/uL (4.0-11.0) Red Blood Count 3.32 x10^6/uL (3.50-5.40) Hemoglobin 9.7 g/dL (12.0-15.5) Hematocrit 28.8 % (36.0-47.0) Mean Corpuscular Volume 87 fL (79-100) Mean Corpuscular Hemoglobin 29 pg (25-35) Mean Corpuscular Hemoglobin Concent 34 g/dL (31-37) Red Cell Distribution Width 16.4 % (11.5-14.5) Platelet Count 315 x10^3/uL (140-400) Neutrophils (%) (Auto) 73 % (31-73) Lymphocytes (%) (Auto) 15 % (24-48) Monocytes (%) (Auto) 6 % (0-9) Eosinophils (%) (Auto) 4 % (0-3) Basophils (%) (Auto) 1 % (0-3) Neutrophils # (Auto) 8.9 x10^3uL (1.8-7.7) Lymphocytes # (Auto) 1.9 x10^3/uL (1.0-4.8) Monocytes # (Auto) 0.7 x10^3/uL (0.0-1.1) Eosinophils # (Auto) 0.5 x10^3/uL (0.0-0.7) Basophils # (Auto) 0.1 x10^3/uL (0.0-0.2) Sodium Level 139 mmol/L (136-145) Potassium Level 4.7 mmol/L (3.5-5.1) Chloride Level 110 mmol/L (98-107) Carbon Dioxide Level 18 mmol/L (21-32) Anion Gap 11 (6-14) Blood Urea Nitrogen 27 mg/dL (7-20) Creatinine 2.0 mg/dL (0.6-1.0) Estimated GFR (Cockcroft-Gault) 27.2 Glucose Level 94 mg/dL (70-99) Calcium Level 7.9 mg/dL (8.5-10.1) Phosphorus Level 3.2 mg/dL (2.6-4.7) Magnesium Level 2.0 mg/dL (1.8-2.4) Albumin 2.1 g/dL (3.4-5.0) Test 01/17/18 07:51 01/17/18 11:30 Glucose (Fingerstick) 88 mg/dL (70-99) 84 mg/dL (70-99) Laboratory Tests Test 01/16/18 12:09 01/16/18 16:48 01/16/18 21:24 01/17/18 05:50 Glucose (Fingerstick) 85 mg/dL (70-99) 84 mg/dL (70-99) 88 mg/dL (70-99) White Blood Count 12.2 x10^3/uL (4.0-11.0) Red Blood Count 3.32 x10^6/uL (3.50-5.40) Hemoglobin 9.7 g/dL (12.0-15.5) Hematocrit 28.8 % (36.0-47.0) Mean Corpuscular Volume 87 fL (79-100) Mean Corpuscular Hemoglobin 29 pg (25-35) Mean Corpuscular Hemoglobin Concent 34 g/dL (31-37) Red Cell Distribution Width 16.4 % (11.5-14.5) Platelet Count 315 x10^3/uL (140-400) Neutrophils (%) (Auto) 73 % (31-73) Lymphocytes (%) (Auto) 15 % (24-48) Monocytes (%) (Auto) 6 % (0-9) Eosinophils (%) (Auto) 4 % (0-3) Basophils (%) (Auto) 1 % (0-3) Neutrophils # (Auto) 8.9 x10^3uL (1.8-7.7) Lymphocytes # (Auto) 1.9 x10^3/uL (1.0-4.8) Monocytes # (Auto) 0.7 x10^3/uL (0.0-1.1) Eosinophils # (Auto) 0.5 x10^3/uL (0.0-0.7) Basophils # (Auto) 0.1 x10^3/uL (0.0-0.2) Sodium Level 139 mmol/L (136-145) Potassium Level 4.7 mmol/L (3.5-5.1) Chloride Level 110 mmol/L (98-107) Carbon Dioxide Level 18 mmol/L (21-32) Anion Gap 11 (6-14) Blood Urea Nitrogen 27 mg/dL (7-20) Creatinine 2.0 mg/dL (0.6-1.0) Estimated GFR (Cockcroft-Gault) 27.2 Glucose Level 94 mg/dL (70-99) Calcium Level 7.9 mg/dL (8.5-10.1) Phosphorus Level 3.2 mg/dL (2.6-4.7) Magnesium Level 2.0 mg/dL (1.8-2.4) Albumin 2.1 g/dL (3.4-5.0) Test 01/17/18 07:51 01/17/18 11:30 Glucose (Fingerstick) 88 mg/dL (70-99) 84 mg/dL (70-99) Brief Hospital Course Ms. Mtz is a 42 old female with a lot of comorbidities given young age of 42, admitted in January 11 in [place] acute renal failure with a creatinine of 11 needing stat hemodialysis via dialysis catheter to her right neck. SHe had hyperkalemia with EKG changes. She was not on any NSAIDs regularly prior to admission. But she did have some confusion and diarrhea. Her course was remarkable for some diarrhea that has resolved. No C. difficile. She had recently a cardiac arrest in September 2017 at . She has a history of Crohn's disease and has an indwelling colostomy on the right lower quadrant. Her course was remarkable for extreme weakness needing SNU but family opted for home health. I have Rx'd some Levaquin to complete 5 more days. Creatinine is 2 on discharge. Dialysis catheter will be taken out today. Walked with physical therapy a lap around the nurse's station. Back to baseline as per therapy. Okay from renal to go home. Only did need one urgent dialysis and creatinine has come down consults: renal, IR Proc; HD cath insertion and one session HD 2 notes today, dc 34 mins Discharge Information Condition at Discharge: Improved, Stable Disposition/Orders: D/C to Home w/ HH Scheduled Atorvastatin Calcium (Lipitor) 20 Mg Tablet, 1 TAB PO DAILY, #90 Ref 1 (Reported ) Entered as Reported by: STACEY AKHTAR on 01/12/18246 Last Taken: Unknown Dose on 01/11/18 Last Action: New Order on 01/12/18246 by STACEY AKHTAR Bacitracin (Bacitracin) 3.5 Gm Oint...g., 1 RONAL OD BID, #3.5 (Reported) Entered as Reported by: STACEY AKHTAR on 01/12/18246 Last Taken: Unknown Dose on 01/11/18 Last Action: New Order on 01/12/18246 by STACEY AKHTAR Capsaicin (Capzasin-Hp) 42.5 Gm Cream..g., 42.5 GM TP PRN BID, (Reported) Entered as Reported by: STACEY AKHTAR on 01/12/18246 Last Taken: Unknown Dose on Unknown Date & Time Last Action: New Order on 01/12/18246 by STACEY AKHTAR Diclofenac Sodium (Voltaren) 100 Gm Gel..gram., 1 GM TP QID, #100 Ref 2 ( Reported) Entered as Reported by: BYRON BARNARD on 12/18/15 1356 Last Taken: Unknown Dose on 01/10/18 Last Action: Last Taken Edited on 01/12/18 023 by STACEY AKHTAR Diclofenac Sodium (Voltaren) 100 Gm Gel..gram., 4 GM TP QID, #100 Ref 2 ( Reported) Entered as Reported by: STACEY AKHTAR on 01/12/18246 Last Taken: Unknown Dose on 01/11/18 Last Action: New Order on 01/12/18246 by STACEY AKHTAR Diphenhydramine Hcl (Banophen) 25 Mg Capsule, 25 MG PO PRN Q6HRS, (Reported) Entered as Reported by: STACEY AKHTAR on 01/12/18246 Last Taken: Unknown Dose on Unknown Date & Time Last Action: New Order on 01/12/18246 by STACEY AKHTAR Ferrous Sulfate (Ferrous Sulfate) 325 Mg Tablet, 1 TAB PO DAILY, #30 Ref 3 ( Reported) Entered as Reported by: MELISSA LITTLE on 01/12/18956 Last Action: New Order on 01/12/18956 by MELISSA LITTLE Fluticasone Propionate (Flovent 110MCG Hfa) 12 Gm Aer.w.adap, 2 PUFF IH BID, #1 Ref 2 (Reported) Entered as Reported by: MELISSA LITTLE on 01/12/18956 Last Action: New Order on 01/12/18956 by MELISSA LITTLE Insulin Aspart (Novolog Flexpen) 100 Unit/1 Ml Insuln.pen, 10 UNIT SQ TIDWMEALS, (Reported) Entered as Reported by: STACEY AKHTAR on 01/12/18246 Last Taken: Unknown Dose on 01/11/18 Last Action: Edited on 01/12/18956 by MELISSA LITTLE Insulin Detemir (Levemir) 100 Unit/1 Ml Vial, 12 UNIT SQ QHS, (Reported) Entered as Reported by: STACEY AKHTAR on 01/12/18246 Last Taken: Unknown Dose on 01/10/18 Last Action: Edited on 01/12/18956 by MELISSA LITTLE Ketoconazole (Ketoconazole) 15 Gm Cream..g., 1 RONAL TP BID, #30 (Reported) Entered as Reported by: EMERITA HINES on 10/23/15 1607 Last Taken: Unknown Dose on 01/11/18 Last Action: Last Taken Edited on 01/12/18230 by STACEY AKHTAR Levocetirizine Dihydrochloride (Levocetirizine Dihydrochloride) 5 Mg Tablet, 1 TAB PO QHS, #30 Ref 3 (Reported) Entered as Reported by: STACEY AKHTAR on 01/12/18246 Last Taken: Unknown Dose on 01/10/18 Last Action: New Order on 01/12/18246 by STAECY AKHTAR Levothyroxine Sodium (Synthroid) 200 Mcg Tablet, 200 MCG PO DAILYAC for THYROID SUPPLEMENT, #30 Ref 0 (Reported) Entered as Reported by: EMERITA HINES on 10/23/151606 Last Taken: Unknown Dose on 01/11/18 Last Action: Last Taken Edited on 01/12/18230 by STACEY AKHTAR Lisinopril (Lisinopril) 20 Mg Tablet, 1 TAB PO DAILY, #30 Ref 5 (Reported) Entered as Reported by: MELISSA LITTLE on 01/12/18956 Last Action: New Order on 01/12/18956 by MELISSA LITTLE Loxapine Succinate (Loxapine) 10 Mg Capsule, 10 MG PO BID, (Reported) Entered as Reported by: MELISSA LITTLE on 01/12/18956 Last Action: New Order on 01/12/18956 by MELISSA LITTLE Medroxyprogesterone Acetate (Medroxyprogesterone Acetate) 10 Mg Tablet, 1 TAB PO DAILY, #10 Ref 4 (Reported) Entered as Reported by: MELISSA LITTLE on 01/12/18956 Last Action: New Order on 01/12/18956 by MELISSA LITTLE Montelukast Sodium (Montelukast Sodium Tablet) 10 Mg Tablet, 10 MG PO DAILY for 7 Days, #7 Prescribed by: MADELIN FLOWERS on 01/17/18 08 Nystatin (Nystatin) 15 Gm Cream..g., 15 GM TP BID, (Reported) Entered as Reported by: EMERITA HINES on 10/23/151606 Last Taken: Unknown Dose on Unknown Date & Time Last Action: Last Taken Edited on 01/12/18230 by STACEY AKHTAR Omeprazole (Omeprazole) 20 Mg Capsule.dr, 1 CAP PO BID, #30 Ref 5 (Reported) Entered as Reported by: MELISSA LITTLE on 01/12/18956 Last Action: New Order on 01/12/18956 by MELISSA LITTLE Polyethylene Glycol 3350 (Polyethylene Glycol 3350) 255 Gm Powder, 17 GM PO DAILY, #527 (Reported) Entered as Reported by: STACEY AKHTAR on 01/12/18246 Last Taken: Unknown Dose on Unknown Date & Time Last Action: New Order on 01/12/18246 by STACEY AKHTAR Sertraline Hcl (Zoloft) 50 Mg Tablet, 1 TAB PO DAILY, #30 Ref 2 (Reported) Entered as Reported by: MELISSA LITTLE on 01/12/18956 Last Action: New Order on 01/12/18956 by MELISSA LITTLE Vit B Cmplx No3/Fa/C/Biot/Zinc (Nephplex Rx Tablet) 1 Each Tablet, 1 EACH PO DAILY, (Reported) Entered as Reported by: STACEY AKHTAR on 01/12/18246 Last Taken: Unknown Dose on 01/11/18 Last Action: New Order on 01/12/18246 by STACEY AKHTAR Vits A and D/White Pet/Lanolin (A and D Ointment) 42.5 Gm Oint...g., 42.5 GM TP PRN, (Reported) Entered as Reported by: STACEY AKHTAR on 01/12/18246 Last Taken: Unknown Dose on Unknown Date & Time Last Action: New Order on 01/12/18246 by STACEY AKHTAR Scheduled PRN Cyclobenzaprine Hcl (Cyclobenzaprine Hcl) 5 Mg Tablet, 1 TAB PO QHS PRN for MUSCLE SPASMS, #30 (Reported) Entered as Reported by: MELISSA LITTLE on 01/12/18956 Last Action: New Order on 01/12/18956 by MELISSA LITTLE Hydrocodone Bit/Acetaminophen (Hydrocodone-Apap 5-325 ) 1 Each Tablet, 1 TAB PO PRN Q6HRS PRN for PAIN, Ref 0 (Reported) Entered as Reported by: NAS ALVES on 09/10/15954 Last Taken: Unknown Dose on Unknown Date & Time Last Action: Last Taken Edited on 01/12/18230 by STACEY AKHTAR Hyoscyamine Sulfate (Hyoscyamine Sulfate) 0.125 Mg Tab.subl, 0.125 MG SL Q6HRS PRN for GI SYMPTOMS, (Reported) Entered as Reported by: MELISSA LITTLE on 01/12/18956 Last Action: New Order on 01/12/18956 by MELISSA LITTLE Oxycodone/Apap 5-325 (Percocet 5-325 Mg Tablet) 1 Each Tablet, 1 TAB PO PRN Q6HRS PRN for PAIN, Ref 0 (Reported) Entered as Reported by: STACEY AKHTAR on 01/12/18246 Last Taken: Unknown Dose on Unknown Date & Time Last Action: New Order on 01/12/18246 by STACEY AKHTAR Tramadol Hcl (Tramadol Hcl) 50 Mg Tablet, 50 MG PO Q4HRS PRN for PAIN, (Reported ) Entered as Reported by: STACEY AKHTAR on 01/12/18246 Last Taken: Unknown Dose on Unknown Date & Time Last Action: Edited on 956 by MELISSA LITTLE Zinc Oxide (Desitin) 57 Gm Cream..g., 57 GM TP PRN PRN for DELIRIUM, (Reported) Entered as Reported by: STACEY AKHTAR on 01/12/18246 Last Taken: Unknown Dose on Unknown Date & Time Last Action: New Order on 01/12/18246 by STACEY AKHTAR Miscellaneous Medications Hydrocortisone/Aloe Vera (Hydrocortisone Plus 1% Cream) 28.4 Gm Cream..g., 1 APPLIC TP, (Reported) Entered as Reported by: EMERITA HINES on 10/23/151606 Last Taken: Unknown Dose on 01/11/18 Last Action: Last Taken Edited on 01/12/18230 by STACEY AKHTAR Discontinued Medications Fluticasone Propionate (Fluticasone Propionate Nasal [place]) 16 Gm [place].susp, 2 SPRAY NS DAILY, #1 Ref 11 (Reported) Entered as Reported by: BYRON BARNARD on 12/18/15 1354 Last Action: Discontinued on 01/12/18230 by STACEY AKHTAR Insulin Aspart (Novolog) 100 Unit/1 Ml Vial, 10 UNIT SQ BIDACLD, (Reported) Entered as Reported by: EMERITA HINES on 10/23/151606 Last Action: Discontinued on 01/12/18230 by STACEY AKHTAR Levocetirizine Dihydrochloride (Xyzal) 5 Mg Tablet, 5 MG PO DAILYWSUP, (Reported ) Entered as Reported by: EMERITA HINES on 10/23/151606 Last Action: Discontinued on 01/12/18230 by STACEY AKHTAR Omeprazole (Omeprazole) 20 Mg Tablet.dr, 20 MG PO BID, (Reported) Entered as Reported by: EMERITA HINES on 10/23/151606 Last Action: Discontinued on 01/12/18230 by STACEY AKHTAR Sitagliptin Phosphate (Januvia) 100 Mg Tablet, 100 MG PO DAILY, (Reported) Entered as Reported by: EMERITA HINES on 10/23/151606 Last Taken: Unknown Dose on 01/11/18 Last Action: Discontinued on 956 by MELISSA LITTLE Triamcinolone Acetonide (Triamcinolone Acetonide 0.1% Cream) 15 Gm Cream..g., 1 RONAL TP TID, (Reported) Entered as Reported by: EMERITA HINES on 10/23/151606 Last Action: Discontinued on 01/12/18230 by MADELIN GUZMAN MD Jan 17, 2018 12:04
== END 2018-01-17 14:10 | disposition home health service (06) | DRG 871 ==
LOC: ER 16:39 → 1 WEST ICU 18:26 → CVICU 01-12 12:11
PROVIDERS: ADMIT Internal Medicine; ATTEND Internal Medicine
PROC: 02HV33Z Insertion of Infusion Device into Superior Vena Cava, Percutaneous Approach (ICD-10-PCS; principal; 2018-01-11)
PROC: B548ZZA Ultrasonography of Superior Vena Cava, Guidance (ICD-10-PCS; 2018-01-11)
PROC: 5A1D70Z Performance of Urinary Filtration, Intermittent, Less than 6 Hours Per Day (ICD-10-PCS; 2018-01-11)
PROC: 30233N1 Transfusion of Nonautologous Red Blood Cells into Peripheral Vein, Percutaneous Approach (ICD-10-PCS; 2018-01-15)
DX: A41.9 Sepsis, unspecified organism (principal); G93.41 Metabolic encephalopathy; N17.9 Acute kidney failure, unspecified; K50.90 Crohn's disease, unspecified, without complications; N18.3 Chronic kidney disease, stage 3 (moderate); K21.9 Gastro-esophageal reflux disease without esophagitis; F20.9 Schizophrenia, unspecified; E11.22 Type 2 diabetes mellitus with diabetic chronic kidney disease; E03.9 Hypothyroidism, unspecified; F41.9 Anxiety disorder, unspecified; F32.9 Major depressive disorder, single episode, unspecified; I12.9 Hypertensive chronic kidney disease with stage 1 through stage 4 chronic kidney disease, or unspecified chronic kidney disease; E78.5 Hyperlipidemia, unspecified; M19.90 Unspecified osteoarthritis, unspecified site; E87.5 Hyperkalemia; G62.9 Polyneuropathy, unspecified; M81.0 Age-related osteoporosis without current pathological fracture; T36.95XA Adverse effect of unspecified systemic antibiotic, initial encounter; E83.42 Hypomagnesemia; L30.4 Erythema intertrigo; D63.8 Anemia in other chronic diseases classified elsewhere; L29.9 Pruritus, unspecified; Z96.659 Presence of unspecified artificial knee joint; Z96.649 Presence of unspecified artificial hip joint; E11.42 Type 2 diabetes mellitus with diabetic polyneuropathy; Z82.49 Family history of ischemic heart disease and other diseases of the circulatory system; Z80.9 Family history of malignant neoplasm, unspecified; Z86.74 Personal history of sudden cardiac arrest; Z93.3 Colostomy status; Z88.6 Allergy status to analgesic agent; Z88.0 Allergy status to penicillin; Z88.8 Allergy status to other drugs, medicaments and biological substances
CPT/HCPCS: 36415; 36556; 36600; 71045; 76536; 76770; 76937; 80048; 80069; 80076; 80202; 81001; 82575; 82728; 82805; 82962; 83540; 83550; 83605; 83690; 83735; 83970; 84100; 84132; 84145; 84156; 84484; 85007; 85018; 85025; 85027; 85045; 85610; 85730; 86704; 86706; 86850; 86900; 86901; 86902; 86922; 87040; 87086; 87324; 87340; 87641; 87804; 93005; 94640; 96365; 96366; 96367; 96375; A4215; A4314; C1892; J0610; J0881; J1644; J1956; J2405; J3370; J3475; J7030; J7040; J7613; P9016; 97116; 97535; 99285-25

== ENCOUNTER 2018-06-20 10:02 | Inpatient (IN) | payer MEDICARE, OTHER ==
[~2018-06-20] VITALS: Ht 165.1 cm; Wt 72.6 kg
[~2018-06-20 10:02] MED LIST changes: +ALBU2.5V8 INH; +ATOR20TA PO; +BACI3.5O8 OD; +CAPS42.56 TP; +CYCL5TAB PO; +DIPH25CA20 PO; +FLUT12AE IH; -HYDR-2758 PO; +HYDR-2761 PO; +HYOS0.1278 SL; +INSU100I17 SQ; +LEVO5TAB2 PO; +LOXA10CA PO; +MEDR10TA3 PO; +MONT10TA9 PO; +OMEP20CA10 PO; +OXYC1TAB15 PO; +POLY255P11 PO; -PROAIR HFA8.5 GM INH; +SERT50TA PO; +TRAM50TA PO; +VIT1TABL70 PO; +VITS42.55 TP; +ZINC56CR2 TP
--- NOTE | 2018-06-20 10:43 | RAD ---
Chest radiograph 06/20/2018 10:08 AM INDICATION: Left-sided chest pain for 2 weeks COMPARISON: January 24, 2018 TECHNIQUE: Frontal and lateral views of the chest are provided. FINDINGS: The cardiomediastinal silhouette is within normal limits. There is a small right pleural effusion tracking along the right lateral chest wall. There is adjacent compressive atelectasis. No pulmonary vascular congestion or pneumothorax. Right humeral and scapula hardware is noted. IMPRESSION: Small right pleural effusion with fluid tracking along the right lateral chest wall. Electronically signed by: Mercedes Blair MD (06/20/2018 10:40 AM) [id number]
[2018-06-20 10:48] LABS: BASO # 0.2 x10^3/uL (0.0-0.2); BASO % 2 % (0-3); CALCIUM 8.6 mg/dL (8.5-10.1); CREATININE 1.9 mg/dL (0.6-1.0); EOS # 0.3 x10^3/uL (0.0-0.7); EOS % 3 % (0-3); GFR 28.7; HEMATOCRIT 27.7 % (36.0-47.0); HEMOGLOBIN 8.7 g/dL (12.0-15.5); LYMPH # 1.9 x10^3/uL (1.0-4.8); LYMPH % 17 % (24-48); MEAN CORPUSCULAR HEMOGLOBIN 25 pg (25-35); MEAN CORPUSCULAR HGB CONC 32 g/dL (31-37); MEAN CORPUSCULAR VOLUME 79 fL (79-100); MONO # 0.6 x10^3/uL (0.0-1.1); MONO % 5 % (0-9); NEUT # 8.2 x10^3uL (1.8-7.7); NEUT % 73 % (31-73); PLATELET COUNT 529 x10^3/uL (140-400); POTASSIUM 4.8 mmol/L (3.5-5.1); RED BLOOD COUNT 3.51 x10^6/uL (3.50-5.40); RED CELL DISTRIBUTION WIDTH 18.2 % (11.5-14.5); WHITE BLOOD COUNT 11.3 x10^3/uL (4.0-11.0)
--- NOTE | 2018-06-20 10:53 | EKG ---
[facility] [address] [place] [address] Test Date: 2018-06-20 Test Time: 10:07:53 Pat Name: SHEKHAR KULKARNI Department: Room: Gender: F School Superintendent: : 1975 Requested By: DEEPTI MCCONNELL Order Number: [id number] Reading MD: Felton Reyes MD Measurements Intervals [place] Rate: 74 P: 10 IA: 194 QRS: 18 QRSD: 78 T: 60 QT: 370 QTc: 415 Interpretive Statements SINUS RHYTHM Electronically Signed On 06-21-2018 10:47:08 CDT by Felton Reyes MD
[2018-06-20 11:01] LABS: ALBUMIN 2.5 g/dL (3.4-5.0); ALBUMIN/GLOBULIN RATIO 0.4 (1.0-1.7); TOTAL BILIRUBIN 0.4 mg/dL (0.2-1.0); TOTAL PROTEIN 8.2 g/dL (6.4-8.2)
--- NOTE | 2018-06-20 14:42 | PHYS DOC ---
Past Medical History Past Medical History: Anxiety, Bipolar, Cancer, Depression, Diabetes-Type II, GERD, Hypertension, Hypothyroid, MRSA, Pneumonia, Renal Disease, Renal Failure, Schizophrenia Additional Past Medical Histor: CHRONES DISEASE, cardiac arrest Past Surgical History: Cancer Surgery, Hip Replacement, Tonsillectomy Additional Past Surgical Histo: COLOSTOMY,RIGHT SHOULDER, thyroid removed d/t cancer, trach placed and tian Alcohol Use: Occasionally Drug Use: None Adult General Chief Complaint Chief Complaint: CHEST PAIN HPI HPI 43-year-old female presents to ER with complaints of 2 week history of left to middle chest pain which is been intermittent. She denies pain radiates into neck, back, or extremities. She reports she has had nonproductive cough and felt increasingly short of air. Patient denies any nausea or vomiting, abdominal pain, or fever. She reports she has been urinating without symptoms and having regular bowel movements. She reports she had regular menstrual cycle last month. She reports her appetite has been regular. She denies any recent travel. She reports she is a former smoker. She reports she had negative stress test last year following cardiac arrest in September 2017. She reports allergy to aspirin. Review of Systems Review of Systems Constitutional: Denies fever or chills [] Eyes: Denies change in visual acuity, redness, or eye pain [] HENT: Denies nasal congestion or sore throat [] Respiratory: Reports intermittent nonproductive cough and shortness of air Cardiovascular: Reports mid to left side chest pain GI: Denies abdominal pain, nausea, vomiting, bloody stools or diarrhea [] : Denies dysuria or hematuria [] Musculoskeletal: Denies back pain or joint pain [] Integument: Denies rash or skin lesions [] Neurologic: Denies headache, focal weakness or sensory changes [] Endocrine: Denies polyuria or polydipsia [] All other systems were reviewed and found to be within normal limits, except as documented in this note. Allergies Allergies Allergies Coded Allergies Type Severity Reaction Last Updated Verified Penicillins Allergy Severe Anaphylaxis 12/29/15 Yes aspirin Allergy Severe Anaphylaxis 12/29/15 Yes Latex, Natural Rubber Allergy Intermediate Rash 12/30/15 Yes latex Allergy Intermediate Rash 12/29/15 Yes piperacillin Allergy Intermediate Rash 12/29/15 Yes tazobactam Allergy Intermediate Rash 12/29/15 Yes tizanidine Allergy Intermediate Itching 12/29/15 Yes acetaminophen Adverse Reaction Intermediate elevated liver enzymes 01/01/16 Yes Uncoded Allergies Type Severity Reaction Last Updated Verified PLASTIC Allergy Intermediate Rash 10/27/15 Physical Exam Physical Exam Constitutional: Well developed, well nourished, no acute distress, non-toxic appearance. [] HENT: Normocephalic, atraumatic, oropharynx moist, no oral exudates, nose normal. [] Eyes: Pupils equal, conjunctiva normal, no discharge. [] Neck: Normal range of motion, no tenderness, supple, no stridor. [] Cardiovascular: Heart rate regular rhythm, no murmur [] Lungs & Thorax: Bilateral breath sounds clear to auscultation. Resp. equal/nonlabored Abdomen: Bowel sounds normal, soft, no tenderness, no masses, no pulsatile masses. [] Skin: Warm, dry, no erythema, no rash. [] Back: No tenderness, no CVA tenderness. [] Extremities: No tenderness, no cyanosis, no clubbing, ROM intact, no edema. [] Neurologic: Alert and oriented X 3, normal motor function, normal sensory function, no focal deficits noted. [] Psychologic: Affect normal, judgement normal, mood normal. [] Current Patient Data Vital Signs Vital Signs Date Time Temp Pulse Resp B/P (MAP) Pulse Ox O2 Delivery O2 Flow Rate FiO2 06/20/18 10:07 98.2 72 18 140/59 (86) 98 Room Air 98.2 Lab Values Laboratory Tests Test 06/20/18 10:20 06/20/18 10:30 White Blood Count 11.3 x10^3/uL (4.0-11.0) H Red Blood Count 3.51 x10^6/uL (3.50-5.40) Hemoglobin 8.7 g/dL (12.0-15.5) L Hematocrit 27.7 % (36.0-47.0) L Mean Corpuscular Volume 79 fL (79-100) Mean Corpuscular Hemoglobin 25 pg (25-35) Mean Corpuscular Hemoglobin Concent 32 g/dL (31-37) Red Cell Distribution Width 18.2 % (11.5-14.5) H Platelet Count 529 x10^3/uL (140-400) H Neutrophils (%) (Auto) 73 % (31-73) Lymphocytes (%) (Auto) 17 % (24-48) L Monocytes (%) (Auto) 5 % (0-9) Eosinophils (%) (Auto) 3 % (0-3) Basophils (%) (Auto) 2 % (0-3) Neutrophils # (Auto) 8.2 x10^3uL (1.8-7.7) H Lymphocytes # (Auto) 1.9 x10^3/uL (1.0-4.8) Monocytes # (Auto) 0.6 x10^3/uL (0.0-1.1) Eosinophils # (Auto) 0.3 x10^3/uL (0.0-0.7) Basophils # (Auto) 0.2 x10^3/uL (0.0-0.2) Sodium Level 140 mmol/L (136-145) Potassium Level 4.8 mmol/L (3.5-5.1) Chloride Level 107 mmol/L (98-107) Carbon Dioxide Level 21 mmol/L (21-32) Anion Gap 12 (6-14) Blood Urea Nitrogen 28 mg/dL (7-20) H Creatinine 1.9 mg/dL (0.6-1.0) H Estimated GFR (Cockcroft-Gault) 28.7 BUN/Creatinine Ratio 15 (6-20) Glucose Level 134 mg/dL (70-99) H Calcium Level 8.6 mg/dL (8.5-10.1) Total Bilirubin 0.4 mg/dL (0.2-1.0) Aspartate Amino Transferase (AST) 22 U/L (15-37) Alanine Aminotransferase (ALT) 19 U/L (14-59) Alkaline Phosphatase 159 U/L (46-116) H Troponin I Quantitative < 0.017 ng/mL (0.000-0.055) Total Protein 8.2 g/dL (6.4-8.2) Albumin 2.5 g/dL (3.4-5.0) L Albumin/Globulin Ratio 0.4 (1.0-1.7) L [id number]-Type Natriuretic Peptide 538 pg/mL (0-124) H Laboratory Tests 06/20/18 10:20 Laboratory Tests 06/20/18 10:20 EKG EKG EKG obtained 06/20/18 at 1007 Interpreted by ER physician Sinus rhythm Rate 74 No STEMI Radiology/Procedures Radiology/Procedures PROCEDURE: CHEST PA & LATERAL Chest radiograph 06/20/2018 10:08 AM INDICATION: Left-sided chest pain for 2 weeks COMPARISON: January 24, 2018 TECHNIQUE: Frontal and lateral views of the chest are provided. FINDINGS: The cardiomediastinal silhouette is within normal limits. There is a small right pleural effusion tracking along the right lateral chest wall. There is adjacent compressive atelectasis. No pulmonary vascular congestion or pneumothorax. Right humeral and scapula hardware is noted. IMPRESSION: Small right pleural effusion with fluid tracking along the right lateral chest wall. Electronically signed by: Marlo Boone MD (06/20/2018 10:40 AM) [id number] DICTATED and SIGNED BY: MARLO BOONE MD DATE: 06/20/18 1040 Course & Med Decision Making Course & Med Decision Making Pertinent Labs and Imaging studies reviewed. (See chart for details) 1320: Spoke with patient's primary care physician Dr. Joyce- discussed patient's case and test results. Patient will be admitted to her services for further care. Will admit patient to [facility] with complaints of chest pain. Patient's EKG with no acute ST elevation or STEMI and troponin was <0.017; H&H was down at 8.7/27.7; creatinine slightly elevated from last rating at 1.9. Patient on chest x-ray has small right pleural effusion. These results were discussed with Dr. Joyce. At time of admission patient was in no visible distress she is being admitted to [facility] for further care and monitoring. Dragon Disclaimer Dragon Disclaimer This electronic medical record was generated, in whole or in part, using a voice recognition dictation system. Departure Departure Impression: Primary Impression: Chest pain Additional Impressions: Dyspnea Acute renal injury Disposition: ADMITTED INPATIENT Admitting Physician: Chu Joyce Condition: STABLE Referrals: CHU JOYCE MD (PCP) Scripts Sumatriptan Succinate (IMITREX) 25 Mg Tablet 50 MG PO PRN DAILY PRN for MIGRAINE HEADACHE for 10 Days, TAB Prov: CHU JOYCE MD 06/22/18 Oxycodone Hcl (OXYCODONE HCL IMMED.RELEASE ) 5 Mg Tablet 5 MG PO PRN Q6HRS PRN for PAIN for 30 Days, TAB Prov: CHU JOYCE MD 06/22/18 Amlodipine Besylate (AMLODIPINE BESYLATE) 5 Mg Tablet 5 MG PO DAILY for htn for 30 Days, #30 TAB Prov: CHU JOYCE MD 06/22/18 Propranolol Hcl (PROPRANOLOL HCL) 40 Mg Tablet 40 MG PO BID for htn, migraine ppx for 30 Days, #60 TAB Prov: CHU JOYCE MD 06/22/18 Hydralazine Hcl (HYDRALAZINE HCL) 10 Mg Tablet 10 MG PO TID for htn for 30 Days, #90 TAB Prov: CHU JOYCE MD 06/22/18 Insulin Detemir (LEVEMIR) 100 Unit/1 Ml Vial 5 UNIT SQ QHS for diabetes for 30 Days, VIAL Prov: CHU JOYCE MD 06/22/18 Levothyroxine Sodium (SYNTHROID) 200 Mcg Tablet 175 MCG PO DAILYAC for hypothyroidism, #30 TAB 0 Refills Prov: CHU JOYCE MD 06/22/18 Problem Qualifiers DEEPTI MCCONNELL APRN Jun 20, 2018 14:42
[2018-06-20] MEDS ORDERED: fentaNYL PF VIAL 100 MCG/2 ML VIAL IV PRN (14:45)
[2018-06-20 15:00] VITALS: BP 144/77
[2018-06-20 16:00] LABS: BILIRUBIN,URINE NEGATIVE (NEG); CLARITY,URINE CLEAR; COLOR,URINE YELLOW; NITRITE,URINE NEGATIVE (NEG); PROTEIN,URINE >=300 mg/dL (NEG-TRACE); UROBILINOGEN,URINE 0.2 mg/dL (0.2 mg/dL)
[2018-06-20 16:10] LABS: SQUAMOUS EPITHELIAL CELL,UR MOD /LPF
[2018-06-20 16:11] LABS: BACTERIA,URINE MODERATE /HPF (0-FEW); WBC,URINE TNTC /HPF (0-4)
[2018-06-20] MEDS: IPRATRPIUM/ALBUTEROL 0.5/2.5MG 3 ML NEBU. NEB SCH ×2 (16:39→20:03)
[2018-06-20] MEDS ORDERED: DEXTROSE 50% 25 GM / 50ML DISP.SYRIN. IV PRN (17:00)
[2018-06-20] MEDS: INSULIN LISPRO 300 UNITS/3 ML INSULN.PEN. SQ SCH ×2 (17:30→18:25)
[2018-06-20 19:35] VITALS: BP 143/73
[2018-06-20 23:40] VITALS: BP 142/69
[2018-06-21 03:05] VITALS: BP 159/76
[2018-06-21] MEDS: IPRATRPIUM/ALBUTEROL 0.5/2.5MG 3 ML NEBU. NEB SCH ×2 (06:04→11:45)
[2018-06-21 07:00] VITALS: BP 180/77
[2018-06-21] MEDS ORDERED: FUROSEMIDE 20 MG/2 ML VIAL. IVP ONE (07:00)
[2018-06-21] MEDS ORDERED: VITS A & D/LANOLIN TOPICAL OINTMENT 56GM TUBE. TP PRN (07:00)
--- NOTE | 2018-06-21 07:06 | PDOC1 ---
History and Physical Date of Admission Date of Admission 06/21/18 Identification/Chief Complaint Chief Complaint Chest pain Source Source: Patient History of Present Illness History of Present Illness Pt states that she has had chest pain for about the past 3 days. Pain lasts for a couple of minutes and then goes away. Pain comes and goes; nothing specific brings the pain on, nothing specific releaves it. She says that she has had similar pain a couple of years ago and had a normal stress test at that time. Past Medical History Cardiovascular: HTN, Hyperlipidemia Pulmonary: Asthma CENTRAL NERVOUS SYSTEM: Periperal neuropathy GI: GERD, Inflam bowel disease Heme/Onc: Cancer, Iron deficiency Anemia Hepatobiliary: No pertinent hx Psych: Anxiety, Depression, Schizophrenia, Other Rheumatologic: No pertinent hx Infectious disease: No pertinent hx ENT: Allergic Rhinitis Renal/: Chronic renal insuff, Chronic renal failure Endocrine: Diabetes, Hypothyroidism, Osteoporosis Dermatology: No pertinent hx Past Surgical History Past Surgical History: Total hip replacement, Total knee replacement, Tonsillectomy, Other (ileostomy, thyroidectomy, hidradenitis bilateral axilla) Family History Family History: Cancer, Coronary Artery Disease Social History Smoke: No ALCOHOL: none Drugs: None Current Problem List Problem List Problems Medical Problems: (1) Acute renal injury Status: Acute (2) Chest pain Status: Acute (3) Dyspnea Status: Acute Current Medications Current Medications Current Medications Medications (Trade) Dose Ordered Sig/Mini Start Time Stop Time Status Last Admin Dose Admin Albuterol/ Ipratropium (Duoneb) 3 ml RTQID 06/20/18 16:00 06/21/18 15:59 06/21/18 06:04 3 ML Dextrose (Dextrose 50%-Water Syringe) 12.5 gm PRN Q15MIN PRN 06/20/18 17:00 Fentanyl Citrate (Fentanyl 2ml Vial) 25 mcg PRN Q2HR PRN 06/20/18 14:45 06/21/18 14:44 Insulin Human Lispro (HumaLOG) 10 units BIDWMEALS 06/20/18 17:30 06/20/18 18:25 10 UNITS Allergies Allergies Allergies Coded Allergies Type Severity Reaction Last Updated Verified Penicillins Allergy Severe Anaphylaxis 12/29/15 Yes aspirin Allergy Severe Anaphylaxis 12/29/15 Yes Latex, Natural Rubber Allergy Intermediate Rash 12/30/15 Yes latex Allergy Intermediate Rash 12/29/15 Yes piperacillin Allergy Intermediate Rash 12/29/15 Yes tazobactam Allergy Intermediate Rash 12/29/15 Yes tizanidine Allergy Intermediate Itching 12/29/15 Yes acetaminophen Adverse Reaction Intermediate elevated liver enzymes 01/01/16 Yes Uncoded Allergies Type Severity Reaction Last Updated Verified PLASTIC Allergy Intermediate Rash 10/27/15 ROS Review of System CONSTITUTIONAL: No fever or chills EYES: No recent changes SKIN: Itching lower extremities, improving cellulitis CARDIOVASCULAR: No syncope, palpitations, or edema +CP RESPIRATORY: + SOB or cough GASTROINTESTINAL: No nausea, vomiting or abdominal pain, ostomy output change NEUROLOGICAL: No headaches or weakness ENDOCRINE: No cold or heat intolerance GENITOURINARY: No urgency or frequency of urination MUSCULOSKELETAL: No back pain or joint pain LYMPHATICS: No enlarged lymph nodes PSYCHIATRIC: No anxiety or depression Physical Exam Physical Exam GEN.: No apparent distress. Alert and oriented. HEENT: Head is normocephalic, atraumatic NECK: Supple. LUNGS: Clear to auscultation. HEART: RRR, S1, S2 present. Peripheral pulses intact ABDOMEN: Soft, nontender. Positive bowel sounds. Ostomy in place EXTREMITIES: Cellulitis left lower extremity that is improving NEUROLOGIC: Normal speech, normal tone PSYCHIATRIC: Normal affect, normal mood. SKIN: No ulcerations Vitals Vitals Vital Signs Date Time Temp Pulse Resp B/P (MAP) Pulse Ox O2 Delivery O2 Flow Rate FiO2 06/21/18 06:04 98 Room Air 06/21/18 03:05 97.7 65 17 159/76 (103) 97.7 Labs Labs Laboratory Tests Test 06/20/18 10:20 06/20/18 10:30 06/20/18 15:50 06/20/18 18:18 White Blood Count 11.3 x10^3/uL (4.0-11.0) Red Blood Count 3.51 x10^6/uL (3.50-5.40) Hemoglobin 8.7 g/dL (12.0-15.5) Hematocrit 27.7 % (36.0-47.0) Mean Corpuscular Volume 79 fL (79-100) Mean Corpuscular Hemoglobin 25 pg (25-35) Mean Corpuscular Hemoglobin Concent 32 g/dL (31-37) Red Cell Distribution Width 18.2 % (11.5-14.5) Platelet Count 529 x10^3/uL (140-400) Neutrophils (%) (Auto) 73 % (31-73) Lymphocytes (%) (Auto) 17 % (24-48) Monocytes (%) (Auto) 5 % (0-9) Eosinophils (%) (Auto) 3 % (0-3) Basophils (%) (Auto) 2 % (0-3) Neutrophils # (Auto) 8.2 x10^3uL (1.8-7.7) Lymphocytes # (Auto) 1.9 x10^3/uL (1.0-4.8) Monocytes # (Auto) 0.6 x10^3/uL (0.0-1.1) Eosinophils # (Auto) 0.3 x10^3/uL (0.0-0.7) Basophils # (Auto) 0.2 x10^3/uL (0.0-0.2) Sodium Level 140 mmol/L (136-145) Potassium Level 4.8 mmol/L (3.5-5.1) Chloride Level 107 mmol/L (98-107) Carbon Dioxide Level 21 mmol/L (21-32) Anion Gap 12 (6-14) Blood Urea Nitrogen 28 mg/dL (7-20) Creatinine 1.9 mg/dL (0.6-1.0) Estimated GFR (Cockcroft-Gault) 28.7 BUN/Creatinine Ratio 15 (6-20) Glucose Level 134 mg/dL (70-99) Calcium Level 8.6 mg/dL (8.5-10.1) Total Bilirubin 0.4 mg/dL (0.2-1.0) Aspartate Amino Transf (AST/SGOT) 22 U/L (15-37) Alanine Aminotransferase (ALT/SGPT) 19 U/L (14-59) Alkaline Phosphatase 159 U/L (46-116) Troponin I Quantitative < 0.017 ng/mL (0.000-0.055) Total Protein 8.2 g/dL (6.4-8.2) Albumin 2.5 g/dL (3.4-5.0) Albumin/Globulin Ratio 0.4 (1.0-1.7) NW-Gdb-P-Type Natriuretic Peptide 538 pg/mL (0-124) Urine Collection Type Unknown Urine Color Yellow Urine Clarity Clear Urine pH 6.0 Urine Specific [place] 1.015 Urine Protein >=300 mg/dL (NEG-TRACE) Urine Glucose (UA) Negative mg/dL (NEG) Urine Ketones (Stick) Negative mg/dL (NEG) Urine Blood Negative (NEG) Urine Nitrite Negative (NEG) Urine Bilirubin Negative (NEG) Urine Urobilinogen Dipstick 0.2 mg/dL (0.2 mg/dL) Urine Leukocyte Esterase Small (NEG) Urine RBC 3-5 /HPF (0-2) Urine WBC Tntc /HPF (0-4) Urine Squamous Epithelial Cells Mod /LPF Urine Bacteria Moderate /HPF (0-FEW) Urine Mucus Slight /LPF Glucose (Fingerstick) 113 mg/dL (70-99) Test 06/20/18 20:54 Glucose (Fingerstick) 143 mg/dL (70-99) Laboratory Tests Test 06/20/18 10:20 06/20/18 10:30 06/20/18 15:50 06/20/18 18:18 White Blood Count 11.3 x10^3/uL (4.0-11.0) Red Blood Count 3.51 x10^6/uL (3.50-5.40) Hemoglobin 8.7 g/dL (12.0-15.5) Hematocrit 27.7 % (36.0-47.0) Mean Corpuscular Volume 79 fL (79-100) Mean Corpuscular Hemoglobin 25 pg (25-35) Mean Corpuscular Hemoglobin Concent 32 g/dL (31-37) Red Cell Distribution Width 18.2 % (11.5-14.5) Platelet Count 529 x10^3/uL (140-400) Neutrophils (%) (Auto) 73 % (31-73) Lymphocytes (%) (Auto) 17 % (24-48) Monocytes (%) (Auto) 5 % (0-9) Eosinophils (%) (Auto) 3 % (0-3) Basophils (%) (Auto) 2 % (0-3) Neutrophils # (Auto) 8.2 x10^3uL (1.8-7.7) Lymphocytes # (Auto) 1.9 x10^3/uL (1.0-4.8) Monocytes # (Auto) 0.6 x10^3/uL (0.0-1.1) Eosinophils # (Auto) 0.3 x10^3/uL (0.0-0.7) Basophils # (Auto) 0.2 x10^3/uL (0.0-0.2) Sodium Level 140 mmol/L (136-145) Potassium Level 4.8 mmol/L (3.5-5.1) Chloride Level 107 mmol/L (98-107) Carbon Dioxide Level 21 mmol/L (21-32) Anion Gap 12 (6-14) Blood Urea Nitrogen 28 mg/dL (7-20) Creatinine 1.9 mg/dL (0.6-1.0) Estimated GFR (Cockcroft-Gault) 28.7 BUN/Creatinine Ratio 15 (6-20) Glucose Level 134 mg/dL (70-99) Calcium Level 8.6 mg/dL (8.5-10.1) Total Bilirubin 0.4 mg/dL (0.2-1.0) Aspartate Amino Transf (AST/SGOT) 22 U/L (15-37) Alanine Aminotransferase (ALT/SGPT) 19 U/L (14-59) Alkaline Phosphatase 159 U/L (46-116) Troponin I Quantitative < 0.017 ng/mL (0.000-0.055) Total Protein 8.2 g/dL (6.4-8.2) Albumin 2.5 g/dL (3.4-5.0) Albumin/Globulin Ratio 0.4 (1.0-1.7) FG-Zii-V-Type Natriuretic Peptide 538 pg/mL (0-124) Urine Collection Type Unknown Urine Color Yellow Urine Clarity Clear Urine pH 6.0 Urine Specific [place] 1.015 Urine Protein >=300 mg/dL (NEG-TRACE) Urine Glucose (UA) Negative mg/dL (NEG) Urine Ketones (Stick) Negative mg/dL (NEG) Urine Blood Negative (NEG) Urine Nitrite Negative (NEG) Urine Bilirubin Negative (NEG) Urine Urobilinogen Dipstick 0.2 mg/dL (0.2 mg/dL) Urine Leukocyte Esterase Small (NEG) Urine RBC 3-5 /HPF (0-2) Urine WBC Tntc /HPF (0-4) Urine Squamous Epithelial Cells Mod /LPF Urine Bacteria Moderate /HPF (0-FEW) Urine Mucus Slight /LPF Glucose (Fingerstick) 113 mg/dL (70-99) Test 3/26/19 20:54 Glucose (Fingerstick) 143 mg/dL (70-99) VTE Prophylaxis Ordered VTE Prophylaxis Devices: No VTE Pharmacological Prophylaxi: No Assessment/Plan Assessment/Plan Pt is a 43yo CF admitted for chest pain 1)Chest pain- multiple risk factors. Hasn't had a stress test for several years. Cardiology consulted. Initial evaluation appears normal. Pain is reproducible. 2)Pleural effusion- new. Last ECHO 01/12, no history of CHF 3)HTN- not at goal. Pt's Lisinopril stopped within the last month due to reoccuring acute on chronic renal failure. Will get pt resumed on her propranolol 40mg BID and Hydralazine 10mg TID 4)Acute on CKD- Cr slightly worsened, electrolytes stable. Has had multiple admissions in the past several months at for significantly worsened kidney function. CTM 5)Anemia- stable. Continue iron 6)Possible UTI- urine culture still pending. Will hold off on antibiotics for now until culture returns 7)Hypothyroidism- well controlled, continue levothyroxine 200mcg 8)DM2- BS at home were recently uncontrolled and medications were modified. BS well controlled currently without levemir. Will continue Novolog with meals and SSI 9)GERD- change to pantoprazole while in hospital 10)Anxiety/Depression/Schizophrenia- pt continued on Loxapine and Sertraline 11)Asthma DARIA MOCTEZUMA MD Jun 21, 2018 07:06
[2018-06-21] MEDS ORDERED: oxyCODONE IR 5 MG TABLET PO PRN (07:15)
[2018-06-21] MEDS: FERROUS SULFATE 325 MG TABLET. PO SCH (07:59)
[2018-06-21] MEDS: SERTRALINE 50 MG TABLET. PO SCH (07:59)
[2018-06-21] MEDS: PANTOPRAZOLE 40 MG TABLET.DR. PO SCH (07:59)
[2018-06-21] MEDS: CETIRIZINE HCL 10 MG TABLET. PO SCH (08:00)
[2018-06-21] MEDS: NYSTATIN 100,000 UNIT/GM TOPICAL CREAM 15GM TUBE. TP SCH ×2 (08:00→20:59)
[2018-06-21] MEDS: INSULIN LISPRO 300 UNITS/3 ML INSULN.PEN. SQ SCH ×5 (08:00→16:59)
[2018-06-21] MEDS: LOXAPINE SUCCINATE 5 MG CAPSULE PO SCH ×2 (08:01→20:58)
[2018-06-21] MEDS: hydrALAZINE 10 MG TABLET PO SCH ×3 (08:01→20:58)
[2018-06-21] MEDS: PROPRANOLOL 40 MG TABLET. PO SCH ×2 (08:02→20:58)
[2018-06-21] MEDS: DICLOFENAC SODIUM 1% TOPICAL GEL 100GM TUBE. TP SCH ×4 (08:04→20:59)
[2018-06-21 08:49] LABS: BASO # 0.1 x10^3/uL (0.0-0.2); BASO % 1 % (0-3); EOS # 0.4 x10^3/uL (0.0-0.7); EOS % 4 % (0-3); HEMATOCRIT 27.7 % (36.0-47.0); HEMOGLOBIN 8.8 g/dL (12.0-15.5); LYMPH # 2.2 x10^3/uL (1.0-4.8); LYMPH % 21 % (24-48); MEAN CORPUSCULAR HEMOGLOBIN 25 pg (25-35); MEAN CORPUSCULAR HGB CONC 32 g/dL (31-37); MEAN CORPUSCULAR VOLUME 78 fL (79-100); MONO # 0.8 x10^3/uL (0.0-1.1); MONO % 8 % (0-9); NEUT # 6.7 x10^3uL (1.8-7.7); NEUT % 66 % (31-73); PLATELET COUNT 535 x10^3/uL (140-400); RED BLOOD COUNT 3.54 x10^6/uL (3.50-5.40); RED CELL DISTRIBUTION WIDTH 18.3 % (11.5-14.5); WHITE BLOOD COUNT 10.2 x10^3/uL (4.0-11.0)
[2018-06-21 09:09] LABS: CALCIUM 8.4 mg/dL (8.5-10.1); CREATININE 1.9 mg/dL (0.6-1.0); GFR 28.7
[2018-06-21 09:25] LABS: POTASSIUM 5.7 mmol/L (3.5-5.1)
[2018-06-21 11:00] VITALS: BP 178/78
[2018-06-21] MEDS ORDERED: SUMAtriptan SUCCINATE 25 MG TABLET PO PRN (11:30)
[2018-06-21] MEDS: BUDESONIDE 0.5 MG/2 ML NEBU. NEB SCH ×2 (11:45→19:35)
--- NOTE | 2018-06-21 11:53 | PDOC2 ---
CARDIAC CONSULT DATE OF CONSULT Date of Consult DATE: 06/21/18 TIME: 11:45 REASON FOR CONSULT Reason for Consult: Chest pain REFERRING PHYSICIAN Referring Physician: Dr. Joyce SOURCE Source: Chart review, Patient HISTORY OF PRESENT ILLNESS HISTORY OF PRESENT ILLNESS This is a 43 yo female who presented secondary to intermittent chest pain and shortness of breath. 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 stay in GI: GERD, Inflam bowel disease (ulcerative colitis/chrons), dysphagia Heme/Onc: Anemia NOS, thyroid CA Psych: Anxiety, Depression, Schizophrenia, Other (insomnia) Musculoskeletal: Osteoarthritis Renal/: Chronic renal insuff (ckd4), UTI, Required HD in 09/2017 admission Endocrine: Diabetes (2), Hypothyroidism, Osteoporosis Dermatology: Eczema, hydradenitis supparitiva Infectious disease: HPV PAST SURGICAL HISTORY Past Surgical History Total hip replacement (left), Colon Resection, Other (ileostomy 2000; thyroidectomy) FAMILY HISTORY Family History: Coronary Artery Disease (mother ) SOCIAL HISTORY Social History Smoke: No (quit remotely) ALCOHOL: occasional Drugs: None Lives: with Family CURRENT MEDICATIONS CURRENT MEDICATIONS Current Medications Medications (Trade) Dose Ordered Sig/Mini Route PRN Reason Start Time Stop Time Status Last Admin Dose Admin Albuterol/ Ipratropium (Duoneb) 3 ml RTQID NEB 06/20/18 16:00 06/21/18 15:59 06/21/18 06:04 Insulin Human Lispro (HumaLOG) 10 units BIDWMEALS SQ 06/20/18 17:30 06/20/18 18:25 Furosemide (Lasix) 20 mg 1X ONCE IVP 06/21/18 07:00 06/21/18 07:01 DC 06/21/18 08:02 Ferrous Sulfate (Feosol) 325 mg DAILY08 PO 06/21/18 08:00 06/21/18 07:59 Sertraline HCl (Zoloft) 100 mg DAILY PO 06/21/18 09:00 06/21/18 07:59 Cetirizine HCl (ZyrTEC) 10 mg DAILY PO 06/21/18 09:00 06/21/18 08:00 Loxapine Succinate (Loxitane) 10 mg BID PO 06/21/18 09:00 06/21/18 08:01 Nystatin (Mycostatin) 1 thalia BID TP 06/21/18 09:00 06/21/18 08:00 Pantoprazole Sodium (Protonix) 40 mg DAILYAC PO 06/21/18 07:30 06/21/18 07:59 Propranolol HCl (Inderal) 40 mg BID PO 06/21/18 09:00 06/21/18 08:02 Hydralazine HCl (Apresoline) 10 mg TID PO 06/21/18 09:00 06/21/18 08:01 ALLERGIES ALLERGIES: Coded Allergies: Penicillins (Verified Allergy, Severe, Anaphylaxis, 12/29/15) aspirin (Verified Allergy, Severe, Anaphylaxis, 12/29/15) Latex, Natural Rubber (Verified Allergy, Intermediate, Rash, 12/30/15) RUBBER latex (Verified Allergy, Intermediate, Rash, 12/29/15) piperacillin (Verified Allergy, Intermediate, Rash, 12/29/15) tazobactam (Verified Allergy, Intermediate, Rash, 12/29/15) tizanidine (Verified Allergy, Intermediate, Itching, 12/29/15) acetaminophen (Verified Adverse Reaction, Intermediate, elevated liver enzymes, 01/01/16) Uncoded Allergies: PLASTIC (Allergy, Intermediate, Rash, 10/27/15) ROS Review of System 14 point ROS conducted with pertinent positives noted above in HPI. PHYSICAL EXAM PHYSICAL EXAM General: Alert, Oriented X3, Cooperative, No acute distress HEENT: Atraumatic, Mucous membr. moist/pink Lungs: Other (diminished bases, left chest tenderness upon palpation) Heart: Regular rate, Normal S1, Normal S2 Abdomen: Soft, Other (obese; ostomy) Extremities: No cyanosis, Other (trace bilateral LE pitting edema) Skin: No significant lesion Neuro: Normal speech, Sensation intact Psych/Mental Status: Mental status NL, Other (flat affect) MUSCULOSKELETAL: Osteoarthritic changes both hands VITALS VITALS Vital Signs Date Time Temp Pulse Resp B/P (MAP) Pulse Ox O2 Delivery O2 Flow Rate FiO2 06/21/18 08:02 70 180/77 06/21/18 08:00 Room Air 06/21/18 07:00 97.9 18 92 97.9 LABS Lab: Laboratory Tests Test 06/20/18 15:50 06/20/18 18:18 06/20/18 20:54 06/21/18 07:47 Urine Collection Type Unknown Urine Color Yellow Urine Clarity Clear Urine pH 6.0 Urine Specific [place] 1.015 Urine Protein >=300 mg/dL (NEG-TRACE) Urine Glucose (UA) Negative mg/dL (NEG) Urine Ketones (Stick) Negative mg/dL (NEG) Urine Blood Negative (NEG) Urine Nitrite Negative (NEG) Urine Bilirubin Negative (NEG) Urine Urobilinogen Dipstick 0.2 mg/dL (0.2 mg/dL) Urine Leukocyte Esterase Small (NEG) Urine RBC 3-5 /HPF (0-2) Urine WBC Tntc /HPF (0-4) Urine Squamous Epithelial Cells Mod /LPF Urine Bacteria Moderate /HPF (0-FEW) Urine Mucus Slight /LPF Glucose (Fingerstick) 113 mg/dL (70-99) 143 mg/dL (70-99) White Blood Count 10.2 x10^3/uL (4.0-11.0) Red Blood Count 3.54 x10^6/uL (3.50-5.40) Hemoglobin 8.8 g/dL (12.0-15.5) Hematocrit 27.7 % (36.0-47.0) Mean Corpuscular Volume 78 fL (79-100) Mean Corpuscular Hemoglobin 25 pg (25-35) Mean Corpuscular Hemoglobin Concent 32 g/dL (31-37) Red Cell Distribution Width 18.3 % (11.5-14.5) Platelet Count 535 x10^3/uL (140-400) Neutrophils (%) (Auto) 66 % (31-73) Lymphocytes (%) (Auto) 21 % (24-48) Monocytes (%) (Auto) 8 % (0-9) Eosinophils (%) (Auto) 4 % (0-3) Basophils (%) (Auto) 1 % (0-3) Neutrophils # (Auto) 6.7 x10^3uL (1.8-7.7) Lymphocytes # (Auto) 2.2 x10^3/uL (1.0-4.8) Monocytes # (Auto) 0.8 x10^3/uL (0.0-1.1) Eosinophils # (Auto) 0.4 x10^3/uL (0.0-0.7) Basophils # (Auto) 0.1 x10^3/uL (0.0-0.2) Sodium Level 136 mmol/L (136-145) Potassium Level 5.7 mmol/L (3.5-5.1) Chloride Level 105 mmol/L (98-107) Carbon Dioxide Level 21 mmol/L (21-32) Anion Gap 10 (6-14) Blood Urea Nitrogen 34 mg/dL (7-20) Creatinine 1.9 mg/dL (0.6-1.0) Estimated GFR (Cockcroft-Gault) 28.7 Glucose Level 139 mg/dL (70-99) Calcium Level 8.4 mg/dL (8.5-10.1) Troponin I Quantitative < 0.017 ng/mL (0.000-0.055) Test 06/21/18 07:59 06/21/18 10:50 Glucose (Fingerstick) 135 mg/dL (70-99) 125 mg/dL (70-99) ECHOCARDIOGRAM ECHOCARDIOGRAM <Conclusion> The left ventricle is normal size. The left ventricular systolic function is normal and the ejection fraction is within normal range. The Ejection Fraction is 55-60%. There is no significant aortic valvular stenosis. Calculated aortic valve area is 2.6 cm2 with maximum pressure gradient of 5 mmHg and mean pressure gradient of 3 mmHg. Doppler and Color Flow revealed no significant aortic regurgitation. Doppler and Color-flow revealed trace to mild mitral regurgitation. Doppler and Color Flow revealed trace tricuspid regurgitation. DATE: 01/25/18 1740 STRESS TEST STRESS TEST Conclusion 1. Regadenoson cardioisotope stress test did not show any evidence of ischemia or infarct. 2. Normal left ventricular systolic function with ejection fraction calculated at 79%. 3. Low risk for cardiac events. DATE: 05/27/16 1329 ASSESSMENT/PLAN ASSESSMENT/PLAN 1. Chest pain, atypical. Troponin negative x2- AMI ruled out. Pain reproducible to palpation to left chest 2. Dyspnea. CXR with small pleural effusion; received Lasix IV. Echo 12/2017 shows preserved LV systolic function with an EF of 55-60%. 3. Accelerated hypertension; remains elevated. Lisinopril was discontinued last month due to recurrent MEHRAN on CKD/hyperkalemia 4. Hx of cardiac arrest: this occurred on 10/03/2017 in [facility] noted with wide complex tach shocked x2 with EF at 50% at that time. This was deemed due to multifactorial events namely severe MEHRAN, sepsis, and acidosis. No LHC known 5. MEHRAN on CKD3-4 with hyperkalemia: per nephrology 6 Diabetes, II 7. HLP 8. Hypothyroidism 9. Anemia of chronic disease: Hgb 8.8 10. Hx of ulcerative colitis and Crohn's Recommendations Obtain cardiac records from [facility] for BP control Check lipids Given risk factors, could consider further ischemic workup as an outpatient. Supportive care EMGAN CORDOVA APRN Jun 21, 2018 11:53
[2018-06-21] MEDS: amLODIPine BESYLATE 5 MG TABLET PO SCH (13:15)
--- NOTE | 2018-06-21 14:35 | PDOC2 ---
CONSULT Date of Consult Date of Consult DATE: 06/21/18 TIME: 14:26 History of Present Illness Reason for Visit: THIS IS A 43 YR OLD WITH C/O CHEST PAIN AND SOB FOR SEVERAL DAYS. TODAY SHE IS FEELING BETTER. SHE IS UNDERGOING CARDIOLOGY EVALUATION. RENAL CONSULT ASKED DUE TO CR OF 1.9 AND K OF 5.7 TODAY. HAS WELL KNOW CKD STAGE 3 WITH CR OF ABOUT 1.6 AT BASELINE. SHE DOES HAVE OCCASIONAL BOUTS OF MEHRAN DUE TO DEHYDRATION. SHE HAS AN OSTOMY BAG AFTER HAVING SURGERY FOR HER INFLAMMATORY BOWEL DISEASE AND AT TIMES OSTOMY OUTPUT BECOMES MORE LIQUID LIKE AND OUTPUT IS INCREASED IN GENERAL. NO NEPHROTOXINS NOTED. NO HEMODYNAMIC INSTABILITY NOTED. BP IS UP AND UNCONTROLLED Past Medical History Cardiovascular: HTN, Hyperlipidemia Pulmonary: Asthma CENTRAL NERVOUS SYSTEM: Periperal neuropathy GI: GERD, Inflam bowel disease Heme/Onc: Cancer, Iron deficiency Anemia Hepatobiliary: No pertinent hx Psych: Anxiety, Depression, Schizophrenia, Other Musculoskeletal: Osteoarthritis Rheumatologic: No pertinent hx Infectious disease: No pertinent hx ENT: Allergic Rhinitis Renal/: Chronic renal insuff, Acute renal failure Endocrine: Diabetes, Hypothyroidism, Osteoporosis Dermatology: No pertinent hx Past Surgical History Past Surgical History: Total hip replacement, Total knee replacement, Tonsillectomy, Other (ileostomy, thyroidectomy, hidradenitis bilateral axilla) Family History Family History: Coronary Artery Disease (mother ) Social History No ALCOHOL: none Drugs: None Lives: with Family Current Problem List Problem List Problems Medical Problems: (1) Acute renal injury Status: Acute (2) Chest pain Status: Acute (3) Dyspnea Status: Acute Current Medications Current Medications Current Medications Fentanyl Citrate (Fentanyl 2ml Vial) 25 mcg PRN Q2HR PRN IV PAIN; Start at 14:45; Stop 06/21/18 at 14:44 Albuterol/ Ipratropium (Duoneb) 3 ml RTQID NEB Last administered on 06/21/18at 11:45; Start 06/20/18 at 16:00; Stop 06/21/18 at 15:59 Insulin Human Lispro (HumaLOG) 0-5 UNITS TIDWMEALS SQ ; Start 06/20/18 at 17:30 Dextrose (Dextrose 50%-Water Syringe) 12.5 gm PRN Q15MIN PRN IV SEE COMMENTS; Start 06/20/18 at 17:00 Insulin Human Lispro (HumaLOG) 10 units BIDWMEALS SQ Last administered on at 18:25; Start 06/20/18 at 17:30 Furosemide (Lasix) 20 mg 1X ONCE IVP Last administered on 06/21/18at 08:02; Start 06/21/18 at 07:00; Stop 06/21/18 at 07:01; Status DC Atorvastatin Calcium (Lipitor) 20 mg QHS PO ; Start 06/21/18 at 21:00 Diclofenac Sodium (Voltaren) 1 heraclio QID TP ; Start 06/21/18 at 09:00 Ferrous Sulfate (Feosol) 325 mg DAILY08 PO Last administered on 06/21/18at 07:59 ; Start 06/21/18 at 08:00 Sertraline HCl (Zoloft) 100 mg DAILY PO Last administered on 06/21/18at 07:59; Start 06/21/18 at 09:00 Vitamin A/Vitamin D (Vitamin A & D Ointment) 1 heraclio PRN QID PRN TP affected areas; Start 06/21/18 at 07:00 Budesonide (Pulmicort) 0.5 mg RTBID NEB Last administered on 06/21/18at 11:45; Start 06/21/18 at 08:00 Cetirizine HCl (ZyrTEC) 10 mg DAILY PO Last administered on 06/21/18at 08:00; Start 06/21/18 at 09:00 Levothyroxine Sodium (Synthroid) 200 mcg DAILY06 PO ; Start 06/22/18 at 06:00 Loxapine Succinate (Loxitane) 10 mg BID PO Last administered on 06/21/18at 08:01 ; Start 06/21/18 at 09:00 Montelukast Sodium (Singulair) 10 mg QHS PO ; Start 06/21/18 at 21:00 Nystatin (Mycostatin) 1 heraclio BID TP Last administered on 06/21/18at 08:00; Start 06/21/18 at 09:00 Pantoprazole Sodium (Protonix) 40 mg DAILYAC PO Last administered on 06/21/18at 07:59; Start 06/21/18 at 07:30 Oxycodone HCl (Roxicodone) 5 mg PRN Q6HRS PRN PO PAIN; Start 06/21/18 at 07:15 Propranolol HCl (Inderal) 40 mg BID PO Last administered on 06/21/18at 08:02; Start 06/21/18 at 09:00 Hydralazine HCl (Apresoline) 10 mg TID PO Last administered on 06/21/18at 13:13 ; Start 06/21/18 at 09:00 Sumatriptan Succinate (Imitrex) 50 mg PRN DAILY PRN PO MIGRAINE HEADACHE; Start 06/21/18 at 11:30 Amlodipine Besylate (Norvasc) 5 mg DAILY PO Last administered on 06/21/18at 13: 15; Start 06/21/18 at 13:00 Active Scripts Active Montelukast Sodium Tablet (Montelukast Sodium) 10 Mg Tablet 10 Mg PO DAILY 7 Days Reported Ferrous Sulfate 325 Mg Tablet 1 Tab PO DAILY Medroxyprogesterone Acetate 10 Mg Tablet 1 Tab PO DAILY Omeprazole 20 Mg Capsule.dr 1 Cap PO BID Flovent 110MCG Hfa (Fluticasone Propionate) 12 Gm Aer.w.adap 2 Puff IH BID Hyoscyamine Sulfate 0.125 Mg Tab.subl 0.125 Mg SL Q6HRS PRN Loxapine (Loxapine Succinate) 10 Mg Capsule 10 Mg PO BID Zoloft (Sertraline Hcl) 50 Mg Tablet 1 Tab PO DAILY Desitin (Zinc Oxide) 57 Gm Cream..g. 57 Gm TP PRN PRN Nephplex Rx Tablet (Vit B Cmplx No3/Fa/C/Biot/Zinc) 1 Each Tablet 1 Each PO DAILY A and D Ointment (Vits A and D/White Pet/Lanolin) 42.5 Gm Oint...g. 42.5 Gm TP PRN Polyethylene Glycol 3350 255 Gm Powder 17 Gm PO DAILY Levocetirizine Dihydrochloride 5 Mg Tablet 1 Tab PO QHS Levemir (Insulin Detemir) 100 Unit/1 Ml Vial 12 Unit SQ QHS Novolog Flexpen (Insulin Aspart) 100 Unit/1 Ml Insuln.pen 10 Unit SQ TIDWMEALS Voltaren (Diclofenac Sodium) 100 Gm Gel..gram. 4 Gm TP QID Capzasin-Hp (Capsaicin) 42.5 Gm Cream..g. 42.5 Gm TP PRN BID Bacitracin 3.5 Gm Oint...g. 1 Heraclio OD BID Lipitor (Atorvastatin Calcium) 20 Mg Tablet 1 Tab PO DAILY Voltaren (Diclofenac Sodium) 100 Gm Gel..gram. 1 Gm TP QID Hydrocortisone Plus 1% Cream (Hydrocortisone/Aloe Vera) 28.4 Gm Cream..g. 1 Applic TP Ketoconazole 15 Gm Cream..g. 1 Heraclio TP BID Synthroid (Levothyroxine Sodium) 200 Mcg Tablet 200 Mcg PO DAILYAC Nystatin 15 Gm Cream..g. 15 Gm TP BID Allergies Allergies: Coded Allergies: Penicillins (Verified Allergy, Severe, Anaphylaxis, 12/29/15) aspirin (Verified Allergy, Severe, Anaphylaxis, 12/29/15) Latex, Natural Rubber (Verified Allergy, Intermediate, Rash, 12/30/15) RUBBER latex (Verified Allergy, Intermediate, Rash, 12/29/15) piperacillin (Verified Allergy, Intermediate, Rash, 12/29/15) tazobactam (Verified Allergy, Intermediate, Rash, 12/29/15) tizanidine (Verified Allergy, Intermediate, Itching, 12/29/15) acetaminophen (Verified Adverse Reaction, Intermediate, elevated liver enzymes, 01/01/16) Uncoded Allergies: PLASTIC (Allergy, Intermediate, Rash, 10/27/15) ROS General: YES: Fatigue, Malaise, Appetite PSYCHOLOGICAL ROS: YES: Anxiety, Depression Eyes: Yes Decreased vision HEENT: YES: Adrián ALLERGY AND IMMUNOLOGY: YES: Seasonal Allergies Hematological and Lymphatic: YES: Brusing Respiratory: YES: Cough, Shortness of breath Cardiovascular: yes Chest Pain, yes Lt Headedness Gastrointestinal: Yes Nausea, Yes Other (LOOSE OSTOMY OUTPUT) Genitourinary: YES Other (ANURIA) Musculoskeletal: Yes Muscular Weakness Neurological: Yes Weakness Skin: Yes Dry Skin Physical Exam General: Alert, Oriented X3, Cooperative, No acute distress HEENT: Atraumatic, PERRLA, Mucous membr. moist/pink Lungs: Clear to auscultation Heart: Regular rate, Normal S1, Normal S2, No murmurs Abdomen: Normal bowel sounds, Soft, No tenderness, Other (OSTOMY BAG WITH CLEAR STOOL LIQUID) Extremities: No clubbing, No cyanosis, No edema Skin: No rashes, No breakdown, No significant lesion Neuro: Normal speech, Sensation intact Psych/Mental Status: Mental status NL, Mood NL MUSCULOSKELETAL: No joint tenderness, No deformity, No swelling Vitals VITALS Vital Signs Date Time Temp Pulse Resp B/P (MAP) Pulse Ox O2 Delivery O2 Flow Rate FiO2 06/21/18 13:15 54 178/78 06/21/18 11:45 98 Room Air 06/21/18 11:00 97.8 17 97.8 Labs Labs Laboratory Tests Test 06/20/18 10:20 06/20/18 10:30 06/20/18 15:50 06/20/18 18:18 White Blood Count 11.3 x10^3/uL (4.0-11.0) Red Blood Count 3.51 x10^6/uL (3.50-5.40) Hemoglobin 8.7 g/dL (12.0-15.5) Hematocrit 27.7 % (36.0-47.0) Mean Corpuscular Volume 79 fL (79-100) Mean Corpuscular Hemoglobin 25 pg (25-35) Mean Corpuscular Hemoglobin Concent 32 g/dL (31-37) Red Cell Distribution Width 18.2 % (11.5-14.5) Platelet Count 529 x10^3/uL (140-400) Neutrophils (%) (Auto) 73 % (31-73) Lymphocytes (%) (Auto) 17 % (24-48) Monocytes (%) (Auto) 5 % (0-9) Eosinophils (%) (Auto) 3 % (0-3) Basophils (%) (Auto) 2 % (0-3) Neutrophils # (Auto) 8.2 x10^3uL (1.8-7.7) Lymphocytes # (Auto) 1.9 x10^3/uL (1.0-4.8) Monocytes # (Auto) 0.6 x10^3/uL (0.0-1.1) Eosinophils # (Auto) 0.3 x10^3/uL (0.0-0.7) Basophils # (Auto) 0.2 x10^3/uL (0.0-0.2) Sodium Level 140 mmol/L (136-145) Potassium Level 4.8 mmol/L (3.5-5.1) Chloride Level 107 mmol/L (98-107) Carbon Dioxide Level 21 mmol/L (21-32) Anion Gap 12 (6-14) Blood Urea Nitrogen 28 mg/dL (7-20) Creatinine 1.9 mg/dL (0.6-1.0) Estimated GFR (Cockcroft-Gault) 28.7 BUN/Creatinine Ratio 15 (6-20) Glucose Level 134 mg/dL (70-99) Calcium Level 8.6 mg/dL (8.5-10.1) Total Bilirubin 0.4 mg/dL (0.2-1.0) Aspartate Amino Transf (AST/SGOT) 22 U/L (15-37) Alanine Aminotransferase (ALT/SGPT) 19 U/L (14-59) Alkaline Phosphatase 159 U/L (46-116) Troponin I Quantitative < 0.017 ng/mL (0.000-0.055) Total Protein 8.2 g/dL (6.4-8.2) Albumin 2.5 g/dL (3.4-5.0) Albumin/Globulin Ratio 0.4 (1.0-1.7) QT-Lbs-O-Type Natriuretic Peptide 538 pg/mL (0-124) Urine Collection Type Unknown Urine Color Yellow Urine Clarity Clear Urine pH 6.0 Urine Specific [place] 1.015 Urine Protein >=300 mg/dL (NEG-TRACE) Urine Glucose (UA) Negative mg/dL (NEG) Urine Ketones (Stick) Negative mg/dL (NEG) Urine Blood Negative (NEG) Urine Nitrite Negative (NEG) Urine Bilirubin Negative (NEG) Urine Urobilinogen Dipstick 0.2 mg/dL (0.2 mg/dL) Urine Leukocyte Esterase Small (NEG) Urine RBC 3-5 /HPF (0-2) Urine WBC Tntc /HPF (0-4) Urine Squamous Epithelial Cells Mod /LPF Urine Bacteria Moderate /HPF (0-FEW) Urine Mucus Slight /LPF Glucose (Fingerstick) 113 mg/dL (70-99) Test 06/20/18 20:54 06/21/18 07:47 06/21/18 07:59 06/21/18 10:50 Glucose (Fingerstick) 143 mg/dL (70-99) 135 mg/dL (70-99) 125 mg/dL (70-99) White Blood Count 10.2 x10^3/uL (4.0-11.0) Red Blood Count 3.54 x10^6/uL (3.50-5.40) Hemoglobin 8.8 g/dL (12.0-15.5) Hematocrit 27.7 % (36.0-47.0) Mean Corpuscular Volume 78 fL (79-100) Mean Corpuscular Hemoglobin 25 pg (25-35) Mean Corpuscular Hemoglobin Concent 32 g/dL (31-37) Red Cell Distribution Width 18.3 % (11.5-14.5) Platelet Count 535 x10^3/uL (140-400) Neutrophils (%) (Auto) 66 % (31-73) Lymphocytes (%) (Auto) 21 % (24-48) Monocytes (%) (Auto) 8 % (0-9) Eosinophils (%) (Auto) 4 % (0-3) Basophils (%) (Auto) 1 % (0-3) Neutrophils # (Auto) 6.7 x10^3uL (1.8-7.7) Lymphocytes # (Auto) 2.2 x10^3/uL (1.0-4.8) Monocytes # (Auto) 0.8 x10^3/uL (0.0-1.1) Eosinophils # (Auto) 0.4 x10^3/uL (0.0-0.7) Basophils # (Auto) 0.1 x10^3/uL (0.0-0.2) Sodium Level 136 mmol/L (136-145) Potassium Level 5.7 mmol/L (3.5-5.1) Chloride Level 105 mmol/L (98-107) Carbon Dioxide Level 21 mmol/L (21-32) Anion Gap 10 (6-14) Blood Urea Nitrogen 34 mg/dL (7-20) Creatinine 1.9 mg/dL (0.6-1.0) Estimated GFR (Cockcroft-Gault) 28.7 Glucose Level 139 mg/dL (70-99) Calcium Level 8.4 mg/dL (8.5-10.1) Troponin I Quantitative < 0.017 ng/mL (0.000-0.055) Laboratory Tests Test 06/20/18 15:50 06/20/18 18:18 06/20/18 20:54 06/21/18 07:47 Urine Collection Type Unknown Urine Color Yellow Urine Clarity Clear Urine pH 6.0 Urine Specific [place] 1.015 Urine Protein >=300 mg/dL (NEG-TRACE) Urine Glucose (UA) Negative mg/dL (NEG) Urine Ketones (Stick) Negative mg/dL (NEG) Urine Blood Negative (NEG) Urine Nitrite Negative (NEG) Urine Bilirubin Negative (NEG) Urine Urobilinogen Dipstick 0.2 mg/dL (0.2 mg/dL) Urine Leukocyte Esterase Small (NEG) Urine RBC 3-5 /HPF (0-2) Urine WBC Tntc /HPF (0-4) Urine Squamous Epithelial Cells Mod /LPF Urine Bacteria Moderate /HPF (0-FEW) Urine Mucus Slight /LPF Glucose (Fingerstick) 113 mg/dL (70-99) 143 mg/dL (70-99) White Blood Count 10.2 x10^3/uL (4.0-11.0) Red Blood Count 3.54 x10^6/uL (3.50-5.40) Hemoglobin 8.8 g/dL (12.0-15.5) Hematocrit 27.7 % (36.0-47.0) Mean Corpuscular Volume 78 fL (79-100) Mean Corpuscular Hemoglobin 25 pg (25-35) Mean Corpuscular Hemoglobin Concent 32 g/dL (31-37) Red Cell Distribution Width 18.3 % (11.5-14.5) Platelet Count 535 x10^3/uL (140-400) Neutrophils (%) (Auto) 66 % (31-73) Lymphocytes (%) (Auto) 21 % (24-48) Monocytes (%) (Auto) 8 % (0-9) Eosinophils (%) (Auto) 4 % (0-3) Basophils (%) (Auto) 1 % (0-3) Neutrophils # (Auto) 6.7 x10^3uL (1.8-7.7) Lymphocytes # (Auto) 2.2 x10^3/uL (1.0-4.8) Monocytes # (Auto) 0.8 x10^3/uL (0.0-1.1) Eosinophils # (Auto) 0.4 x10^3/uL (0.0-0.7) Basophils # (Auto) 0.1 x10^3/uL (0.0-0.2) Sodium Level 136 mmol/L (136-145) Potassium Level 5.7 mmol/L (3.5-5.1) Chloride Level 105 mmol/L (98-107) Carbon Dioxide Level 21 mmol/L (21-32) Anion Gap 10 (6-14) Blood Urea Nitrogen 34 mg/dL (7-20) Creatinine 1.9 mg/dL (0.6-1.0) Estimated GFR (Cockcroft-Gault) 28.7 Glucose Level 139 mg/dL (70-99) Calcium Level 8.4 mg/dL (8.5-10.1) Troponin I Quantitative < 0.017 ng/mL (0.000-0.055) Test 06/21/18 07:59 06/21/18 10:50 Glucose (Fingerstick) 135 mg/dL (70-99) 125 mg/dL (70-99) Images Images INDICATION: Left-sided chest pain for 2 weeks COMPARISON: January 24, 2018 TECHNIQUE: Frontal and lateral views of the chest are provided. FINDINGS: The cardiomediastinal silhouette is within normal limits. There is a small right pleural effusion tracking along the right lateral chest wall. There is adjacent compressive atelectasis. No pulmonary vascular congestion or pneumothorax. Right humeral and scapula hardware is noted. IMPRESSION: Small right pleural effusion with fluid tracking along the right lateral chest wall. Assessment/Plan Assessment/Plan IMP MEHRAN WITH CR OF 1.9 CKD STAGE 3 WITH CR NEAR 1.5 DEHYDRATION CHEST PAIN DM II HX OF CROHN'S HX OF OSTOMY HTN HX PLAN ADD NORVASC VOLUME EXPAND WILL FOLLOW LOBO RICHARDS MD Jun 21, 2018 14:35
[2018-06-21] MEDS: IV NORMAL SALINE 1000ML BAG 1,000 ML IV SCH ×2 (15:01→20:59)
[2018-06-21 15:14] VITALS: BP 149/68
[2018-06-21 19:35] VITALS: BP 143/69
[2018-06-21] MEDS ORDERED: MONTELUKAST SODIUM 10 MG TABLET. PO SCH (21:00)
[2018-06-21] MEDS ORDERED: ATORVASTATIN CALCIUM 20 MG TABLET PO SCH (21:00)
[2018-06-21 23:00] VITALS: BP 128/62
[2018-06-22 03:00] VITALS: BP 137/73
[2018-06-22 04:33] LABS: CALCIUM 8.4 mg/dL (8.5-10.1); CREATININE 1.9 mg/dL (0.6-1.0); GFR 28.7; POTASSIUM 5.1 mmol/L (3.5-5.1)
[2018-06-22 04:41] LABS: CHOLESTEROL/HDL RATIO 3.1
[2018-06-22] MEDS ORDERED: LEVOTHYROXINE 100 MCG TABLET PO SCH (06:00)
[2018-06-22 07:00] VITALS: BP 134/62
--- NOTE | 2018-06-22 07:21 | PDOC ---
SUBJECTIVE Subjective Pt states that she is feeling a little better today. Has gotten up and showered. Still having the chest pain; chest pain is still reproducible. Discussed trialing a Lidocaine patch. Pit is okay with going back home once Cardiology workup has been completed. OBJECTIVE Vital Signs Vital Signs Date Time Temp Pulse Resp B/P (MAP) Pulse Ox O2 Delivery O2 Flow Rate FiO2 06/22/18 03:00 98.0 75 18 137/73 (94) 98 Room Air 98.0 06/21/18 23:00 98.2 69 16 128/62 (84) 96 Room Air 98.2 06/21/18 20:58 72 143/69 06/21/18 20:58 72 143/69 06/21/18 20:00 Room Air 06/21/18 19:36 96 Room Air 06/21/18 19:35 96 Room Air 06/21/18 19:35 98.1 72 17 143/69 (93) 98 Room Air 98.1 06/21/18 15:42 98 Room Air 06/21/18 15:14 97.8 65 16 149/68 (95) 94 Room Air 97.8 06/21/18 13:15 54 178/78 06/21/18 13:13 54 178/78 06/21/18 11:45 98 Room Air 06/21/18 11:00 97.8 54 17 178/78 (111) 96 Room Air 97.8 06/21/18 08:02 70 180/77 06/21/18 08:01 70 180/77 06/21/18 08:00 Room Air I & O Intake and Output 06/22/18 07:00 Intake Total 1680 ml Output Total 2600 ml Balance -920 ml Intake Oral 1680 ml Output Urine Total 2200 ml Stool Total 400 ml # Voids 1 PHYSICAL EXAM Physical Exam GEN.: No apparent distress. Alert and oriented. HEENT: Head is normocephalic, atraumatic NECK: Supple. LUNGS: Clear to auscultation. HEART: RRR, S1, S2 present. Peripheral pulses intact CHEST: Tender left chest wall to palpation ABDOMEN: Soft, nontender. Positive bowel sounds. Ostomy in place EXTREMITIES: Cellulitis left lower extremity that is improving NEUROLOGIC: Normal speech, normal tone PSYCHIATRIC: Normal affect, normal mood. SKIN: No ulcerations ASSESSMENT/PLAN Assessment/Plan Pt is a 43yo CF admitted for chest pain 1)Chest pain- multiple risk factors. Hasn't had a stress test for several years. Cardiology consulted. Initial evaluation appears normal. Pain is reproducible. Will have Lidocaine patch. Pt okay with D/C home once Cardiology workup is complete 2)Pleural effusion- new. Last ECHO 01/12, no history of CHF 3)HTN- improved with addition of Norvasc 5mg. Pt continued on propranolol 40mg BID and Hydralazine 10mg TID 4)Acute on CKD- Cr slightly worsened. Hyperkalemia yesterday which resolved with IVF hydration. Renal following 5)Anemia- stable. Continue iron 6)Possible UTI- urine culture still pending. Will hold off on antibiotics for now until culture returns 7)Hypothyroidism- well controlled, continue levothyroxine 200mcg 8)DM2- BS at home were recently uncontrolled and medications were modified. BS better controlled in the hospital and has not gotten levemir over the past 2 days. Did require an additional 3 units of Humalog yesterday with SSI and BS mildly elevated this morning at 142. Will start Lantus out at lower dose of 5 units. Cont SSI 9)GERD- changed to pantoprazole while in hospital 10)Anxiety/Depression/Schizophrenia- pt continued on Loxapine and Sertraline 11)Asthma COMMENT Lab Laboratory Tests Test 06/21/18 07:47 06/21/18 07:59 06/21/18 10:50 06/21/18 13:45 White Blood Count 10.2 x10^3/uL (4.0-11.0) Red Blood Count 3.54 x10^6/uL (3.50-5.40) Hemoglobin 8.8 g/dL (12.0-15.5) Hematocrit 27.7 % (36.0-47.0) Mean Corpuscular Volume 78 fL (79-100) Mean Corpuscular Hemoglobin 25 pg (25-35) Mean Corpuscular Hemoglobin Concent 32 g/dL (31-37) Red Cell Distribution Width 18.3 % (11.5-14.5) Platelet Count 535 x10^3/uL (140-400) Neutrophils (%) (Auto) 66 % (31-73) Lymphocytes (%) (Auto) 21 % (24-48) Monocytes (%) (Auto) 8 % (0-9) Eosinophils (%) (Auto) 4 % (0-3) Basophils (%) (Auto) 1 % (0-3) Neutrophils # (Auto) 6.7 x10^3uL (1.8-7.7) Lymphocytes # (Auto) 2.2 x10^3/uL (1.0-4.8) Monocytes # (Auto) 0.8 x10^3/uL (0.0-1.1) Eosinophils # (Auto) 0.4 x10^3/uL (0.0-0.7) Basophils # (Auto) 0.1 x10^3/uL (0.0-0.2) Sodium Level 136 mmol/L (136-145) Potassium Level 5.7 mmol/L (3.5-5.1) Chloride Level 105 mmol/L (98-107) Carbon Dioxide Level 21 mmol/L (21-32) Anion Gap 10 (6-14) Blood Urea Nitrogen 34 mg/dL (7-20) Creatinine 1.9 mg/dL (0.6-1.0) Estimated GFR (Cockcroft-Gault) 28.7 Glucose Level 139 mg/dL (70-99) Calcium Level 8.4 mg/dL (8.5-10.1) Troponin I Quantitative < 0.017 ng/mL (0.000-0.055) < 0.017 ng/mL (0.000-0.055) Glucose (Fingerstick) 135 mg/dL (70-99) 125 mg/dL (70-99) Test 06/21/18 15:10 06/21/18 16:48 06/21/18 22:41 06/22/18 03:10 Glucose (Fingerstick) 217 mg/dL (70-99) 161 mg/dL (70-99) 178 mg/dL (70-99) Sodium Level 137 mmol/L (136-145) Potassium Level 5.1 mmol/L (3.5-5.1) Chloride Level 104 mmol/L (98-107) Carbon Dioxide Level 19 mmol/L (21-32) Anion Gap 14 (6-14) Blood Urea Nitrogen 36 mg/dL (7-20) Creatinine 1.9 mg/dL (0.6-1.0) Estimated GFR (Cockcroft-Gault) 28.7 Glucose Level 142 mg/dL (70-99) Calcium Level 8.4 mg/dL (8.5-10.1) Triglycerides Level 160 mg/dL (0-150) Cholesterol Level 157 mg/dL (0-200) LDL Cholesterol, Calculated 75 mg/dL (0-100) VLDL Cholesterol, Calculated 32 mg/dL (0-40) Non-HDL Cholesterol Calculated 107 mg/dL (0-129) HDL Cholesterol 50 mg/dL (40-60) Cholesterol/HDL Ratio 3.1 DARIA MOCTEZUMA MD Jun 22, 2018 07:21
[2018-06-22] MEDS: PROPRANOLOL 40 MG TABLET. PO SCH (08:15)
[2018-06-22] MEDS: FERROUS SULFATE 325 MG TABLET. PO SCH (08:16)
[2018-06-22] MEDS: PANTOPRAZOLE 40 MG TABLET.DR. PO SCH (08:16)
[2018-06-22] MEDS: LOXAPINE SUCCINATE 5 MG CAPSULE PO SCH (08:16)
[2018-06-22] MEDS: CETIRIZINE HCL 10 MG TABLET. PO SCH (08:17)
[2018-06-22] MEDS: SERTRALINE 50 MG TABLET. PO SCH (08:18)
[2018-06-22] MEDS: NYSTATIN 100,000 UNIT/GM TOPICAL CREAM 15GM TUBE. TP SCH (08:18)
[2018-06-22] MEDS: DICLOFENAC SODIUM 1% TOPICAL GEL 100GM TUBE. TP SCH ×2 (08:18→11:36)
[2018-06-22] MEDS: amLODIPine BESYLATE 5 MG TABLET PO SCH (08:19)
[2018-06-22] MEDS: hydrALAZINE 10 MG TABLET PO SCH ×2 (08:19→13:06)
[2018-06-22] MEDS: INSULIN LISPRO 300 UNITS/3 ML INSULN.PEN. SQ SCH ×3 (08:36→11:35)
[2018-06-22] MEDS: IV NORMAL SALINE 1000ML BAG 1,000 ML IV SCH (08:41)
[2018-06-22] MEDS: BUDESONIDE 0.5 MG/2 ML NEBU. NEB SCH (08:59)
[2018-06-22] MEDS ORDERED: amLODIPine BESYLATE 5 MG TABLET PO SCH (09:00)
--- NOTE | 2018-06-22 10:25 | PDOC ---
CARDIO Progress Notes Date and Time Date of Service 06/22/18 Time of Evaluation 1010 Subjective Subjective: No Chest Pain, No shortness of breath, No Palpitations Vitals Vitals Vital Signs Date Time Temp Pulse Resp B/P (MAP) Pulse Ox O2 Delivery O2 Flow Rate FiO2 06/22/18 09:00 97 Room Air 06/22/18 08:19 75 134/62 06/22/18 07:00 98.1 18 98.1 Weight Weight [ ] Input and Output Intake and Output Intake and Output 06/22/18 07:00 Intake Total 1680 ml Output Total 2600 ml Balance -920 ml Intake Oral 1680 ml Output Urine Total 2200 ml Stool Total 400 ml # Voids 1 Laboratory Labs Laboratory Tests Test 06/21/18 10:50 06/21/18 13:45 06/21/18 15:10 06/21/18 16:48 Glucose (Fingerstick) 125 mg/dL (70-99) 217 mg/dL (70-99) 161 mg/dL (70-99) Troponin I Quantitative < 0.017 ng/mL (0.000-0.055) Test 06/21/18 22:41 06/22/18 03:10 06/22/18 07:44 Glucose (Fingerstick) 178 mg/dL (70-99) 153 mg/dL (70-99) Sodium Level 137 mmol/L (136-145) Potassium Level 5.1 mmol/L (3.5-5.1) Chloride Level 104 mmol/L (98-107) Carbon Dioxide Level 19 mmol/L (21-32) Anion Gap 14 (6-14) Blood Urea Nitrogen 36 mg/dL (7-20) Creatinine 1.9 mg/dL (0.6-1.0) Estimated GFR (Cockcroft-Gault) 28.7 Glucose Level 142 mg/dL (70-99) Calcium Level 8.4 mg/dL (8.5-10.1) Triglycerides Level 160 mg/dL (0-150) Cholesterol Level 157 mg/dL (0-200) LDL Cholesterol, Calculated 75 mg/dL (0-100) VLDL Cholesterol, Calculated 32 mg/dL (0-40) Non-HDL Cholesterol Calculated 107 mg/dL (0-129) HDL Cholesterol 50 mg/dL (40-60) Cholesterol/HDL Ratio 3.1 Physical Exam HEENT: Neck Supple W Full Motion Chest: Symmetric LUNGS: Clear to Auscultation Heart: S1S2, RRR Abdomen: Soft N/T Extremities: No Edema Neurology: alert, oriented, follow commands Assessment Assessment 1. Chest pain, atypical. Troponin negative x2- AMI ruled out. Pain reproducible to palpation to left chest. Echo pending to assess LV systolic function 2. Dyspnea. CXR with small pleural effusion; received Lasix IV. Recent echo with preserved LV systolic function. Appears compensated 3. Accelerated hypertension; well-controlled with addition of Norvasc 4. Hx of cardiac arrest: this occurred on 10/03/2017 in [facility] noted with wide complex tach shocked x2 with EF at 50% at that time. This was deemed due to multifactorial events namely severe MEHRAN, sepsis, and acidosis. No LHC known 5. MEHRAN on CKD3-4 with hyperkalemia: per nephrology 6 Diabetes, II 7. HLP 8. Hypothyroidism 9. Anemia of chronic disease: Hgb 8.8 10. Hx of ulcerative colitis and Crohn's Recommendations Allergy to ASA Continue statin and current BP meds Consider further ischemic workup as an outpatient. Supportive care If echo without significant changes, may discharge from a CV standpoint. MEGAN CORDOVA APRN Jun 22, 2018 10:25
[2018-06-22 11:00] VITALS: BP 152/68
--- NOTE | 2018-06-22 11:32 | CARD ---
MR#: [id number] Date of Study: 06/22/2018 Ordering Physician: MEGAN CORDOVA, Referring Physician: DARIA MOCTEZUMA, Tech: Teresa Pablo APPROVED REPORT EXAM: Two-dimensional and M-mode echocardiogram with Doppler and color Doppler. Other Information Quality : FairHR: 60bpm Technically limited study due to body habitus. INDICATION Chest Pain 2D DIMENSIONS Left Atrium(2D)3.0 (1.6-4.0cm)IVSd1.3 (0.7-1.1cm) Aortic Root(2D)2.9 (2.0-3.7cm)LVDd5.2 (3.9-5.9cm) LVOT Diameter2.1 (1.8-2.4cm)PWd1.3 (0.7-1.1cm) LVDs3.0 (2.5-4.0cm)FS (%) 41.2 % SV91.3 mlLVEF(%)71.7 (>50%) Aortic Valve AoV Peak Carlos A.116.1cm/sAoV VTI25.1cm AO Peak GR.5.4mmHgLVOT Peak Carlos A.95.7cm/s LVOT VTI 22.11cmAO Mean GR.3mmHg JOSE (VMAX)2.53ak9PPP (VTI)3.11cm2 Mitral Valve MV E Dotocpfl10.1cm/sMV DECEL [id number] MV A Bvitazmh17.8cm/sMV [id number] E/A Ratio1.1MVA (PHT)4.50cm2 TDI E/Lateral E'8.7E/Medial E'8.2 Pulmonary Valve PV Peak Npbqlauv86.0cm/sPV Peak Grad.3mmHg Tricuspid Valve RAP [id number] Pulmonary Vein S1 Brbtviel63.1cm/sD2 Qyyqhxxg34.2cm/s PVa [id number] LEFT VENTRICLE The left ventricle is normal size. There is moderate concentric left ventricular hypertrophy. The lef t ventricular systolic function is normal and the ejection fraction is within normal range. The Eject ion Fraction is 50-55%. Septal motion suggestive of conduction defect. Otherwise, grossly normal wall motion. Tissue Doppler imaging reveals mild left ventricular diastolic dysfunction. RIGHT VENTRICLE The right ventricle is normal size. There is normal right ventricular wall thickness. The right ventr icular systolic function is normal. ATRIA The left atrium size is normal. The right atrium size is normal. The interatrial septum is intact wit h no evidence for an atrial septal defect or patent foramen ovale as noted on 2-D or Doppler imaging. AORTIC VALVE Not well visualized. Doppler and Color Flow revealed no significant aortic regurgitation. There is no significant aortic valvular stenosis. MITRAL VALVE The mitral valve is normal in structure and function. There is no evidence of mitral valve prolapse. There is no mitral valve stenosis. Doppler and Color-flow revealed trace mitral regurgitation. TRICUSPID VALVE Not well visualized. Doppler and Color Flow revealed no tricuspid valve regurgitation noted. There is no tricuspid valve stenosis. PULMONIC VALVE The pulmonic valve is not well visualized. Doppler and Color Flow revealed no pulmonic valvular regur gitation. GREAT VESSELS The aortic root is normal in size. The IVC is normal in size and collapses >50% with inspiration. PERICARDIAL EFFUSION There is no evidence of significant pericardial effusion. Critical Notification Critical Value: No <Conclusion> The left ventricular systolic function is normal and the ejection fraction is within normal range. Th e Ejection Fraction is 50-55%. Septal motion suggestive of conduction defect. Otherwise, grossly normal wall motion. Technically difficult study Signed by : Felton Reyes, Electronically Approved : 06/22/2018 11:31:34
--- NOTE | 2018-06-22 11:52 | PDOC ---
Renal-Progress Notes Subjective Notes Notes NO NEW COMPLAINTS History of Present Illness Hx of present illness STABLE Vitals Vitals Vital Signs Date Time Temp Pulse Resp B/P (MAP) Pulse Ox O2 Delivery O2 Flow Rate FiO2 06/22/18 11:00 98.2 57 18 152/68 (96) 99 Room Air 98.2 Weight Weight [ ] I.O. Intake and Output Intake and Output 06/22/18 07:00 Intake Total 1680 ml Output Total 2600 ml Balance -920 ml Intake Oral 1680 ml Output Urine Total 2200 ml Stool Total 400 ml # Voids 1 Labs Labs Laboratory Tests Test 06/21/18 13:45 06/21/18 15:10 06/21/18 16:48 06/21/18 22:41 Troponin I Quantitative < 0.017 ng/mL (0.000-0.055) Glucose (Fingerstick) 217 mg/dL (70-99) 161 mg/dL (70-99) 178 mg/dL (70-99) Test 06/22/18 03:10 06/22/18 07:44 06/22/18 11:32 Sodium Level 137 mmol/L (136-145) Potassium Level 5.1 mmol/L (3.5-5.1) Chloride Level 104 mmol/L (98-107) Carbon Dioxide Level 19 mmol/L (21-32) Anion Gap 14 (6-14) Blood Urea Nitrogen 36 mg/dL (7-20) Creatinine 1.9 mg/dL (0.6-1.0) Estimated GFR (Cockcroft-Gault) 28.7 Glucose Level 142 mg/dL (70-99) Calcium Level 8.4 mg/dL (8.5-10.1) Triglycerides Level 160 mg/dL (0-150) Cholesterol Level 157 mg/dL (0-200) LDL Cholesterol, Calculated 75 mg/dL (0-100) VLDL Cholesterol, Calculated 32 mg/dL (0-40) Non-HDL Cholesterol Calculated 107 mg/dL (0-129) HDL Cholesterol 50 mg/dL (40-60) Cholesterol/HDL Ratio 3.1 Glucose (Fingerstick) 153 mg/dL (70-99) 100 mg/dL (70-99) Physical Exam Musculoskeletal: Osteoarthritis Assessment Assessment IMP MEHRAN WITH CR OF 1.9 AND STABLE CKD STAGE 3 WITH CR NEAR 1.5 DEHYDRATION CHEST PAIN DM II HX OF CROHN'S HX OF OSTOMY HTN-BETTER HYPERKALEMIA-BETTER PLAN ADD NORVASC VOLUME EXPAND WILL FOLLOW LOBO RICHARDS MD Jun 22, 2018 11:52
[2018-06-22 13:06] VITALS: BP 156/78
[2018-06-22] MEDS ORDERED: HYDR-2867 PO (13:08)
[2018-06-22] MEDS ORDERED: PROP40TA PO (13:08)
[2018-06-22] MEDS ORDERED: SUMA25TA3 PO (13:08)
[2018-06-22] MEDS ORDERED: OXYC5TAB4 PO (13:08)
[2018-06-22] MEDS ORDERED: INSU100V13 SQ (13:08)
[2018-06-22] MEDS ORDERED: LEVO200T PO (13:08)
[2018-06-22] MEDS ORDERED: AMLO5TAB10 PO (13:08)
--- NOTE | 2018-06-22 13:10 | DISCH ---
DISCHARGE INSTRUCTIONS Condition on Discharge Condition on Discharge: Stable Activity After Discharge Activity Instructions for Disc: Activity as tolerated Weight Bearing Status after Di: As tolerated Diet after Discharge Diet after Discharge: Diabetic No Calorie Level Diet Texture: Regular Liquid Texture: Thin Liquid Swallowing Supervision: None needed Wound Incision Care Wound/Incision Care: Keep wound/cast CDI Checks after Discharge Checks after discharge: Check blood press - daily, Check blood sugar, ac/hs DC Comment: New BP medicine, Norvasc. Decrease Levemir to 5 units at night Contacting the DRRadha after DC Call your doctor for: Concerns you may have Follow-Up Follow up with: DR. BERRY INSTRUCTED. Treatment/Equipment after DC Adaptive Equipment Issued: None DARIA MOCTEZUMA MD Jun 22, 2018 13:10
--- NOTE | 2018-06-22 14:36 | PDOC3 ---
Discharge Summary Date of Admission: Jun 21, 2018 Date of Discharge: Jun 22, 2018 Follow-Up: Other (1-2 weeks) Admitting Diagnosis comment: Chest pain, shortness of breath FINAL DIAGNOSIS Chest pain- musculoskeletal, Pleural effusion, HTN, Acute on CKD, Anemia, Hypothyroidism, DM2, GERD, Anxiety/Depression/Schizophrenia, Asthma Brief Hospital Course Pt is a 43yo CF admitted for chest pain 1)Chest pain- multiple risk factors. Hasn't had a stress test for several years. Cardiology consulted. Initial evaluation normal; would like to have her f/u with them outpatient. Pain is reproducible in the left chest wall. 2)Pleural effusion- new. ECHO this admission essentially normal 3)HTN- improved with addition of Norvasc 5mg. Pt continued on propranolol 40mg BID and Hydralazine 10mg TID 4)Acute on CKD- Cr slightly worsened. Pt has chronic bouts of hyperkalemia which did occur this admission and resolved with IVF hydration. Renal was following 5)Anemia- stable. Continue iron 6)Possible UTI- urine culture still pending. Will hold off on antibiotics for now until culture returns 7)Hypothyroidism- well controlled, continue levothyroxine 200mcg 8)DM2- BS at home were recently uncontrolled and medications were modified outpatient. BS better controlled in the hospital and did not gotten levemir for 2 days. Did require an additional 3 units day prior to discharge so Lantus was changed from 12 units to 5 units on discharge. Pt was also receiving humalog 10units BID with meals 9)GERD- changed to pantoprazole while in hospital 10)Anxiety/Depression/Schizophrenia- pt continued on Loxapine and Sertraline 11)Asthma CONDITION AT DISCHARGE: Improved, Stable Discharge Medications Current Medications Fentanyl Citrate (Fentanyl 2ml Vial) 25 mcg PRN Q2HR PRN IV PAIN; Start at 14:45; Stop 06/21/18 at 14:44; Status DC Albuterol/ Ipratropium (Duoneb) 3 ml RTQID NEB Last administered on 06/21/18at 11:45; Start 06/20/18 at 16:00; Stop 06/21/18 at 15:59; Status DC Insulin Human Lispro (HumaLOG) 0-5 UNITS TIDWMEALS SQ Last administered on 06/22at 08:36; Start 06/20/18 at 17:30; Stop 06/22/18 at 14:31; Status DC Dextrose (Dextrose 50%-Water Syringe) 12.5 gm PRN Q15MIN PRN IV SEE COMMENTS; Start 06/20/18 at 17:00; Stop 06/22/18 at 14:31; Status DC Insulin Human Lispro (HumaLOG) 10 units BIDWMEALS SQ Last administered on at 08:37; Start 06/20/18 at 17:30; Stop 06/22/18 at 14:31; Status DC Furosemide (Lasix) 20 mg 1X ONCE IVP Last administered on 06/21/18at 08:02; Start 06/21/18 at 07:00; Stop 06/21/18 at 07:01; Status DC Atorvastatin Calcium (Lipitor) 20 mg QHS PO Last administered on 06/21/18at 20: 59; Start 06/21/18 at 21:00; Stop 06/22/18 at 14:31; Status DC Diclofenac Sodium (Voltaren) 1 heraclio QID TP ; Start 06/21/18 at 09:00; Stop at 14:31; Status DC Ferrous Sulfate (Feosol) 325 mg DAILY08 PO Last administered on 06/22/18at 08:16 ; Start 06/21/18 at 08:00; Stop 06/22/18 at 14:31; Status DC Sertraline HCl (Zoloft) 100 mg DAILY PO Last administered on 06/22/18at 08:18; Start 06/21/18 at 09:00; Stop 06/22/18 at 14:31; Status DC Vitamin A/Vitamin D (Vitamin A & D Ointment) 1 heraclio PRN QID PRN TP affected areas; Start 06/21/18 at 07:00; Stop 06/22/18 at 14:31; Status DC Budesonide (Pulmicort) 0.5 mg RTBID NEB Last administered on 06/22/18at 08:59; Start 06/21/18 at 08:00; Stop 06/22/18 at 14:31; Status DC Cetirizine HCl (ZyrTEC) 10 mg DAILY PO Last administered on 06/22/18at 08:17; Start 06/21/18 at 09:00; Stop 06/22/18 at 14:31; Status DC Levothyroxine Sodium (Synthroid) 200 mcg DAILY06 PO Last administered on at 06:03; Start 06/22/18 at 06:00; Stop 06/22/18 at 14:31; Status DC Loxapine Succinate (Loxitane) 10 mg BID PO Last administered on 06/22/18at 08:16 ; Start 06/21/18 at 09:00; Stop 06/22/18 at 14:31; Status DC Montelukast Sodium (Singulair) 10 mg QHS PO Last administered on 06/21/18at 20: 59; Start 06/21/18 at 21:00; Stop 06/22/18 at 14:31; Status DC Nystatin (Mycostatin) 1 heraclio BID TP Last administered on 06/22/18at 08:18; Start 06/21/18 at 09:00; Stop 06/22/18 at 14:31; Status DC Pantoprazole Sodium (Protonix) 40 mg DAILYAC PO Last administered on 06/22/18at 08:16; Start 06/21/18 at 07:30; Stop 06/22/18 at 14:31; Status DC Oxycodone HCl (Roxicodone) 5 mg PRN Q6HRS PRN PO PAIN; Start 06/21/18 at 07:15 ; Stop 06/22/18 at 14:31; Status DC Propranolol HCl (Inderal) 40 mg BID PO Last administered on 06/22/18at 08:15; Start 06/21/18 at 09:00; Stop 06/22/18 at 14:31; Status DC Hydralazine HCl (Apresoline) 10 mg TID PO Last administered on 06/22/18at 13:06 ; Start 06/21/18 at 09:00; Stop 06/22/18 at 14:31; Status DC Sumatriptan Succinate (Imitrex) 50 mg PRN DAILY PRN PO MIGRAINE HEADACHE; Start 06/21/18 at 11:30; Stop 06/22/18 at 14:31; Status DC Amlodipine Besylate (Norvasc) 5 mg DAILY PO Last administered on 06/22/18at 08: 19; Start 06/21/18 at 13:00; Stop 06/22/18 at 14:31; Status DC Amlodipine Besylate (Norvasc) 5 mg DAILY PO ; Start 06/22/18 at 09:00; Stop at 09:00; Status DC Sodium Chloride 1,000 ml @ 100 mls/hr Q10H IV Last administered on 06/22/18at 08:41; Start 06/21/18 at 14:45; Stop 06/22/18 at 14:31; Status DC Insulin Glargine (Lantus) 5 units QHS SQ ; Start 06/22/18 at 21:00; Stop at 21:00; Status DC Active Scripts Active Imitrex (Sumatriptan Succinate) 25 Mg Tablet 50 Mg PO PRN DAILY PRN 10 Days Oxycodone Hcl Immed.release (Oxycodone Hcl) 5 Mg Tablet 5 Mg PO PRN Q6HRS PRN 30 Days Amlodipine Besylate 5 Mg Tablet 5 Mg PO DAILY 30 Days Propranolol Hcl 40 Mg Tablet 40 Mg PO BID 30 Days Hydralazine Hcl 10 Mg Tablet 10 Mg PO TID 30 Days Levemir (Insulin Detemir) 100 Unit/1 Ml Vial 5 Unit SQ QHS 30 Days Synthroid (Levothyroxine Sodium) 200 Mcg Tablet 175 Mcg PO DAILYAC Montelukast Sodium Tablet (Montelukast Sodium) 10 Mg Tablet 10 Mg PO DAILY 7 Days Reported Ferrous Sulfate 325 Mg Tablet 1 Tab PO DAILY Omeprazole 20 Mg Capsule.dr 1 Cap PO BID Flovent 110MCG Hfa (Fluticasone Propionate) 12 Gm Aer.w.adap 2 Puff IH BID Hyoscyamine Sulfate 0.125 Mg Tab.subl 0.125 Mg SL Q6HRS PRN Loxapine (Loxapine Succinate) 10 Mg Capsule 10 Mg PO BID Zoloft (Sertraline Hcl) 50 Mg Tablet 1 Tab PO DAILY Desitin (Zinc Oxide) 57 Gm Cream..g. 57 Gm TP PRN PRN Nephplex Rx Tablet (Vit B Cmplx No3/Fa/C/Biot/Zinc) 1 Each Tablet 1 Each PO DAILY A and D Ointment (Vits A and D/White Pet/Lanolin) 42.5 Gm Oint...g. 42.5 Gm TP PRN Polyethylene Glycol 3350 255 Gm Powder 17 Gm PO DAILY Levocetirizine Dihydrochloride 5 Mg Tablet 1 Tab PO QHS Novolog Flexpen (Insulin Aspart) 100 Unit/1 Ml Insuln.pen 10 Unit SQ TIDWMEALS Capzasin-Hp (Capsaicin) 42.5 Gm Cream..g. 42.5 Gm TP PRN BID Bacitracin 3.5 Gm Oint...g. 1 Heraclio OD BID Lipitor (Atorvastatin Calcium) 20 Mg Tablet 1 Tab PO DAILY Voltaren (Diclofenac Sodium) 100 Gm Gel..gram. 1 Gm TP QID Hydrocortisone Plus 1% Cream (Hydrocortisone/Aloe Vera) 28.4 Gm Cream..g. 1 Applic TP Ketoconazole 15 Gm Cream..g. 1 Heraclio TP BID Nystatin 15 Gm Cream..g. 15 Gm TP BID Vital Signs Vital Signs Date Time Temp Pulse Resp B/P (MAP) Pulse Ox O2 Delivery O2 Flow Rate FiO2 06/22/18 13:06 62 156/78 06/22/18 11:00 98.2 18 99 Room Air 98.2 Labs Laboratory Tests Test 06/20/18 15:50 06/20/18 18:18 06/20/18 20:54 06/21/18 07:47 Urine Collection Type Unknown Urine Color Yellow Urine Clarity Clear Urine pH 6.0 Urine Specific [place] 1.015 Urine Protein >=300 mg/dL (NEG-TRACE) Urine Glucose (UA) Negative mg/dL (NEG) Urine Ketones (Stick) Negative mg/dL (NEG) Urine Blood Negative (NEG) Urine Nitrite Negative (NEG) Urine Bilirubin Negative (NEG) Urine Urobilinogen Dipstick 0.2 mg/dL (0.2 mg/dL) Urine Leukocyte Esterase Small (NEG) Urine RBC 3-5 /HPF (0-2) Urine WBC Tntc /HPF (0-4) Urine Squamous Epithelial Cells Mod /LPF Urine Bacteria Moderate /HPF (0-FEW) Urine Mucus Slight /LPF Glucose (Fingerstick) 113 mg/dL (70-99) 143 mg/dL (70-99) White Blood Count 10.2 x10^3/uL (4.0-11.0) Red Blood Count 3.54 x10^6/uL (3.50-5.40) Hemoglobin 8.8 g/dL (12.0-15.5) Hematocrit 27.7 % (36.0-47.0) Mean Corpuscular Volume 78 fL (79-100) Mean Corpuscular Hemoglobin 25 pg (25-35) Mean Corpuscular Hemoglobin Concent 32 g/dL (31-37) Red Cell Distribution Width 18.3 % (11.5-14.5) Platelet Count 535 x10^3/uL (140-400) Neutrophils (%) (Auto) 66 % (31-73) Lymphocytes (%) (Auto) 21 % (24-48) Monocytes (%) (Auto) 8 % (0-9) Eosinophils (%) (Auto) 4 % (0-3) Basophils (%) (Auto) 1 % (0-3) Neutrophils # (Auto) 6.7 x10^3uL (1.8-7.7) Lymphocytes # (Auto) 2.2 x10^3/uL (1.0-4.8) Monocytes # (Auto) 0.8 x10^3/uL (0.0-1.1) Eosinophils # (Auto) 0.4 x10^3/uL (0.0-0.7) Basophils # (Auto) 0.1 x10^3/uL (0.0-0.2) Sodium Level 136 mmol/L (136-145) Potassium Level 5.7 mmol/L (3.5-5.1) Chloride Level 105 mmol/L (98-107) Carbon Dioxide Level 21 mmol/L (21-32) Anion Gap 10 (6-14) Blood Urea Nitrogen 34 mg/dL (7-20) Creatinine 1.9 mg/dL (0.6-1.0) Estimated GFR (Cockcroft-Gault) 28.7 Glucose Level 139 mg/dL (70-99) Calcium Level 8.4 mg/dL (8.5-10.1) Troponin I Quantitative < 0.017 ng/mL (0.000-0.055) Test 06/21/18 07:59 06/21/18 10:50 06/21/18 13:45 06/21/18 15:10 Glucose (Fingerstick) 135 mg/dL (70-99) 125 mg/dL (70-99) 217 mg/dL (70-99) Troponin I Quantitative < 0.017 ng/mL (0.000-0.055) Test 06/21/18 16:48 06/21/18 22:41 06/22/18 03:10 06/22/18 07:44 Glucose (Fingerstick) 161 mg/dL (70-99) 178 mg/dL (70-99) 153 mg/dL (70-99) Sodium Level 137 mmol/L (136-145) Potassium Level 5.1 mmol/L (3.5-5.1) Chloride Level 104 mmol/L (98-107) Carbon Dioxide Level 19 mmol/L (21-32) Anion Gap 14 (6-14) Blood Urea Nitrogen 36 mg/dL (7-20) Creatinine 1.9 mg/dL (0.6-1.0) Estimated GFR (Cockcroft-Gault) 28.7 Glucose Level 142 mg/dL (70-99) Calcium Level 8.4 mg/dL (8.5-10.1) Triglycerides Level 160 mg/dL (0-150) Cholesterol Level 157 mg/dL (0-200) LDL Cholesterol, Calculated 75 mg/dL (0-100) VLDL Cholesterol, Calculated 32 mg/dL (0-40) Non-HDL Cholesterol Calculated 107 mg/dL (0-129) HDL Cholesterol 50 mg/dL (40-60) Cholesterol/HDL Ratio 3.1 Test 06/22/18 11:32 Glucose (Fingerstick) 100 mg/dL (70-99) Laboratory Tests Test 06/21/18 15:10 06/21/18 16:48 06/21/18 22:41 06/22/18 03:10 Glucose (Fingerstick) 217 mg/dL (70-99) 161 mg/dL (70-99) 178 mg/dL (70-99) Sodium Level 137 mmol/L (136-145) Potassium Level 5.1 mmol/L (3.5-5.1) Chloride Level 104 mmol/L (98-107) Carbon Dioxide Level 19 mmol/L (21-32) Anion Gap 14 (6-14) Blood Urea Nitrogen 36 mg/dL (7-20) Creatinine 1.9 mg/dL (0.6-1.0) Estimated GFR (Cockcroft-Gault) 28.7 Glucose Level 142 mg/dL (70-99) Calcium Level 8.4 mg/dL (8.5-10.1) Triglycerides Level 160 mg/dL (0-150) Cholesterol Level 157 mg/dL (0-200) LDL Cholesterol, Calculated 75 mg/dL (0-100) VLDL Cholesterol, Calculated 32 mg/dL (0-40) Non-HDL Cholesterol Calculated 107 mg/dL (0-129) HDL Cholesterol 50 mg/dL (40-60) Cholesterol/HDL Ratio 3.1 Test 06/22/18 07:44 06/22/18 11:32 Glucose (Fingerstick) 153 mg/dL (70-99) 100 mg/dL (70-99) Allergies Allergies Coded Allergies Type Severity Reaction Last Updated Verified Penicillins Allergy Severe Anaphylaxis 12/29/15 Yes aspirin Allergy Severe Anaphylaxis 12/29/15 Yes Latex, Natural Rubber Allergy Intermediate Rash 12/30/15 Yes latex Allergy Intermediate Rash 12/29/15 Yes piperacillin Allergy Intermediate Rash 12/29/15 Yes tazobactam Allergy Intermediate Rash 12/29/15 Yes tizanidine Allergy Intermediate Itching 12/29/15 Yes acetaminophen Adverse Reaction Intermediate elevated liver enzymes 01/01/16 Yes Uncoded Allergies Type Severity Reaction Last Updated Verified PLASTIC Allergy Intermediate Rash 10/27/15 Disposition/Orders: D/C to Home DARIA MOCTEZUMA MD Jun 22, 2018 14:36
[2018-06-22] MEDS ORDERED: INSULIN GLARGINE 300 UNITS/3 ML INSULN.PEN. SQ SCH (21:00)
== END 2018-06-22 14:31 | disposition home or self-care (01) | DRG 682 ==
LOC: ER 10:02 → 2 SOUTH 13:20
PROVIDERS: ADMIT Family Medicine; ATTEND Family Medicine
DX: N17.9 Acute kidney failure, unspecified (principal); E43 Unspecified severe protein-calorie malnutrition; J90 Pleural effusion, not elsewhere classified; K50.90 Crohn's disease, unspecified, without complications; N18.4 Chronic kidney disease, stage 4 (severe); M19.90 Unspecified osteoarthritis, unspecified site; K21.9 Gastro-esophageal reflux disease without esophagitis; F31.9 Bipolar disorder, unspecified; E78.5 Hyperlipidemia, unspecified; D63.8 Anemia in other chronic diseases classified elsewhere; J45.909 Unspecified asthma, uncomplicated; M81.0 Age-related osteoporosis without current pathological fracture; Z96.659 Presence of unspecified artificial knee joint; Z96.642 Presence of left artificial hip joint; F41.9 Anxiety disorder, unspecified; E86.0 Dehydration; E87.5 Hyperkalemia; E89.0 Postprocedural hypothyroidism; F20.9 Schizophrenia, unspecified; I12.9 Hypertensive chronic kidney disease with stage 1 through stage 4 chronic kidney disease, or unspecified chronic kidney disease; E11.22 Type 2 diabetes mellitus with diabetic chronic kidney disease; Z79.899 Other long term (current) drug therapy; Z88.6 Allergy status to analgesic agent; Z91.040 Latex allergy status; Z88.0 Allergy status to penicillin; Z88.8 Allergy status to other drugs, medicaments and biological substances; Z91.048 Other nonmedicinal substance allergy status; Z86.74 Personal history of sudden cardiac arrest; Z90.49 Acquired absence of other specified parts of digestive tract; Z87.891 Personal history of nicotine dependence; Z93.3 Colostomy status; Z85.850 Personal history of malignant neoplasm of thyroid; Z82.49 Family history of ischemic heart disease and other diseases of the circulatory system
CPT/HCPCS: 36415; 71046; 80048; 80053; 80061; 81001; 82962; 83880; 84484; 85025; 87086; 93005; 93306; 94640; 94760; 96374; J1815; J1940; J7030; J7620; J7626; 99285-25

== ENCOUNTER → 2018-07-11 | Outpatient (CLI) | payer MEDICARE, OTHER ==
[2018-06-22 13:06] VITALS: BP 156/78
[~2018-07-11] MED LIST changes: +AMLO5TAB10 PO; +HYDR-2867 PO; +OXYC5TAB4 PO; +PROP40TA PO; +SUMA25TA3 PO
--- NOTE | 2018-07-11 14:12 | RAD ---
DATE: 07/11/2018 EXAM: MAMMO SHELIA SCREENING BILATERAL HISTORY: Routine screening COMPARISON: 04/28/2017 This study was interpreted with the benefit of Computerized Aided Detection (CAD). Breast Density: SCATTERED The breast parenchyma shows scattered fibroglandular densities. Breast parenchyma level B. FINDINGS: 2-D and 3-D tomosynthesis imaging was performed in CC and MLO projections. No new or enlarging breast densities are seen. Numerous benign type calcifications are present. No suspicious microcalcifications have developed. IMPRESSION: Stable mammograms without evidence of malignancy. BI-RADS CATEGORY: 2 BENIGN FINDING(S) RECOMMENDED FOLLOW-UP: 12M 12 MONTH FOLLOW-UP PQRS compliance statement: Patient information was entered into a reminder system with a target due date for the next mammogram. Mammography is a sensitive method for finding small breast cancers, but it does not detect them all and is not a substitute for careful clinical examination. A negative mammogram does not negate a clinically suspicious finding and should not result in delay in biopsying a clinically suspicious abnormality. "Our facility is accredited by the [employer] Mammography Program."
== END | disposition home or self-care (01) ==
LOC: MAMMO 15:01
PROVIDERS: ATTEND Family Medicine
DX: Z12.31 Encounter for screening mammogram for malignant neoplasm of breast (principal); R92.8 Other abnormal and inconclusive findings on diagnostic imaging of breast
CPT/HCPCS: 77063; 77067

== ENCOUNTER → 2018-10-04 | Outpatient (CLI) | payer MEDICARE, OTHER ==
[~2018-10-04] MED LIST changes: +MONT10TA49 PO; -MONT10TA9 PO
--- NOTE | 2018-10-04 09:38 | RAD ---
MRI Cervical Spine Without Contrast History: Degenerative disc disease Technique: Multiplanar, multi sequential noncontrast MR imaging was performed of the cervical spine. Comparison: June 19, 2013 Findings: Cervical vertebral body stature and AP alignment are within normal limits. There is again mild increased T2 and STIR signal of the cord at C4-5. There is no new expansile cervical cord signal abnormality. There is no significant marrow edema. There is again rudimentary C2-3 intervertebral disc space. There is mild disc desiccation at other levels of the cervical spine as seen previously. There is again diffuse narrowing of the cervical spinal canal on developmental basis. C2-C3: Neural foramina are adequate. There is no additional spinal stenosis, central canal about 9 to 10 mm on developmental basis. C3-C4: There is again buckling of the ligamentum flavum. There is again minimal disc osteophyte complex and bulge, greater in the far right lateral recess. There is again effacement of ventral and dorsal subarachnoid space with contact of the cord, narrowing of the central canal about 5 mm somewhat greater in interval as previously about 7 mm. Left neural foramen is adequate. There is again moderate proximal narrowing of the right neural foramen, uncovertebral degenerative change present. C4-C5: There is again buckling of the ligamentum flavum. There is again disc osteophyte complex and bulge. There is effacement of ventral and dorsal subarachnoid space. There is again impingement upon the cord. Central canal is narrowed to about 4 mm, somewhat increased as previously estimated about 5 mm. There is again right greater than left lateral recess stenosis. There is again facet and uncovertebral degenerative change. There is likely overall moderate neural foramina compromise bilaterally. C5-C6: There is again minimal disc osteophyte complex and bulge. There is buckling of the ligamentum flavum. Central canal is narrowed to about 7 mm, similar degree of narrowing of the far right lateral recess. There is facet degenerative change bilaterally. There is right uncovertebral degenerative change. There is again severe narrowing of the right neural foramen. There is similar minimal narrowing of the left neural foramen. C6-C7: There is buckling of the ligamentum flavum. Central canal is narrowed to about 8 mm, previously about 9 mm. There is facet hypertrophic change. Neural foramina are not significantly narrowed. C7-T1: There is no additional spinal stenosis. There is facet degenerative change. There is mild left uncovertebral degenerative change. There is probable minimal narrowing of the left neural foramen, right neural foramen adequate. Impression: 1. There is again diffuse narrowing of the cervical spinal canal on a developmental basis. There is additional more significant spinal stenosis at C4-5 and C3-4 and to lesser degree at C5-6, minimally at C6-7 as described slightly increased compared with 2014 exam. There is again abnormal, non-expansile signal abnormality of the cord at C4-5 which may be due to myelomalacia or edema. 2. There is again severe narrowing of the right C5-6 neural foramen, moderate narrowing bilaterally at C4-C5 and on the right at C3-4 as described due to facet and uncovertebral degenerative change. Electronically signed by: Shravan Sher MD (10/04/2018 9:35 AM) [email or web address]
== END | disposition home or self-care (01) ==
LOC: MRI 07:48
PROVIDERS: ATTEND Family Medicine
DX: M47.813 Spondylosis without myelopathy or radiculopathy, cervicothoracic region (principal); M48.03 Spinal stenosis, cervicothoracic region; M50.30 Other cervical disc degeneration, unspecified cervical region; M25.78 Osteophyte, vertebrae
CPT/HCPCS: 72141

== ENCOUNTER → 2019-03-16 | Outpatient (CLI) | payer MEDICARE, OTHER ==
[~2019-03-16] MED LIST changes: +ALBU2.5V5 NEB; +CHOL400T6 PO; +IOHEXOL 180 MG/ML 10 ML VIAL. ONE; +LORA10TA55 PO; +METO50TA6 PO; +OMEP-229 PO; -OMEP20CA10 PO; +SIMV40TA18 PO; -SIMV40TA3 PO; +SODI650T PO; +methylPREDNISolone ACETATE 40 MG/ML VIAL. ONE; +methylPREDNISolone ACETATE 80 MG/ML VIAL. ONE
--- NOTE | 2019-03-16 10:30 | PAIN ---
DATE OF SERVICE: 03/16/2019 PROGRESS NOTE FOR PAIN CLINIC DIAGNOSES: Cervical spinal stenosis and cervical degenerative disk disease and cervical radiculopathy. HISTORY OF PRESENT ILLNESS: The patient is a 43-year-old female who returns for followup, last seen in 2016. The patient had undergone injections in the left hip. She since had a total hip replacement on the left side. Reports her main complaint today is pain in the base of the neck and bilateral upper extremities, slightly worse on the right than the left with tingling, numbness into the arm and hands bilaterally. It has been going on since she was 9 years old with pain increasing over the past year or so. The patient reports it awakens her from sleep at night and does affect her ability to walk. She is using a cane in her right hand. Reports the pain is radiating in the base of neck and shoulders, upper extremities into the arms and hands with tingling and numbness, especially on the right side with all the fingers of the right hand. The patient reports it is constant, sharp, tingling, changes during the day, worse with activity, worse with raising her arm, repetitive motions, weightbearing, lifting any items. The patient has had previous physical therapy as well as exercises, neither of which decreased the pain significantly, prolonged period of time did help initially. The patient reports no loss of motor function with significant fatigability, especially in the right upper extremity. The patient rates her disability rating from 0-10, 10 being the worst, as a 7 with family home responsibilities, 2 with recreation, 9 with social activity, 0 with occupational activities, 8 with self-care and 9 with life-support activities. The patient did have MRI scan of the cervical spine showing a comparison from 2014 film and this was dated 10/04/2018. Diffuse narrowing of the cervical spine on developmental basis for additional more significant spinal stenosis at C4-C5, C3-C4, lesser degree at C5-C6 and minimally at C6-C7 as described. Slightly increased compared with 2014 exam, abnormal nonexpansile signal abnormality cord at C4-C5, which may be due to mild malacia or edema, severe narrowing of the right C5-C6 neural foramen, moderate narrowing bilaterally at C4-C5 and on the right C3-C4. PAST MEDICAL HISTORY: Significant for shortness of breath, diabetes, hypertension, thyroid disease, Crohn's disease, gastroesophageal reflux, depression, anxiety, osteoarthritis, degenerative disk disease. PREVIOUS SURGERY: Includes total hip arthroplasty on the left, ileostomy in 2000, thyroidectomy, tonsillectomy and right shoulder surgery with ORIF. FAMILY HISTORY: Significant for no major medical problems or conditions she is aware of. SOCIAL HISTORY: The patient drinks about 6 alcoholic beverages on the weekends, quit smoking many years ago, single, lives locally in [place], [place] with her father. REVIEW OF SYSTEMS: The patient's review of systems is positive for those items mentioned in history of present illness. All systems reviewed and otherwise negative. It is complete, full and well documented on the patient's chart. PHYSICAL EXAMINATION: VITAL SIGNS: The patient's blood pressure is 120/69, pulse 69, respirations 16, temperature 97.9 degrees Fahrenheit, height is 5 feet 5 inches and weight is 191 pounds. GENERAL: The patient is awake, alert, oriented, appropriate, very pleasant demeanor. HEENT: Shows head normocephalic, atraumatic. Extraocular movements are intact and symmetrical. Oral cavity: Mucous membranes moist and pink. Dentition is intact. NECK: Shows anterior throat supple without palpable lymphadenopathy noted. Swallow reflex symmetrical. CHEST: Shows normal on inspection. Breath sounds are clear bilaterally. HEART: Shows S1, S2 clear. ABDOMEN: Shows ileostomy with ileostomy bag attached. Abdomen is soft, nontender, nondistended. BACK: Shows spine grossly in the midline. Slight exaggeration of thoracic kyphosis, some minor flattening of lumbar lordotic curvature. Cervical lordotic curvature is maintained as well. Cervical paraspinous muscle shows symmetrical on inspection, on palpation shows some moderate tenderness diffusely throughout the upper, middle and lower distribution of paraspinous musculature bilaterally without significant radiation. The patient shows good rotational motion with some moderate tenderness with extension, but not with forward flexion, right and left lateral rotation shows some mild tenderness as well in the inferior aspect of the cervical paraspinous muscles, also some radiation into the upper superior and medial trapezius musculature bilaterally, but without trigger points on palpation and without radiation on palpation. EXTREMITIES: The patient's upper extremities show deep tendon reflexes at 2+ in the biceps, triceps tendons. Motor exam is approximately 4 on a scale of 5, but symmetrical with steamboat inspector strength, biceps and triceps flexion is 4/5 and equal as well. Peripheral pulses are 2+ radial. No peripheral edema is noted bilaterally. The patient has had some scarring over the right shoulder as well as on the right hand. Options were discussed with the patient. The patient's old chart was reviewed as her current medication regimen updated. Current review of systems updated today as well. We will proceed with a cervical epidural steroid injection today with fluoroscopic guidance. Risks were again discussed including, but not limited to bleeding, infection, possibility of epidural hematoma, subsequent neurological compromise, dural puncture, headaches, spinal cord and/or nerve damage, side effects of steroid medication and poor results regarding pain control. The patient understands and wished to proceed. The patient will return to clinic in approximately 2 weeks for followup. She was counseled on return appointment, activity level and side effects to be aware of. DIAGNOSES: Cervical radiculopathy with cervical degenerative disk disease and cervical spinal stenosis. PROCEDURE: Cervical epidural steroid injection, translaminar approach C6-C7 level using C-arm fluoroscopic guidance under sterile prep and drape using local anesthetic. MEDICATION INJECTED: A total of 120 mg Depo-Medrol plus 5 mL of preservative-free normal saline and 2 mL of contrast. CONDITION AT DISCHARGE: Stable. The patient tolerated the procedure well, had no complications. YONIS MATHEW MD DR: TRAVON/juliet JOB#: [id number] / [id number]
== END ==
LOC: PNCL 09:07
PROVIDERS: ATTEND Anesthesiology
DX: M50.123 Cervical disc disorder at C6-C7 level with radiculopathy (principal); E11.9 Type 2 diabetes mellitus without complications; I10 Essential (primary) hypertension; K50.90 Crohn's disease, unspecified, without complications; K21.9 Gastro-esophageal reflux disease without esophagitis; F32.9 Major depressive disorder, single episode, unspecified; F41.9 Anxiety disorder, unspecified; E89.0 Postprocedural hypothyroidism; Z87.39 Personal history of other diseases of the musculoskeletal system and connective tissue; Z72.89 Other problems related to lifestyle; Z79.84 Long term (current) use of oral hypoglycemic drugs
CPT/HCPCS: 62321; J1030; J1040; Q9965

== ENCOUNTER → 2019-04-17 | Outpatient (CLI) | payer MEDICARE, OTHER ==
[~2019-04-17] MED LIST changes: -IOHEXOL 180 MG/ML 10 ML VIAL. ONE; -OMEP-229 PO; +OMEP20CA16 PO; -methylPREDNISolone ACETATE 40 MG/ML VIAL. ONE; -methylPREDNISolone ACETATE 80 MG/ML VIAL. ONE
--- NOTE | 2019-04-18 00:54 | PAIN ---
DATE OF SERVICE: 04/17/2019 PROGRESS NOTE FOR PAIN CLINIC DIAGNOSES: Cervical radiculopathy with cervical spinal stenosis and cervical degenerative disk disease. HISTORY OF PRESENT ILLNESS: The patient is a 43-year-old female who returns for followup status post cervical epidural steroid injection x 1. The patient reports 100% improvement initially for the first 2 weeks. Now, the pain has returned to about 50% level, but still doing very well. The patient has increased activity with greater ease and comfort, doing household activities, walking with greater ease, sleeping better at night. The patient reports no new motor or sensory deficits, no new changes in the upper extremities. Still some pain in the base of the neck and shoulders, right essentially equal to left at this time. The patient reports it is 7 on a scale of 10 at its worst over the past week, 4 at its least, 6 on average, is a 4 today. The patient reports it is aching, sharp, stabbing at times, can be constant with repetitive motion or repetitive lifting or reaching above her head with her arms, but for the most part doing much better and is quite happy with her level of pain relief at this time. The patient reports no new changes. PHYSICAL EXAMINATION: VITAL SIGNS: The patient's blood pressure 146/87, pulse 87, respirations are 18, temperature 97.9 degrees Fahrenheit, weight is 190 pounds. GENERAL: The patient is awake, alert, oriented, appropriate, very pleasant demeanor. HEENT: Shows normocephalic, atraumatic. Extraocular movements are intact and symmetrical. Oral cavity: Mucous membranes moist and pink. Dentition is intact. NECK: Shows anterior throat supple without palpable lymphadenopathy noted. Swallow reflex symmetrical. CHEST: Shows normal on inspection. Breath sounds are clear bilaterally. HEART: Shows S1, S2 clear. No murmurs auscultated. ABDOMEN: Soft, nontender, nondistended. BACK: Shows spine grossly in the midline. Cervical paraspinous muscle shows symmetrical on inspection, on palpation shows some moderate tenderness diffusely bilaterally going diffusely without significant radiation. The patient shows good rotational motion of the cervical spine with some minor guarding with extension, but not with right or left lateral rotation past 45 degrees and with full forward flexion without difficulty as well. EXTREMITIES: The patient's upper extremities show deep tendon reflexes 2+ in the biceps, triceps tendons. 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 Peripheral pulses are 2+. No peripheral edema bilaterally. Options were discussed with the patient. The patient's old chart was reviewed as her current medication regimen updated. Current review of systems updated today as well. We will proceed with holding any further injections at this time. The patient is encouraged to increase her activity as tolerated. If pain begins to return, she will follow up at this time on an as-needed basis. YONIS MATHEW MD DR: TRAVON/juliet JOB#: [id number] / [id number]
== END | disposition home or self-care (01) ==
LOC: PNCL 11:19
PROVIDERS: ATTEND Anesthesiology
DX: M50.10 Cervical disc disorder with radiculopathy, unspecified cervical region (principal); M48.02 Spinal stenosis, cervical region
CPT/HCPCS: G0463